=== PATIENT | female | born 1955 | race Caucasian/White ===

== ENCOUNTER → 2024-01-23 12:23 | Outpatient (REF) | payer MEDICARE, OTHER, SELFPAY | LOC: HWCARD 12:23 | PROVIDERS: ATTENDING PHYSICIAN Registered Nurse | DX: R94.31 Abnormal electrocardiogram [ECG] [EKG] (principal); Z79.899 Other long term (current) drug therapy | CPT/HCPCS: 93005 ==

== ENCOUNTER 2025-01-29 16:30 | Inpatient (IN) | payer MEDICARE, OTHER, SELFPAY ==
[2025-01-29] VITALS (16 sets, daily range): BP systolic 80–136; BP diastolic 48–108; BMI 28.3
[2025-01-29 13:53] LABS: Urine Albumin 3+ (Neg - Trace); Urine Bilirubin Negative (Negative); Urine Character Slightly Cloudy (Clear); Urine Color Yellow; Urine Glucose Negative (Negative); Urine Ketone Negative (Negative); Urine Leukocyte 3+ (Negative); Urine Nitrite Negative (Negative); Urine Occult Blood 3+ (Negative); Urine Urobilinogen Negative (Neg - 1+)
[2025-01-29 13:59] LABS: ALT (SGPT) 13 U/L (0-35); AST (SGOT) 18 U/L (14-36); Albumin 3.9 g/dl (3.5-5.0); Alkaline Phosphatase 108 U/L (38-126); Blood Urea Nitrogen 48 mg/dl (7-17); Calcium 10.8 mg/dl (8.4-10.2); Carbon Dioxide 19 mmol/L (22-30); Chloride 105 mmol/L (98-107); Estimated Creatinine Clearance 23 ml/min; Glucose 240 mg/dl (70-99); Potassium 4.3 mmol/L (3.5-5.1); Sodium 142 mmol/L (135-145); Total Bilirubin 0.8 mg/dl (0.2-1.3); Total Protein 7.2 g/dl (6.3-8.2); eGFR 22.31
[2025-01-29 14:01] LABS: Hematocrit 35.8 % (37.0-47.0); Hemoglobin 11.7 g/dL (12.0-16.0); Mean Corp Hgb Conc. 32.7 g/dL (33.0-37.0); Mean Corpuscular Hgb 31.5 pg (27.0-31.0); Mean Corpuscular Volume 96.2 fL (81.0-99.0); Mean Platelet Volume 9.7 fL (7.4-10.4); Platelet Count 244 10^3/uL (130-400); Red Blood Cell Count 3.72 10^6/uL (4.20-5.40); White Blood Cell Count 15.8 10^3/uL (4.8-10.8)
--- NOTE | 2025-01-29 14:08 | ED.GENMED ---
History of Present Illness
General
Chief Complaint: Change in Mental Status
Time Seen by Provider: 01/29/25 13:49
History of Present Illness
History of Present Illness:
69-year-old female with history of hypertension, TIA, bipolar and schizoaffective disorder, hypertension presenting to the emergency department for change in mental status. Patient has held nursing care, reportedly more lethargic and incontinent,
noted to be disoriented. Patient on arrival denies acute complaints. Denies chest pain, difficulty breathing, abdominal pain. Patient arrives with a fever, no known sick contacts. No additional symptoms obtained at this time
Past History
Past History
ED Past Medical History: COPD, HTN, Hypercholesterolemia, NIDDM, Renal failure (acute), Hypothyroidism, Other (bipolar, colitis, rhabdomyolysis, Vertigo,) and Other (vertigo); Negative IDDM
ED Past Surgical History: None
Social History
Tobacco: Former smoker
Alcohol: None
Drug: None
Personal: Single
Living: alone
Employment: Not employed
Family History
Family History: CAD
Phy Exam
Physical Exam
Physical Exam:
General: Well-appearing, no clinical signs of dehydration, nontoxic and in no acute distress
HEENT: protecting airway
Neck: appears supple
CV: Tachycardic, regular rhythm, no evidence of cyanosis
Resp: No accessory muscle use, no increased work of breathing, lungs clear to auscultation bilaterally
Abd: Soft and non-distended, no tenderness to palpation
Extremities: No deformities, no swelling, no erythema, pulses and sensation intact
Neuro: alert, disoriented to time
: deferred
Rectal: deferred
Psych: Normal affect
Skin: Intact
Sepsis
Sepsis Screening
Sepsis Assessment: Sepsis
Sepsis Screening: ARF-Creatinine >2.0
Sepsis Screen
Sepsis Screen: Sepsis
Date: 01/29/25
Time: 15:32
Course
Orders/Labs/Results
Orders:
Orders
01/29/25 13:24
Electrocardiogram (*1) Urgent
Reason for Study: Other
Other Reason for Exam: Possible Sepsis
Cardiac Monitoring- Treatment ONCE
IV Insert/Care/Rem.- Treatment PRN
Straight cath- Treatment ONCE
O2 Therapy [RESP] Urgent
Titrate/Wean O2 to maintain O2 sat greater than (%): 93
Special Instructions: TO MAINTAIN CONTINUOUS O2 SATS > OR = 93%
Pulse Ox/cont/shift [RESP] Urgent
Quantity: 1
Special Instructions: CONTINUOUS
01/29/25 13:25
EKG- Treatment ONCE
CR Chest - 2 Views Urgent
Comment:
Reason For Exam: suspected infection
01/29/25 13:27
Complete Blood Count/With Diff Urgent
Comprehensive Metabolic Panel Urgent
Lactic Acid Q4H
Comment: ON ICE, CANCEL 2ND ORDER IF FIRST LACTIC ACID LEVEL <2
Urinalysis Reflex To Culture Urgent
Date Specimen was Collected: 01/29/25
Time Specimen was Collected: 13:25
Urine Microscopic Reflex Cult Urgent
Urine Culture Urgent
FRANCISCA Source: U
Specimen Description:
Date Specimen was Collected: 01/29/25
Time Specimen was Collected: 13:25
01/29/25 13:28
Blood Culture Q20M
FRANCISCA Source: Blood/Venous
Specimen Description:
Comment: Urgent from separate sites. If patient screens positive for possible sepsis
01/29/25 14:08
Acetaminophen [Tylenol] 1,000 mg PO NOW STA
01/29/25 14:27
Acetaminophen [Tylenol] 1,000 mg PO NOW STA
01/29/25 14:31
Acetaminophen [Tylenol/Feverall] 650 mg .ROUTE .STK-MED ONE
01/29/25 14:32
Acetaminophen [Tylenol/Feverall] 650 mg RECTAL NOW STA
01/29/25 15:18
COVID-19 Antigen Urgent
Source: Nasal Swab
Blood Culture Q20M
FRANCISCA Source: Blood/Venous
Specimen Description:
Comment: Urgent from separate sites. If patient screens positive for possible sepsis
Influenza A+B Rapid Molecular Urgent
FRANCISCA Source: Nasal Swab
Specimen Description:
01/29/25 15:30
Cefepime HCl [Maxipime] 2,000 mg IV NOW STA
01/29/25 17:30
Lactic Acid Q4H
Comment: ON ICE, CANCEL 2ND ORDER IF FIRST LACTIC ACID LEVEL <2
Abnormal Lab Results
01/29/25
13:27
WBC 15.8 H 10^3/uL
(4.8-10.8)
RBC 3.72 L 10^6/uL
(4.20-5.40)
Hgb 11.7 L g/dL
(12.0-16.0)
Hct 35.8 L %
(37.0-47.0)
MCH 31.5 H pg
(27.0-31.0)
MCHC 32.7 L g/dL
(33.0-37.0)
RDW 15.0 H %
(11.5-14.5)
Abs Immat Gran (auto) 0.3 H 10^3/uL
(0-0.05)
Absolute Neuts (auto) 12.9 H 10^3/uL
(1.4-6.5)
Absolute Lymphs (auto) 1.1 L 10^3/uL
(1.2-3.4)
Absolute Monos (auto) 1.4 H 10^3/uL
(0.1-0.6)
Immature Gran % 1.6 H %
(0-0.5)
Neutrophils % 81.7 H %
(42.2-75.2)
Lymphocytes % 7.2 L %
(20.5-51.1)
Carbon Dioxide 19 L mmol/L
(22-30)
BUN 48 H mg/dl
(7-17)
Creatinine 2.3 H mg/dL
(0.6-1.0)
Glucose 240 H mg/dl
(70-99)
Calcium 10.8 H mg/dl
(8.4-10.2)
Ur Occult Blood Reflex 3+ A
(Negative)
Leukocyte Esterase Rfl 3+ A
(Negative)
Urine RBC 26-30 A /HPF
(0-2)
Urine WBC (Reflex) 80-90 A /HPF
(0-5)
Urine Bacteria (Reflex) Many A
(Negative)
Urine Albumin (Reflex) 3+ A
(Neg - Trace)
01/29/25 13:27
01/29/25 13:27
Vital Signs
Initial and Last Documented VS:
Initial Vital Signs
Temp Pulse Resp BP
98.1 F 102 20 80/65
01/29/25 12:56 01/29/25 12:56 01/29/25 12:56 01/29/25 12:56
Last Documented Vital Signs
Temp Pulse Resp BP Pulse Ox
101.3 F H 97 18 117/70 97
01/29/25 13:42 01/29/25 14:00 01/29/25 14:00 01/29/25 14:00 01/29/25 13:30
MDM/Problems Addressed
MDM/Problems Addressed:
69-year-old female with history of TIA, hypertension, bipolar disorder, schizophrenia presenting for change in mental status and incontinence. Vital signs in arrival significant for hypertension, fever, tachycardia.
On exam patient is resting comfortably, no acute distress. Patient currently denying acute medical complaints. Vital signs however concerning for infection, meeting SIRS criteria. Suspected source at this time is urine given report of
incontinence. Plan for laboratory analysis, cultures, urinalysis. Will administer Tylenol and start IV fluids.
15:00 - Patient with leukocytosis, normal lactic acid. Acute on chronic kidney injury. Blood pressure is appropriately improved with IV fluids. Given kidney injury, meeting criteria for severe sepsis. Will continue fluids as indicated. Urine
does show some element of infection, pending chest x-ray and viral swabs.
15:30 -chest x-ray without significant sign pneumonia. At this time ultimately suspect sepsis from urinary source. Will start antibiotics and plan for admission
*EKG
Interpreted by ED Provider?: Yes
EKG Intrepretation Date: 01/29/25
EKG Intrepretation Time: 14:55
Interpretation: normal
Comparison EKG: no changes
Heart Rate: 99
Rate: normal
Rhythm: sinus
[place]: normal axis
Interval: normal interval
QRS Pattern: normal QRS
Ischemia: no ischemia
*Critical Care Note
Total Time (30-74mins, 75-104mins- exclusive of procedures): Not Applicable
ED Attending Note
-
Portions of this chart may have been created with voice recognition software.� Occasional wrong word or��sound alike� substitutions may have occurred due to the inherent limitations of voice recognition software.
Discharge Plan
Departure
Prescriptions:
No Action
simvastatin 40 MG tablet
40 mg PO HS
glipizide 2.5 MG tablet extended release 24hr
2.5 mg PO DAILY
trazodone 100 MG tablet
150 mg PO HS
levothyroxine 88 MCG tablet
88 mcg PO DAILY
mirtazapine 30 MG tablet
30 mg PO HS
lisinopril 10 MG tablet
10 mg PO DAILY
clozapine [Clozaril] 200 MG tablet
400 mg PO HS
melatonin 10 MG tablet
10 mg PO HS
polyethylene glycol 3350 17 GRAMS powder in packet
17 grams PO DAILY Qty: 5 0RF
Divalproex Delayed Rel. 12 Hr
500 mg PO HS
Divalproex Delayed Rel. 12 Hr
250 mg PO AMHS
Vitamin D
1,000 unit PO DAILY
sulfamethoxazole-trimethoprim 1 TABLET tablet
1 tab PO BID 3 Days 0RF
sulfamethoxazole-trimethoprim [Bactrim DS] 800-160 mg tablet
1 tab PO BID Qty: 14 0RF
Referrals:
UNKNOWN - PT DOES,NOT KNOW [Family Provider] -
Interventions
Interventions:
*Risk Screen - Suicide Last Done: 01/29/25 13:06
*General Assessment Last Done: 01/29/25 13:03
*Neglect/Abuse Screening Last Done: 01/29/25 13:06
*ED- Fall Risk Assessment Last Done: 01/29/25 13:06
*ED COVID-19 Vaccine History Last Done: 01/29/25 13:06
ED- Neurological Assessment Last Done: 01/29/25 13:08
Discharge Date and Time
Print Language: YAKUT
[2025-01-29 14:26] LABS: % Basophils 0.5 % (0-2); % Eosinophils 0.1 % (0-6); % Immature Granulocytes 1.6 % (0-0.5); % Lymphocytes 7.2 % (20.5-51.1); % Monocytes 8.9 % (1.7-9.3); % Neutrophils 81.7 % (42.2-75.2); Absolute Basophils 0.1 10^3/uL (0-0.2); Absolute Immature Granulocytes 0.3 10^3/uL (0-0.05); Absolute Lymphocytes 1.1 10^3/uL (1.2-3.4); Absolute Monocytes 1.4 10^3/uL (0.1-0.6); Absolute Neutrophils 12.9 10^3/uL (1.4-6.5); Nucleated Red Blood Cells % 0 %
[2025-01-29] MEDS: TYLENOL/FEVERALL 650 MG RECTAL (14:33)
[2025-01-29 14:55] LABS: Urine Squamous Cell 0-2 /LPF (Few)
[2025-01-29 14:59] LABS: Urine Bacteria Many (Negative); Urine Red Blood Cell 26-30 /HPF (0-2); Urine White Cell 80-90 /HPF (0-5)
--- NOTE | 2025-01-29 15:39 | HPS.HSE ---
Family Physician
-
Family Physician: NOT KNOW UNKNOWN - PT DOES
Chief Complaint
-
Change in mental status
History of Present Illness
Patient is a 69 y/o female past medical history of bipolar disorder, diabetes mellitus, hypertension and chronic kidney disease who presents with a change in mental status. At present time patient is confused and unable to provide any history.
Patient was found lying on the cough by her visiting nurse who noted patient had been incontinent which is not patient's norm. EMS was called and patient was brought to the emergency department where she was found to have a fever of 101.3F.
Patient denies any complaints at the present time.
Medical History
Past Medical History
Past Medical History: Reports Other
Additional Past Medical History:
Diabetes Mellitus, Type II
Essential Hypertension
Hyperlipidemia
CKD Stage III
Bipolar Disorder
Hypothyroidism
Past Surgical History: Reports None
Social History
Tobacco: Former Smoker
Living: Alone
Family History
Family History: Unable to Obtain
Allergies / Home Medications
Allergies reflects when Allergies were last updated in [email or web address].
Home Medications with original date entered in [email or web address]
Allergy/Medication List:
Allergies
Allergy/AdvReac Type Severity Reaction Status Date / Time
carbamazepine [From Tegretol] Allergy Rash Verified 04/25/23 12:39
minocycline HCl Allergy Unknown Verified 04/25/23 12:39
[From Minocin]
Skin Cleanser Combination Allergy Unknown Verified 04/25/23 12:39
No.4
[From Minocin]
thiothixene [From Navane] Allergy Unknown Verified 04/25/23 12:39
Home Medications
glipizide 2.5 mg tablet, extended release 24 hr 2.5 mg PO DAILY Diabetes 12/27/19
simvastatin 40 mg tablet 40 mg PO HS High cholesterol 12/27/19
levothyroxine 88 mcg tablet 88 mcg PO DAILY Thyroid 06/03/20
aspirin 81 mg tablet,delayed release 81 mg PO DAILY 01/29/25
cholecalciferol (vitamin D3) 25 mcg (1,000 unit) tablet (Vitamin D3) 25 mcg PO DAILY 01/29/25
clozapine 100 mg tablet 300 mg PO HS 01/29/25
divalproex 500 mg tablet,extended release 24 hr 1,000 mg PO DAILY 01/29/25
docusate sodium 100 mg capsule (Colace) 200 mg PO BID 01/29/25
famotidine 20 mg tablet (Pepcid) 20 mg PO BID 01/29/25
losartan 50 mg tablet 50 mg PO DAILY 01/29/25
melatonin 3 mg tablet 3 mg PO HS 01/29/25
oxybutynin chloride 5 mg tablet 5 mg PO QPM 01/29/25
quetiapine 25 mg tablet (Seroquel) 25 mg PO DAILY 01/29/25
quetiapine 50 mg tablet (Seroquel) 50 mg PO HS 01/29/25
sennosides 8.6 mg-docusate sodium 50 mg tablet (Senna-S) 2 tab-cap PO BID 01/29/25
Review of Systems
-
Unable to obtain full review of systems at this time due to: Other (Confusion)
Physical Exam
Vital Signs
Vital Signs
Temp Pulse Resp BP Pulse Ox
101.3 F H 97 18 117/70 97
01/29/25 13:42 01/29/25 14:00 01/29/25 14:00 01/29/25 14:00 01/29/25 13:30
Physical Exam
General: Comfortable and Conversant
HEENT: Anicteric and Moist mucous membranes
Respiratory: Clear and Non Labored Respirations
Cardiac: S1/S2 and Regular Rhythm
GI: Soft and Tender (Suprapubic region)
Musculoskeletal: No Clubbing, No Cyanosis and No Edema
Skin: Warm and Dry
Neuro: Awake, Alert, Nonfocal/grossly intact and Other
Psych: Confused
Laboratory Results
-
01/29/25 13:27
01/29/25 13:27
Laboratory Results
Lactic Acid 2.0 mmol/L (0.7-2.0) 01/29/25 13:27
Total Bilirubin 0.8 mg/dl (0.2-1.3) 01/29/25 13:27
AST 18 U/L (14-36) 01/29/25 13:27
ALT 13 U/L (0-35) 01/29/25 13:27
Alkaline Phosphatase 108 U/L (38-126) 01/29/25 13:27
Data Reviewed
-
Lab Data: Labs Reviewed by me
Old Records: Reviewed
Impression/Plan
-
Severe Sepsis secondary to Urinary Tract Infection
-Reviewed prior culture data with ESBL Klebsiella
-Continue Zosyn based on prior cultures
-Await urine culture and blood cultures
Acute Kidney Injury on CKD III
-Check Renal Ultrasound
-Hold losartan
-Continue IVFs
-Recheck labs in AM
Diabetes Mellitus, Type II
-Hold Glipizide
-Check HgbA1c
-Monitor sugars and continue coverage insulin
Essential Hypertension
-Losartan on hold due to JANELLE
-Monitor blood pressure
Hyperlipidemia
-Continue simvastatin
Bipolar Disorder
-Continue clozapine, divalproex, and Seroquel
Hypothyroidism
-Continue levothyroxine
Overactive Bladder
-Hold oxybutynin in setting of UTI
DVT proph: SC Heparin
Code Status: Full Code
--- NOTE | 2025-01-29 15:44 | W.PN.UPDATE ---
Update Note
Progress Note Update
I saw and examined the patient.
The VICTORINO Harrington's note was reviewed and I agree with the note.
Comment: 69 y/o F, hx of HTN, HLD, hx of UTIs, DM, hypothyroidism, Bipolar disorder/schizoaffective disorder, presenting to ER for change in mental status. Noted to be lethargic, disoriented, and incontinent. No other complaints. Arrived in ER
febrile and later met sepsis criteria with abnormal UA and JANELLE. IVF and IV Abx started, patient admitted.
Physical Exam:
General: Well-appearing, no clinical signs of dehydration, nontoxic and in no acute distress
HEENT: protecting airway, + hirsutism
Neck: appears supple
CV: Tachycardic, regular rhythm, no evidence of cyanosis
Resp: No accessory muscle use, no increased work of breathing, lungs clear to auscultation bilaterally
Abd: Soft and non-distended, no tenderness to palpation
Extremities: No deformities, no swelling, no erythema, pulses and sensation intact
Neuro: alert, disoriented to time
: deferred
Rectal: deferred
Psych: Normal affect
Skin: Intact
Assessment:
Severe sepsis (fever, leukocytosis, tachycardia, JANELLE) present on arrival
- likely source UTI
- hx of ESBL noted 5 years ago
- start empiric Zosyn, day 1
- follow urine and blood cultures
- sepsis protocol IVF
JANELLE (on CKD stage 3b) in setting of sepsis
- hold nephrotoxins
- continue IVF
- bladder scans
Essential HTN
- hold Losartan
HLD - statin
type 2 DM
- hold Glipizide
- SSI
- Accu-checks
- A1c
hypothyroidism
- continue replacement
Bipolar disorder/schizoaffective disorder
- continue Clozapine/Depakote/Seroquel
hirsutism
DVT ppx: SC Heparin
Code: Full
[2025-01-29 15:50] LABS: COVID-19 Antigen Negative (Negative)
[2025-01-29] MEDS: NSS 1000 IV (15:58)
[2025-01-29] MEDS: MAXIPIME 2000 MG IV (15:59)
--- NOTE | 2025-01-29 21:12 | PTCARENOTE ---
Rn Flow cosmetologist- Patient states that she has a home health aid. Patient is not sure of phone number. Attempted to call her brother for the number of her caregiver, no answer.
[2025-01-30] VITALS (23 sets, daily range): BP systolic 79–158; BP diastolic 51–138; PULSE 95–103; O2SAT 99; BMI 27.3
[2025-01-30] MEDS: NSS 1000 IV (02:03)
[2025-01-30] MEDS: SENOKOT-S PO ×2 (02:31→08:41)
[2025-01-30] MEDS: PEPCID 20 MG PO ×3 (02:40→20:46)
[2025-01-30] MEDS: COLACE 200 MG PO ×3 (02:40→20:46)
[2025-01-30] MEDS: MELATONIN 3 MG PO ×2 (02:40→21:48)
[2025-01-30] MEDS: HEPARIN 5000 UNITS SC ×3 (02:40→16:46)
[2025-01-30] MEDS: LIPITOR 20 MG PO ×2 (02:41→21:48)
[2025-01-30] MEDS: SEROQUEL 50 MG PO ×2 (02:42→21:48)
[2025-01-30] MEDS: ZOSYN 50 IV ×4 (03:30→20:44)
[2025-01-30] MEDS: CLOZARIL PO (05:03)
[2025-01-30 05:23] LABS: Hematocrit 30.2 % (37.0-47.0); Hemoglobin 9.8 g/dL (12.0-16.0); Mean Corp Hgb Conc. 32.5 g/dL (33.0-37.0); Mean Corpuscular Hgb 31.3 pg (27.0-31.0); Mean Corpuscular Volume 96.5 fL (81.0-99.0); Mean Platelet Volume 9.8 fL (7.4-10.4); Platelet Count 220 10^3/uL (130-400); Red Blood Cell Count 3.13 10^6/uL (4.20-5.40); Red Cell Dist. Width 15.2 % (11.5-14.5); White Blood Cell Count 14.4 10^3/uL (4.8-10.8)
[2025-01-30] MEDS: SYNTHROID 88 MCG PO (05:37)
[2025-01-30 05:44] LABS: Blood Urea Nitrogen 44 mg/dl (7-17); Calcium 9.9 mg/dl (8.4-10.2); Carbon Dioxide 19 mmol/L (22-30); Chloride 114 mmol/L (98-107); Estimated Creatinine Clearance 26 ml/min; Glucose 128 mg/dl (70-99); Potassium 3.8 mmol/L (3.5-5.1); Sodium 147 mmol/L (135-145); eGFR 26.38
[2025-01-30] MEDS: DEPAKOTE ER (24 HR RELEASE) 1000 MG PO (08:39)
[2025-01-30] MEDS: SEROQUEL 25 MG PO (08:41)
[2025-01-30] MEDS: ASPIR LOW (ENTERIC COATED) 81 MG PO (08:45)
[2025-01-30] MEDS: VITAMIN D3 (cholecalciferol) 25 MCG PO (08:45)
[2025-01-30 08:49] LABS: Glucose - Point of Care 109 mg/dl (70-99)
[2025-01-30] MEDS: NOVOLOG FLEXPEN-LOW RESISTANCE SC ×3 (08:54→17:41)
[2025-01-30 09:11] LABS: Glycohemoglobin (HgbA1c) 6.1 % (4.0-5.6)
--- NOTE | 2025-01-30 10:04 | PTCARENOTE ---
Mami BERMUDEZ from [facility] ACT team contacted the emergency room stating that she oversees the pt's care and would be available to answer any questions. Phone number [phone].
--- NOTE | 2025-01-30 10:28 | CM ---
Chart reviewed including previous admits. met patient in room . She reports she lives alone in home but has aides through [place]. She is in the ACTS program from [facility]. Her exercise manager is Mami [phone]. Patient states she
uses rolling walker and has shower seat.
She reports her aides help her with bathing, preparing meals she can heat up in microwave and help her food shop.
She is admitted with UTI and sepsis.
CM spoke to Kirk at [facility] ACTS program. He said staff feel patient may need higher level of care. They did referral to [facility].
Kirk said if patient could do short term rehab it might help her see how much care she can received at SNF. Kirk said patient lives in the family home. Cm attempted to call patient's brother but no answer on phone.
CM to update Mami at [facility] to discuss discharge needs.
--- NOTE | 2025-01-30 11:55 | WOUNDNOTE ---
Wound Care Instructions Extra Strength Desitin to Buttocks BID and PRN
Frequent incontinence Care
--- NOTE | 2025-01-30 11:59 | WOUNDNOTE ---
WOC RN note: Patient admitted with UTI
See H&P for complete history.
PMH: Diabetes Mellitus, Type II, Essential Hypertension Hyperlipidemia,CKD Stage III. Bipolar Disorder, Hypothyroidism
Wound Location and type/assessment: Patient admitted with MASD to buttocks with some scattered open areas. Groin and calvin area intact. Patient is a poor historian when asked about care and incontinence needs. Patient is able to stand with
assistance of 1. Heels and sacrum are intact.
Appetite: Poor historian
Pressure redistribution devices in place: Versa Care with Accumax
Plan: Will recommend Extra Strength Desitin for buttocks. Air cushion applied to chair. Plan is for possible discharge to LTC. Will confirm orders with hospitalist and update nurse. Updated care plan and will follow as needed.
Note to case management of equipment requested for discharge:
Recommend follow up at wound care center upon discharge.
--- NOTE | 2025-01-30 12:00 | WOUNDNOTE ---
BUTTOCKS (photo taken by Adriana Gonzalez, [facility] RN).
[2025-01-30] MEDS: SODIUM BICARBONATE 1150 MEQ IV ×2 (12:07→22:34)
[2025-01-30 12:10] LABS: Glucose - Point of Care 108 mg/dl (70-99)
[2025-01-30] MEDS: DESITIN MAXIMUM STRENGTH PASTE 1 APPLIC TOPICAL ×2 (13:22→21:46)
--- NOTE | 2025-01-30 14:50 | W.PN.HOSP.TC ---
Today's Communication/Plan
-
continue IVF (bicarbonate)
Continue IV Abx and await urine culture
Assessment / Plan
Assessment / Plan
Assessment:
Severe sepsis (fever, leukocytosis, tachycardia, JANELLE) present on arrival
- likely source UTI - culture growing Gram negative species.
- noted prior hx of ESBL noted 5 years ago
- continue Zosyn, day 2
- s/p sepsis protocol IVF
JANELLE (on CKD stage 3b) in setting of sepsis
- hold nephrotoxins
- continue IVF - switch to bicarbonate from NSS due to mild hyperchloremic metabolic alkalosis and mild hypernatremia
- bladder scans
Essential HTN
- hold Losartan
HLD - statin
type 2 DM
- hold Glipizide
- SSI
- Accu-checks
- A1c 6.1%
hypothyroidism
- continue replacement
Bipolar disorder/schizoaffective disorder
- continue Clozapine/Depakote/Seroquel
hirsutism
DVT ppx: SC Heparin
Code: Full
Anticipated Discharge: > 48 hours
Subjective/Interval History
-
Date of Service: January 30, 2025
feels more alert, less tired today
Objective Data
-
Labs:
Laboratory Results
01/30/25
04:58
WBC 14.4 H
Hgb 9.8 L
Hct 30.2 L
Plt Count 220
Sodium 147 H
Potassium 3.8
Chloride 114 H
Carbon Dioxide 19 L
BUN 44 H
Creatinine 2.0 H
Glucose 128 H
Calcium 9.9
Vital Signs:
Vital Signs
Temp Pulse Resp BP Pulse Ox
98.6 F 101 20 112/81 98
01/30/25 12:11 01/30/25 12:00 01/30/25 12:00 01/30/25 12:00 01/30/25 08:00
I&O
01/29/25 01/30/25 01/31/25
06:59 06:59 06:59
Intake Total 1300 / 1300
Output Total 1600 / 1600
Balance -300 / -300
Physical Exam
-
General: No Apparent Distress
HEENT: Normocephalic and Atraumatic
Respiratory: Negative Wheezes
Cardiac: Regular Rhythm and S1/S2
GI: Soft and Nontender
Neuro: AO x 3
Psych: Calm
Data Reviewed
-
Total Time Spent with Patient (in minutes): 42
Labs: Labs Reviewed by me
[2025-01-30 17:39] LABS: Glucose - Point of Care 146 mg/dl (70-99)
[2025-01-30] MEDS: SENOKOT-S 2 TABLET PO (20:46)
--- NOTE | 2025-01-30 21:00 | PTCARENOTE ---
Pt transferred from ED to 3W via wheelchair. Pt was able to stand and pivot to get into bed w/ some assistance. Vitals obtained and stable, TELE monitor placed on pt. AAOX3, slow speech, oriented to room and call chan within reach.
[2025-01-30] MEDS: CLOZARIL 300 MG PO (21:49)
[2025-01-31] MEDS: HEPARIN 5000 UNITS SC ×4 (00:04→23:49)
[2025-01-31] MEDS: ZOSYN 50 IV ×4 (02:00→22:45)
[2025-01-31 04:01] VITALS: BP 130/72
[2025-01-31 06:00] VITALS: BMI 27.7
[2025-01-31 06:37] LABS: Blood Urea Nitrogen 43 mg/dl (7-17); Calcium 9.5 mg/dl (8.4-10.2); Carbon Dioxide 19 mmol/L (22-30); Chloride 107 mmol/L (98-107); Estimated Creatinine Clearance 29 ml/min; Glucose 145 mg/dl (70-99); Potassium 3.6 mmol/L (3.5-5.1); Sodium 140 mmol/L (135-145); eGFR 29.94
[2025-01-31] MEDS: SYNTHROID 88 MCG PO (06:42)
[2025-01-31 06:53] LABS: Hematocrit 27.3 % (37.0-47.0); Hemoglobin 9.3 g/dL (12.0-16.0); Mean Corp Hgb Conc. 34.1 g/dL (33.0-37.0); Mean Corpuscular Hgb 32.2 pg (27.0-31.0); Mean Corpuscular Volume 94.5 fL (81.0-99.0); Mean Platelet Volume 9.9 fL (7.4-10.4); Platelet Count 217 10^3/uL (130-400); Red Blood Cell Count 2.89 10^6/uL (4.20-5.40); Red Cell Dist. Width 14.6 % (11.5-14.5); White Blood Cell Count 11.4 10^3/uL (4.8-10.8)
[2025-01-31 07:55] VITALS: BP 127/64
[2025-01-31 08:05] LABS: % Basophils 0.1 % (0-2); % Eosinophils 0.5 % (0-6); % Immature Granulocytes 9.5 % (0-0.5); % Lymphocytes 11.3 % (20.5-51.1); % Monocytes 9.2 % (1.7-9.3); % Neutrophils 69.4 % (42.2-75.2); Absolute Eosinophils 0.1 10^3/uL (0-0.7); Absolute Immature Granulocytes 1.1 10^3/uL (0-0.05); Absolute Lymphocytes 1.3 10^3/uL (1.2-3.4); Absolute Monocytes 1.1 10^3/uL (0.1-0.6); Absolute Neutrophils 7.9 10^3/uL (1.4-6.5); Nucleated Red Blood Cells % 0 %
[2025-01-31 08:10] LABS: Glucose - Point of Care 140 mg/dl (70-99)
[2025-01-31] MEDS: NOVOLOG FLEXPEN-LOW RESISTANCE SC ×3 (08:16→17:04)
[2025-01-31] MEDS: ASPIR LOW (ENTERIC COATED) 81 MG PO (08:17)
[2025-01-31] MEDS: SENOKOT-S 2 TABLET PO ×2 (08:17→22:43)
[2025-01-31] MEDS: DESITIN MAXIMUM STRENGTH PASTE 1 APPLIC TOPICAL ×2 (08:17→22:46)
[2025-01-31] MEDS: PEPCID 20 MG PO (08:17)
[2025-01-31] MEDS: SEROQUEL 25 MG PO (08:17)
[2025-01-31] MEDS: VITAMIN D3 (cholecalciferol) 25 MCG PO (08:17)
[2025-01-31] MEDS: DEPAKOTE ER (24 HR RELEASE) 1000 MG PO (08:17)
[2025-01-31] MEDS: COLACE 200 MG PO ×2 (08:17→22:42)
[2025-01-31 10:55] VITALS: BP 136/75
[2025-01-31 11:34] LABS: Glucose - Point of Care 216 mg/dl (70-99)
--- NOTE | 2025-01-31 12:18 | W.PN.HOSP.TC ---
Today's Communication/Plan
-
continue BS/SC protocol
continue IVF Bicarbonate
Continue Zosyn, day 3
DC planning to SNF
Assessment / Plan
Assessment / Plan
Assessment:
Severe sepsis (fever, leukocytosis, tachycardia, JANELLE) present on arrival
- Urine culture: Mult-drug resistant Klebsiella
- continue Zosyn, day 3 - at discharge Augmentin x 10 days
- s/p sepsis protocol IVF
JANELLE (on CKD stage 3b) in setting of sepsis
- hold nephrotoxins
- continue bicarbonate IVF
- bladder scans with SC
Essential HTN
- hold Losartan
HLD - statin
type 2 DM
- hold Glipizide
- SSI
- Accu-checks
- A1c 6.1%
hypothyroidism
- continue replacement
Bipolar disorder/schizoaffective disorder
- continue Clozapine/Depakote/Seroquel
hirsutism
DVT ppx: SC Heparin
Code: Full
Anticipated Discharge: 24 - 48 hours
Subjective/Interval History
-
Date of Service: January 31, 2025
s/p SC last evening with 1L removed
continues to feel better
Objective Data
-
Labs:
Laboratory Results
01/31/25
05:46
WBC 11.4 H
Hgb 9.3 L
Hct 27.3 L
Plt Count 217
Sodium 140
Potassium 3.6
Chloride 107
Carbon Dioxide 19 L
BUN 43 H
Creatinine 1.8 H
Glucose 145 H
Calcium 9.5
Vital Signs:
Vital Signs
Temp Pulse Resp BP Pulse Ox
97.8 F 88 16 136/75 98
01/31/25 10:55 01/31/25 10:55 01/31/25 10:55 01/31/25 10:55 01/31/25 10:55
I&O
01/30/25 01/31/25 02/01/25
06:59 06:59 06:59
Intake Total 1300 / 1300
Output Total 1600 / 1600 3250 / 3250
Balance -300 / -300 -3250 / -3250
Physical Exam
-
General: No Apparent Distress
HEENT: Normocephalic and Atraumatic
Respiratory: Negative Wheezes
Cardiac: Regular Rhythm and S1/S2
GI: Soft
Genito-urinary: No Costovertebral Tender
Neuro: AO x 3
Psych: Calm
Data Reviewed
-
Total Time Spent with Patient (in minutes): 42
Labs: Labs Reviewed by me
[2025-01-31] MEDS: SODIUM BICARBONATE 1150 MEQ IV (12:45)
[2025-01-31 14:25] LABS: Glucose - Point of Care 125 mg/dl (70-99)
[2025-01-31 15:21] VITALS: BP 129/75
[2025-01-31 16:51] LABS: Glucose - Point of Care 179 mg/dl (70-99)
[2025-01-31 20:22] VITALS: BP 144/73
[2025-01-31 21:42] LABS: Glucose - Point of Care 190 mg/dl (70-99)
[2025-01-31] MEDS: MELATONIN 3 MG PO (22:43)
[2025-01-31] MEDS: SEROQUEL 50 MG PO (22:44)
[2025-01-31] MEDS: LIPITOR 20 MG PO (22:44)
[2025-01-31] MEDS: CLOZARIL 300 MG PO (22:45)
[2025-02-01] VITALS (7 sets, daily range): BP systolic 136–171; BP diastolic 69–88
[2025-02-01] MEDS: SODIUM BICARBONATE 1150 MEQ IV (02:38)
[2025-02-01] MEDS: ZOSYN 50 IV ×3 (02:48→13:39)
[2025-02-01] MEDS: SYNTHROID 88 MCG PO (05:41)
[2025-02-01 07:01] LABS: Hematocrit 27.4 % (37.0-47.0); Hemoglobin 9.3 g/dL (12.0-16.0); Mean Corp Hgb Conc. 33.9 g/dL (33.0-37.0); Mean Corpuscular Hgb 31.7 pg (27.0-31.0); Mean Corpuscular Volume 93.5 fL (81.0-99.0); Mean Platelet Volume 9.7 fL (7.4-10.4); Platelet Count 210 10^3/uL (130-400); Red Blood Cell Count 2.93 10^6/uL (4.20-5.40); Red Cell Dist. Width 14.5 % (11.5-14.5); White Blood Cell Count 9.8 10^3/uL (4.8-10.8)
[2025-02-01 07:17] LABS: Blood Urea Nitrogen 36 mg/dl (7-17); Calcium 9.5 mg/dl (8.4-10.2); Carbon Dioxide 31 mmol/L (22-30); Chloride 108 mmol/L (98-107); Estimated Creatinine Clearance 35 ml/min; Glucose 146 mg/dl (70-99); Potassium 3.3 mmol/L (3.5-5.1); Sodium 147 mmol/L (135-145); eGFR 37.26
[2025-02-01 08:09] LABS: Absolute Neutrophils -Man Diff 6.2 10^3/uL (1.4-6.5); Band Neutrophils 3 % (0-3); Eosinophils 2 % (0-6); Lymphocytes 21 % (20-51); Metamyelocytes 4 % (-); Monocytes 5 % (2-9); Myelocytes 4 % (-); Platelets Checked Yes; Segmented Neutrophils 61 % (42-75)
[2025-02-01 08:10] LABS: Anisocytosis Slight; Hypochromasia Slight; Normal RBC Morphology No; Total Cells Counted 100
[2025-02-01 08:11] LABS: Glucose - Point of Care 129 mg/dl (70-99)
[2025-02-01] MEDS: VITAMIN D3 (cholecalciferol) 25 MCG PO (09:51)
[2025-02-01] MEDS: KCL 40 MEQ PO (09:52)
[2025-02-01] MEDS: DEPAKOTE ER (24 HR RELEASE) 1000 MG PO (09:53)
[2025-02-01] MEDS: SEROQUEL 25 MG PO (09:54)
[2025-02-01] MEDS: COLACE 200 MG PO (09:54)
[2025-02-01] MEDS: SENOKOT-S 2 TABLET PO (09:54)
[2025-02-01] MEDS: PEPCID 20 MG PO (09:56)
[2025-02-01] MEDS: ASPIR LOW (ENTERIC COATED) 81 MG PO (09:56)
[2025-02-01] MEDS: HEPARIN 5000 UNITS SC ×3 (09:57→22:42)
[2025-02-01] MEDS: NOVOLOG FLEXPEN-LOW RESISTANCE SC (09:58)
[2025-02-01] MEDS: DESITIN MAXIMUM STRENGTH PASTE 1 APPLIC TOPICAL ×2 (09:59→22:15)
[2025-02-01 12:02] LABS: Glucose - Point of Care 197 mg/dl (70-99)
[2025-02-01] MEDS: NOVOLOG FLEXPEN-LOW RESISTANCE 1 UNITS SC ×2 (13:33→17:39)
--- NOTE | 2025-02-01 15:05 | W.PN.HOSP.TC ---
Today's Communication/Plan
-
continue IV abx
cap IVF
dc planning to SNF
Assessment / Plan
Assessment / Plan
Assessment:
Severe sepsis (fever, leukocytosis, tachycardia, JANELLE) present on arrival
- Urine culture: Mult-drug resistant Klebsiella
- continue Rocephin (day 4 of abx) - at discharge Augmentin x 10 days
- s/p sepsis protocol IVF
JANELLE (on CKD stage 3b) in setting of sepsis
- hold nephrotoxins
- s/p IVF
- bladder scans with SC
Essential HTN
- hold Losartan
HLD - statin
type 2 DM
- hold Glipizide
- SSI
- Accu-checks
- A1c 6.1%
hypothyroidism
- continue replacement
Bipolar disorder/schizoaffective disorder
- continue Clozapine/Depakote/Seroquel
hirsutism
DVT ppx: SC Heparin
Code: Full
Anticipated Discharge: 24 - 48 hours
Subjective/Interval History
-
Date of Service: February 01, 2025
resting comfortably, no complaints
Objective Data
-
Labs:
Laboratory Results
02/01/25
06:17
WBC 9.8
Hgb 9.3 L
Hct 27.4 L
Plt Count 210
Sodium 147 H
Potassium 3.3 L
Chloride 108 H
Carbon Dioxide 31 H
BUN 36 H
Creatinine 1.5 H
Glucose 146 H
Calcium 9.5
Vital Signs:
Vital Signs
Temp Pulse Resp BP Pulse Ox
97.9 F 81 18 162/74 96
02/01/25 11:17 02/01/25 11:17 02/01/25 11:17 02/01/25 11:17 02/01/25 11:17
I&O
01/31/25 02/01/25 02/02/25
06:59 06:59 06:59
Intake Total 960 / 960
Output Total 3250 / 3250 5500 / 5500
Balance -3250 / -3250 -4540 / -4540
Physical Exam
-
General: No Apparent Distress
HEENT: Normocephalic and Atraumatic
Respiratory: Negative Wheezes
Cardiac: Regular Rhythm and S1/S2
GI: Soft and Nontender
Musculoskeletal: No Edema
Neuro: AO x 3
Hematologic / Lymphatic: No Lymphadenopathy
Psych: Calm
Data Reviewed
-
Total Time Spent with Patient (in minutes): 41
Labs: Labs Reviewed by me
--- NOTE | 2025-02-01 15:42 | CM ---
Referrals placed in [facility] for [facility] and [facility] for short term rehab services.
CM to follow to coordinate needs as further identified during hospitalization.
--- NOTE | 2025-02-01 16:11 | PN.CDI ---
CDI
- -
CDI:
Physician Documentation Request
Admit Date: 01/29/25 16:30
Dear Doctor Radha,
Patient admitted for sepsis.
02/01 Potassium level: 3.3
02/01 Potassium chloride 40 meq PO administered
Based on the above, could you clarify in the progress notes, the appropriate diagnosis, if significant, that supports the above abnormalities and additional evaluation, monitoring and/or treatment rendered:
Hypokalemia
Abnormal lab value insignificant
Other
Use of terms such as suspected, likely, concern for, or probable (associated with a specific diagnosis that is being evaluated, monitored, or treated as if it exists) are acceptable and can be coded in the inpatient setting, when documented at the
time of discharge.
Thank you,
Kalani Meraz RN, BSN
CDI Specialist
Available via [place] text
Please use your independent medical judgment in providing your response.
[2025-02-01 16:44] LABS: Glucose - Point of Care 175 mg/dl (70-99)
[2025-02-01] MEDS: COZAAR 50 MG PO (17:24)
[2025-02-01] MEDS: SENOKOT-S PO (22:12)
[2025-02-01] MEDS: LIPITOR 20 MG PO (22:12)
[2025-02-01] MEDS: COLACE PO (22:12)
[2025-02-01] MEDS: SEROQUEL 50 MG PO (22:13)
[2025-02-01] MEDS: CLOZARIL 300 MG PO (22:14)
[2025-02-01] MEDS: MELATONIN 3 MG PO (22:14)
[2025-02-01 22:41] LABS: Glucose - Point of Care 140 mg/dl (70-99)
[2025-02-02 03:15] VITALS: BP 137/72
[2025-02-02] MEDS: SYNTHROID 88 MCG PO (06:23)
[2025-02-02 06:57] VITALS: BMI 26.5
[2025-02-02 07:34] LABS: Hematocrit 24.1 % (37.0-47.0); Mean Corp Hgb Conc. 33.2 g/dL (33.0-37.0); Mean Corpuscular Hgb 30.8 pg (27.0-31.0); Mean Corpuscular Volume 92.7 fL (81.0-99.0); Mean Platelet Volume 9.8 fL (7.4-10.4); Platelet Count 216 10^3/uL (130-400); Red Cell Dist. Width 14.8 % (11.5-14.5)
[2025-02-02 07:58] LABS: Blood Urea Nitrogen 27 mg/dl (7-17); Calcium 9.1 mg/dl (8.4-10.2); Carbon Dioxide 28 mmol/L (22-30); Chloride 112 mmol/L (98-107); Estimated Creatinine Clearance 34 ml/min; Glucose 127 mg/dl (70-99); Potassium 3.8 mmol/L (3.5-5.1); Sodium 149 mmol/L (135-145); eGFR 40.47
[2025-02-02 08:11] LABS: Absolute Neutrophils -Man Diff 7.3 10^3/uL (1.4-6.5); Anisocytosis 1+; Band Neutrophils 3 % (0-3); Eosinophils 2 % (0-6); Lymphocytes 14 % (20-51); Metamyelocytes 3 % (-); Monocytes 1 % (2-9); Myelocytes 7 % (-); Normal RBC Morphology No; Platelets Checked Yes; Polychromasia Slight; Segmented Neutrophils 70 % (42-75); Total Cells Counted 100
--- NOTE | 2025-02-02 08:17 | W.PN.HOSP.TC ---
Today's Communication/Plan
-
medically stable for DC to SNF pending bed/auth
Assessment / Plan
Assessment / Plan
Assessment:
Severe sepsis (fever, leukocytosis, tachycardia, JANELLE) present on arrival
- Urine culture: Multi-drug resistant Klebsiella
- continue Rocephin (day 5 of abx) - at discharge Augmentin x 10 days
- s/p sepsis protocol IVF
JANELLE (on CKD stage 3b) in setting of sepsis
- hold nephrotoxins
- s/p IVF
Acute urinary retention
- continue Marinelli per protocol
Hypernatremia
- increase Free water intake
Essential HTN
- continue Losartan
HLD - statin
type 2 DM
- hold Glipizide
- SSI
- Accu-checks
- A1c 6.1%
hypothyroidism
- continue replacement
Bipolar disorder/schizoaffective disorder
- continue Clozapine/Depakote/Seroquel
hirsutism
Hypokalemia
- replete prn
DVT ppx: SC Heparin
Code: Full
Anticipated Discharge: 24 - 48 hours
Subjective/Interval History
-
Date of Service: February 02, 2025
denies any new complaints at present
Objective Data
-
Labs:
Laboratory Results
02/02/25
06:16
WBC 10.0
Hgb 8.0 L
Hct 24.1 L
Plt Count 216
Sodium 149 H
Potassium 3.8
Chloride 112 H
Carbon Dioxide 28
BUN 27 H
Creatinine 1.4 H
Glucose 127 H
Calcium 9.1
Vital Signs:
Vital Signs
Temp Pulse Resp BP Pulse Ox
99.0 F 87 16 137/72 98
02/02/25 03:15 02/02/25 03:15 02/02/25 03:15 02/02/25 03:15 02/02/25 03:15
I&O
02/01/25 02/02/25 02/03/25
06:59 06:59 06:59
Intake Total 960 / 960 480 / 480
Output Total 5500 / 5500 4650 / 4650
Balance -4540 / -4540 -4170 / -4170
Physical Exam
-
General: No Apparent Distress
HEENT: Normocephalic and Atraumatic
Respiratory: Negative Wheezes
Cardiac: Regular Rhythm and S1/S2
GI: Soft
Genito-urinary: No Costovertebral Tender and Marinelli
Neuro: AO x 3
Psych: Calm
Data Reviewed
-
Total Time Spent with Patient (in minutes): 44
Labs: Labs Reviewed by me
[2025-02-02 08:39] LABS: Glucose - Point of Care 130 mg/dl (70-99)
[2025-02-02] MEDS: NOVOLOG FLEXPEN-LOW RESISTANCE SC ×2 (08:54→17:55)
[2025-02-02] MEDS: STERILE WATER FOR INJECTION 10 ML IV (08:55)
[2025-02-02] MEDS: SENOKOT-S 2 TABLET PO ×2 (08:55→21:18)
[2025-02-02] MEDS: COLACE 200 MG PO ×2 (08:55→21:17)
[2025-02-02 08:57] VITALS: BP 139/88
[2025-02-02] MEDS: DEPAKOTE ER (24 HR RELEASE) 1000 MG PO (09:05)
[2025-02-02] MEDS: VITAMIN D3 (cholecalciferol) 25 MCG PO (09:05)
[2025-02-02] MEDS: SEROQUEL 25 MG PO (09:06)
[2025-02-02] MEDS: PEPCID 20 MG PO (09:06)
[2025-02-02] MEDS: ASPIR LOW (ENTERIC COATED) 81 MG PO (09:06)
[2025-02-02] MEDS: ROCEPHIN 1000 MG IV (09:06)
[2025-02-02] MEDS: HEPARIN 5000 UNITS SC ×2 (09:06→17:52)
[2025-02-02] MEDS: COZAAR 50 MG PO (09:06)
[2025-02-02] MEDS: DESITIN MAXIMUM STRENGTH PASTE 1 APPLIC TOPICAL ×2 (09:07→21:18)
[2025-02-02 13:10] VITALS: BP 136/66
[2025-02-02 13:21] LABS: Glucose - Point of Care 188 mg/dl (70-99)
[2025-02-02] MEDS: NOVOLOG FLEXPEN-LOW RESISTANCE 1 UNITS SC (14:23)
[2025-02-02 16:46] LABS: Glucose - Point of Care 147 mg/dl (70-99)
[2025-02-02 17:38] VITALS: BP 170/87
[2025-02-02 19:00] VITALS: BP 178/87
[2025-02-02] MEDS: SEROQUEL 50 MG PO (21:17)
[2025-02-02] MEDS: CLOZARIL 300 MG PO (21:17)
[2025-02-02] MEDS: MELATONIN 3 MG PO (21:17)
[2025-02-02] MEDS: LIPITOR 20 MG PO (21:18)
[2025-02-02 21:52] LABS: Glucose - Point of Care 130 mg/dl (70-99)
[2025-02-02 23:00] VITALS: BP 164/90
[2025-02-03] MEDS: HEPARIN 5000 UNITS SC ×3 (01:48→15:52)
[2025-02-03 03:00] VITALS: BP 165/89
[2025-02-03] MEDS: SYNTHROID 88 MCG PO (05:17)
[2025-02-03 06:00] VITALS: BMI 26.4
[2025-02-03 06:32] LABS: Hematocrit 27.6 % (37.0-47.0); Hemoglobin 9.2 g/dL (12.0-16.0); Mean Corp Hgb Conc. 33.3 g/dL (33.0-37.0); Mean Corpuscular Hgb 31.3 pg (27.0-31.0); Mean Corpuscular Volume 93.9 fL (81.0-99.0); Mean Platelet Volume 9.3 fL (7.4-10.4); Platelet Count 204 10^3/uL (130-400); Red Blood Cell Count 2.94 10^6/uL (4.20-5.40); Red Cell Dist. Width 14.4 % (11.5-14.5)
[2025-02-03 07:08] LABS: Blood Urea Nitrogen 25 mg/dl (7-17); Calcium 9.5 mg/dl (8.4-10.2); Carbon Dioxide 27 mmol/L (22-30); Chloride 109 mmol/L (98-107); Estimated Creatinine Clearance 31 ml/min; Glucose 135 mg/dl (70-99); Sodium 145 mmol/L (135-145); eGFR 37.26
[2025-02-03 07:48] VITALS: BP 154/89
[2025-02-03 07:58] LABS: Glucose - Point of Care 142 mg/dl (70-99)
--- NOTE | 2025-02-03 11:02 | W.PN.HOSP.TC ---
Today's Communication/Plan
-
dc to SNF when confirmed
Assessment / Plan
Assessment / Plan
Assessment:
Severe sepsis (fever, leukocytosis, tachycardia, JANELLE) present on arrival
- Urine culture: Multi-drug resistant Klebsiella
- continue Rocephin (day 6 of abx) - at discharge Augmentin x 10 days
- s/p sepsis protocol IVF
JANELLE (on CKD stage 3b) in setting of sepsis
- hold nephrotoxins
- s/p IVF
Acute urinary retention
- continue Marinelli per protocol
Hypernatremia
- increase Free water intake
Essential HTN
- continue Losartan
HLD - statin
type 2 DM
- hold Glipizide
- SSI
- Accu-checks
- A1c 6.1%
hypothyroidism
- continue replacement
Bipolar disorder/schizoaffective disorder
- continue Clozapine/Depakote/Seroquel
hirsutism
Hypokalemia
- replete prn
DVT ppx: SC Heparin
Code: Full
More than 30 minutes spent in discharge including
Final examination of the patient
Summarizing hospital stay
Instructions for continuing care to all relevant caregivers
Preparation of discharge records, prescriptions, and referral forms
Total time spent (in minutes): 41
Anticipated Discharge: Today
Subjective/Interval History
-
Date of Service: February 03, 2025
denies any new complaints
Objective Data
-
Labs:
Laboratory Results
02/03/25
05:25
WBC 13.0 H
Hgb 9.2 L
Hct 27.6 L
Plt Count 204
Sodium 145
Potassium 4.0
Chloride 109 H
Carbon Dioxide 27
BUN 25 H
Creatinine 1.5 H
Glucose 135 H
Calcium 9.5
Vital Signs:
Vital Signs
Temp Pulse Resp BP Pulse Ox
98.7 F 82 20 154/89 96
02/03/25 07:48 02/03/25 07:48 02/03/25 07:48 02/03/25 07:48 02/03/25 07:48
I&O
02/02/25 02/03/25 02/04/25
06:59 06:59 06:59
Intake Total 480 / 480 1560 / 1560
Output Total 4650 / 4650 2200 / 2200
Balance -4170 / -4170 -640 / -640
Physical Exam
-
General: No Apparent Distress
HEENT: Normocephalic and Atraumatic
Respiratory: Negative Wheezes
Cardiac: Regular Rhythm and S1/S2
GI: Soft and Nontender
Genito-urinary: No Costovertebral Tender
Neuro: AO x 3
Hematologic / Lymphatic: No Lymphadenopathy
Psych: Calm
Data Reviewed
-
Total Time Spent with Patient (in minutes): 41
Labs: Labs Reviewed by me
--- NOTE | 2025-02-03 11:09 | W.DS.TRANS ---
DC Summary - [employer]
-
Discharge Instructions:
Discharge Diagnosis/Procedures sepsis, Klebsiella UTI, urinary retention
requiring Marinelli
Diet Diabetic, Carb Controlled,Low Cholesterol
Activity As tolerated
Other Services OT,PT
Instructions:
Stand-Alone Forms:
Changes to Home Medications: No
Discharge Medications:
DC Medications w/original date entered in [employer]
glipizide 2.5 mg tablet, extended release 24 hr 2.5 mg PO DAILY Diabetes 12/27/19
simvastatin 40 mg tablet 40 mg PO HS High cholesterol 12/27/19
levothyroxine 88 mcg tablet 88 mcg PO DAILY Thyroid 06/03/20
aspirin 81 mg tablet,delayed release 81 mg PO DAILY Blood Clot Prevention/Tx 01/29/25
cholecalciferol (vitamin D3) 25 mcg (1,000 unit) tablet (Vitamin D3) 25 mcg PO DAILY Supplement 01/29/25
clozapine 100 mg tablet 300 mg PO HS bipolar disorder 01/29/25
divalproex 500 mg tablet,extended release 24 hr 1,000 mg PO DAILY bipolar disorder 01/29/25
docusate sodium 100 mg capsule (Colace) 200 mg PO BID Constipation 01/29/25
famotidine 20 mg tablet (Pepcid) 20 mg PO BID Gastrointestinal Issue 01/29/25
losartan 50 mg tablet 50 mg PO DAILY Blood Pressure 01/29/25
melatonin 3 mg tablet 3 mg PO HS Sleep 01/29/25
quetiapine 25 mg tablet (Seroquel) 25 mg PO DAILY bipolar disorder 01/29/25
quetiapine 50 mg tablet (Seroquel) 50 mg PO HS bipolar disorder 01/29/25
sennosides 8.6 mg-docusate sodium 50 mg tablet (Senna-S) 2 tab-cap PO BID Constipation 01/29/25
cefdinir 300 mg capsule 300 mg PO BID 5 days #10 caps 02/03/25
Home Medication Changes
Pending Results: No
Total time spent discharging patient (in min): 41
[2025-02-03] MEDS: NOVOLOG FLEXPEN-LOW RESISTANCE SC (11:14)
[2025-02-03] MEDS: SEROQUEL 25 MG PO (11:15)
[2025-02-03] MEDS: COZAAR 50 MG PO (11:15)
[2025-02-03] MEDS: DEPAKOTE ER (24 HR RELEASE) 1000 MG PO (11:15)
[2025-02-03] MEDS: COLACE 200 MG PO ×2 (11:15→21:35)
[2025-02-03] MEDS: SENOKOT-S 2 TABLET PO ×2 (11:16→21:35)
[2025-02-03] MEDS: PEPCID 20 MG PO (11:16)
[2025-02-03] MEDS: VITAMIN D3 (cholecalciferol) 25 MCG PO (11:16)
[2025-02-03] MEDS: STERILE WATER FOR INJECTION 10 ML IV (11:16)
[2025-02-03] MEDS: ASPIR LOW (ENTERIC COATED) 81 MG PO (11:16)
[2025-02-03] MEDS: DESITIN MAXIMUM STRENGTH PASTE 1 APPLIC TOPICAL ×2 (11:17→21:34)
[2025-02-03] MEDS: ROCEPHIN 1000 MG IV (11:17)
--- NOTE | 2025-02-03 11:41 | CM ---
Plan: discharge to [facility] pending completion of Psych Consult; Level II PASSR
Attending notified
[2025-02-03 12:00] VITALS: BP 170/108
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
[2025-02-03 13:32] LABS: Glucose - Point of Care 185 mg/dl (70-99)
[2025-02-03] MEDS: NOVOLOG FLEXPEN-LOW RESISTANCE 1 UNITS SC ×2 (14:30→17:56)
[2025-02-03 15:56] VITALS: BP 150/84
[2025-02-03 17:56] LABS: Glucose - Point of Care 192 mg/dl (70-99)
[2025-02-03] MEDS: CLOZARIL 300 MG PO (21:34)
[2025-02-03] MEDS: LIPITOR 20 MG PO (21:35)
[2025-02-03] MEDS: MELATONIN 3 MG PO (21:35)
[2025-02-03] MEDS: SEROQUEL 50 MG PO (21:37)
[2025-02-03 23:00] VITALS: BP 145/85
[2025-02-04] MEDS: HEPARIN 5000 UNITS SC ×3 (01:07→17:02)
[2025-02-04] MEDS: SYNTHROID 88 MCG PO (05:32)
[2025-02-04 06:00] VITALS: BMI 26.0
[2025-02-04 06:43] LABS: Hematocrit 31.2 % (37.0-47.0); Hemoglobin 10.2 g/dL (12.0-16.0); Mean Corp Hgb Conc. 32.7 g/dL (33.0-37.0); Mean Corpuscular Hgb 31.4 pg (27.0-31.0); Platelet Count 210 10^3/uL (130-400); Red Blood Cell Count 3.25 10^6/uL (4.20-5.40); Red Cell Dist. Width 14.4 % (11.5-14.5); White Blood Cell Count 19.5 10^3/uL (4.8-10.8)
[2025-02-04 07:06] LABS: Blood Urea Nitrogen 24 mg/dl (7-17); Calcium 10.1 mg/dl (8.4-10.2); Carbon Dioxide 26 mmol/L (22-30); Chloride 109 mmol/L (98-107); Estimated Creatinine Clearance 39 ml/min; Glucose 170 mg/dl (70-99); Potassium 3.7 mmol/L (3.5-5.1); Sodium 145 mmol/L (135-145)
[2025-02-04 07:50] VITALS: BP 178/110; BP 180/90
[2025-02-04] MEDS: DEPAKOTE ER (24 HR RELEASE) 1000 MG PO (08:18)
[2025-02-04] MEDS: SEROQUEL 25 MG PO (08:19)
[2025-02-04] MEDS: COZAAR 50 MG PO (08:19)
[2025-02-04] MEDS: VITAMIN D3 (cholecalciferol) 25 MCG PO (08:19)
[2025-02-04] MEDS: ASPIR LOW (ENTERIC COATED) 81 MG PO (08:19)
[2025-02-04] MEDS: PEPCID 20 MG PO (08:19)
[2025-02-04] MEDS: ROCEPHIN 1000 MG IV (08:20)
[2025-02-04] MEDS: SENOKOT-S 2 TABLET PO (08:20)
[2025-02-04] MEDS: STERILE WATER FOR INJECTION 10 ML IV (08:20)
[2025-02-04] MEDS: COLACE 200 MG PO (08:20)
[2025-02-04] MEDS: NOVOLOG FLEXPEN-LOW RESISTANCE SC (08:21)
[2025-02-04 08:23] LABS: Glucose - Point of Care 135 mg/dl (70-99)
[2025-02-04] MEDS: DESITIN MAXIMUM STRENGTH PASTE 1 APPLIC TOPICAL (08:23)
[2025-02-04 11:25] VITALS: BP 153/99
[2025-02-04 11:44] LABS: Glucose - Point of Care 260 mg/dl (70-99)
--- NOTE | 2025-02-04 12:28 | W.PN.HOSP.TC ---
Addendum entered and electronically signed by Tyler Duke DO 02/04/25 12:37:
This this patient will likely require less than 30 days of senior care facility services as her symptoms and behaviors are stable
Original Note:
Today's Communication/Plan
-
Transition to oral antibiotics
Discharge to SNF
Assessment / Plan
Assessment / Plan
#Severe urosepsis
-Presented with fever, leukocytosis, tachycardia; found to have positive UA and culture
-Status post severe sepsis IVF protocol; was started on IV ceftriaxone empirically
-Urine culture returned positive for Klebsiella resistant to ampicillin and nitrofurantoin
-Remains afebrile and hemodynamically stable, white cell count downtrend
-Will transition to cefdinir to complete 10 days of antibiotic
#JANELLE on CKD 3b
-Prerenal secondary to sepsis, resolved with IV fluids
#Acute urine retention
-Likely related to infection, lack of ambulation
-If unable to remove prior to discharge will provide urology follow-up OP
-Anticipate higher chances of successful removal when ambulating
#Primary hypertension
-Continued on home losartan
#NIDDM
-Home regimen includes glipizide; was transition to ISS with Accu-Chek
- A1c 6.1%
#Hypothyroidism
-Home regimen includes HRT with levothyroxine
#Bipolar disorder
#Schizoaffective disorder
-Home regimen includes clozapine, Depakote, Seroquel
-Should have repeat Depakote levels obtained at SNF
#Hirsutism
DVT prophylaxis: SQ heparin
Diet: Carbohydrate controlled
CODE STATUS: Full
Anticipated Discharge: Within 24 hours
Subjective/Interval History
-
Date of Service: February 04, 2025
Seen and examined at the bedside. No acute events reported overnight. AFVSS this morning
Renal function stable, down from 1.5-1.2 this morning. Did have bump in white cells from 13-19.5 though no fevers
Patient denies any complaints. States she feels well today
Objective Data
-
Labs:
Laboratory Results
02/04/25
06:12
WBC 19.5 H
Hgb 10.2 L
Hct 31.2 L
Plt Count 210
Sodium 145
Potassium 3.7
Chloride 109 H
Carbon Dioxide 26
BUN 24 H
Creatinine 1.2 H
Glucose 170 H
Calcium 10.1
Vital Signs:
Vital Signs
Temp Pulse Resp BP Pulse Ox
98.8 F 90 14 153/99 99
02/04/25 11:25 02/04/25 11:25 02/04/25 11:25 02/04/25 11:25 02/04/25 11:25
I&O
02/03/25 02/04/25 02/05/25
06:59 06:59 06:59
Intake Total 1560 / 1560 1590 / 1590
Output Total 2200 / 2200 3450 / 3450
Balance -640 / -640 -1860 / -1860
Review of Systems
-
History Source: Patient
All other systems: Reviewed and negative
Physical Exam
-
General: Well Developed, Well Nourished, No Apparent Distress and Comfortable
HEENT: Normocephalic, Atraumatic, Moist Mucous Membranes and Anicteric
Respiratory: Clear to Auscultation and Non Labored Respirations; Negative Accessory Resp Muscle Use
Cardiac: Regular Rhythm and S1/S2; Negative Murmur, Rub or Gallop
GI: Soft, Nontender, Nondistended and Normal Bowel Sounds
Genito-urinary: No Costovertebral Tender
Musculoskeletal: No Clubbing, No Cyanosis and No Edema
Skin: Warm, Dry and Normal Turgor; Negative Rash
Neuro: AO x 3
Psych: Calm
Data Reviewed
-
Labs: Labs Reviewed by me and Discussed with Patient
--- NOTE | 2025-02-04 12:30 | CM ---
Addendum entered by Pam Landaverde 02/04/25 17:35:
Pt cleared for transfer to [facility]. IMM reviewed with patient and she declined to sign. Verbal consent provided by patient.
CM called pt's brother to make him aware that Navi is being transferred to [facility].
Ambulance transport arranged for 7PM.
Original Note:
CM spoke with Fatuma at [facility]; pt is accepted for transfer when medically cleared.
Anticipate SNF for < 30 days.
Plan: Discharge to [facility] today
[facility] Report: [phone]
[facility]
[2025-02-04] MEDS: NOVOLOG FLEXPEN-LOW RESISTANCE 3 UNITS SC (12:43)
[2025-02-04 13:38] VITALS: BP 92/59
[2025-02-04 13:45] VITALS: BP 92/59
[2025-02-04] MEDS: LR 500 IV (15:04)
[2025-02-04 15:40] VITALS: BP 141/72
[2025-02-04 16:13] VITALS: BP 146/87
--- NOTE | 2025-02-04 16:50 | W.DCSUMMARY ---
Discharge Summary
Discharge Data
Date of Admission: 01/29/25
Date of Discharge: 02/04/25
Total time spent discharging patient (in min): 33
-
Pending Results: No
Hospital Course
Discharging Physician :�Tyler Duke DO
Disposition :���� SNF
Principal Discharge diagnosis :�
UTI with sepsis
Resistant Klebsiella (non-ESBL; resistant to ampicillin, nitrofurantoin)
Metabolic encephalopathy
Acute urine retention
Chronic Discharge diagnosis :�
Stage III CKD
NIDDM
Hypothyroidism
Hypertension
Dyslipidemia
Bipolar disorder
H/O ESBL Klebsiella
Hospital Course :�
69-year-old female that presented to the hospital with acute change in mental status and fever of 101.3 �F at her facility. Patient without any complaints but patient was brought in after episode of incontinence. Viral respiratory panel was
unremarkable. Blood cultures x 2 were obtained as well as urine culture. Was subsequently started on IV ceftriaxone empirically. Developed urine retention which required Marinelli catheter placement. Urine cultures ultimately returned positive for
Klebsiella pneumoniae with resistance to nitrofurantoin and ampicillin. IV ceftriaxone was transitioned to oral cefdinir to complete 10 days total of antibiotics. She underwent trial of void on day of discharge however was unable to pass urine
spontaneously. Marinelli catheter was replaced prior to discharge. Was provided with urology referral if needed. Should have trial of void while ambulatory at [facility], if unsuccessful and can follow-up with urologist in office. Can consider orthostatic
vital signs and trial of tamsulosin
Consultants :
James Galdamez MD -- Psychiatry
Important imaging findings :�
Renal ultrasound (01/29/2025)
Findings: Right kidney measures 10.1 cm, and the left kidney measures 8.6 cm in length. Bilateral renal cortical thinning. Possible tiny punctate nonobstructing bilateral renal calculi. Simple bilateral renal cysts are present measuring up to 1.0 cm
on the right and 1.3 cm on the left. No hydronephrosis, contour deforming solid renal mass or echogenic shadowing foci to suggest renal calculi. A partially filled bladder is seen in the pelvis and appears grossly unremarkable sonographically.
Bilateral ureterovesical jets were not visualized during the exam. Pre-void urinary bladder volume: 929 cc. The patient was unable to void.
Procedure findings :� N/A
Follow-up :
CBC and BMP 1 week after discharge
Trial of void while at SNF, urology follow-up if unsuccessful
Last day of antibiotics 02/08/2025
Stop oxybutynin until seen by PCP
Discharge Plan
-
Patient Disposition: Usp/SNF
Discharge Diagnosis/Procedures: sepsis, Klebsiella UTI, urinary retention requiring Marinelli
Condition: Fair
Diet: Low Cholesterol and Diabetic, Carb Controlled
Activity: As tolerated
Other Services: PT and OT
Activity Restrictions/Additional Instructions:
Void trial at [facility] - Tuesday earliest. If unable to successfully passed trial of void then schedule follow-up appointment with urology referral
Referrals:
Yuri Luciano MD, Resident [Family Practice Resident Year2] - in one to two weeks
Abel Wagner MD [Active] - in one to two weeks (IF failed trial of void)
UNKNOWN - PT DOES,NOT KNOW [Family Provider] -
Additional Discharge Medication Instructions: Continue cefdinir 300 mg every 12 hours through the end of February 08, 2025
Stop oxybutynin until seen by family doctor or urology
Prescriptions:
New
cefdinir 300 mg capsule
300 mg PO BID 5 Days Qty: 10 0RF
Continued
simvastatin 40 MG tablet
40 mg PO HS
glipizide 2.5 MG tablet extended release 24hr
2.5 mg PO DAILY
levothyroxine 88 MCG tablet
88 mcg PO DAILY
losartan 50 mg Tablet
50 mg PO DAILY
quetiapine [Seroquel] 25 mg Tablet
25 mg PO DAILY
clozapine 100 mg Tablet
300 mg PO HS
sennosides-docusate sodium [Senna-S] 8.6-50 mg Tablet
2 tab-cap PO BID
melatonin 3 mg Tablet
3 mg PO HS
aspirin 81 mg Tablet,Delayed Release (Dr/Ec)
81 mg PO DAILY
famotidine [Pepcid] 20 mg Tablet
20 mg PO BID
divalproex 500 mg Tablet Extended Release 24 Hr
1,000 mg PO DAILY
docusate sodium [Colace] 100 mg Capsule
200 mg PO BID
quetiapine [Seroquel] 50 mg Tablet
50 mg PO HS
cholecalciferol (vitamin D3) [Vitamin D3] 25 mcg (1,000 unit) Tablet
25 mcg PO DAILY
Discontinued
oxybutynin chloride 5 mg Tablet
5 mg PO QPM
Discharge Orders:
Discharge Patient (As Directed); Ordered 02/04/25
Ordered By: Tyler Duke
Discharge Date and Time
Print Language: CAMEROONIAN
[2025-02-04 16:51] LABS: Glucose - Point of Care 188 mg/dl (70-99)
[2025-02-04] MEDS: NOVOLOG FLEXPEN-LOW RESISTANCE 1 UNITS SC (17:02)
== END 2025-02-04 19:34 | DRG 872 ==
LOC: 3 WEST ACU 16:30
PROVIDERS: Physician Assistant Medical; ADMITTING PHYSICIAN Internal Medicine; ATTENDING PHYSICIAN Internal Medicine; CONSULT PHYSICIAN Psychiatry & Neurology Psychiatry; EMERGENCY PHYSICIAN Student in an Organized Health Care Education/Training Program
DX: A41.9 Sepsis, unspecified organism (principal); N39.0 Urinary tract infection, site not specified; Z16.11 Resistance to penicillins; N17.9 Acute kidney failure, unspecified; E87.0 Hyperosmolality and hypernatremia; E87.3 Alkalosis; B96.1 Klebsiella pneumoniae [K. pneumoniae] as the cause of diseases classified elsewhere; I12.9 Hypertensive chronic kidney disease with stage 1 through stage 4 chronic kidney disease, or unspecified chronic kidney disease; N18.32 Chronic kidney disease, stage 3b; E11.22 Type 2 diabetes mellitus with diabetic chronic kidney disease; E03.9 Hypothyroidism, unspecified; F31.9 Bipolar disorder, unspecified; F25.9 Schizoaffective disorder, unspecified; L68.0 Hirsutism; Z87.891 Personal history of nicotine dependence; Z79.82 Long term (current) use of aspirin; Z79.890 Hormone replacement therapy; E78.00 Pure hypercholesterolemia, unspecified; Z87.440 Personal history of urinary (tract) infections; Z86.19 Personal history of other infectious and parasitic diseases; J44.9 Chronic obstructive pulmonary disease, unspecified; N28.1 Cyst of kidney, acquired; N32.81 Overactive bladder; R65.20 Severe sepsis without septic shock; Z79.84 Long term (current) use of oral hypoglycemic drugs; Z86.73 Personal history of transient ischemic attack (TIA), and cerebral infarction without residual deficits; E87.6 Hypokalemia; Z11.52 Encounter for screening for COVID-19
CPT/HCPCS: 71046; 76770; 80048; 80053; 81003; 81015; 82962; 83036; 83605; 85025; 85027; 87040; 87077; 87086; 87186; 87502; 87811; 93005; 97163; 97167; 97530; 97535

== ENCOUNTER 2025-05-01 15:43 | Inpatient (IN) | payer MEDICARE, OTHER, SELFPAY ==
[2025-05-01] VITALS (65 sets, daily range): BP systolic 49–162; BP diastolic 38–114; BMI 25.4; BMI 24.4
[2025-05-01 13:40] LABS: Hematocrit 31.3 % (37.0-47.0); Hemoglobin 9.9 g/dL (12.0-16.0); Mean Corp Hgb Conc. 31.6 g/dL (33.0-37.0); Mean Corpuscular Volume 97.8 fL (81.0-99.0); Platelet Count 250 10^3/uL (130-400); Red Cell Dist. Width 15.0 % (11.5-14.5)
[2025-05-01 13:48] LABS: ALT (SGPT) 12 U/L (0-35); AST (SGOT) 18 U/L (14-36); Albumin 3.2 g/dl (3.5-5.0); Alkaline Phosphatase 78 U/L (38-126); Blood Urea Nitrogen 60 mg/dl (7-17); Calcium 11.4 mg/dl (8.4-10.2); Carbon Dioxide 23 mmol/L (22-30); Chloride 108 mmol/L (98-107); Estimated Creatinine Clearance 15 ml/min; Glucose 177 mg/dl (70-99); Potassium 4.7 mmol/L (3.5-5.1); Sodium 142 mmol/L (135-145); Total Protein 5.8 g/dl (6.3-8.2); eGFR 16.22
--- NOTE | 2025-05-01 13:57 | ED.GENMED ---
History of Present Illness
General
Chief Complaint: Unresponsive
Source: ambulance crew
Exam Limitations: clinical condition
Time Seen by Provider: 05/01/25 12:11
History of Present Illness
History of Present Illness:
Note:
CHIEF COMPLAINT(S)
Unresponsive and hypotensive.
HISTORY OF PRESENT ILLNESS
EMS reported that the patient was found unresponsive and hypotensive. Attempts were made to establish IV access, but the initial line infiltrated. Efforts to obtain a new line were unsuccessful prior to arrival at the facility.
ADDITIONAL HISTORY OBTAINED FROM SOURCES OTHER THAN THE PATIENT
EMS reported the patients unresponsive and hypotensive state upon their assessment. They attempted to establish IV access, which infiltrated.
PHYSICAL EXAM
General: Unresponsive.
Skin: No acute findings reported during the conversation.
Eyes, Ears, Nose, Mouth and Throat: No acute findings reported during the conversation.
Cardiovascular: Hypotensive based on EMS report.
Intravenous attempts documented as infiltrated and ongoing efforts to re-establish access.
DIFFERENTIAL DIAGNOSIS
The Differential Diagnosis includes, in no particular order and is not limited to:
1. Hypoglycemia
2. Sepsis
3. Hypovolemia
4. Drug Overdose
5. Pulmonary Embolism
6. Myocardial Infarction
7. Stroke
8. Severe Electrolyte Imbalance
9. Anaphylaxis
10. Severe Dehydration
CARE-UPDATE
05/01/25 - 14:14
Inserted a central line as per standard procedure.
EKG
My independent EKG interpretation is:
- Normal rhythm
- Normal axis
- Intervals normal
- No abnormalities observed
Disposition:
SUMMARY OF ENCOUNTER
The patient presented to the emergency department unresponsive and hypotensive, as reported by EMS. Initial attempts to establish peripheral IV access by EMS were unsuccessful, leading to the need for a central line. In the emergency department, a
central line was successfully placed in the right femoral vein after an unsuccessful attempt at the right internal jugular vein. Laboratory tests revealed a significant leukocytosis with a white count of 25,000 and a left shift, an elevated lactic
acid level of 3.9, and acute renal failure with creatinine elevated to 3.0 from a baseline of 1.2 recorded in January 2025. The patients old medical records indicated a previous infection with Klebsiella, resistant to cephalosporins and penicillins.
An X-ray confirmed no acute infiltrates or pneumothorax post-central line attempt. Due to persistent hypotension despite IV fluids, vasopressors were initiated and broad-spectrum antibiotics were ordered. The patient was admitted to the ICU for
further management.
DISPOSITION
Admit to ICU.
ASSESSMENT
The patients hypotensive and unresponsive state coupled with acute renal failure, leukocytosis, and elevated lactic acid suggest potential sepsis. The infection history with antibiotic-resistant Klebsiella adds complexity to the antimicrobial
treatment plan.
EMERGENCY TREATMENTS ADMINISTERED
Broad-spectrum antibiotics and vasopressors.
PLAN
Continue administration of IV fluids, broad-spectrum antibiotics, and vasopressors. Monitor patients response closely in ICU.
INDEPENDENT REVIEW OF LABS AND INTERPRETATION OF TESTS
- My independent review of CBC indicates leukocytosis with a white count of 25,000 and left shift with 85% neutrophils.
- My independent review of chemistry indicates acute renal failure with a creatinine level of 3.0, compared to 1.2 in January 2025.
- My independent review of lactate levels indicates an elevated lactic acid at 3.9.
Radiology Results:
- My independent X-ray interpretation shows no acute infiltrates or pneumothorax post-central line attempt.
PROCEDURES
A central line placement in the right femoral vein was conducted successfully after an initial unsuccessful attempt at the right internal jugular vein.
PATIENT EDUCATION AND COUNSELING
The patient was unresponsive and unable to receive education or counseling.
MEDICATION RECONCILIATION
Broad-spectrum antibiotics were ordered, and vasopressors were administered due to persistent hypotension.
MEDICAL DECISION MAKING
- Number and Complexity of Problems Addressed: Chronic conditions affecting care. Differential diagnosis includes: Hypoglycemia, Sepsis, Hypovolemia, Drug Overdose, Pulmonary Embolism, Myocardial Infarction, Stroke, Severe Electrolyte Imbalance,
Anaphylaxis, Severe Dehydration.
- Data:
Category 1:
Clinical information was obtained from an independent historian (EMS and previous medical records reviewed).
My independent interpretation of EKG shows normal rhythm, axis, and intervals.
My independent interpretation of X-ray confirms no acute infiltration or pneumothorax.
- Risk: The decision to initiate broad-spectrum antibiotics and vasopressors indicates a high risk of morbidity due to suspected sepsis and antibiotic-resistant Klebsiella infection.
DIAGNOSIS
- Sepsis, suspected [A41.9]
- Acute renal failure [N17.9]
- Septic shock due to Klebsiella [R65.21]
- Leukocytosis [D72.820]
Past History
Past History
ED Past Medical History: COPD, HTN, Hypercholesterolemia, NIDDM, Renal failure (acute), Hypothyroidism, Other (bipolar, colitis, rhabdomyolysis, Vertigo,) and Other (vertigo); Negative IDDM
ED Past Surgical History: None
Social History
Tobacco: Former smoker
Alcohol: None
Drug: None
Personal: Single
Living: alone
Employment: Not employed
Family History
Family History: CAD
Phy Exam
Physical Exam
Physical Exam:
.
Sepsis
Sepsis Screening
Sepsis Assessment: Septic Shock
Sepsis Screening: Lactate >2mmol/L, ARF-Creatinine >2.0 and Sustained Hypotension-SBP <90,MAP<65, or SBP decrease 40mmHg or more
Sepsis Screen
Sepsis Screen: Septic Shock
Date: 05/01/25
Time: 16:30
Course
Orders/Labs/Results
Orders:
Orders
05/01/25 12:50
Portable Chest Xray [CR Chest Portable - 1 View] Stat
Comment:
Reason For Exam: post line attempt
Reason Study Needs to be Portable: Patient Unstable
05/01/25 12:55
Electrocardiogram (*1) Urgent
Reason for Study: Fatigue / Weakness
EKG- Treatment ONCE
05/01/25 13:21
Complete Blood Count/With Diff Urgent
Comprehensive Metabolic Panel Urgent
Lactic Acid Q4H
Comment: CANCEL 2nd LACTIC ACID IF 1st LACTIC ACID IS LESS THAN 2
Blood Culture Q30M
FRANCISCA Source: Blood/Venous
Specimen Description:
Blood Culture Q30M
FRANCISCA Source: Blood/Venous
Specimen Description:
05/01/25 13:53
0.9% Sodium Chloride 1000 ml [Nss] 2,000 ml IV NOW STA
Cefepime HCl [Maxipime] 2,000 mg IV NOW STA
05/01/25 13:54
MetroNIDAZOLE 500 MG/100 ML [Flagyl 500 mg] 100 ml IV NOW
NORepinephrine 4 MG/250 ML [Levophed] 4 mg in 250 ml .ROUTE .STK-MED
NORepinephrine [Levophed] 4 mg .ROUTE .STK-MED ONE
05/01/25 13:56
Piperacillin/Tazo 3.375 Gram [Zosyn] 3.375 gram in 50 ml IV NOW
05/01/25 13:57
NORepinephrine 4 MG/250 ML [Levophed] 4 mg in 250 ml IV NOW
Initial dose in mcg/min, then titrate:: 2
Titrate to keep:: MAP > 65 mmHg
Titrate by mcg/min:: 1-2 mcg/min
Frequency of titrations (minutes):: 5
Maximum dose in ICU in mcg/min:: 30
Maximum dose in IMU in mcg/min:: 8
Maximum dose in IVU in mcg/min:: 4
Begin to taper infusion when:: Remained at goal for 4hrs
Taper by mcg/min:: 1-2 mcg/min
Frequency of taper (minutes) if patient maintains goal:: 30
Taper to off?: Yes
If infusion off & no longer maintaining goal:: Contact Provider
05/01/25 14:06
Vancomycin [Vancocin] 1,500 mg 0.9% Sodium Chloride 500 ml [Nss] 500 ml IV NOW
05/01/25 14:12
Urinalysis Reflex To Culture Urgent
Date Specimen was Collected: 05/01/25
Time Specimen was Collected: 14:11
Urine Creatinine Urgent
Date Specimen was Collected: 05/01/25
Time Specimen was Collected: 14:11
Comment: ADD ON
Urine Microscopic Reflex Cult Urgent
Urine Sodium Urgent
Date Specimen was Collected: 05/01/25
Time Specimen was Collected: 14:11
Comment: ADD ON
Urine Culture Urgent
FRANCISCA Source: U
Specimen Description:
Date Specimen was Collected: 05/01/25
Time Specimen was Collected: 14:11
05/01/25 14:38
Add On- LAB Urgent
Tests Added?: urine sodium, creatinine
05/01/25 14:57
Admit/Transfer Patient As Directed
Co-Sign Provider:
Level of Care: Inpatient admission
Assign to:: ICU
Physician / Group: Hilda Ivory
Diagnosis: septic shock 2/2 UTI
Reason for Hospitalization: septic shock 2/2 UTI
Expected length of stay greater than two midnights?: Yes
ELOS- Estimated Length of Stay in days: 3
I certify the patient meets the requirements for IP care: Yes
PRN Pain Medication Management As Directed
May give lesser potent ordered pain med per pt: Yes
preference::
Protocol:: Medication orders for pain may be administered in a
manner that supports deferring to patient preference
when the pt is:
- Requesting an ordered lesser potent pain medication.
Least to most potent pain medications are defined
as: acetaminophen < NSAID < tramadol < opioids
(morphine, oxycodone, hydromorphone).
- Requesting a lesser dose of the same medication IF
ORDERED.
- Requesting a less intrusive route of administration
if both routes are prescribed by the provider (PO <
IV).
05/01/25 14:58
Code Status As Directed
Resuscitation Status: Do not resuscitate
Reached after discussion with pt or family/Healthcare POA: Yes
Based on pt advanced directive or healthcare POA form: Yes
05/01/25 15:00
DNR Bracelet Application ONCE
05/01/25 15:01
Abdomen/Pelvis wo Contrast CT [CT Abd/pelvis Wo Iv Cont] Urgent
Comment:
Reason For Exam: UTI, JANELLE
05/01/25 15:05
Gentamicin Sulfate [Gentamicin] 120 mg 0.9% Sodium Chloride [Nss] 50 ml IV NOW
05/01/25 17:15
Lactic Acid Q4H
Comment: CANCEL 2nd LACTIC ACID IF 1st LACTIC ACID IS LESS THAN 2
Abnormal Lab Results
05/01/25 05/01/25
13:21 14:12
WBC 25.8 H 10^3/uL
(4.8-10.8)
RBC 3.20 L 10^6/uL
(4.20-5.40)
Hgb 9.9 L g/dL
(12.0-16.0)
Hct 31.3 L %
(37.0-47.0)
MCHC 31.6 L g/dL
(33.0-37.0)
RDW 15.0 H %
(11.5-14.5)
Abs Immat Gran (auto) 1.4 H 10^3/uL
(0-0.05)
Absolute Neuts (auto) 22.1 H 10^3/uL
(1.4-6.5)
Absolute Lymphs (auto) 1.1 L 10^3/uL
(1.2-3.4)
Absolute Monos (auto) 1.1 H 10^3/uL
(0.1-0.6)
Immature Gran % 5.4 H %
(0-0.5)
Neutrophils % 85.6 H %
(42.2-75.2)
Lymphocytes % 4.4 L %
(20.5-51.1)
Chloride 108 H mmol/L
(98-107)
BUN 60 H mg/dl
(7-17)
Creatinine 3.0 H mg/dL
(0.6-1.0)
Glucose 177 H mg/dl
(70-99)
Lactic Acid 3.9 H mmol/L
(0.7-2.0)
Calcium 11.4 H mg/dl
(8.4-10.2)
Total Protein 5.8 L g/dl
(6.3-8.2)
Albumin 3.2 L g/dl
(3.5-5.0)
Ur Occult Blood Reflex 4+ A
(Negative)
Urine Nitrite (Reflex) Positive A
(Negative)
Leukocyte Esterase Rfl 3+ A
(Negative)
Urine WBC (Reflex) >100 A /HPF
(0-5)
Urine Albumin (Reflex) 3+ A
(Neg - Trace)
05/01/25 13:21
05/01/25 13:21
Vital Signs
Initial and Last Documented VS:
Initial Vital Signs
Pulse Resp BP
101 14 49/41
05/01/25 12:10 05/01/25 12:10 05/01/25 12:10
Last Documented Vital Signs
Temp Pulse Resp BP Pulse Ox
98.3 F 86 12 85/68 100
05/01/25 13:21 05/01/25 15:30 05/01/25 15:30 05/01/25 15:30 05/01/25 15:25
Procedures
Central Line
Right Femoral:
Indication for procedure:: poor IV access, septic shock
Procedure completed by: Dr Cook
Consent form signed: No
If no, reason: Emergency procedure
Anesthesia: 1% Lidocaine
Central line lumen: triple
Number of attempts: 1
Central line complications: none
Sterile dressing applied?: Yes
Additional information:
Initially attempted right internal jugular access but was unsuccessful. Chest x-ray reviewed no pneumothorax
*Pulse Oximetry
SaO2: 97
Oxygen Mode of Delivery: Room air
Patient hypoxic: no
*Territory Manager Interpretation
Rate: normal
Interpretation: normal
Rhythm: sinus
*Critical Care Note
Total Time (30-74mins, 75-104mins- exclusive of procedures): 45 minutes
ED Attending Note
-
Portions of this chart may have been created with voice recognition software.� Occasional wrong word or��sound alike� substitutions may have occurred due to the inherent limitations of voice recognition software.
Discharge Plan
Departure
Patient Disposition: Admit
Date of Disposition: 05/01/25
Time of Disposition: 13:58
Admit to: ICU
Presentation/result/management discussed w/ accepting MD/DO: Hospitalist
Discharge Problem:
Septic shock, Acute lactic acidosis, Acute renal failure (ARF), Urinary tract infection
Interventions
Interventions:
*Risk Screen - Suicide Last Done: 05/01/25 12:19
*General Assessment Last Done: 05/01/25 12:19
*Neglect/Abuse Screening Last Done: 05/01/25 12:19
*ED- Fall Risk Assessment Last Done: 05/01/25 12:19
*ED COVID-19 Vaccine History Last Done: 05/01/25 12:19
[2025-05-01] MEDS: LEVOPHED 250 IV ×3 (14:01→22:12)
[2025-05-01 14:02] LABS: Nucleated Red Blood Cells % 0 %
--- NOTE | 2025-05-01 14:31 | PHANOTE ---
med rec note- patient snf gave patient her bedtime medication at 1510
--- NOTE | 2025-05-01 14:33 | HPS.HSE ---
Family Physician
-
Family Physician: Christopher Casey MD
Chief Complaint
-
altered mentation
History of Present Illness
Ms. Navi Childers is a 69 yo woman, resident at [facility], with hx CKD III, NIDDM, hypothyroidism, HTN, HLD, Bipolar disorder, admission 02/01 for Klebsiella UTI with sepsis presents to the ER with altered mentation. She was found by staff at
[facility], difficulty arousing.
Patient now s/p fluids, started on pressors and is more awake/alert. She states she has had some pain with urination. She doesn't complain of other pain now and can't offer further meaningful history.
Medical History
Past Medical History
Past Medical History: Reports Other
Additional Past Medical History:
Diabetes Mellitus, Type II
Essential Hypertension
Hyperlipidemia
CKD Stage III
Bipolar Disorder
Hypothyroidism
Past Surgical History: Reports None
Social History
Tobacco: Former Smoker
Living: Alone
Family History
Family History: Unable to Obtain
Allergies / Home Medications
Allergies reflects when Allergies were last updated in [facility].
Home Medications with original date entered in [facility]
Allergy/Medication List:
Allergies
Allergy/AdvReac Type Severity Reaction Status Date / Time
carbamazepine (From Tegretol) Allergy Rash Verified 04/25/23 12:39
minocycline HCl (From Allergy Unknown Verified 04/25/23 12:39
Minocin)
Skin Cleanser Combination Allergy Unknown Verified 04/25/23 12:39
No.4 (From Minocin)
thiothixene (From Navane) Allergy Unknown Verified 04/25/23 12:39
Home Medications
glipizide 2.5 mg tablet, extended release 24 hr 2.5 mg PO DAILY Diabetes 12/27/19
simvastatin 40 mg tablet 40 mg PO HS High cholesterol 12/27/19
levothyroxine 88 mcg tablet 88 mcg PO DAILY Thyroid 06/03/20
aspirin 81 mg tablet,delayed release 81 mg PO DAILY Blood Clot Prevention/Tx 01/29/25
cholecalciferol (vitamin D3) 25 mcg (1,000 unit) tablet (Vitamin D3) 25 mcg PO DAILY Supplement 01/29/25
clozapine 100 mg tablet 300 mg PO HS bipolar disorder 01/29/25
divalproex 500 mg tablet,extended release 24 hr 1,000 mg PO DAILY bipolar disorder 01/29/25
docusate sodium 100 mg capsule (Colace) 200 mg PO BID Constipation 01/29/25
famotidine 20 mg tablet (Pepcid) 20 mg PO DAILY Gastrointestinal Issue 01/29/25
losartan 50 mg tablet 50 mg PO DAILY Blood Pressure 01/29/25
melatonin 3 mg tablet 3 mg PO HS Sleep 01/29/25
quetiapine 25 mg tablet (Seroquel) 25 mg PO DAILY bipolar disorder 01/29/25
quetiapine 50 mg tablet (Seroquel) 75 mg PO HS bipolar disorder 01/29/25
sennosides 8.6 mg-docusate sodium 50 mg tablet (Senna-S) 2 tab-cap PO BID Constipation 01/29/25
acetaminophen 325 mg tablet (Tylenol) 650 mg PO Q6HPRN PRN mild pain 05/01/25
bisacodyl 10 mg rectal suppository (Dulcolax (bisacodyl)) 10 mg ME DAILYPRN PRN if no bm aftr mom 05/01/25
magnesium hydroxide 400 mg/5 mL oral suspension (Milk of Magnesia) 2,400 mg PO HSPRN PRN if no bm by 3rd day 05/01/25
Review of Systems
-
Unable to obtain full review of systems at this time due to: Other (patient lethargic)
History Source: Patient
Physical Exam
Vital Signs
Vital Signs
Temp Pulse Resp BP Pulse Ox
98.3 F 92 14 71/52 97
05/01/25 13:21 05/01/25 13:35 05/01/25 13:35 05/01/25 13:35 05/01/25 13:58
Physical Exam
General: No Apparent Distress and Appears Chronically Ill
HEENT: PERRLA
Respiratory: Clear; No Wheezes
Cardiac: Regular Rhythm and Demetrio's Sign
GI: Soft and Non Tender
Musculoskeletal: No Edema
Skin: Warm and Dry; No Rash
Neuro: AO x 3
Psych: Calm
Laboratory Results
-
05/01/25 13:21
05/01/25 13:21
Laboratory Results
Lactic Acid 3.9 mmol/L (0.7-2.0) H 05/01/25 13:21
Total Bilirubin 0.5 mg/dl (0.2-1.3) 05/01/25 13:21
AST 18 U/L (14-36) 05/01/25 13:21
ALT 12 U/L (0-35) 05/01/25 13:21
Alkaline Phosphatase 78 U/L (38-126) 05/01/25 13:21
Data Reviewed
-
Diagnostic Radiology: Report Reviewed by me
Lab Data: Labs Reviewed by me
Impression/Plan
-
Ms. Navi Childers is a 69 yo woman, resident at [facility], with hx CKD III, NIDDM, hypothyroidism, HTN, HLD, Bipolar disorder, admission 02/01 for Klebsiella UTI with sepsis presents to the ER with altered mentation. She was found by staff at
[facility], difficulty arousing.
Triage VS: T 98.3, P 101, RR 14, BP 49/41, SpO2 97%
LABS: WBC 25.8, Hg 9.9, PLT 250, Na 142, K+ 4.7, Cl 108, BUN 60, Cr 3.0, Glucose 177, lactate 3.9
Ca 11.4
UA with > 100 WBC
CXR
IMPRESSION:
No acute cardiopulmonary process.
MAR: 2L IVF, IV Vanc/Zosyn/Gent
Septic Shock 2/2 Urinary Tract Infection
-admit to ICU
-recent admission in January patient's culture grew Klebsiella pneumonia
-s/p Vanc/Zosyn/Gent in ER, will continue IV Zosyn
-s/p central line placement in ER; IV Levophed initiated
-with hx nephrolithiasis and JANELLE, will obtain non-con CT to rule out stone/hydro
-s/p 2L IVF in ER (30cc/kg); continue NS @ 125cc/hr
-trend lactate
-Bronze Plater consult
Acute Kidney Injury
-in setting of hypoperfusion and sepsis, will also obtain CT as above
-follow up urine studies
-NS @ 125
Essential Hypertension
-hold EARLY MORNING Losartan
HLD
-EARLY MORNING Statin
Bipolar Disorder
-EARLY MORNING Regimen: Seroquel 25mg qAM; 75mg qPM(hold for sedation), Clozapine 300mg qhs, Dilvproex 1G QD
NIDDM
-hold EARLY MORNING Glipizide
-ISS low
DVT PPx Hep subQ
DNR - written in patient's forms from [place], confirmed with brother
Patient's brother is updated. He is blind, unable to visit patient.
Total Critical Care Time 55 minutes. I was immediately available to the patient and staff. I personally examined, reviewed labs, diagnostic images/reports, interpretations, treatment plans, discussed patient care with other providers and family
or caregivers (if patient is unable to make decisions), entered orders as appropriate and documented the medical record.
[2025-05-01 14:34] LABS: Urine Character Cloudy (Clear)
[2025-05-01] MEDS: ZOSYN 50 IV ×2 (14:47→20:52)
[2025-05-01] MEDS: NSS 2000 ML IV (14:48)
[2025-05-01 14:49] LABS: Urine White Cell >100 /HPF (0-5)
[2025-05-01] MEDS: VANCOCIN 530 MG IV (15:22)
[2025-05-01] MEDS: GENTAMICIN 53 MG IV (15:49)
[2025-05-01] MEDS: NSS 1000 IV (16:57)
[2025-05-01 17:06] LABS: Glucose - Point of Care 93 mg/dl (70-99)
--- NOTE | 2025-05-01 17:08 | CON.INTV ---
Consultation
Consultation Request
Date/Time Consultation Requested: 05/01/2025 - 1646
Date/Time Consultation Performed: 05/01/2025 - 1703
Requesting Provider: Dr. Ivory
Performing Provider: Dr. Decker
Reason for Consultation: Septic shock
Medical History
-
Chief Complaint: Found unresponsive
History of Present Illness:
69-year-old female former tobacco smoker with a past medical history of chronic Marinelli due to chronic urinary retention (possible neurogenic bladder), DM type II, hypertension, hypothyroidism, hyperlipidemia, bipolar disorder, insomnia, CKD, history
of UTI and overactive bladder who presents with being found unresponsive by staff at her intermediate ([facility]). In the ER she was hypotensive with BP initially 49/41, heart rate 101, and respiratory rate 14. She was given 2 L NS 0.9% and
started on Levophed due to persistent hypotension. Labs showed leukocytosis to 25.8, Hb 9.9, creatinine 3, glucose 177, lactate 3.9, and urinalysis showed cloudy urine with positive nitrites, +2 leukocyte esterase and >100 urine WBC. Blood and
urine culture sent. CXR showed no acute cardiopulmonary process. CT abdomen/pelvis showed moderate rectal stool bolus with possible developing stercoral colitis, with probable cystitis, with numerous scattered tiny nonobstructive bilateral renal
calculi without hydronephrosis. In the ER she was given Zosyn/vancomycin, and admitted to the ICU for further care. Tractor Engine Assembler services consulted for additional management/recommendations.
When I saw the patient, she was resting in bed in no acute distress. She is drowsy but easily arousable and answering questions but is confused. Current BP 102/74 on Levophed at 13 mcg/min. Saturating 100% on room air and heart rate 81. She is
difficult to understand as she has slurred/garbled speech. She does not appear to be in respiratory distress.
PMHx: Chronic urinary retention with chronic Marinelli, DM type II, hypertension, hypothyroidism, hyperlipidemia, schizophrenia, bipolar disorder, insomnia, CKD stage III, history of UTI, former tobacco smoker, overactive bladder
PSHx: Noncontributory
Past Medical History
Past Medical History: Other (Above as per HPI)
Past Surgical History: Other (Above as per HPI)
Social History
Tobacco: Former Smoker (Quit >12 years ago)
Alcohol: None
Drug: None
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
Family History
Family History: CAD (Father (open heart surgery at age 76)), Hypertension (Mother) and Other (Mother: Dementia)
Allergies / Home Medications
Allergies
Allergy/AdvReac Type Severity Reaction Status Date / Time
carbamazepine (From Tegretol) Allergy Rash Verified 04/25/23 12:39
minocycline HCl (From Allergy Unknown Verified 04/25/23 12:39
Minocin)
Skin Cleanser Combination Allergy Unknown Verified 04/25/23 12:39
No.4 (From Minocin)
thiothixene (From Navane) Allergy Unknown Verified 04/25/23 12:39
Home Medications
�Medication �Instructions �Recorded �Confirmed �Last Taken �Type
glipizide 2.5 mg tablet, extended 2.5 mg PO DAILY Diabetes 12/27/19 05/01/25 05/01/25 History
release 24 hr
simvastatin 40 mg tablet 40 mg PO HS High cholesterol 12/27/19 05/01/25 05/01/25 History
levothyroxine 88 mcg tablet 88 mcg PO DAILY Thyroid 06/03/20 05/01/25 05/01/25 History
aspirin 81 mg tablet,delayed 81 mg PO DAILY Blood Clot 01/29/25 05/01/25 05/01/25 History
release Prevention/Tx
cholecalciferol (vitamin D3) 25 25 mcg PO DAILY Supplement 01/29/25 05/01/25 05/01/25 History
mcg (1,000 unit) tablet (Vitamin
D3)
clozapine 100 mg tablet 300 mg PO HS bipolar disorder 01/29/25 05/01/25 05/01/25 History
divalproex 500 mg tablet,extended 1,000 mg PO DAILY bipolar disorder 01/29/25 05/01/25 05/01/25 History
release 24 hr
docusate sodium 100 mg capsule 200 mg PO BID Constipation 01/29/25 05/01/25 05/01/25 History
(Colace)
famotidine 20 mg tablet (Pepcid) 20 mg PO DAILY Gastrointestinal 01/29/25 05/01/25 05/01/25 History
Issue
losartan 50 mg tablet 50 mg PO DAILY Blood Pressure 01/29/25 05/01/25 05/01/25 History
melatonin 3 mg tablet 3 mg PO HS Sleep 01/29/25 05/01/25 05/01/25 History
quetiapine 25 mg tablet (Seroquel) 25 mg PO DAILY bipolar disorder 01/29/25 05/01/25 05/01/25 History
quetiapine 50 mg tablet (Seroquel) 75 mg PO HS bipolar disorder 01/29/25 05/01/25 05/01/25 History
sennosides 8.6 mg-docusate sodium 2 tab-cap PO BID Constipation 01/29/25 05/01/25 05/01/25 History
50 mg tablet (Senna-S)
acetaminophen 325 mg tablet 650 mg PO Q6HPRN PRN mild pain 05/01/25 05/01/25 03/23/25 History
(Tylenol)
bisacodyl 10 mg rectal suppository 10 mg [place] DAILYPRN PRN if no bm 05/01/25 05/01/25 Unknown History
(Dulcolax (bisacodyl)) aftr mom
magnesium hydroxide 400 mg/5 mL 2,400 mg PO HSPRN PRN if no bm by 05/01/25 05/01/25 Unknown History
oral suspension (Milk of Magnesia) 3rd day
Review of Systems
-
Unable to Obtain full review of systems at this time due to: Acuity
Vitals / Labs / Diagnostic Testing
Vital Signs
Temp Pulse Resp BP Pulse Ox
98.3 F 86 12 85/68 100
05/01/25 13:21 05/01/25 15:30 05/01/25 15:30 05/01/25 15:30 05/01/25 15:25
Lab Data
05/01/25 13:21
05/01/25 13:21
Diagnostic Testing:
Physical Exam
-
HEENT: Normocephalic and Anicteric
Cardiovascular: S1/S2 and Peripheral Edema (trace LE pitting edema b/l)
Respiratory: Wheeze (negative), Rales (Bibasilar), Rhonchi (negative) and Non-Labored Respirations
GI: Soft, Non Distended, Non Tender and Normal Bowel Sounds
Neurology: Tremors (negative) and Other (Drowsy although easily arousable and answering questions (although confused))
Skin: Warm and Dry
General: Respiratory Distress (negative), Comfortable, Fever (negative), Chills (negative) and Other (Elderly female, weak appearing/older than stated age, physically deconditioned)
Assessment
-
Assessment: 69-year-old female former tobacco smoker with a past medical history of chronic Marinelli due to chronic urinary retention (possible neurogenic bladder), DM type II, hypertension, hypothyroidism, hyperlipidemia, bipolar disorder, insomnia,
CKD, history of UTI and overactive bladder who presents with being found unresponsive by staff at her intermediate ([facility]). In the ER she was hypotensive with BP initially 49/41, heart rate 101, and respiratory rate 14. She was given 2 L
NS 0.9% and started on Levophed due to persistent hypotension. Labs showed leukocytosis to 25.8, Hb 9.9, creatinine 3, glucose 177, lactate 3.9, and urinalysis showed cloudy urine with positive nitrites, +2 leukocyte esterase and >100 urine WBC.
Blood and urine culture sent. CXR showed no acute cardiopulmonary process. CT abdomen/pelvis showed moderate rectal stool bolus with possible developing stercoral colitis, with probable cystitis, with numerous scattered tiny nonobstructive
bilateral renal calculi without hydronephrosis. In the ER she was given Zosyn/vancomycin, and admitted to the ICU for further care. Tractor Engine Assembler services consulted for additional management/recommendations.
Chronic conditions PRIMER SUPERVISOR: Chronic urinary retention with chronic Marinelli, DM type II, hypertension, hypothyroidism, hyperlipidemia, schizophrenia, bipolar disorder, insomnia, CKD stage III, history of UTI, former tobacco smoker, overactive bladder
Impression:
#Septic shock due to UTI
#Complicated UTI
#Numerous scattered tiny nonobstructive bilateral renal calculi without hydronephrosis (seen on CT abdomen/pelvis from 05/01/2025
#Acute encephalopathy due to septic encephalopathy/TME
#JANELLE
#Constipation with possible developing stercoral colitis
#Chronic urinary retention with chronic Marinelli catheter
#History of recurrent UTI due to E. coli + Klebsiella
#Former tobacco smoker
Plan:
- Patient found to have significantly elevated abnormal urinalysis and is in septic shock due to presumed UTI
- Of note, she does follow with urology as an outpatient, last visit 04/17/[address] Le
- She does have chronic obstructive voiding symptoms and large volume urinary retention with suggested chronic retention/neurogenic bladder
- Prior urodynamic study was attempted in April 03 but patient was not able to tolerate this test --> patient prefers to maintain a Marinelli catheter
- Patient was going to be arranged for suprapubic tube placement as an outpatient � I will consult urology given that patient is now critically ill with a recurrent UTI
- Marinelli catheter was not exchanged prior to UA being sent - I will have the RN exchange her Marinelli and send off a fresh UA with reflex to urine culture
- Continue with antibiotics, currently on Zosyn
- Follow-up blood cultures + urine culture
- Current UA with urine culture was sent after ER changed the bag, however the actual Marinelli was never exchanged; as stated above, Marinelli to be exchanged now with a repeat fresh UA/urine culture reflex to be sent
- Trend WBC and temperature curve
- Her CT abdomen/pelvis shows constipation with a moderate rectal stool bolus, with possible developing stercoral colitis
- As long she can safely swallow, would give senna + Colace and a Dulcolax suppository
- May need an enema if still not having a bowel movement over the next 24-48 hours
- Maintain SpO2 >90-94% - currently saturating 100% on room air
- prn nebulized bronchodilators - not currently bronchospastic
- Incentive spirometer encouraged 10x per hour for at least 4 hrs a day
- Maintain MAP>65
- Continue IVF with NS 0.9% at 125 cc/hr
- Currently on Levophed which is approaching 15 mcg/min --> add vasopressin
- Add stress dose steroids with hydrocortisone 50 mg IV q6hr
- Maintain euglycemia while on high-dose steroids
- Renally dose all meds/Abx
- Trend sCr and UOP
- Okay to continue her psychiatric medications including Seroquel, clozapine and Depakote, however monitor for worsening lethargy in which case these meds may need to be adjusted/temporarily held
- Replete electrolytes with K>4, Mg>2
- Maintain euglycemia with goal BG 140-180; HbA1c: 6.1 on 01/30/2025
- Trend H/H and transfuse if needed to keep Hb>7g/dL; keep plt>20k, unless there is concern for bleeding then keep plt>50k
- DVT ppx: HSQ
Code status: DNR/DNI
Continue ICU level of care for this critically ill patient.
Critical care statement: A total of 38 minutes of critical care time was provided for this patient today. This includes management of unstable vital signs, evaluation of the patient at bedside, reviewing the patient's pertinent medical records
including radiographs, microbiology, laboratory evaluations, and discussion with primary team, consultants, pharmacy, nutrition, physical therapy, case management, charge nurse, critical care nursing, and respiratory therapy.
Data:
CT abdomen/pelvis without contrast 05/01/2025:
Constipation and moderate rectal stool bolus with possible developing stercoral colitis. No obstruction, perforation or abscess.
Probable cystitis, limited by underdistention.
Numerous scattered tiny nonobstructing bilateral renal calculi. Findings could reflect chronic medical renal disease and developing renal cortical nephrocalcinosis, of nonspecific etiology.
[2025-05-01] MEDS: PITRESSIN 100 IV (17:16)
--- NOTE | 2025-05-01 17:18 | PTCARENOTE ---
Addendum entered by Aditya Heaton RN 05/01/25 18:02:
No biopatch upon central line assessment --> IV team bedside to change dressing.
Addendum entered by Aditya Heaton RN 05/01/25 17:37:
Unstageable sacral wound noted upon admission, WOC consult placed.
Original Note:
Rec'd pt. from ED.
Arrives on 15mcg norepi --> travel rn notified vasopressin added. Titration metrics based off NIBP at this time. Multiple Knife Edge Trimmer Operator to evaluate for Art line placement.
2L 100%, maintaining airway at this time.
Confused, non combative, pupils =/r 2mm, Euglycemic.
[2025-05-01] MEDS: NOVOLOG FLEXPEN-LOW RESISTANCE SC (17:23)
[2025-05-01] MEDS: PROTONIX IV 40 MG IV (17:24)
[2025-05-01] MEDS: NSS (PRESERVATIVE FREE) 10 ML IV (17:24)
[2025-05-01] MEDS: SOLU-CORTEF 50 MG IV ×2 (17:24→23:34)
--- NOTE | 2025-05-01 19:30 | PTCARENOTE ---
Patient received lying in bed with eyes closed. Rouses easily but falls asleep easily, lethargic. She does not answer yes/no questions but is cooperative but does not follow commands. ELIDA KILGORE with essential tremors. See health care attorney charted on
worklist flowsheet. BBS diminished t/o, shallow. Sats 98% on RA. S1S2 audible, SR vs SA on CM with 1st degree AVB. Positive pulses x 4 extremities. Bilateral hands and feet with 1+ edema. Marinelli catheter in place draining clear yellow urine. Right
femoral TLC, all ports patent, site WDL. Abdomen obese and soft, hypoactive bowel sounds. Repositioned every 2 hours. Bed in low and locked position, bed alarm on, call chan within reach. Levophed titrated down as tolerated, see worklist.
[2025-05-01] MEDS: HEPARIN 5000 UNITS SC (20:53)
--- NOTE | 2025-05-01 21:00 | PTCARENOTE ---
Godwin exchanged. Chronic godwin removed and New 16FR Godwin catheter inserted via sterile technique. New UA obtained and sent to lab.
[2025-05-01] MEDS: DULCOLAX 10 MG RECTAL (22:14)
[2025-05-01 22:20] LABS: Urine Character Clear (Clear)
[2025-05-01 22:26] LABS: Urine Squamous Cell 0-2 /LPF (Few)
[2025-05-01 22:28] LABS: Urine Red Blood Cell 16-20 /HPF (0-2); Urine White Cell 80-90 /HPF (0-5)
[2025-05-01] MEDS: NOVOLOG FLEXPEN-LOW RESISTANCE 2 UNITS SC (23:34)
[2025-05-01 23:43] LABS: Glucose - Point of Care 200 mg/dl (70-99)
[2025-05-02] VITALS (61 sets, daily range): BP systolic 77–133; BP diastolic 50–115; BMI 25.4
--- NOTE | 2025-05-02 | PTCARENOTE ---
Patient rouses more easily and is more alert. She remains cooperative and speaks some but is minimally verbal. She answers yes/no questions. She denies pain. Physical assessment is essentially unchanged from previous. Levophed titration continues as
tolerated.
[2025-05-02] MEDS: PITRESSIN 100 IV ×2 (00:02→07:22)
[2025-05-02] MEDS: NSS 1000 IV ×3 (00:43→15:39)
[2025-05-02] MEDS: ZOSYN 50 IV ×4 (01:39→19:15)
[2025-05-02 05:22] LABS: INR 1.36; PT 17.3 Sec (11.4-14.6)
[2025-05-02 05:23] LABS: APTT 33.8 Sec (23.4-35.0)
[2025-05-02 05:38] LABS: Blood Urea Nitrogen 50 mg/dl (7-17); Calcium 9.8 mg/dl (8.4-10.2); Carbon Dioxide 20 mmol/L (22-30); Chloride 115 mmol/L (98-107); Estimated Creatinine Clearance 21 ml/min; Glucose 198 mg/dl (70-99); Magnesium 2.1 mg/dl (1.6-2.3); Potassium 4.7 mmol/L (3.5-5.1); Sodium 142 mmol/L (135-145); eGFR 23.53
[2025-05-02 06:05] LABS: Hematocrit 24.3 % (37.0-47.0); Hemoglobin 7.8 g/dL (12.0-16.0); Mean Corp Hgb Conc. 32.1 g/dL (33.0-37.0); Mean Corpuscular Volume 99.2 fL (81.0-99.0); Platelet Count 225 10^3/uL (130-400); Red Cell Dist. Width 14.9 % (11.5-14.5)
[2025-05-02] MEDS: SOLU-CORTEF 50 MG IV ×3 (06:40→17:51)
[2025-05-02] MEDS: NOVOLOG FLEXPEN-LOW RESISTANCE 1 UNITS SC ×2 (06:41→12:02)
[2025-05-02] MEDS: SYNTHROID PO (06:41)
--- NOTE | 2025-05-02 07:00 | PTCARENOTE ---
Report given verbally to oncoming shift, Aditya BERMUDEZ. Bedside rounds complete. Questions answered.
[2025-05-02 07:05] LABS: Absolute Neutrophils -Man Diff 20.8 10^3/uL (1.4-6.5); Platelets Checked Yes
[2025-05-02 07:06] LABS: Normal RBC Morphology Yes; Total Cells Counted 100
[2025-05-02] MEDS: LEVOPHED 250 IV ×2 (07:22→17:51)
[2025-05-02] MEDS: SEROQUEL 25 MG PO (08:07)
[2025-05-02] MEDS: ASPIR LOW (ENTERIC COATED) 81 MG PO (08:08)
[2025-05-02] MEDS: DEPAKOTE ER (24 HR RELEASE) 1000 MG PO (08:08)
[2025-05-02] MEDS: COLACE 200 MG PO (08:09)
[2025-05-02] MEDS: HEPARIN 5000 UNITS SC ×2 (08:10→19:14)
[2025-05-02] MEDS: PROTONIX IV 40 MG IV (08:10)
[2025-05-02] MEDS: NSS (PRESERVATIVE FREE) 10 ML IV (08:10)
--- NOTE | 2025-05-02 08:19 | W.PN.INTV ---
Today's Communication / Plan
Recommendations
Vasopressors
IVF
Keep NPO for now in case patient goes for surgical debridement of sacral wound
Monitor BG with goal 140�180
Raise ISS to moderate resistance
MAP goal >65
Follow-up cultures
Urology consulted
Continue ICU level of care for this critically ill patient
Assessment
-
Assessment: 69-year-old female former tobacco smoker with a past medical history of chronic Marinelli due to chronic urinary retention (possible neurogenic bladder), DM type II, hypertension, hypothyroidism, hyperlipidemia, bipolar disorder, insomnia,
CKD, history of UTI and overactive bladder who presents with being found unresponsive by staff at her snf ([facility]). In the ER she was hypotensive with BP initially 49/41, heart rate 101, and respiratory rate 14. She was given 2 L
NS 0.9% and started on Levophed due to persistent hypotension. Labs showed leukocytosis to 25.8, Hb 9.9, creatinine 3, glucose 177, lactate 3.9, and urinalysis showed cloudy urine with positive nitrites, +2 leukocyte esterase and >100 urine WBC.
Blood and urine culture sent. CXR showed no acute cardiopulmonary process. CT abdomen/pelvis showed moderate rectal stool bolus with possible developing stercoral colitis, with probable cystitis, with numerous scattered tiny nonobstructive
bilateral renal calculi without hydronephrosis. In the ER she was given Zosyn/vancomycin, and admitted to the ICU for further care. Software Support Specialist services consulted for additional management/recommendations.
Chronic conditions PAYROLL DIRECTOR: Chronic urinary retention with chronic Marinelli, DM type II, hypertension, hypothyroidism, hyperlipidemia, schizophrenia, bipolar disorder, insomnia, CKD stage III, history of UTI, former tobacco smoker, overactive bladder
Impression:
#Septic shock due to UTI +/- sacral decubitus wound
#Complicated UTI
#Unstageable sacral decubitus wound
#Numerous scattered tiny nonobstructive bilateral renal calculi without hydronephrosis (seen on CT abdomen/pelvis from 05/01/2025
#Acute encephalopathy due to septic encephalopathy/TME
#JANELLE
#Constipation with possible developing stercoral colitis
#Chronic urinary retention with chronic Marinelli catheter
#History of recurrent UTI due to E. coli + Klebsiella
#Former tobacco smoker
Plan:
- Patient found to have significantly elevated abnormal urinalysis and is in septic shock due to presumed UTI
- Of note, she does follow with urology as an outpatient, last visit 04/17/[address] Le
- She does have chronic obstructive voiding symptoms and large volume urinary retention with suggested chronic retention/neurogenic bladder
- Prior urodynamic study was attempted in April 03 but patient was not able to tolerate this test --> patient prefers to maintain a Marinelli catheter
- Patient was going to be arranged for suprapubic tube placement as an outpatient � Urology consulted given that patient is now critically ill with a recurrent UTI
- Marinelli catheter was not exchanged prior to initial UA being sent - Marinelli was exchanged here in the ICU on 05/01/2025 and fresh UA with reflex to Cx sent
- Continue with antibiotics, currently on Zosyn
- Follow-up blood cultures + urine cultures
- Trend WBC and temperature curve
- General surgery consulted to patrizia for debridement of her sacral wound
- Her CT abdomen/pelvis shows constipation with a moderate rectal stool bolus, with possible developing stercoral colitis
- As long she can safely swallow, start Senokot; she is s/p Dulcolax suppository on 05/01 and she subsequently had a BM, per RN
- Maintain SpO2 >90-94% - currently saturating 100% on room air
- prn nebulized bronchodilators - not currently bronchospastic
- Incentive spirometer encouraged 10x per hour for at least 4 hrs a day
- Maintain MAP>65
- Continue IVF with NS 0.9% at 125 cc/hr --> will add stop date to avoid volume overload
- Currently on Levophed; given improved levo requirements, ok to stop vasopressin
- Continue stress dose steroids with hydrocortisone 50 mg IV q6hr
- Maintain euglycemia while on high-dose steroids
- Renally dose all meds/Abx
- Trend sCr and UOP
- Okay to continue her psychiatric medications including Seroquel, clozapine and Depakote, however monitor for worsening lethargy in which case these meds may need to be adjusted/temporarily held
- Replete electrolytes with K>4, Mg>2
- Maintain euglycemia with goal BG 140-180; HbA1c: 6.1 on 01/30/2025 --> 6.6 on 05/02/2025
- Trend H/H and transfuse if needed to keep Hb>7g/dL; keep plt>20k, unless there is concern for bleeding then keep plt>50k
- DVT ppx: HSQ
Code status: DNR/DNI
Lines: Right femoral CVC
Continue ICU level of care for this critically ill patient.
Critical care statement: A total of 42 minutes of critical care time was provided for this patient today. This includes management of unstable vital signs, evaluation of the patient at bedside, reviewing the patient's pertinent medical records
including radiographs, microbiology, laboratory evaluations, and discussion with primary team, consultants, pharmacy, nutrition, physical therapy, case management, charge nurse, critical care nursing, and respiratory therapy.
Data:
CT abdomen/pelvis without contrast 05/01/2025:
Constipation and moderate rectal stool bolus with possible developing stercoral colitis. No obstruction, perforation or abscess.
Probable cystitis, limited by underdistention.
Numerous scattered tiny nonobstructing bilateral renal calculi. Findings could reflect chronic medical renal disease and developing renal cortical nephrocalcinosis, of nonspecific etiology.
Subjective Dataa
Subjective Data
Date of Service:
Date of Service: May 02, 2025
Chief Complaint: Software Support Specialist Follow Up
Subjective:
Patient seen and evaluated this morning. Down to Levophed at 5 mcg/min. Vaso off since this morning. HR 68, BP 95/59 and SpO2 99% on room air. No acute events reported overnight.
Review of Systems
General: Other (Negative unless mentioned above)
Objective Data
Data Reviewed
Vital Signs / I&O / Oxygen:
Vital Signs
Temp Pulse Resp BP Pulse Ox
97.6 F 64 14 94/73 99
05/02/25 08:16 05/02/25 09:00 05/02/25 09:00 05/02/25 09:00 05/02/25 08:32
Intake and Output
05/01/25 05/02/25 05/03/25
06:59 06:59 06:59
Intake Total 2354.7 / 2518.0 474.9 / 474.9
Output Total 1037 / 1077 130 / 130
Balance 1317.7 / 1441.0 344.9 / 344.9
SaO2 99
Nasal Cannula flow liters per 2
minute
Physical Exam
General: Respiratory Distress (negative) and Comfortable
HEENT: Normocephalic and Anicteric
Cardiovascular: S1-S2, Rub (negative) and Peripheral Edema (+1 lower extremity pitting edema bilaterally)
Respiratory: Wheeze (negative), Crackles (negative), Rhonchi (negative), Non-Labored Respirations, Stridor (negative) and Other (Poor inspiratory effort)
GI: Soft, Non Distended, Non Tender and Normal Bowel Sounds
Neurology: Tremors (negative) and Other (Drowsy but easily arousable and answering questions, confused at times; slurred speech at times)
Skin: Warm, Dry, Cyanosis (negative) and Jaundice (negative)
Labs/Micro/Reports
Lab Data
05/02/25 04:59
05/02/25 04:59
Laboratory Results
05/02/25
04:59
PT 17.3 H
INR 1.36
APTT 33.8
[2025-05-02 08:50] LABS: Glycohemoglobin (HgbA1c) 6.6 % (4.0-5.6)
[2025-05-02] MEDS: SYNTHROID 88 MCG PO (08:58)
--- NOTE | 2025-05-02 09:04 | WOUNDNOTE ---
[facility] RN note: Patient admitted with septic shock, UTI. Patient admitted from [facility].
See H&P for complete history.
PMH: CKD3, NIDDM, bipolar, HTN, UTI, former smoker, Marinelli.
Wound Location and type/assessment: Patient admitted with: an unstageable lower sacral pressure injury with kilpatrick necrotic cover. L coccyx/buttocks purple DTI vs bruise. L outer ear small purple scabbed pressure injury. R outer ear mild red. Heels
blanchable red/faint purple. Lateral ankles discolored dull red suspect from pressure.
Appetite: currently NPO.
Pressure redistribution devices in place: Centrella Max air bed. Patient cannot turn self in bed.
Plan: Sacral dressing changed. Protective foam applied to heels and lateral ankles. No sting skin prep applied to L outer ear scab. Patient turned to R semi side lying position with help from AIDAN Burgess. Heels off bed with pillow. Air chair cushion
given. t/c SPD and ordered Foot Waffle boots. Discussed with AIDAN Burgess.
Will confirm orders with Dr. Pritchard.
Care plan to be updated and will follow as needed.
Note to case management of equipment requested for discharge: air mattress if not already in place.
Recommend follow up at wound care center upon discharge.
--- NOTE | 2025-05-02 09:50 | WOUNDNOTE ---
[facility] RN note: Updated Dr. Pritchard re: unstageable lower sacral pressure injury with necrotic tissue. Wound picture in chart. Defer to hospitalist if general surgeon evaluation for debridement indicated. Hospitalist approved local wound care, air
mattress and soft heel relief boots.
--- NOTE | 2025-05-02 11:39 | PTCARENOTE ---
Addendum entered by Aditya Heaton RN 05/02/25 12:41:
Surgery to follow up in the following week to assess need for surgical debridement.
Vasopressors still downtitrating on min. support see titration flow sheet for details.
No further change in assessment.
Original Note:
Surgery bedside to assess pt for debridement.
Pressor requirements decreasing vasopressin off since 0800. IV team notified for central line rounds to discuss alternative line placement to remove 3L Fem access. --> awaiting surgery decision, if no further interventions and pressor requirements
remain decreased will reach out to pull Fem access and replace w/ Midline. Whipper Beater aware and confirms plan.
--- NOTE | 2025-05-02 11:40 | CON.GS ---
Consultation
-
Date/Time Consultation Performed: 04/28/2025 11:40 AM
Requesting Provider: Belinda
Performing Provider: Rayshawn
Reason for Consultation: Sacral decubitus wound
Medical History
-
Chief Complaint: Change in mental status
History of Present Illness:
Patient is a 69-year-old female admitted yesterday to the hospitalist service secondary to unresponsiveness and change in mental status.
History obtained through discussion with treating physicians, review of medical records and in discussions with the patient's brother.
Reportedly the patient was previously independent living until this past January when she was hospitalized for UTI. She ended up being discharged to [facility]. She has resided at [facility] for the past 3 to 3 months. Patient is currently
somnolent and unable to provide any history. Her brother states that she is essentially been bedbound since residing at [facility]. He has had intermittent contact with her. The last time he spoke with his sister was within approximately the
last 2 weeks at which point he states that she offers no specific concerns.
She has now been readmitted with septic shock due to complicated UTI and sacral decubitus wound.
Upon my return the patient was more responsive and oriented to self as well as location. She was still unable to provide much history other than she is aware of a progressing sacral wound and some discomfort in the area.
Past Medical History
Past Medical History: Other (Former tobacco use, chronic urinary retention with possible neurogenic bladder and chronic indwelling Marinelli, type 2 diabetes, hypertension, hypothyroidism, hyperlipidemia, bipolar, insomnia, CKD)
Past Surgical History: Reviewed & Noncontributory
Social History
Tobacco: Former Smoker
Personal: Single
Living: Senior Living
Family History
Family History: Reviewed & Not Pertinent
Allergies / Home Medications
Allergy/AdvReac Type Severity Reaction Status Date / Time
carbamazepine (From Tegretol) Allergy Rash Verified 04/25/23 12:39
minocycline HCl (From Allergy Unknown Verified 04/25/23 12:39
Minocin)
Skin Cleanser Combination Allergy Unknown Verified 04/25/23 12:39
No.4 (From Minocin)
thiothixene (From Navane) Allergy Unknown Verified 04/25/23 12:39
�Medication �Instructions �Recorded �Confirmed �Type
glipizide 2.5 mg tablet, extended 2.5 mg PO DAILY Diabetes 12/27/19 05/01/25 History
release 24 hr
simvastatin 40 mg tablet 40 mg PO HS High cholesterol 12/27/19 05/01/25 History
levothyroxine 88 mcg tablet 88 mcg PO DAILY Thyroid 06/03/20 05/01/25 History
aspirin 81 mg tablet,delayed 81 mg PO DAILY Blood Clot 01/29/25 05/01/25 History
release Prevention/Tx
cholecalciferol (vitamin D3) 25 25 mcg PO DAILY Supplement 01/29/25 05/01/25 History
mcg (1,000 unit) tablet (Vitamin
D3)
clozapine 100 mg tablet 300 mg PO HS bipolar disorder 01/29/25 05/01/25 History
divalproex 500 mg tablet,extended 1,000 mg PO DAILY bipolar disorder 01/29/25 05/01/25 History
release 24 hr
docusate sodium 100 mg capsule 200 mg PO BID Constipation 01/29/25 05/01/25 History
(Colace)
famotidine 20 mg tablet (Pepcid) 20 mg PO DAILY Gastrointestinal 01/29/25 05/01/25 History
Issue
losartan 50 mg tablet 50 mg PO DAILY Blood Pressure 01/29/25 05/01/25 History
melatonin 3 mg tablet 3 mg PO HS Sleep 01/29/25 05/01/25 History
quetiapine 25 mg tablet (Seroquel) 25 mg PO DAILY bipolar disorder 01/29/25 05/01/25 History
quetiapine 50 mg tablet (Seroquel) 75 mg PO HS bipolar disorder 01/29/25 05/01/25 History
sennosides 8.6 mg-docusate sodium 2 tab-cap PO BID Constipation 01/29/25 05/01/25 History
50 mg tablet (Senna-S)
acetaminophen 325 mg tablet 650 mg PO Q6HPRN PRN mild pain 05/01/25 05/01/25 History
(Tylenol)
bisacodyl 10 mg rectal suppository 10 mg [place] DAILYPRN PRN if no bm 05/01/25 05/01/25 History
(Dulcolax (bisacodyl)) aftr mom
magnesium hydroxide 400 mg/5 mL 2,400 mg PO HSPRN PRN if no bm by 05/01/25 05/01/25 History
oral suspension (Milk of Magnesia) 3rd day
Review of Systems
-
Unable to obtain full review of systems at this time due to: Acuity
History Source: Patient, Family and Physician
A 10 point review of systems was completed, and was negative except as per HPI.
Physical Exam
Vital Signs
Temp Pulse Resp BP Pulse Ox
97.6 F 77 13 94/61 98
05/02/25 08:16 05/02/25 11:00 05/02/25 11:00 05/02/25 11:00 05/02/25 11:00
05/01/25 05/02/25 05/03/25
06:59 06:59 06:59
Actual Weight 67.2 kg
Body Mass Index (BMI) 25.4
Lab Results
05/02/25 04:59
05/02/25 04:59
WBC 23.4 10^3/uL (4.8-10.8) H 05/02/25 04:59
Hgb 7.8 g/dL (12.0-16.0) L D 05/02/25 04:59
Hct 24.3 % (37.0-47.0) L 05/02/25 04:59
Plt Count 225 10^3/uL (130-400) 05/02/25 04:59
Abs Immat Gran (auto) 1.4 10^3/uL (0-0.05) H 05/01/25 13:21
Neutrophils % 85.6 % (42.2-75.2) H 05/01/25 13:21
Physical Exam
General: No Apparent Distress, Comfortable and Other (Bedbound, chronically ill-appearing)
HEENT: Normocephalic and Anicteric
Respiratory: Non Labored Respirations
Cardiac: Regular Rhythm
GI: Soft and Non Tender
Skin: Other (Unstageable sacral decubitus wound with some dry eschar no yeni necrotic tissue, boggy but not fluctuant. No purulence. No active drainage.)
Neuro: AO x 3
Psych: Calm
Data Reviewed
-
CT Scan: Image Personally Visualized and interpreted
Assessment / Plan
-
Assessment/plan: 69-year-old female admitted with septic shock due to presumed complicated UTI with developing sacral decubitus wound/ulcer (unstageable) in the setting of ambulatory dysfunction and being bedbound for the past few months.
CT abdomen/pelvis imaging was obtained 05/01/2025. Images and radiologist report reviewed and personally interpreted. From a sacral decubitus wound standpoint there is some thickening of the tissues overlying the sacrococcygeal region but there
does not appear to be any subcutaneous fluid component and no subcutaneous emphysema to radiographically suggest the presence of a undrained abscess or deeper necrotic soft tissue infection.
Agree with wound care nursing assessment of unstageable lower sacral pressure injury with superficially necrotic tissue but no wet gangrene. No spreading erythema, no malodorous or purulent drainage.
Given wound without clear signs of wet gangrene and yeni necrotic tissue recommend initial supportive care with local wound care measures and empiric antibiotics.
Patient states that she would defer to our recommendations regarding any potential need for future debridement but is comfortable with initial attempts at nonoperative management unless there is further progression or clear infectious signs or
symptoms.
We will follow peripherally with wound check in a few days. Please call if can be of further assistance sooner.
Discussed with patient's brother via phone call
Discussed with logistics planning engineer, hospitalist and patient's nurse
[2025-05-02 11:44] LABS: Glucose - Point of Care 166 mg/dl (70-99)
[2025-05-02] MEDS: SENOKOT-S 1 TABLET PO ×2 (12:02→22:36)
--- NOTE | 2025-05-02 13:20 | CON.MD ---
Consultation - Medical
-
see dictated note
pt generally immobile with sacral decub and urinary retention
planned cysto/sp tube with dr angela on may 21
admitted with UTI/sepsis
slowly improving
new godwin in place- urine clear
ct performed- no obstruction, mass or sig stone burden
plan
continue godwin
medical support
await ucx's
tentative plan to keep surgery date as scheduled
Consultation
-
Date/Time Consultation Requested: 05/02/25 at 8am
Date/Time Consultation Performed: 05/02/25 at 1pm
Requesting Provider: dr stovall
Performing Provider: dr manzo
Reason for Consultation: uti/chronic godwin
--- NOTE | 2025-05-02 13:27 | PTCARENOTE ---
Wound dressing changed, department of aging bedside for chart evaluation.
--- NOTE | 2025-05-02 13:31 | W.PN.HOSP.TC ---
Today's Communication/Plan
-
Total Critical Care Time__45___ minutes. I was immediately available to the patient and staff. I personally examined, reviewed labs, diagnostic images/reports, interpretations, treatment plans, discussed patient care with other providers and
family or caregivers (if patient is unable to make decisions), entered orders as appropriate and documented the medical record.
Assessment / Plan
Assessment / Plan
Impression:
Sepsis with septic shock requiring vasopressors present on admission
Catheter associated UTI
Chronic bladder outlet obstruction Marinelli catheter present on admission.
Acute toxic metabolic encephalopathy secondary to sepsis.
Acute kidney injury.
Possible stercoral colitis seen on CT scan.
Sacral pressure ulcer unstageable present on admission
Acute on chronic anemia
Other conditions
Essential hypertension.
Dyslipidemia
Bipolar disorder.
Type 2 diabetes
Hypothyroidism on replacement
CKD stage III baseline creatinine around 1.4
Plan:
Sepsis with septic shock requiring vasopressors secondary to complicated UTI.
Prior urine culture with Klebsiella.
Urine catheter exchanged after admission
Repeated urine culture from exchange catheter pending
Blood cultures pending.
Antibiotics consolidated to Zosyn.
Hemodynamics slowly improving with attempt to wean off norepinephrine vasopressor
Stress dose of corticosteroids with plan to wean off once hemodynamically stable
CT scan with no evidence of urinary tract obstruction.
Urology input appreciated with eventual plan for cystoscopy/suprapubic catheter placement.
Unstageable sacral pressure ulcer present on admission baseline
Continue wound care
No indication for surgical intervention
Stercoral colitis by CT scan.
Currently on antibiotics.
Bowel regimen
Acute kidney injury
CKD stage III with baseline creatinine around 1.4
[address] catheter in [address]
Continue IV fluids
Goal for MAP 55-60
Follow BMP
Acute on chronic anemia
Update iron stores and B12
Hemoglobin noted to trend down to 7.8 (10.2 at baseline)
No evidence for acute blood loss
Consider transfusion if trending down further below 7)
Type 2 diabetes.
Hold glipizide.
Advance diet once mental status improved.
Basal bolus insulin.
Hypothyroidism replaced
Bipolar disorder.
Continue preadmission regimen including Seroquel, Depakote, Clozaril
Anticipated Discharge: > 48 hours
Subjective/Interval History
-
Date of Service: May 02, 2025
Objective Data
-
Labs:
Laboratory Results
05/02/25
04:59
WBC 23.4 H
Hgb 7.8 L D
Hct 24.3 L
Plt Count 225
PT 17.3 H
INR 1.36
APTT 33.8
Sodium 142
Potassium 4.7
Chloride 115 H
Carbon Dioxide 20 L
BUN 50 H
Creatinine 2.2 H
Glucose 198 H
Calcium 9.8 D
Vital Signs:
Vital Signs
Temp Pulse Resp BP Pulse Ox
98.5 F 77 13 94/61 98
05/02/25 12:00 05/02/25 11:00 05/02/25 11:00 05/02/25 11:00 05/02/25 11:00
I&O
05/01/25 05/02/25 05/03/25
06:59 06:59 06:59
Intake Total 2354.7 / 2518.0 935.0 / 935.0
Output Total 1037 / 1077 190 / 190
Balance 1317.7 / 1441.0 745.0 / 745.0
Physical Exam
-
General: Well Developed and No Apparent Distress
HEENT: Normocephalic, Atraumatic and Moist Mucous Membranes
Respiratory: Clear to Auscultation
Cardiac: Regular Rhythm and S1/S2; Negative Murmur, Rub or Gallop
GI: Soft, Nontender, Nondistended and Normal Bowel Sounds; Negative Organomegaly
Rectal: Deferred by Provider
Genito-urinary: Marinelli
Musculoskeletal: No Clubbing, No Cyanosis and No Edema
Skin: Negative Rash
Neuro: Awake, Alert and Nonfocal/Grossly Intact
--- NOTE | 2025-05-02 15:42 | PTCARENOTE ---
Discussed with VAT team and Delivery Consultant during central line rounds.
Decision made to keep 3L fem and reassess tomorrow. Unable to do PICC due to pending blood CX, difficult PIV access, and moderate norepi titration needs. VAT team made aware and agree with plan.
PRESSING MACHINE TENDER evaluated patient and has cleared for diet.
Plan of care explained to pt. and all questions answered.
--- NOTE | 2025-05-02 15:50 | PTOTSP ---
Speech Therapy Assessment
Oral phase impacted by edentulous status resulting in extended processing time but overall tolerated solid and puree trials. Patient tolerated majority of thin liquid trials without overt signs of aspiration but risk for aspiration elevated given
acute illness and confusion also a limiting factor in safety.
Recommend
1. IDDSI 5 (minced and moist) and Thin liquids
2. Supervision as needed for set up and feeding.
3. Meds with liquid
4. Aspiration precautions.
ST will follow to assess for diet advancement.
--- NOTE | 2025-05-02 15:56 | CM ---
Addendum entered by Shimon Layton 05/03/25 15:08:
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 Ambulates with [facility]W PCP is Dr. Christopher Casey. Pharmacy is [facility]. Discharge POC: Return to [facility] for resumption of LTC.
Original Note:
Awaiting return call from [facility] liaison to confirm LTC status and additional information.
[2025-05-02 17:37] LABS: Glucose - Point of Care 97 mg/dl (70-99)
[2025-05-02] MEDS: DILAUDID 1 MG IV (18:20)
--- NOTE | 2025-05-02 18:24 | PTCARENOTE ---
Pt. reports pain onset in sacral region, visibly uncomfortable. --> cutter hand notified PRN pain scale ordered.
--- NOTE | 2025-05-02 19:15 | PTCARENOTE ---
Addendum entered by Navya Gaines RN 05/03/25 01:38:
Partial cares rendered. Marinelli care. Back care. Partial linen change.
Original Note:
Patient received lying in bed, with eyes closed, respirations non labored. She rouses to verbal and tactile stimuli but she is quite drowsy due to recent pain medication. She states 'pain is better' when asked about her pain. See manager area
charted in worklist flowsheet. Patient is oriented to self and event, knows she is in the hospital. Right femoral TLC with IVF and Levophed infusing, currently at 7mcg. BP stable with MAP > 65. BBS diminished t/o with fine crackles audible
posteriorly. Abdomen soft and nontender. Marinelli catheter patent draining clear yellow urine. Pulses positive x 4 extremities with mild generalized edema, Bilateral hands and feet 1+ edema. S1S2 regular, SR with 1st degree AVB and BBB on CM. No ectopy
seen. Bilateral protective heel dressings in place. Sacral dressing in place. Waffle boots donned to bilateral LEs. Bed in low and locked position, bed alarm on, call chan within reach.
[2025-05-02 21:44] LABS: Glucose - Point of Care 148 mg/dl (70-99)
--- NOTE | 2025-05-02 22:15 | PTCARENOTE ---
Patient takes po meds with water with some effort. Swallows without difficulty. Takes meds best in applesauce. Oral care rendered. Cooperative.
[2025-05-02] MEDS: LIPITOR 20 MG PO (22:36)
[2025-05-02] MEDS: CLOZARIL 300 MG PO (22:36)
[2025-05-02] MEDS: SEROQUEL 75 MG PO (22:36)
[2025-05-03] VITALS (57 sets, daily range): BP systolic 66–142; BP diastolic 42–109; PULSE 87; O2SAT 99; BMI 26.5
--- NOTE | 2025-05-03 | PTCARENOTE ---
Repositioned every 2 hours. Appears to be sleeping comfortably when left undisturbed. Otherwise, essentially no change in patient's physical assessment.
[2025-05-03] MEDS: NSS 1000 IV ×2 (00:15→09:43)
[2025-05-03] MEDS: SOLU-CORTEF 50 MG IV ×5 (00:15→23:22)
[2025-05-03] MEDS: ZOSYN 50 IV ×4 (01:41→19:42)
[2025-05-03] MEDS: LEVOPHED 250 IV ×2 (02:59→21:36)
--- NOTE | 2025-05-03 04:00 | PTCARENOTE ---
Physical assessment is essentially unchanged except patient is more awake. She has slept well t/o night. No complaints offered. VSS. Weaning down on Levophed gtt as tolerated keeping MAP > 65; currently at 5mcg. VSS.
[2025-05-03 05:29] LABS: Hematocrit 22.6 % (37.0-47.0); Hemoglobin 7.3 g/dL (12.0-16.0); Mean Corp Hgb Conc. 32.3 g/dL (33.0-37.0); Mean Corpuscular Volume 98.3 fL (81.0-99.0); Nucleated Red Blood Cells % 0 %; Platelet Count 217 10^3/uL (130-400); Red Cell Dist. Width 15.1 % (11.5-14.5)
[2025-05-03] MEDS: DILAUDID 0.5 MG IV ×2 (05:49→13:07)
[2025-05-03] MEDS: SYNTHROID 88 MCG PO ×2 (05:50→08:31)
[2025-05-03 05:51] LABS: Blood Urea Nitrogen 40 mg/dl (7-17); Calcium 9.1 mg/dl (8.4-10.2); Carbon Dioxide 17 mmol/L (22-30); Chloride 117 mmol/L (98-107); Estimated Creatinine Clearance 27 ml/min; Glucose 145 mg/dl (70-99); Potassium 3.7 mmol/L (3.5-5.1); Sodium 141 mmol/L (135-145); eGFR 32.06
--- NOTE | 2025-05-03 07:20 | PTCARENOTE ---
Report given verbally to oncoming shift, Nette BERMUDEZ. Bedside rounds complete. Questions answered.
[2025-05-03 08:09] LABS: Glucose - Point of Care 136 mg/dl (70-99)
--- NOTE | 2025-05-03 08:24 | W.PN.INTV ---
Today's Communication / Plan
Recommendations
Vasopressors
Start midodrine in an attempt to wean off levophed
IVF stopped to avoid volume overload
Diet as per FORESTRY FACULTY MEMBER
Monitor BG with goal 140�180
MAP goal >65
Follow-up sensitivities of urine culture
Continue ICU level of care for this critically ill patient
Assessment
-
Assessment: 69-year-old female former tobacco smoker with a past medical history of chronic Marinelli due to chronic urinary retention (possible neurogenic bladder), DM type II, hypertension, hypothyroidism, hyperlipidemia, bipolar disorder, insomnia,
CKD, history of UTI and overactive bladder who presents with being found unresponsive by staff at her senior living ([facility]). In the ER she was hypotensive with BP initially 49/41, heart rate 101, and respiratory rate 14. She was given 2 L
NS 0.9% and started on Levophed due to persistent hypotension. Labs showed leukocytosis to 25.8, Hb 9.9, creatinine 3, glucose 177, lactate 3.9, and urinalysis showed cloudy urine with positive nitrites, +2 leukocyte esterase and >100 urine WBC.
Blood and urine culture sent. CXR showed no acute cardiopulmonary process. CT abdomen/pelvis showed moderate rectal stool bolus with possible developing stercoral colitis, with probable cystitis, with numerous scattered tiny nonobstructive
bilateral renal calculi without hydronephrosis. In the ER she was given Zosyn/vancomycin, and admitted to the ICU for further care. Crtts services consulted for additional management/recommendations.
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
Impression:
#Septic shock due to UTI +/- sacral decubitus wound
#Complicated UTI
#Unstageable sacral decubitus wound
#Numerous scattered tiny nonobstructive bilateral renal calculi without hydronephrosis (seen on CT abdomen/pelvis from 05/01/2025
#Acute encephalopathy due to septic encephalopathy/TME
#JANELLE
#Constipation with possible developing stercoral colitis
#Chronic urinary retention with chronic Marinelli catheter
#History of recurrent UTI due to E. coli + Klebsiella
#Former tobacco smoker
Plan:
- Patient found to have significantly elevated abnormal urinalysis and is in septic shock due to presumed UTI
- Of note, she does follow with urology as an outpatient, last visit 04/17/[address] Le
- She does have chronic obstructive voiding symptoms and large volume urinary retention with suggested chronic retention/neurogenic bladder
- Prior urodynamic study was attempted in April 03 but patient was not able to tolerate this test --> patient prefers to maintain a Marinelli catheter
- Patient was going to be arranged for suprapubic tube placement as an outpatient � Urology consulted given that patient is now critically ill with a recurrent UTI
- Marinelli catheter was not exchanged prior to initial UA being sent - Marinelli was exchanged here in the ICU on 05/01/2025 and fresh UA with reflex to Cx sent
- Continue with antibiotics, currently on Zosyn
- Follow-up blood cultures + urine cultures
- Urine culture (sent prior to Marinelli being exchanged) is growing E. coli � follow-up sensitivities
- Repeat urine culture (sent after Marinelli was exchanged) shows NGTD
- Trend WBC and temperature curve
- General surgery consulted to eval for debridement of her sacral wound --> holding off on debridement at this time
- Her CT abdomen/pelvis shows constipation with a moderate rectal stool bolus, with possible developing stercoral colitis
- As long she can safely swallow, continue Senokot; she is s/p Dulcolax suppository on 05/01 and she subsequently had a BM, per RN
- Maintain SpO2 >90-94% - currently saturating 99% on room air
- prn nebulized bronchodilators - not currently bronchospastic
- Incentive spirometer encouraged 10x per hour for at least 4 hrs a day
- Maintain MAP>65
- Stop IVF this AM to avoid volume overload
- Currently on Levophed; given improved levo requirements, vasopressin stopped
- Start midodrine to help wean off levophed
- Continue stress dose steroids with hydrocortisone 50 mg IV q6hr --> can start weaning after 72 hours
- Maintain euglycemia while on high-dose steroids
- Renally dose all meds/Abx
- Trend sCr and UOP
- Okay to continue her psychiatric medications including Seroquel, clozapine and Depakote, however monitor for worsening lethargy in which case these meds may need to be adjusted/temporarily held
- Replete electrolytes with K>4, Mg>2
- Maintain euglycemia with goal BG 140-180; HbA1c: 6.1 on 01/30/2025 --> 6.6 on 05/02/2025
- Trend H/H and transfuse if needed to keep Hb>7-8g/dL; keep plt>20k, unless there is concern for bleeding then keep plt>50k
- DVT ppx: HSQ
Code status: DNR/DNI
Lines: Right femoral CVC --> will try to remove and place either midline vs PICC
Continue ICU level of care for this critically ill patient.
Critical care statement: A total of 38 minutes of critical care time was provided for this patient today. This includes management of unstable vital signs, evaluation of the patient at bedside, reviewing the patient's pertinent medical records
including radiographs, microbiology, laboratory evaluations, and discussion with primary team, consultants, pharmacy, nutrition, physical therapy, case management, charge nurse, critical care nursing, and respiratory therapy.
Data:
CT abdomen/pelvis without contrast 05/01/2025:
Constipation and moderate rectal stool bolus with possible developing stercoral colitis. No obstruction, perforation or abscess.
Probable cystitis, limited by underdistention.
Numerous scattered tiny nonobstructing bilateral renal calculi. Findings could reflect chronic medical renal disease and developing renal cortical nephrocalcinosis, of nonspecific etiology.
Subjective Dataa
Subjective Data
Date of Service:
Date of Service: May 03, 2025
Chief Complaint: Crtts Follow Up
Subjective:
Patient seen and evaluated this morning. No events reported from overnight. Afebrile overnight although she was hypothermic overnight to 96.4 �F. Heart rate 91, BP 105/56 and saturating 99% on room air. Has back pain during nursing care. She
remains drowsy, confused at times.
Review of Systems
General: Other (Unobtainable given patient's acute clinical status/confusion/AMS)
Objective Data
Data Reviewed
Vital Signs / I&O / Oxygen:
Vital Signs
Temp Pulse Resp BP Pulse Ox
98.3 F 89 14 105/66 98
05/03/25 08:14 05/03/25 09:30 05/03/25 09:30 05/03/25 09:30 05/03/25 09:30
Intake and Output
05/02/25 05/03/25 05/04/25
06:59 06:59 06:59
Intake Total 2354.7 / 2518.0 3473.5 / 3617.3 416.4 / 416.4
Output Total 1037 / 1077 1319 / 1319 75 / 75
Balance 1317.7 / 1441.0 2154.5 / 2298.3 341.4 / 341.4
SaO2 98
Nasal Cannula flow liters per 2
minute
Physical Exam
General: Respiratory Distress (negative) and Comfortable
HEENT: Normocephalic and Anicteric
Cardiovascular: S1-S2, Rub (negative) and Peripheral Edema (+1 lower extremity pitting edema bilaterally)
Respiratory: Wheeze (negative), Crackles (negative), Rhonchi (negative), Non-Labored Respirations, Stridor (negative) and Other (Poor inspiratory effort)
GI: Soft, Non Distended, Non Tender and Normal Bowel Sounds
Neurology: Tremors (negative) and Other (Drowsy but easily arousable and answering questions, confused; slurred speech at times)
Skin: Warm, Dry, Cyanosis (negative) and Jaundice (negative)
Labs/Micro/Reports
Lab Data
05/03/25 05:14
05/03/25 05:14
Microbiology
05/01/25 14:12 Urine Urine Culture - Preliminary
Escherichia coli
Gram negative bacilli
05/01/25 13:21 Blood/Venous Blood Culture - Preliminary
No Growth in 24 hours- Final report to follow
05/01/25 13:21 Blood/Venous Blood Culture - Preliminary
No Growth in 24 hours- Final report to follow
[2025-05-03] MEDS: SANTYL OINTMENT 1 APPLIC TOPICAL (08:28)
[2025-05-03] MEDS: DAKIN'S SOLUTION 0.125% 1/4 STRENGTH 473 ML TOPICAL (08:29)
[2025-05-03] MEDS: PROTONIX IV 40 MG IV (08:30)
[2025-05-03] MEDS: NSS (PRESERVATIVE FREE) 10 ML IV (08:30)
[2025-05-03] MEDS: SEROQUEL 25 MG PO (08:30)
[2025-05-03] MEDS: HEPARIN 5000 UNITS SC ×2 (08:30→21:02)
[2025-05-03] MEDS: PEPCID 20 MG PO (08:30)
[2025-05-03] MEDS: ASPIR LOW (ENTERIC COATED) 81 MG PO (08:30)
[2025-05-03] MEDS: DEPAKOTE ER (24 HR RELEASE) PO ×2 (08:31→10:59)
[2025-05-03] MEDS: SENOKOT-S 1 TABLET PO ×2 (08:31→21:03)
[2025-05-03] MEDS: NOVOLOG FLEXPEN-MODERATE RESISTANCE SC ×2 (08:31→11:36)
--- NOTE | 2025-05-03 08:31 | W.PN.URO.CBU ---
Today's Communication / Plan
-
continue godwin
await ucx
Assessment / Plan
-
chronic urinary retention with godwin
UTI- sepsis
pt continues godwin and medical support
awaiting ucx results
eventual plan is for outpt f/u with dr angela for cysto and sp tube placement
Diagnosis
-
Date of Service: May 03, 2025
-
Patient Diagnosis:
urinary retention
UTI with sepsis
Subjective
-
pt asleep
afebrile
wbc downtrending
still requiring some pressor support
blood cx's negative to date- ucx pending
godwin in place- urine clear
Objective
-
Vital Signs
Temp Pulse Resp BP Pulse Ox
98.3 F 79 17 106/60 98
05/03/25 08:14 05/03/25 07:00 05/03/25 07:00 05/03/25 07:00 05/03/25 07:00
Intake and Output
05/02/25 05/03/25 05/04/25
06:59 06:59 06:59
Intake Total 2354.7 / 2518.0 3473.5 / 3473.5
Output Total 1037 / 1077 1319 / 1319
Balance 1317.7 / 1441.0 2154.5 / 2154.5
Intake:
Oral fluids 30 / 30 120 / 120
IV fluids (Total) 2224.7 / 2388.0 3253.5 / 3253.5
Norepi 431.7 / 458.0 467.5 / 467.5
Nss 1,000 ml @ 125 mls/hr IV . 1625.0 / 1750.0 2750.0 / 2750.0
Q8H JEAN-PIERRE Rx#:[id number]
Vasopressin 168 / 180 36 / 36
IV piggybacks 100 / 100 100 / 100
Output:
Urine, Godwin 1037 / 1077 1319 / 1319
Laboratory Results
05/03/25 05:14
05/03/25 05:14
Physical Exam
-
General - no acute distress
Abdomen - soft, non-tender
Genitalia - godwin
--- NOTE | 2025-05-03 09:16 | PTCARENOTE ---
report received, assessments per work list. patient drowsy, arousable. oriented to person. soft speech. follows simple commands and is cooperative. monitor nsr with avb, bbb. right fem triple line patent with good blood returns. Levophed per work
list. lungs with diminished breath sounds. no cough or signs aspiration with meds/liquids. abdomen soft. hypoactive bowel sounds. generalized anasarca. wound care provided per orders. call chan in reach. safe environment maintained
--- NOTE | 2025-05-03 10:00 | PN.CDI ---
CDI
- -
CDI:
Physician Documentation Request
Admit Date: 05/01/25 15:43
Dear Doctor Francheska,
Please review the following and provide your response in the progress notes.
Clinical Indicators:
- RN skin assessments indicate:
- Stage 1 right ear pressure injury, POA
- Stage 2 left ear pressure injury, POA
Physician documentation of the type and location of wounds is required for compliant documentation. Based on the above clinical findings and your assessment, please provide the following in your progress note:
1. Location of the ulcer/wound, including laterality.
2. Type (etiology) of ulcer/wound:
- Diabetic ulcer
- Venous stasis ulcer
- Pressure (decubitus) ulcer
- Other
Use of terms such as suspected, likely, concern for, or probable (associated with a specific diagnosis that is being evaluated, monitored, or treated as if it exists) are acceptable and can be coded in the inpatient setting, when documented at the
time of discharge.
Thank you,
Toya Izaguirre RN
CDI Specialist
Please use your independent medical judgment in providing your response.
*Source: National Pressure Ulcer Advisory Panel (NPUAP)
[2025-05-03] MEDS: KCL 260 MEQ IV (11:28)
[2025-05-03 11:40] LABS: Glucose - Point of Care 134 mg/dl (70-99)
[2025-05-03] MEDS: DEPAKOTE SPRINKLE 500 MG PO ×2 (12:01→21:03)
--- NOTE | 2025-05-03 12:15 | PTCARENOTE ---
patient reassessed. k rider infusing, levophed wean per work list. ST in, diet adjustments per orders
--- NOTE | 2025-05-03 14:15 | W.PN.HOSP.TC ---
Today's Communication/Plan
-
Maintain Marinelli.
Zosyn.
Attempt to wean off norepinephrine with introduction of midodrine.
Pulse dose of corticosteroids.
Sacral wound care
Monitor hemoglobin
Assessment / Plan
Assessment / Plan
Impression:
Sepsis with septic shock requiring vasopressors present on admission
Catheter associated UTI
Chronic bladder outlet obstruction Marinelli catheter present on admission.
Acute toxic metabolic encephalopathy secondary to sepsis.
Acute kidney injury.
Possible stercoral colitis seen on CT scan.
Sacral pressure ulcer unstageable present on admission
Acute on chronic anemia
Other conditions
Essential hypertension.
Dyslipidemia
Bipolar disorder.
Type 2 diabetes
Hypothyroidism on replacement
CKD stage III baseline creatinine around 1.4
Plan:
Sepsis with septic shock requiring vasopressors secondary to complicated UTI.
Prior urine culture with Klebsiella.
Urine catheter exchanged after admission
Repeated urine culture from exchange catheter pending
Blood cultures pending.
Antibiotics consolidated to Zosyn.
Hemodynamics slowly improving
Vasopressin weaned off
Attempt to wean off norepinephrine
Stress dose of corticosteroids with plan to wean off once hemodynamically stable
CT scan with no evidence of urinary tract obstruction.
Urology input appreciated with eventual plan for cystoscopy/suprapubic catheter placement.
Unstageable sacral pressure ulcer present on admission baseline
Continue wound care
No indication for surgical intervention
Stercoral colitis by CT scan.
Currently on antibiotics.
Bowel regimen
Acute kidney injury
CKD stage III with baseline creatinine around 1.4
[address] catheter [address]
Continue IV fluids
Goal for MAP 55-60
Creatinine improving 3.0�1.7
Acute on chronic anemia
Update iron stores and B12
Hemoglobin noted to trend down to 7.3 (10.2 at baseline). Likely function of dilution with aggressive IV hydration
No evidence for acute blood loss
Consider transfusion if trending down further below 7)
Patient is not consentable due to cognitive status.
Attempted to call patient's brother for consent on 05/03 with no response.
Type 2 diabetes.
Hemoglobin A1c 6.6
Hold glipizide.
Advance diet once mental status improved.
Basal bolus insulin.
Hypothyroidism replaced
Bipolar disorder.
Continue preadmission regimen including Seroquel, Depakote, Clozaril
Anticipated Discharge: > 48 hours
Subjective/Interval History
-
Date of Service: May 03, 2025
Objective Data
-
Labs:
Laboratory Results
05/03/25
05:14
WBC 18.1 H
Hgb 7.3 L
Hct 22.6 L
Plt Count 217
Sodium 141
Potassium 3.7
Chloride 117 H
Carbon Dioxide 17 L
BUN 40 H
Creatinine 1.7 H
Glucose 145 H
Calcium 9.1
Vital Signs:
Vital Signs
Temp Pulse Resp BP Pulse Ox
98.1 F 84 11 101/66 98
05/03/25 11:19 05/03/25 13:30 05/03/25 13:30 05/03/25 13:30 05/03/25 13:30
I&O
05/02/25 05/03/25 05/04/25
06:59 06:59 06:59
Intake Total 2354.7 / 2518.0 3473.5 / 3617.3 1145.2 / 1145.2
Output Total 1037 / 1077 1319 / 1319 250 / 250
Balance 1317.7 / 1441.0 2154.5 / 2298.3 895.2 / 895.2
Physical Exam
-
General: Well Developed and No Apparent Distress
HEENT: Normocephalic, Atraumatic and Moist Mucous Membranes
Respiratory: Clear to Auscultation
Cardiac: Regular Rhythm and S1/S2; Negative Murmur, Rub or Gallop
GI: Soft, Nontender, Nondistended and Normal Bowel Sounds; Negative Organomegaly
Rectal: Deferred by Provider
Genito-urinary: Marinelli
Musculoskeletal: No Clubbing, No Cyanosis and No Edema
Skin: Negative Rash
Neuro: Awake, Alert and Nonfocal/Grossly Intact
--- NOTE | 2025-05-03 16:12 | PTCARENOTE ---
patient reassessed. hypotensive off of levophed, resumed per work list. VAT team at bedside to insert PICC line
[2025-05-03 17:06] LABS: Glucose - Point of Care 173 mg/dl (70-99)
[2025-05-03] MEDS: NOVOLOG FLEXPEN-MODERATE RESISTANCE 1 UNITS SC (17:18)
--- NOTE | 2025-05-03 18:39 | PTCARENOTE ---
PIcc repositioned by VAT team. still not in place. Dynamics Ax Consultant and hospitalist contact and updated by tiger text. Dynamics Ax Consultant to contact [facility] to reposition picc line
--- NOTE | 2025-05-03 18:44 | VATNOTE ---
PICC line placed with difficulty by Johny Santana RN. Malpositioned, repositioned per Radiology report. PICC remains malpositioned per Radiology report. Lead Engineer notified, states will contact [facility] for placement.
--- NOTE | 2025-05-03 19:40 | PTCARENOTE ---
Patient received lying in bed, awake and alert. IR calling for patient to address misplaced PICC. Patient to IR via bed accompanied by RN x 2 with portable monitor at 1945. Sara BERMUDEZ in IR received patient.
--- NOTE | 2025-05-03 20:30 | PTCARENOTE ---
IR completed placing triple lumen PICC. Patient returned to ICU via bed with portable monitor. Complete cares given with CHG cloth bath, godwin care, complete linen change. Repositioned every 2 hours. See critical power install technician charted in worklist flowsheet.
BBS diminished t/o. SR with 1st degree AVB on CM. Positive pulses x 4 extremities with generalized anasarca. BUE edema 2-3+, BLE edema 2+. Godwin catheter patent draining clear yellow urine. Sacral dressing CDI. Waffle boots in place bilaterally.
Patient declines offer of pain medication but acknowledges pain with repositioning. Labs and orders reviewed. Meds crushed and given in applesauce. Aspiration precautions. Right PICC with new IV bags and new tubings placed, removed from right
femoral TLC. IV Team RN notified of need to discontinue femoral TLC. Orders and labs reviewed. Bed in low and locked position, bed alarm on, call chan within reach.
[2025-05-03] MEDS: CLOZARIL 300 MG PO (21:03)
[2025-05-03] MEDS: SEROQUEL 75 MG PO (21:04)
[2025-05-03] MEDS: LIPITOR 20 MG PO (21:04)
[2025-05-03 21:57] LABS: Glucose - Point of Care 167 mg/dl (70-99)
[2025-05-04] VITALS (31 sets, daily range): BP systolic 83–131; BP diastolic 49–99; BMI 27.5
--- NOTE | 2025-05-04 00:30 | PTCARENOTE ---
IV team Thais at bedside. Right femoral TLC line dc'd, catheter intact, DSD donned. No other change in patient's physical assessment.
[2025-05-04] MEDS: ZOSYN 50 IV ×4 (01:57→20:54)
--- NOTE | 2025-05-04 04:30 | PTCARENOTE ---
Patient appears to be sleeping comfortably when undisturbed. She rouses easily to name called. No change noted in physical assessment. AM labs drawn. VSS.
[2025-05-04 04:50] LABS: Hematocrit 21.8 % (37.0-47.0); Hemoglobin 7.0 g/dL (12.0-16.0); Mean Corp Hgb Conc. 32.1 g/dL (33.0-37.0); Mean Corpuscular Volume 97.8 fL (81.0-99.0); Nucleated Red Blood Cells % 0.1 %; Platelet Count 200 10^3/uL (130-400); Red Cell Dist. Width 15.1 % (11.5-14.5)
[2025-05-04 05:04] LABS: Blood Urea Nitrogen 38 mg/dl (7-17); Calcium 9.7 mg/dl (8.4-10.2); Carbon Dioxide 17 mmol/L (22-30); Chloride 120 mmol/L (98-107); Estimated Creatinine Clearance 27 ml/min; Glucose 152 mg/dl (70-99); Potassium 3.6 mmol/L (3.5-5.1); Sodium 142 mmol/L (135-145); eGFR 32.06
[2025-05-04] MEDS: SOLU-CORTEF 50 MG IV ×3 (05:34→18:18)
--- NOTE | 2025-05-04 05:57 | PTCARENOTE ---
Advised Micheline Wilson APN that Hgb 7.0 and attempts to get consent for blood products from brother yesterday were unsuccessful.
--- NOTE | 2025-05-04 06:51 | PTCARENOTE ---
Report given verbally to Nette bruner RN. Questions answered.
--- NOTE | 2025-05-04 07:31 | W.PN.HOSP.TC ---
Addendum entered and electronically signed by Krystin Tierney MD 05/04/25 15:42:
Discussed with housekeeping assistant, continue IV steroid taper as currently ordered. Change midodrine to as needed. Patient's blood pressure has been stable off pressor since the morning. Okay for downgrade to telemetry.
Original Note:
Today's Communication/Plan
-
see A/P
Assessment / Plan
Assessment / Plan
Impression:
Sepsis with septic shock requiring vasopressors present on admission
Catheter associated UTI
Chronic bladder outlet obstruction Marinelli catheter present on admission.
Acute toxic metabolic encephalopathy secondary to sepsis.
Acute kidney injury.
Possible stercoral colitis seen on CT scan.
Sacral pressure ulcer unstageable present on admission
Acute on chronic anemia
Other conditions
Essential hypertension.
Dyslipidemia
Bipolar disorder.
Type 2 diabetes
Hypothyroidism on replacement
CKD stage III baseline creatinine around 1.4
Plan:
Sepsis with septic shock requiring vasopressors secondary to complicated UTI.
Prior urine culture with Klebsiella.
Urine catheter exchanged after admission
Repeated urine culture from exchange catheter growing E coli and GNR- follow S/S
Blood cultures negative.
Antibiotics consolidated to Zosyn.
Hemodynamics slowly improving
Vasopressin weaned off. Norepinephrine weaned off.
Stress dose of corticosteroids with plan to wean off once hemodynamically stable
CT scan with no evidence of urinary tract obstruction.
Urology input appreciated with eventual plan for outpt cystoscopy/suprapubic catheter placement.
Unstageable sacral pressure ulcer present on admission baseline
Continue wound care
No indication for surgical intervention
Stercoral colitis by CT scan.
Currently on antibiotics.
Bowel regimen
Acute kidney injury
CKD stage III with baseline creatinine around 1.[address]
Continue IV fluids
Goal for MAP 55-60
Creatinine improving 3.0 to 1.7
Acute on chronic anemia
Update iron stores and B12
Hemoglobin noted to trend down to 7.0 today (10.2 at baseline). Likely function of dilution with aggressive IV hydration
No evidence for acute blood loss
Hgb 7.0
transfusion consent obtained from brother 05/04. Patient is not consentable due to current cognitive status. Per brother, pt's baseline MS is awake and conversant. Monitor MS.
Transfuse 1 unit PRBC
Type 2 diabetes.
Hemoglobin A1c 6.6
Hold glipizide.
Advance diet once mental status improved.
Basal bolus insulin.
Currently on mince/moist diet.
Hypothyroidism replaced
Bipolar disorder.
Continue preadmission regimen including Seroquel, Depakote, Clozaril
Per brother, pt's baseline MS is awake and conversant. Monitor MS.
DVT ppx: HSQ
DNR
updated brother on the phone 05/04/2025. Please call again to update on Tuesday.
total time spent 51 min
Anticipated Discharge: > 48 hours
Subjective/Interval History
-
Date of Service: May 04, 2025
Objective Data
-
Labs:
Laboratory Results
05/04/25
04:32
WBC 13.7 H
Hgb 7.0 L
Hct 21.8 L
Plt Count 200
Sodium 142
Potassium 3.6
Chloride 120 H
Carbon Dioxide 17 L
BUN 38 H
Creatinine 1.7 H
Glucose 152 H
Calcium 9.7
Vital Signs:
Vital Signs
Temp Pulse Resp BP Pulse Ox
36.9 C 82 20 89/55 99
05/03/25 23:36 05/04/25 07:00 05/04/25 07:00 05/04/25 07:00 05/04/25 04:00
I&O
05/03/25 05/04/25 05/05/25
06:59 06:59 06:59
Intake Total 3473.5 / 3617.3 2176.2 / 2176.2
Output Total 1319 / 1319 1065 / 1065
Balance 2154.5 / 2298.3 1111.2 / 1111.2
Review of Systems
-
Unable to obtain full review of systems at this time due to: Dementia and Acuity
Physical Exam
-
General: Well Developed, No Apparent Distress, Comfortable and Appears Chronically Ill
HEENT: Normocephalic, Atraumatic and Moist Mucous Membranes
Respiratory: Clear to Auscultation and Non Labored Respirations; Negative Accessory Resp Muscle Use
Cardiac: Regular Rhythm and S1/S2; Negative Murmur, Rub or Gallop
GI: Soft, Nontender, Nondistended and Normal Bowel Sounds; Negative Organomegaly
Rectal: Deferred by Provider
Genito-urinary: Marinelli
Musculoskeletal: No Clubbing, No Cyanosis and No Edema
Skin: Negative Rash
Neuro: Awake and Alert
Psych: Calm
Data Reviewed
-
Labs: Labs Reviewed by me
--- NOTE | 2025-05-04 08:14 | W.PN.INTV ---
Today's Communication / Plan
Recommendations
Shock state now resolved as of 3 AM
Continue midodrine with holding parameters; hopefully can wean off fully before discharge
Continue stress dose steroid weaning down to off
IVF stopped to avoid volume overload
Patient weight is elevated by 12 pounds since admission, although she did weigh this same amount last hospitalization in January 2025 - recheck CXR tomorrow to assure that no diuresis is needed
Diet as per SPRING FITTER
Monitor BG with goal 140�180
Continue ABx for total of 10 days; follow-up urine culture from the second urine sample collected s/p fresh Marinelli was placed (which shows NGTD thus far)
Patient is stable for downgrade out of ICU to telemetry. No additional recommendations at this time. Talent Associate/Pulmonary service will now sign off. Please reconsult if there are any additional questions/concerns, or if patient's respiratory
status deteriorates.
Assessment
-
Assessment: 69-year-old female former tobacco smoker with a past medical history of chronic Marinelli due to chronic urinary retention (possible neurogenic bladder), DM type II, hypertension, hypothyroidism, hyperlipidemia, bipolar disorder, insomnia,
CKD, history of UTI and overactive bladder who presents with being found unresponsive by staff at her [facility] ([facility] In the ER she was hypotensive with BP initially 49/41, heart rate 101, and respiratory rate 14. She was given 2 L
NS 0.9% and started on Levophed due to persistent hypotension. Labs showed leukocytosis to 25.8, Hb 9.9, creatinine 3, glucose 177, lactate 3.9, and urinalysis showed cloudy urine with positive nitrites, +2 leukocyte esterase and >100 urine WBC.
Blood and urine culture sent. CXR showed no acute cardiopulmonary process. CT abdomen/pelvis showed moderate rectal stool bolus with possible developing stercoral colitis, with probable cystitis, with numerous scattered tiny nonobstructive
bilateral renal calculi without hydronephrosis. In the ER she was given Zosyn/vancomycin, and admitted to the ICU for further care. Talent Associate services consulted for additional management/recommendations.
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
Impression:
#Septic shock due to UTI +/- sacral decubitus wound � shock state now resolved
#Complicated UTI
#Unstageable sacral decubitus wound
#Numerous scattered tiny nonobstructive bilateral renal calculi without hydronephrosis (seen on CT abdomen/pelvis from 05/01/2025)
#Acute encephalopathy due to septic encephalopathy/TME - stable/improved
#JANELLE - stable
#Constipation with possible developing stercoral colitis
#Chronic urinary retention with chronic Marinelli catheter
#History of recurrent UTI due to E. coli + Klebsiella
#Former tobacco smoker
Plan:
- Patient found to have abnormal urinalysis and was in septic shock due to presumed UTI
- She follows with urology as an outpatient, last visit 04/17/[address] Le
- She has chronic obstructive voiding symptoms and large volume urinary retention with suggested chronic retention/neurogenic bladder
- Prior urodynamic study was attempted April 03 but patient was not able to tolerate this test --> patient prefers to maintain a Marinelli catheter
- Patient was going to be arranged for suprapubic tube placement as an outpatient � Urology was consulted this admission given that patient was critically ill with a recurrent UTI - she has markedly improved now off vasopressors since last night
- Marinelli catheter was not exchanged prior to initial UA being sent this admission - Marinelli was exchanged here in the ICU on 05/01/2025 and fresh UA with reflex to Cx sent (that culture shows NGTD)
- Continue with antibiotics, currently on Zosyn
- Follow-up blood cultures + urine cultures
- Urine culture (sent prior to Marinelli being exchanged) is growing E. coli + Klebsiella pneumonia. E. coli is lozano-sensitive, and Klebsiella is resistant only to ampicillin
- Repeat urine culture (sent after Marinelli was exchanged) shows NGTD
- Trend WBC and temperature curve
- General surgery consulted to patrizia for debridement of her sacral wound --> holding off on debridement at this time
- Pain control for her sacral wound; wound care also needed
- Her CT abdomen/pelvis shows constipation with a moderate rectal stool bolus, with possible developing stercoral colitis
- As long she can safely swallow, continue Senokot (holding for loose stools); she is s/p Dulcolax suppository on 05/01 and she subsequently had a BM, per RN
- Maintain SpO2 >90-94% - currently saturating 99% on room air
- prn nebulized bronchodilators - not currently bronchospastic
- Incentive spirometer encouraged 10x per hour for at least 4 hrs a day
- Maintain MAP>65
- Stopped IVF yesterday AM to avoid volume overload
- Started midodrine on 05/03 and she was able to successfully be weaned off vasopressors
- Continue to wean down hopefully to off on midodrine, otherwise she will be continued on this after discharge
- Continue stress dose steroids with hydrocortisone --> start to wean until off over the next few days
- Maintain euglycemia while on high-dose steroids
- Renally dose all meds/Abx
- Trend sCr and UOP
- Continue psychiatric medications including Seroquel, clozapine and Depakote, however monitor for worsening lethargy in which case these meds may need to be adjusted/temporarily held
- Replete electrolytes with K>4, Mg>2
- Maintain euglycemia with goal BG 140-180; HbA1c: 6.1 on 01/30/2025 --> 6.6 on 05/02/2025
- Trend H/H and transfuse if needed to keep Hb>7-8g/dL; keep plt>20k, unless there is concern for bleeding then keep plt>50k
- DVT ppx: HSQ
Code status: DNR/DNI
Lines: Right femoral CVC now removed on 05/03 by IR
RUE PICC line
Patient is stable for downgrade out of ICU to telemetry. No additional recommendations at this time. Talent Associate/Pulmonary service will now sign off. Thank you for allowing us to be involved in the care of this patient. Please reconsult if there
are any additional questions/concerns, or if patient's respiratory status deteriorates.
Data:
CT abdomen/pelvis without contrast 05/01/2025:
Constipation and moderate rectal stool bolus with possible developing stercoral colitis. No obstruction, perforation or abscess.
Probable cystitis, limited by underdistention.
Numerous scattered tiny nonobstructing bilateral renal calculi. Findings could reflect chronic medical renal disease and developing renal cortical nephrocalcinosis, of nonspecific etiology.
Total time spent today was 58 minutes for this encounter. Time includes reviewing laboratory test/imaging results, reviewing pertinent medical records, obtaining and reviewing medical history, performing an appropriate exam, ordering medications,
tests and procedures. Time also includes documentation of this encounter, coordinating patient care and communicating with other healthcare professionals. Total time does not include separately billed tests performed on this date of service.
Subjective Dataa
Subjective Data
Date of Service:
Date of Service: May 04, 2025
Chief Complaint: Talent Associate Follow Up
Subjective:
Patient was seen and evaluated this morning. She is awake, still feels very weak. Levophed has been turned off since 3 AM. Current BP 114/80, heart rate 90 and saturating 99% on room air. Patient was started on midodrine yesterday evening.
Remains on stress dose steroids. She denies chest pain, SOB, MATSON, nausea, fevers or chills; her main complaint is that she feels very weak/fatigued.
Review of Systems
General: Other (Negative unless mentioned above)
Objective Data
Data Reviewed
Vital Signs / I&O / Oxygen:
Vital Signs
Temp Pulse Resp BP Pulse Ox
98.4 F 82 20 89/55 99
05/03/25 23:36 05/04/25 07:00 05/04/25 07:00 05/04/25 07:00 05/04/25 04:00
Intake and Output
05/03/25 05/04/25 05/05/25
06:59 06:59 06:59
Intake Total 3473.5 / 3617.3 2176.2 / 2176.2
Output Total 1319 / 1319 1065 / 1065
Balance 2154.5 / 2298.3 1111.2 / 1111.2
SaO2 99
Nasal Cannula flow liters per 2
minute
Physical Exam
General: Respiratory Distress (negative) and Comfortable
HEENT: Normocephalic and Anicteric
Cardiovascular: S1-S2, Rub (negative) and Peripheral Edema (+1 lower extremity pitting edema bilaterally)
Respiratory: Wheeze (negative), Crackles (negative), Rhonchi (negative), Non-Labored Respirations, Stridor (negative) and Other (Poor inspiratory effort)
GI: Soft, Non Distended, Non Tender and Normal Bowel Sounds
Neurology: Tremors (negative) and Other (Drowsy but easily arousable and answering questions, confused; slurred speech at times)
Skin: Warm, Dry, Cyanosis (negative) and Jaundice (negative)
Labs/Micro/Reports
Lab Data
05/04/25 04:32
05/04/25 04:32
Microbiology
05/01/25 14:12 Urine Urine Culture - Preliminary
Escherichia coli
Gram negative bacilli
05/01/25 13:21 Blood/Venous Blood Culture - Preliminary
No Growth in 48 hours- Final report to follow
05/01/25 13:21 Blood/Venous Blood Culture - Preliminary
No Growth in 48 hours- Final report to follow
05/01/25 22:09 Urine Urine Culture - Final
No Significant Growth
[2025-05-04 08:17] LABS: Iron 66 ug/dl (37-170)
[2025-05-04 08:26] LABS: Total Iron Binding Capacity 196 ug/dl (265-497)
[2025-05-04] MEDS: NOVOLOG FLEXPEN-MODERATE RESISTANCE SC ×3 (08:29→16:34)
[2025-05-04] MEDS: DILAUDID 0.5 MG IV (08:30)
[2025-05-04] MEDS: KCL 270 MEQ IV (08:30)
[2025-05-04] MEDS: HEPARIN 5000 UNITS SC ×2 (08:31→20:51)
[2025-05-04] MEDS: SYNTHROID 88 MCG PO (08:31)
[2025-05-04] MEDS: SEROQUEL 25 MG PO (08:31)
[2025-05-04] MEDS: DULCOLAX 10 MG RECTAL (08:31)
[2025-05-04] MEDS: SENOKOT-S 1 TABLET PO ×2 (08:31→20:52)
[2025-05-04] MEDS: DEPAKOTE SPRINKLE 500 MG PO ×2 (08:32→20:53)
[2025-05-04] MEDS: SANTYL OINTMENT 1 APPLIC TOPICAL (08:32)
[2025-05-04] MEDS: PROTONIX IV 40 MG IV (08:32)
[2025-05-04] MEDS: NSS (PRESERVATIVE FREE) 10 ML IV (08:32)
[2025-05-04] MEDS: ASPIR LOW (ENTERIC COATED) 81 MG PO (08:33)
[2025-05-04] MEDS: DAKIN'S SOLUTION 0.125% 1/4 STRENGTH 473 ML TOPICAL (08:33)
[2025-05-04 08:35] LABS: Glucose - Point of Care 141 mg/dl (70-99)
--- NOTE | 2025-05-04 09:19 | PTCARENOTE ---
report received, assessments per work list. patient with increased nonverbal pain cues, see MAR. dulcolax given per orders. right triple picc patent good blood returns, type and cross sent. blood consent obtained by . order received. lungs
diminished. chronic godwin draining clear yellow urine. patient confused but cooperative. safe environment obtained
[2025-05-04 10:03] LABS: Ferritin 70.4 ng/ml (11.1-264.0)
[2025-05-04 10:35] LABS: Folate 6.5 ng/ml (2.76-20); Vitamin B12 728 pg/ml (239-931)
--- NOTE | 2025-05-04 10:37 | PTCARENOTE ---
unit PRBC initiated without signs transfusion reaction. social media project manager updated at bedside
[2025-05-04 12:09] LABS: Glucose - Point of Care 106 mg/dl (70-99)
--- NOTE | 2025-05-04 12:53 | PTCARENOTE ---
reassessed. no changes. poor oral intake. PRBC transfused without s/s reaction
[2025-05-04 16:33] LABS: Glucose - Point of Care 128 mg/dl (70-99)
--- NOTE | 2025-05-04 18:26 | PTCARENOTE ---
down grade to tel level of care. no changes in assessments. no results from am dulcolax suppository
[2025-05-04] MEDS: LIPITOR 20 MG PO (20:52)
[2025-05-04] MEDS: CLOZARIL 300 MG PO (20:53)
[2025-05-04] MEDS: SEROQUEL 75 MG PO (20:54)
[2025-05-04 21:19] LABS: Glucose - Point of Care 151 mg/dl (70-99)
--- NOTE | 2025-05-04 23:33 | PTCARENOTE ---
systems reviewed, no changes from previous assessment, pt denies pain, otherwise refer to documentation
[2025-05-05] MEDS: ZOSYN 50 IV ×4 (02:28→19:40)
[2025-05-05 02:30] VITALS: BP 119/73
[2025-05-05 02:35] VITALS: BMI 27.3
[2025-05-05 04:27] LABS: Hematocrit 30.8 % (37.0-47.0); Hemoglobin 10.2 g/dL (12.0-16.0); Mean Corp Hgb Conc. 33.1 g/dL (33.0-37.0); Mean Corpuscular Volume 94.2 fL (81.0-99.0); Platelet Count 225 10^3/uL (130-400); Red Cell Dist. Width 16.8 % (11.5-14.5)
[2025-05-05 04:31] LABS: Blood Urea Nitrogen 42 mg/dl (7-17); Calcium 10.4 mg/dl (8.4-10.2); Carbon Dioxide 18 mmol/L (22-30); Chloride 122 mmol/L (98-107); Estimated Creatinine Clearance 30 ml/min; Glucose 113 mg/dl (70-99); Magnesium 2.2 mg/dl (1.6-2.3); Potassium 4.0 mmol/L (3.5-5.1); Sodium 146 mmol/L (135-145); eGFR 32.06
[2025-05-05] MEDS: SYNTHROID 88 MCG PO (05:15)
[2025-05-05] MEDS: SOLU-CORTEF 50 MG IV ×2 (07:53→15:31)
[2025-05-05] MEDS: PROTONIX IV 40 MG IV (07:54)
[2025-05-05] MEDS: NSS (PRESERVATIVE FREE) 10 ML IV (07:54)
[2025-05-05] MEDS: SANTYL OINTMENT 1 APPLIC TOPICAL (07:54)
[2025-05-05] MEDS: DAKIN'S SOLUTION 0.125% 1/4 STRENGTH 473 ML TOPICAL (07:55)
[2025-05-05] MEDS: DEPAKOTE SPRINKLE 500 MG PO ×2 (07:56→19:42)
[2025-05-05] MEDS: ASPIR LOW (ENTERIC COATED) 81 MG PO (07:57)
[2025-05-05] MEDS: HEPARIN 5000 UNITS SC ×2 (07:57→19:41)
[2025-05-05] MEDS: SENOKOT-S 1 TABLET PO (07:57)
[2025-05-05] MEDS: SEROQUEL 25 MG PO (07:57)
[2025-05-05] MEDS: NOVOLOG FLEXPEN-MODERATE RESISTANCE SC ×3 (08:01→18:07)
[2025-05-05 08:11] LABS: Glucose - Point of Care 93 mg/dl (70-99)
[2025-05-05 08:22] VITALS: BP 122/87
--- NOTE | 2025-05-05 09:09 | PTCARENOTE ---
Report received, assessments per work list. patient states pain only 'with Shots'. Right triple picc with KVO infusing. lungs diminished. chronic godwin draining clear yellow urine. patient confused but cooperative. Incontinent large soft BM. safe
environment obtained. call chan within reach.
[2025-05-05 12:00] VITALS: BP 130/98
[2025-05-05 12:17] LABS: Glucose - Point of Care 137 mg/dl (70-99)
--- NOTE | 2025-05-05 12:21 | W.PN.HOSP.TC ---
Today's Communication/Plan
-
abx
f/u tsh w/ reflex free t4
steroid taper
monitor for fluid overload and need of diuresis
Assessment / Plan
Assessment / Plan
General: Well Developed, No Apparent Distress, Comfortable and Appears Chronically Ill
HEENT: Normocephalic, Atraumatic and Moist Mucous Membranes
Respiratory: Clear to Auscultation and Non Labored Respirations; Negative Accessory Resp Muscle Use
Cardiac: Regular Rhythm and S1/S2; Negative Murmur, Rub or Gallop
GI: Soft, Nontender, Nondistended and Normal Bowel Sounds; Negative Organomegaly
Rectal: Deferred by Provider
Genito-urinary: Marinelli
Musculoskeletal: No Clubbing, No Cyanosis and No Edema
Skin: Negative Rash
Neuro: Awake and Alert
Psych: Calm
Impression:
Sepsis with septic shock requiring vasopressors present on admission
Catheter associated UTI
Chronic bladder outlet obstruction Marinelli catheter present on admission.
Acute toxic metabolic encephalopathy secondary to sepsis.
Acute kidney injury.
Possible stercoral colitis seen on CT scan.
Sacral pressure ulcer unstageable present on admission
Acute on chronic anemia
Other conditions
Essential hypertension.
Dyslipidemia
Bipolar disorder.
Type 2 diabetes
Hypothyroidism on replacement
CKD stage III baseline creatinine around 1.4
Plan:
Sepsis with septic shock requiring vasopressors secondary to complicated UTI.
Prior urine culture with Klebsiella.
Urine catheter exchanged after admission
Repeated urine culture from exchange catheter growing E coli and GNR- follow S/S
Blood cultures negative.
Antibiotics consolidated to Zosyn.
Hemodynamics slowly improving
Vasopressin weaned off. Norepinephrine weaned off.
Stress dose of corticosteroids with plan to wean off once hemodynamically stable
CT scan with no evidence of urinary tract obstruction.
Urology input appreciated with eventual plan for outpt cystoscopy/suprapubic catheter placement.
Unstageable sacral pressure ulcer present on admission baseline
Continue wound care
No indication for surgical intervention
Stercoral colitis by CT scan.
Currently on antibiotics.
Bowel regimen
Acute kidney injury
CKD stage III with baseline creatinine around 1.4
[address] catheter in [address]
Continue IV fluids
Goal for MAP 55-60
Creatinine improving 3.0 to 1.7
Acute on chronic anemia
Update iron stores and B12
Hemoglobin noted to trend down to 7.0 today (10.2 at baseline). Likely function of dilution with aggressive IV hydration
No evidence for acute blood loss
Hgb 7.0
transfusion consent obtained from brother 05/04. Patient is not consentable due to current cognitive status. Per brother, pt's baseline MS is awake and conversant. Monitor MS.
Transfuse 1 unit PRBC
Type 2 diabetes.
Hemoglobin A1c 6.6
Hold glipizide.
Advance diet once mental status improved.
Basal bolus insulin.
Currently on mince/moist diet.
Hypernatremia
monitor with diet
Hypothyroidism replaced
Bipolar disorder.
Continue preadmission regimen including Seroquel, Depakote, Clozaril
Per brother, pt's baseline MS is awake and conversant. Monitor MS.
DVT ppx: HSQ
DNR
updated brother on the phone 05/04/2025. Please call again to update on Tuesday.
Update 05/05 - remains off pressors since 05/04 3AM - not requiring midodrine. IVF stopped. Consider lasix if needed if BP remains stable and evidence of overload; patients weight up 12 lbs since admissions; TELEVISION TECHNICIAN - ADAT; Cont abx; Cont Steroid taper;
F/u TSH w/ reflex free t4
Anticipated Discharge: 24 - 48 hours
Subjective/Interval History
-
Date of Service: May 05, 2025
no acute events, not requiring midodrine
Objective Data
-
Labs:
Laboratory Results
05/05/25
03:48
WBC 12.0 H
Hgb 10.2 L D
Hct 30.8 L
Plt Count 225
Sodium 146 H
Potassium 4.0
Chloride 122 H
Carbon Dioxide 18 L
BUN 42 H
Creatinine 1.7 H
Glucose 113 H
Calcium 10.4 H
Vital Signs:
Vital Signs
Temp Pulse Resp BP Pulse Ox
97.3 F 95 20 130/98 95
05/05/25 08:00 05/05/25 12:00 05/05/25 12:00 05/05/25 12:00 05/05/25 08:00
I&O
05/04/25 05/05/25 05/06/25
06:59 06:59 06:59
Intake Total 2176.2 / 2196.2 1130 / 1130 290 / 290
Output Total 1065 / 1065 950 / 950 190 / 190
Balance 1111.2 / 1131.2 180 / 180 100 / 100
Review of Systems
-
Unable to obtain full review of systems at this time due to: Dementia and Acuity
Physical Exam
-
General: Well Developed, No Apparent Distress, Comfortable and Appears Chronically Ill
HEENT: Normocephalic, Atraumatic and Moist Mucous Membranes
Respiratory: Clear to Auscultation and Non Labored Respirations; Negative Accessory Resp Muscle Use
Cardiac: Regular Rhythm and S1/S2; Negative Murmur, Rub or Gallop
GI: Soft, Nontender, Nondistended and Normal Bowel Sounds; Negative Organomegaly
Rectal: Deferred by Provider
Genito-urinary: Marinelli
Musculoskeletal: No Clubbing, No Cyanosis and No Edema
Skin: Negative Rash
Neuro: Awake and Alert
Psych: Calm
Data Reviewed
-
Diagnostic Radiology: Report Reviewed by me
CT Scan: Report Reviewed by me
Labs: Labs Reviewed by me
[2025-05-05] MEDS: DILAUDID 0.5 MG IV ×2 (13:10→21:18)
[2025-05-05 16:00] VITALS: BP 110/61
[2025-05-05 18:13] LABS: Glucose - Point of Care 126 mg/dl (70-99)
[2025-05-05] MEDS: SENOKOT-S PO (19:43)
[2025-05-05 20:00] VITALS: BP 133/81
--- NOTE | 2025-05-05 20:00 | PTCARENOTE ---
Patient received lying in bed, she appears to be sleeping comfortably, resps. non labored. She rouses easily to name called. See audiometric technician charted. BBS with UL expiratory wheezes and upper airway congestion. Coughs and clears. Bilateral bases
diminished. SR with 1st degree AVB on CM. S1S2 regular. Abdomen soft, incontinent of stool. Skin care given with cares, CHG cloth bath. Marinelli care. Marinelli patent draining clear yellow urine. Sacral wound care per order as dressing is soiled.
Generalized edema 2+, bilateral hand edema 2-3+, bilateral pedal edema 1-2+. Right triple lumen PICC, site WDL. Turned every 2 hours. Bed in low and locked position, bed alarm on, call chan within reach.
[2025-05-05] MEDS: CLOZARIL 300 MG PO (20:24)
[2025-05-05] MEDS: SEROQUEL 75 MG PO (20:24)
[2025-05-05] MEDS: LIPITOR 20 MG PO (20:25)
--- NOTE | 2025-05-05 21:25 | PTCARENOTE ---
HOB up, aspiration precautions. Assist feed for dinner, appetite fair. Patient states, 'I'm not very hungry.' Takes oral fluids well. Patient medicated for pain. Report called verbally to Darren BERMUDEZ on 4W. Questions answered. Patient belongings
gathered, no valuables noted.
[2025-05-05 21:48] LABS: Glucose - Point of Care 150 mg/dl (70-99)
--- NOTE | 2025-05-05 21:56 | PTCARENOTE ---
Patient transferred via bed accompanied by RN x 2 to 4W. Belongings sent. Settled in room 428.
[2025-05-05 22:25] VITALS: BMI 26.8
--- NOTE | 2025-05-05 22:26 | PTCARENOTE ---
Assumed care of pt from ICU nurse Navya. Pt pulled over to bed. Pt repositioned, tele monitor in place. No c/o pain, safety measures in place, call bel within reach.
[2025-05-05 23:30] VITALS: BP 122/81
[2025-05-06] MEDS: SOLU-CORTEF 50 MG IV ×2 (00:48→08:55)
[2025-05-06] MEDS: ZOSYN 50 IV ×3 (00:50→12:37)
[2025-05-06 03:51] VITALS: BP 120/78
[2025-05-06 06:00] VITALS: BMI 27.5
[2025-05-06] MEDS: SYNTHROID 88 MCG PO (06:30)
[2025-05-06 07:36] VITALS: BP 132/82
[2025-05-06 08:10] LABS: Glucose - Point of Care 138 mg/dl (70-99)
[2025-05-06 08:47] LABS: Hematocrit 30.8 % (37.0-47.0); Hemoglobin 10.2 g/dL (12.0-16.0); Mean Corp Hgb Conc. 33.1 g/dL (33.0-37.0); Mean Corpuscular Volume 94.8 fL (81.0-99.0); Platelet Count 210 10^3/uL (130-400); Red Cell Dist. Width 16.8 % (11.5-14.5)
[2025-05-06] MEDS: NOVOLOG FLEXPEN-MODERATE RESISTANCE SC ×2 (08:51→17:07)
[2025-05-06] MEDS: PROTONIX IV 40 MG IV (08:52)
[2025-05-06] MEDS: NSS (PRESERVATIVE FREE) 10 ML IV (08:52)
[2025-05-06] MEDS: SANTYL OINTMENT 1 APPLIC TOPICAL (08:52)
[2025-05-06] MEDS: HEPARIN 5000 UNITS SC (08:56)
[2025-05-06] MEDS: SEROQUEL 25 MG PO (08:56)
[2025-05-06] MEDS: SENOKOT-S 1 TABLET PO (08:56)
[2025-05-06] MEDS: ASPIR LOW (ENTERIC COATED) 81 MG PO (08:56)
[2025-05-06] MEDS: DEPAKOTE SPRINKLE 500 MG PO (08:56)
[2025-05-06 09:34] LABS: Blood Urea Nitrogen 39 mg/dl (7-17); Calcium 10.6 mg/dl (8.4-10.2); Carbon Dioxide 20 mmol/L (22-30); Chloride 121 mmol/L (98-107); Estimated Creatinine Clearance 32 ml/min; Glucose 117 mg/dl (70-99); Potassium 3.7 mmol/L (3.5-5.1); Sodium 147 mmol/L (135-145); eGFR 34.48
[2025-05-06 11:28] VITALS: BP 130/77
--- NOTE | 2025-05-06 12:17 | CM ---
Addendum entered by Darlene Powell 05/06/25 16:05:
Patient for discharge today back to [facility], update to liaison. Patient will require ambulance transport. Update to patients andrewerJulius. IMM verbally reviewed with patient, placed in chart.
Plan; Return to [facility], ambulance transport 6:30 p.m.
[facility]:
Report: [phone]

Original Note:
CM reviewed chart, patient seen bedside, confirmed patient plan remains return to [facility] when stable. Referral placed in [facility]. CM will continue to follow for all discharge planning needs.
Plan; return to [facility] when stable, no auth required
[2025-05-06 12:25] LABS: Glucose - Point of Care 272 mg/dl (70-99)
[2025-05-06] MEDS: NOVOLOG FLEXPEN-MODERATE RESISTANCE 5 UNITS SC (12:36)
[2025-05-06] MEDS: DAKIN'S SOLUTION 0.125% 1/4 STRENGTH 473 ML TOPICAL (12:37)
[2025-05-06 13:38] VITALS: BP 120/77
--- NOTE | 2025-05-06 14:19 | W.DS.TRANS ---
DC Summary - Manager Utilization
-
Discharge Instructions:
Discharge Diagnosis/Procedures Complicated UTI
Diet Regular
Blood Work BMP in one week
Instructions:
Stand-Alone Forms:
Changes to Home Medications: Yes
Discharge Medications:
DC Medications w/original date entered in DocASAP
glipizide 2.5 mg tablet, extended release 24 hr 2.5 mg PO DAILY Diabetes 12/27/19
simvastatin 40 mg tablet 40 mg PO HS High cholesterol 12/27/19
levothyroxine 88 mcg tablet 88 mcg PO DAILY Thyroid 06/03/20
aspirin 81 mg tablet,delayed release 81 mg PO DAILY Blood Clot Prevention/Tx 01/29/25
cholecalciferol (vitamin D3) 25 mcg (1,000 unit) tablet (Vitamin D3) 25 mcg PO DAILY Supplement 01/29/25
clozapine 100 mg tablet 300 mg PO HS bipolar disorder 01/29/25
divalproex 500 mg tablet,extended release 24 hr 1,000 mg PO DAILY bipolar disorder 01/29/25
docusate sodium 100 mg capsule (Colace) 200 mg PO BID Constipation 01/29/25
famotidine 20 mg tablet (Pepcid) 20 mg PO DAILY Gastrointestinal Issue 01/29/25
losartan 50 mg tablet 50 mg PO DAILY Blood Pressure 01/29/25
Held on 05/06/25. Instructions: Resume on 05/13/25.
melatonin 3 mg tablet 3 mg PO HS Sleep 01/29/25
quetiapine 25 mg tablet (Seroquel) 25 mg PO DAILY bipolar disorder 01/29/25
quetiapine 50 mg tablet (Seroquel) 75 mg PO HS bipolar disorder 01/29/25
sennosides 8.6 mg-docusate sodium 50 mg tablet (Senna-S) 2 tab-cap PO BID Constipation 01/29/25
acetaminophen 325 mg tablet (Tylenol) 650 mg PO Q6HPRN PRN mild pain 05/01/25
bisacodyl 10 mg rectal suppository (Dulcolax (bisacodyl)) 10 mg FL DAILYPRN PRN if no bm aftr mom 05/01/25
magnesium hydroxide 400 mg/5 mL oral suspension (Milk of Magnesia) 2,400 mg PO HSPRN PRN if no bm by 3rd day 05/01/25
amoxicillin 500 mg-potassium clavulanate 125 mg tablet 1 tab PO Q12 #12 tabs 05/06/25
Home Medication Changes
Antibiotics to complete 10 days
Hold Valsartan for 7 days pending repeat BMP
Pending Results: No
--- NOTE | 2025-05-06 15:20 | WOUNDNOTE ---
WOC RN note: Jeremie Powell re: recommend an air mattress at SNF if not already in place. Patient has an unstageable sacral pressure injury.
[2025-05-06 15:40] VITALS: BP 121/81
[2025-05-06 17:05] LABS: Glucose - Point of Care 111 mg/dl (70-99)
== END 2025-05-06 18:36 | DRG 698 ==
LOC: 4 WEST ACU 15:43
PROVIDERS: Internal Medicine; Nurse Practitioner Primary Care; ADMITTING PHYSICIAN Student in an Organized Health Care Education/Training Program; ATTENDING PHYSICIAN Internal Medicine; CONSULT PHYSICIAN Internal Medicine Critical Care Medicine; CONSULT PHYSICIAN Surgery; EMERGENCY PHYSICIAN Emergency Medicine; FAMILY PHYSICIAN Family Medicine; OTHER PHYSICIAN Specialist
PROC: 30243N1 Transfusion of Nonautologous Red Blood Cells into Central Vein, Percutaneous Approach (ICD-10-PCS; 2025-05-04)
DX: T83.511A Infection and inflammatory reaction due to indwelling urethral catheter, initial encounter (principal); A41.51 Sepsis due to Escherichia coli [E. coli]; G92.8 Other toxic encephalopathy; R65.21 Severe sepsis with septic shock; N17.9 Acute kidney failure, unspecified; Y73.1 Therapeutic (nonsurgical) and rehabilitative gastroenterology and urology devices associated with adverse incidents; Y84.6 Urinary catheterization as the cause of abnormal reaction of the patient, or of later complication, without mention of misadventure at the time of the procedure; N39.0 Urinary tract infection, site not specified; N18.32 Chronic kidney disease, stage 3b; N32.0 Bladder-neck obstruction; E11.22 Type 2 diabetes mellitus with diabetic chronic kidney disease; E03.9 Hypothyroidism, unspecified; I12.9 Hypertensive chronic kidney disease with stage 1 through stage 4 chronic kidney disease, or unspecified chronic kidney disease; F31.9 Bipolar disorder, unspecified; Z66 Do not resuscitate; N31.9 Neuromuscular dysfunction of bladder, unspecified; R33.9 Retention of urine, unspecified; D64.89 Other specified anemias; E66.9 Obesity, unspecified; L89.150 Pressure ulcer of sacral region, unstageable; F20.9 Schizophrenia, unspecified; G47.00 Insomnia, unspecified; K59.00 Constipation, unspecified; N20.0 Calculus of kidney; N32.81 Overactive bladder; Z68.27 Body mass index [BMI] 27.0-27.9, adult; Z79.82 Long term (current) use of aspirin; Z79.84 Long term (current) use of oral hypoglycemic drugs; Z79.899 Other long term (current) drug therapy; Z87.442 Personal history of urinary calculi; Z87.440 Personal history of urinary (tract) infections; Z87.891 Personal history of nicotine dependence
CPT/HCPCS: 36555; 36584; 71045; 74176; 80048; 80053; 81003; 81015; 82570; 82607; 82728; 82746; 82962; 83036; 83540; 83550; 83605; 83735; 84100; 84300; 84443; 85025; 85027; 85610; 85730; 86850; 86900; 86901; 86920; 87040; 87077; 87086; 87186; 92526; 92610; 93005; 97163; 97167; 97530; 99291; C1751; P9016

== ENCOUNTER 2025-05-16 14:01 | Inpatient (IN) | payer MEDICARE, OTHER, SELFPAY ==
[2025-05-16] VITALS (54 sets, daily range): BP systolic 59–111; BP diastolic 45–86; BMI 26.4
[2025-05-16] MEDS: LEVOPHED 250 IV ×2 (11:29→17:09)
[2025-05-16 12:06] LABS: Urine Character Slightly Cloudy (Clear)
--- NOTE | 2025-05-16 12:06 | ED.GENMED ---
History of Present Illness
General
Chief Complaint: Breathing Problem
Source: ambulance crew and [facility]
Time Seen by Provider: 05/16/25 11:41
History of Present Illness
History of Present Illness:
69-year-old female sent to the emergency room from [facility] for lethargy, mental status change and hypotension. Patient unable to provide any history due to her altered mental status. She was recently hospitalized here for sepsis
and discharged show to the end of April. Her baseline mental status during that hospitalization was described as awake and conversant though she has a significant past history of mental illness and psychosis.
Past History
Past History
ED Past Medical History: COPD, HTN, Hypercholesterolemia, NIDDM, Renal failure (acute), Hypothyroidism, Other (bipolar, colitis, rhabdomyolysis, Vertigo,) and Other (vertigo); Negative IDDM
ED Past Surgical History: None
Social History
Tobacco: Former smoker
Alcohol: None
Drug: None
Personal: Single
Living: alone
Employment: Not employed
Family History
Family History: CAD
Phy Exam
Physical Exam
Physical Exam:
General: Sleepy but will open eyes and localize the pain with stimulus
Vitals: Febrile, hypotensive, tachycardic and hypoxic on arrival with a pulse ox in the 80s.
Head: Atraumatic
Eyes: Pupils equal, EOMI
Throat: Airway intact, no exudates, dry mucosa
Neck: Trachea midline
Lungs: Coarse breath sounds bilaterally
Heart: Regular rate, no murmurs
Abd: Soft, Nontender, No pulsatile mass
Genitalia: Indwelling Marinelli catheter
Neuro: Nonfocal
Skin: Warm, dry, no rash
Extremities: pulses equal b/l, no edema
Scores
Heart Failure Risk
Heart Failure Risk Score: Not Applicable
Sepsis
Sepsis Screening
Sepsis Assessment: Septic Shock
Sepsis Screening: Hypotension, Sustained Hypotension-SBP <90,MAP<65, or SBP decrease 40mmHg or more and Vasopressor support required
Sepsis Screen
Sepsis Screen: Septic Shock
Date: 05/16/25
Time: 13:03
Course
Orders/Labs/Results
Orders:
Orders
05/16/25 11:16
Electrocardiogram (*1) Urgent
Reason for Study: Shortness of Breath
EKG- Treatment ONCE
05/16/25 11:25
NORepinephrine 4 MG/250 ML [Levophed] 4 mg in 250 ml .ROUTE .STK-MED
05/16/25 11:48
Urinalysis Reflex To Culture Urgent
Date Specimen was Collected: 05/16/25
Time Specimen was Collected: 11:44
Urine Microscopic Reflex Cult Urgent
Urine Culture Urgent
FRANCISCA Source: U
Specimen Description:
Date Specimen was Collected: 05/16/25
Time Specimen was Collected: 11:44
05/16/25 12:01
Complete Blood Count/With Diff Urgent
Comprehensive Metabolic Panel Urgent
Lactic Acid Urgent
Manual Differential Urgent
Troponin I Urgent
Blood Culture Urgent
FRANCISCA Source: Blood/Venous
Specimen Description:
05/16/25 12:04
PTT Urgent
05/16/25 12:05
Blood Culture Urgent
FRANCISCA Source: Blood/Venous
Specimen Description:
05/16/25 12:20
Marinelli [Marinelli Placement- Treatment] ONCE
Reason for insertion: Chronic Marinelli on Admit
0.9% Sodium Chloride 1000 ml [Nss] 2,200 ml IV NOW STA
Cefepime HCl [Maxipime] 2,000 mg IV NOW STA
05/16/25 12:21
CR Chest Portable - 1 View Urgent
Comment:
Reason For Exam: fever, cough, hypotension, central line
Reason Study Needs to be Portable: Patient Unstable
05/16/25 12:24
COVID-19 Antigen Urgent
Source: Nasal Swab
Influenza A+B Rapid Molecular Urgent
FRANCISCA Source: Nasal Swab
Specimen Description:
05/16/25 12:27
Vancomycin [Vancocin] 2,000 mg 0.9% Sodium Chloride 500 ml [Nss] 500 ml IV NOW
05/16/25 12:45
NORepinephrine 4 MG/250 ML [Levophed] 4 mg in 250 ml IV NOW
Initial dose in mcg/min, then titrate:: 2
Titrate to keep:: MAP > 65 mmHg
Titrate by mcg/min:: 1-2 mcg/min
Frequency of titrations (minutes):: 5
Maximum dose in ICU in mcg/min:: 30
Maximum dose in IMU in mcg/min:: 8
Maximum dose in IVU in mcg/min:: 4
Begin to taper infusion when:: Remained at goal for 4hrs
Taper by mcg/min:: 1-2 mcg/min
Frequency of taper (minutes) if patient maintains goal:: 30
Taper to off?: Yes
If infusion off & no longer maintaining goal:: Contact Provider
05/16/25 12:48
Sterile Water [Sterile Water For Injection] 20 ml .ROUTE .STK-MED
Abnormal Lab Results
05/16/25 05/16/25 05/16/25
11:48 12:01 12:04
WBC 11.1 H 10^3/uL
(4.8-10.8)
RBC 3.16 L 10^6/uL
(4.20-5.40)
Hgb 9.8 L g/dL
(12.0-16.0)
Hct 30.7 L %
(37.0-47.0)
MCHC 31.9 L g/dL
(33.0-37.0)
RDW 18.5 H %
(11.5-14.5)
Abs Neuts (Manual) 8.4 H 10^3/uL
(1.4-6.5)
Segmented Neutrophils 37 L %
(42-75)
Band Neutrophils 39 H %
(0-3)
Lymphocytes (Manual) 14 L %
(20-51)
APTT 45.8 H Sec
(23.4-35.0)
Sodium 151 H mmol/L
(135-145)
Chloride 121 H mmol/L
(98-107)
BUN 33 H mg/dl
(7-17)
Creatinine 1.7 H mg/dL
(0.6-1.0)
Glucose 176 H mg/dl
(70-99)
Troponin I 0.090 H* ng/ml
Total Protein 4.7 L g/dl
(6.3-8.2)
Albumin 2.4 L g/dl
(3.5-5.0)
Ur Occult Blood Reflex 3+ A
(Negative)
Urine Bilirubin 1+ A
(Negative)
Leukocyte Esterase Rfl 3+ A
(Negative)
Urine WBC (Reflex) >100 A /HPF
(0-5)
Urine Bacteria (Reflex) Many A
(Negative)
Urine Yeast Many A
(Negative)
Urine Albumin (Reflex) 3+ A
(Neg - Trace)
05/16/25 12:01
05/16/25 12:01
Vital Signs
Initial and Last Documented VS:
Initial Vital Signs
Pulse Resp BP Pulse Ox
103 18 66/47 87
05/16/25 11:11 05/16/25 11:11 05/16/25 11:11 05/16/25 11:11
Last Documented Vital Signs
Temp Pulse Resp BP Pulse Ox
100.3 F 96 15 71/47 92
05/16/25 11:31 05/16/25 11:30 05/16/25 11:30 05/16/25 11:30 05/16/25 12:07
MDM/Problems Addressed
Differential Diagnosis Includes:
Urosepsis, pneumonia with sepsis, dehydration,
MDM/Problems Addressed:
Patient presents with severe hypotension. Sepsis bundle was ordered but patient difficult to obtain IV access on. After multiple attempts at peripheral IV nurses were only able to obtain a small right hand IV. Decision made to proceed with
central line placement. Left subclavian placed without difficulty. Post line chest x-ray shows that the line is in good place and there is no pneumothorax. Broad-spectrum antibiotics administered in the form of cefepime and Vanco. Chest x-ray
does not show signs of pneumonia at this point. Urine has a large number of white blood cells which is likely the source of infection though the patient is likely colonized due to chronic Marinelli catheter. Recent hospitalization was due to
urosepsis.
Labs show that the patient has a significantly elevated sodium at 151 and an elevated chloride at 121. BUN and creatinine seem to be at baseline. Troponin is elevated at 0.09 No acute ischemic changes on EKG.
*Radiology
Radiology exam reviewed: preliminary read by ED provider (Line in good position, no infiltrate, no pneumothorax)
*Pulse Oximetry
SaO2: 92
Nasal Cannula flow liters per minute: 3
Oxygen Mode of Delivery: Room air
Patient hypoxic: yes
*EKG
Interpretation: abnormal
Heart Rate: 103
Rate: tachycardiac
Rhythm: sinus tachycardia
[place]: normal axis
Interval: normal interval
QRS Pattern: normal QRS
Ischemia: no ischemia
*Hotel And Dining Room Cashier Interpretation
Rate: tachycardiac
Interpretation: abnormal
Rhythm: sinus tachycardia
*Critical Care Note
Total Time (30-74mins, 75-104mins- exclusive of procedures): 35 min
comment:
Critical care statement: A total of 35 minutes of critical care time was provided for this patient. This includes management of unstable vital signs, evaluation of the patient at bedside, reviewing the patient�s pertinent medical records, discussion
with consultants, review of old EKGs and review of pertinent medical records. This time with separate from time utilized to perform the aforementioned documented procedures
Data Reviewed
Review of Other/Old Records Reveals: Labs, Radiology Studies and Discharge Summary
ED Attending Note
-
Portions of this chart may have been created with voice recognition software.� Occasional wrong word or��sound alike� substitutions may have occurred due to the inherent limitations of voice recognition software.
Discharge Plan
Departure
Patient Disposition: Admit
Date of Disposition: 05/16/25
Time of Disposition: 12:49
Presentation/result/management discussed w/ accepting MD/DO: Hospitalist
Condition: Serious
Discharge Problem:
Septic shock, Acute UTI
Prescriptions:
No Action
simvastatin 40 MG tablet
40 mg PO HS
glipizide 2.5 MG tablet extended release 24hr
2.5 mg PO DAILY
levothyroxine 88 MCG tablet
88 mcg PO DAILY
quetiapine [Seroquel] 25 mg Tablet
25 mg PO DAILY
clozapine 100 mg Tablet
300 mg PO HS
sennosides-docusate sodium [Senna-S] 8.6-50 mg Tablet
2 tab-cap PO BID
melatonin 3 mg Tablet
3 mg PO HS
aspirin 81 mg Tablet,Delayed Release (Dr/Ec)
81 mg PO DAILY
famotidine [Pepcid] 20 mg Tablet
20 mg PO DAILY
divalproex 500 mg Tablet Extended Release 24 Hr
1,000 mg PO DAILY
docusate sodium [Colace] 100 mg Capsule
200 mg PO BID
quetiapine [Seroquel] 50 mg Tablet
75 mg PO HS
cholecalciferol (vitamin D3) [Vitamin D3] 25 mcg (1,000 unit) Tablet
25 mcg PO DAILY
acetaminophen [Tylenol] 325 mg Tablet
650 mg PO Q6HPRN PRN (Reason: mild pain)
magnesium hydroxide [Milk of Magnesia] 400 mg/5 mL Suspension
2,400 mg PO HSPRN PRN (Reason: if no bm by 3rd day)
bisacodyl [Dulcolax (bisacodyl)] 10 mg Suppository
10 mg DC DAILYPRN PRN (Reason: if no bm aftr mom)
losartan 50 mg Tablet
50 mg PO DAILY
Referrals:
Christopher Casey MD [Family Provider, Family Practice]
Interventions
Interventions:
*Risk Screen - Suicide Last Done: 05/16/25 11:37
*General Assessment Last Done: 05/16/25 11:14
*Neglect/Abuse Screening Last Done: 05/16/25 11:37
*ED- Fall Risk Assessment Last Done: 05/16/25 11:14
*ED COVID-19 Vaccine History Last Done: 05/16/25 11:14
ED- Cardiac Assessment Last Done: 05/16/25 11:23
ED- Pulmonary Assessment Last Done: 05/16/25 11:20
Discharge Date and Time
Print Language: GREEK
[2025-05-16 12:26] LABS: APTT 45.8 Sec (23.4-35.0)
[2025-05-16 12:27] LABS: ALT (SGPT) 22 U/L (0-35); AST (SGOT) 20 U/L (14-36); Albumin 2.4 g/dl (3.5-5.0); Alkaline Phosphatase 74 U/L (38-126); Blood Urea Nitrogen 33 mg/dl (7-17); Calcium 9.7 mg/dl (8.4-10.2); Carbon Dioxide 25 mmol/L (22-30); Chloride 121 mmol/L (98-107); Glucose 176 mg/dl (70-99); Potassium 4.4 mmol/L (3.5-5.1); Sodium 151 mmol/L (135-145); Total Protein 4.7 g/dl (6.3-8.2); eGFR 32.06
[2025-05-16 12:31] LABS: Urine Squamous Cell 0-2 /LPF (Few)
[2025-05-16 12:32] LABS: Urine White Cell >100 /HPF (0-5)
[2025-05-16 12:33] LABS: Urine Red Blood Cell 0-2 /HPF (0-2)
[2025-05-16 12:34] LABS: Absolute Neutrophils -Man Diff 8.4 10^3/uL (1.4-6.5); Hematocrit 30.7 % (37.0-47.0); Hemoglobin 9.8 g/dL (12.0-16.0); Mean Corp Hgb Conc. 31.9 g/dL (33.0-37.0); Mean Corpuscular Volume 97.2 fL (81.0-99.0); Platelet Count 131 10^3/uL (130-400); Platelets Checked Yes; Red Cell Dist. Width 18.5 % (11.5-14.5)
[2025-05-16 12:35] LABS: Anisocytosis 1+; Hypochromasia Slight; Normal RBC Morphology No; Ovalocytes FEW; Polychromasia 1+; Total Cells Counted 100
[2025-05-16 12:41] LABS: Troponin I 0.090 ng/ml
[2025-05-16] MEDS: MAXIPIME 2000 MG IV (12:49)
[2025-05-16] MEDS: VANCOCIN 540 MG IV (12:50)
[2025-05-16] MEDS: NSS 2200 ML IV (13:03)
--- NOTE | 2025-05-16 13:05 | EDRN ---
This BUSINESS RECORDS MANAGER accidentally charted under another BUSINESS RECORDS MANAGER, Liana Anderson. This RN cared for this patient in entirety. BUSINESS RECORDS MANAGER Liana Anderson did not care for this patient.
--- NOTE | 2025-05-16 13:08 | HPS.HSE ---
Family Physician
-
Family Physician: Christopher Casey MD
Chief Complaint
-
altered mental status
History of Present Illness
69-year-old female past medical history of catheter associated UTI, chronic bladder outlet obstruction requiring Marinelli catheter, pressure injury of right ear, left ear, sacrum, hyperlipidemia, bipolar disorder, type 2 diabetes, hypothyroidism, CKD
3B, chronic anemia, essential hypertension, presenting from [place] [facility] with lethargy, mental status change and hypotension. Patient unable to provide any history due to her mental status.
She was recently admitted from 05/01 to 05/06 for septic shock requiring vasopressors secondary to catheter associated UTI.
Medical History
Past Medical History
Past Medical History: Reports Other (catheter associated UTI, chronic bladder outlet obstruction requiring Marinelli catheter, pressure injury of right ear, left ear, sacrum, hyperlipidemia, bipolar disorder, type 2 diabetes, hypothyroidism, CKD 3B,
chronic anemia, essential hypertension)
Past Surgical History: Reports None
Social History
Tobacco: Non-smoker
Alcohol: None
Drug: None
Family History
Family History: Not pertinent
Allergies / Home Medications
Allergies reflects when Allergies were last updated in [employer].
Home Medications with original date entered in [employer]
Allergy/Medication List:
Allergies
Allergy/AdvReac Type Severity Reaction Status Date / Time
carbamazepine (From Tegretol) Allergy Rash Verified 04/25/23 12:39
minocycline HCl (From Allergy Unknown Verified 04/25/23 12:39
Minocin)
Skin Cleanser Combination Allergy Unknown Verified 04/25/23 12:39
No.4 (From Minocin)
thiothixene (From Navane) Allergy Unknown Verified 04/25/23 12:39
Home Medications
glipizide 2.5 mg tablet, extended release 24 hr 2.5 mg PO DAILY Diabetes 12/27/19
simvastatin 40 mg tablet 40 mg PO HS High cholesterol 12/27/19
levothyroxine 88 mcg tablet 88 mcg PO DAILY Thyroid 06/03/20
aspirin 81 mg tablet,delayed release 81 mg PO DAILY Blood Clot Prevention/Tx 01/29/25
cholecalciferol (vitamin D3) 25 mcg (1,000 unit) tablet (Vitamin D3) 25 mcg PO DAILY Supplement 01/29/25
clozapine 100 mg tablet 300 mg PO HS bipolar disorder 01/29/25
divalproex 500 mg tablet,extended release 24 hr 1,000 mg PO DAILY bipolar disorder 01/29/25
docusate sodium 100 mg capsule (Colace) 200 mg PO BID Constipation 01/29/25
famotidine 20 mg tablet (Pepcid) 20 mg PO DAILY Gastrointestinal Issue 01/29/25
melatonin 3 mg tablet 3 mg PO HS Sleep 01/29/25
quetiapine 25 mg tablet (Seroquel) 25 mg PO DAILY bipolar disorder 01/29/25
quetiapine 50 mg tablet (Seroquel) 75 mg PO HS bipolar disorder 01/29/25
sennosides 8.6 mg-docusate sodium 50 mg tablet (Senna-S) 2 tab-cap PO BID Constipation 01/29/25
acetaminophen 325 mg tablet (Tylenol) 650 mg PO Q6HPRN PRN mild pain 05/01/25
bisacodyl 10 mg rectal suppository (Dulcolax (bisacodyl)) 10 mg SC DAILYPRN PRN if no bm aftr mom 05/01/25
magnesium hydroxide 400 mg/5 mL oral suspension (Milk of Magnesia) 2,400 mg PO HSPRN PRN if no bm by 3rd day 05/01/25
losartan 50 mg tablet 50 mg PO DAILY 05/16/25
Review of Systems
-
History Source: Patient
A 12 point ROS was completed and negative except as noted: Yes
Constitutional: Reports No Symptoms
EENT: Reports No Symptoms
Respiratory: Reports No Symptoms
Cardiac: Reports No Symptoms
Abdomen/GI: Reports No Symptoms
: Reports No Symptoms
Musculoskeletal: Reports No Symptoms
Skin: Reports No Symptoms
Neurological: Reports No Symptoms
Endocrine: Reports No Symptoms
Hematologic/Lymphatic: Reports No Symptoms
Psych: Reports No Symptoms
Physical Exam
Vital Signs
Vital Signs
Temp Pulse Resp BP Pulse Ox
100.3 F 100 17 90/59 93
05/16/25 11:31 05/16/25 13:00 05/16/25 13:00 05/16/25 13:00 05/16/25 12:45
Physical Exam
General: Well Developed, Well Nourished and No Apparent Distress
HEENT: NormoCephalic, Moist mucous membranes and Atraumatic
Respiratory: Clear
Cardiac: S1/S2 and Regular Rhythm; No Murmur or Rub
GI: Soft, Non Tender, Non Distended and Normal Bowel Sounds; No Organomegaly
Rectal: Deferred by Provider
Musculoskeletal: No Clubbing, No Cyanosis and No Edema
Skin: No Rash
Neuro: Nonfocal/grossly intact
Laboratory Results
-
05/16/25 12:01
05/16/25 12:01
Laboratory Results
APTT 45.8 Sec (23.4-35.0) H 05/16/25 12:04
Lactic Acid 1.2 mmol/L (0.7-2.0) 05/16/25 12:01
Total Bilirubin 0.5 mg/dl (0.2-1.3) 05/16/25 12:01
AST 20 U/L (14-36) 05/16/25 12:01
ALT 22 U/L (0-35) 05/16/25 12:01
Alkaline Phosphatase 74 U/L (38-126) 05/16/25 12:01
Troponin I 0.090 ng/ml H* 05/16/25 12:01
Data Reviewed
-
Lab Data: Labs Reviewed by me
Old Records: Reviewed
Impression/Plan
-
IMPRESSION:
PLAN:
# Recurrent septic shock (leukocytosis, fever, hypotension)/acute metabolic encephalopathy secondary to likely catheter associated UTI
# Recent catheter associated UTI secondary to E. coli/Klebsiella
-Patient now awake although not providing history
- White cells greater than 100, +3 leukocyte esterase, slightly cloudy urine
-Urine culture, blood cultures
-IV fluids,
- Cefepime
-Patient with IJ placed
-Marinelli catheter changed and appears to be draining, although patient with difficult Marinelli placement in the past
-Levophed started
- Patient on 2 L oxygen, chest x-ray pending
- EKG shows sinus tachycardia
#Hypernatremia secondary to hypovolemia
- Continue IV fluids with normal saline
Chronic bladder outlet infection with chronic Marinelli catheter
- Marinelli catheter exchanged
Pressure injury of right ear/left ear, sacrum
- Sacral pressure injury unstageable
Hyperlipidemia
- Continue statin
Bipolar disorder
- Continue clozapine, Depakote, Seroquel
Essential hypertension
- Hold losartan
- Continue aspirin
Type 2 diabetes
- Hold glipizide
- Insulin sliding scale
Hypothyroidism
- Continue levothyroxine
CKD 3B
- Renal function at baseline
Chronic anemia
- Hemoglobin stable 9.8
History of constipation
- Continue bowel regimen
DNR as per jail papers
DVT prophylaxis�heparin
Regular diet
[2025-05-16 13:26] LABS: COVID-19 Antigen Negative (Negative)
--- NOTE | 2025-05-16 14:52 | CON.INTV ---
Consultation
Consultation Request
Date/Time Consultation Requested: 05/16/2025
Date/Time Consultation Performed: 05/16/2025
Requesting Provider: Dr. No
Performing Provider: Dr. Cayden Tang
Reason for Consultation: Septic Shock
Medical History
-
Chief Complaint: Change in mental status
History of Present Illness:
69-year-old woman with past medical history significant for catheter associated UTI, chronic bladder outlet obstruction with chronic Marinelli catheter in place, pressure injury of the right ureter left ureter and sacrum, bipolar disorder, type 2
diabetes, hypothyroidism, chronic kidney disease stage IIIb, anemia, essential hypertension presented from care home with lethargy, mental status change and hypotension.
Patient unable to provide history. Records reviewed.
-
Patient was discharged on 05/06/2025 with catheter associated urinary tract infection. Similar presentation. Urinary cultures showed Klebsiella pneumonia and also E. coli.
-
PMHx: Chronic urinary retention with chronic Marinelli, DM type II, hypertension, hypothyroidism, hyperlipidemia, schizophrenia, bipolar disorder, insomnia, CKD stage III, history of UTI, former tobacco smoker, overactive bladder
PSHx: Noncontributory
Past Medical History
Past Medical History: Other (See assessment and plan)
Past Surgical History: Other (Above as per HPI)
Social History
Tobacco: Former Smoker (Quit >12 years ago)
Alcohol: None
Drug: None
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
Family History
Family History: CAD (Father (open heart surgery at age 76)), Hypertension (Mother) and Other (Mother: Dementia)
Allergies / Home Medications
Allergies
Allergy/AdvReac Type Severity Reaction Status Date / Time
carbamazepine (From Tegretol) Allergy Rash Verified 04/25/23 12:39
minocycline HCl (From Allergy Unknown Verified 04/25/23 12:39
Minocin)
Skin Cleanser Combination Allergy Unknown Verified 04/25/23 12:39
No.4 (From Minocin)
thiothixene (From Navane) Allergy Unknown Verified 04/25/23 12:39
Home Medications
�Medication �Instructions �Recorded �Confirmed �Last Taken �Type
glipizide 2.5 mg tablet, extended 2.5 mg PO DAILY Diabetes 12/27/19 05/16/25 05/16/25 History
release 24 hr
simvastatin 40 mg tablet 40 mg PO HS High cholesterol 12/27/19 05/16/25 05/15/25 History
levothyroxine 88 mcg tablet 88 mcg PO DAILY Thyroid 06/03/20 05/16/25 05/16/25 History
aspirin 81 mg tablet,delayed 81 mg PO DAILY Blood Clot 01/29/25 05/16/25 05/16/25 History
release Prevention/Tx
cholecalciferol (vitamin D3) 25 25 mcg PO DAILY Supplement 01/29/25 05/16/25 05/16/25 History
mcg (1,000 unit) tablet (Vitamin
D3)
clozapine 100 mg tablet 300 mg PO HS bipolar disorder 01/29/25 05/16/25 05/15/25 History
divalproex 500 mg tablet,extended 1,000 mg PO DAILY bipolar disorder 01/29/25 05/16/25 05/16/25 History
release 24 hr
docusate sodium 100 mg capsule 200 mg PO BID Constipation 01/29/25 05/16/25 05/16/25 History
(Colace)
famotidine 20 mg tablet (Pepcid) 20 mg PO DAILY Gastrointestinal 01/29/25 05/16/25 05/16/25 History
Issue
melatonin 3 mg tablet 3 mg PO HS Sleep 01/29/25 05/16/25 05/15/25 History
quetiapine 25 mg tablet (Seroquel) 25 mg PO DAILY bipolar disorder 01/29/25 05/16/25 05/16/25 History
quetiapine 50 mg tablet (Seroquel) 75 mg PO HS bipolar disorder 01/29/25 05/16/25 05/15/25 History
sennosides 8.6 mg-docusate sodium 2 tab-cap PO BID Constipation 01/29/25 05/16/25 05/16/25 History
50 mg tablet (Senna-S)
acetaminophen 325 mg tablet 650 mg PO Q6HPRN PRN mild pain 05/01/25 05/16/25 03/23/25 History
(Tylenol)
bisacodyl 10 mg rectal suppository 10 mg SD DAILYPRN PRN if no bm 05/01/25 05/16/25 Unknown History
(Dulcolax (bisacodyl)) aftr mom
magnesium hydroxide 400 mg/5 mL 2,400 mg PO HSPRN PRN if no bm by 05/01/25 05/16/25 Unknown History
oral suspension (Milk of Magnesia) 3rd day
losartan 50 mg tablet 50 mg PO DAILY Blood Pressure 05/16/25 05/16/25 05/16/25 History
Review of Systems
-
Unable to Obtain full review of systems at this time due to: Acuity
Vitals / Labs / Diagnostic Testing
Vital Signs
Temp Pulse Resp BP Pulse Ox
100.3 F 92 18 101/86 94
05/16/25 11:31 05/16/25 14:33 05/16/25 14:33 05/16/25 14:33 05/16/25 14:00
Lab Data
05/16/25 12:01
05/16/25 12:01
Laboratory Results
05/16/25
12:04
APTT 45.8 H
Microbiology
05/16/25 12:24 Nasal Swab Influenza Types A & B (TEDDY) - Final
Negative for Influenza A & B, NAAT
Negative results must be combined with clinical observations
and patient history.
Nucleic Acid Amplification test (NAAT)performed on the
[employer] platform.
Diagnostic Testing:
Physical Exam
-
HEENT: Normocephalic
Cardiovascular: Regular Rhythm
Respiratory: Clear and Non-Labored Respirations
GI: Soft and Non Distended
Neurology: Other (Somnolent)
Skin: Warm
General: Comfortable
Assessment
-
Assessment: 69-year-old female former tobacco smoker with a past medical history of chronic Marinelli due to chronic urinary retention (possible neurogenic bladder), DM type II, hypertension, hypothyroidism, hyperlipidemia, bipolar disorder, insomnia,
CKD, history of UTI and overactive bladder who presents with being found unresponsive by staff at her care home ([facility])
Initially discharged on 05/06/2025 for UTI.
Now readmitted with septic shock and change in mental status similar presentation compared to prior.
Impression:
#Septic shock due to UTI
Urine culture 05/01/2025: E. coli/Klebsiella- Pansensitive
#'s x-ray: Clear.
#Complicated UTI (chronic Marinelli catheter)
#Numerous scattered tiny nonobstructive bilateral renal calculi without hydronephrosis (seen on CT abdomen/pelvis from 05/01/2025)
#Acute encephalopathy due to septic encephalopathy/TME
# Hypernatremia-volume depletion
# Mild troponin leak
EKG 05/16/2025: Sinus tachycardia/right axis deviation/
# Chronic kidney disease stage IIIb
# Chronic anemia likely secondary to chronic kidney disease.
#Chronic urinary retention with chronic Marinelli catheter
#History of recurrent UTI due to E. coli + Klebsiella
#Former tobacco smoker
Plan:
- Patient found to have significantly elevated abnormal urinalysis and is in septic shock due to presumed UTI
- Of note, she does follow with urology as an outpatient, last visit 04/17/[address] Le-she was advised to follow-up after discharge for evaluation for suprapubic catheter.
- She does have chronic obstructive voiding symptoms and large volume urinary retention with suggested chronic retention/neurogenic bladder
- Prior urodynamic study was attempted in April 03 but patient was not able to tolerate this test --> patient prefers to maintain a Marinelli catheter
-Urinalysis again significantly abnormal.
- Continue with antibiotics, currently cefepime
- Follow-up blood cultures + urine culture-will follow
- Trend WBC and temperature curve
- Maintain SpO2 >90-94% - currently saturating 100% on room air
- prn nebulized bronchodilators - not currently bronchospastic
- Incentive spirometer encouraged 10x per hour for at least 4 hrs a day when she is more alert.
- Maintain MAP>65
- Continue IVF
- Currently on Levophed if rate increases to 15 mcg/min --> add vasopressin
- Maintain euglycemia while on high-dose steroids
-
Mild troponin leak-trend
If continues to increase echocardiogram and cardiology evaluation may be needed
Doubt thromboembolic disease but is within the differential diagnosis, can opt for evaluation depending on clinical situation.
-
Hypernatremia
Continue normal saline
Repeat labs 6 PM will adjust IV fluids depending on results
-
-Toxic metabolic encephalopathy due to sepsis
N.p.o. for now
Aspiration precaution
Avoid sedatives
-Chronic kidney disease-stable.
- Renally dose all meds/Abx
- Trend sCr and UOP
- Okay to continue her psychiatric medications including Seroquel, clozapine and Depakote, however monitor for worsening lethargy in which case these meds may need to be adjusted/temporarily held
- Replete electrolytes with K>4, Mg>2
- Maintain euglycemia with goal BG 140-180; HbA1c: 6.1 on 01/30/2025
- Trend H/H and transfuse if needed to keep Hb>7g/dL; keep plt>20k, unless there is concern for bleeding then keep plt>50k
- DVT ppx: HSQ
-Sacral decubitus ulcers present on admission: No evidence for infection
Wound care consult
Turn every 2 hours
- Hyperglycemia noted: Continue insulin sliding scale
N.p.o. for now
Speech evaluation once more awake
Code status: DNR/DNI
Continue ICU level of care for this critically ill patient.
Critical care statement: A total of 41 minutes of critical care time was provided for this patient today. This includes management of unstable vital signs, evaluation of the patient at bedside, reviewing the patient's pertinent medical records
including radiographs, microbiology, laboratory evaluations, and discussion with primary team, consultants, pharmacy, nutrition, physical therapy, case management, charge nurse, critical care nursing, and respiratory therapy.
[2025-05-16 14:56] LABS: Glucose - Point of Care 214 mg/dl (70-99)
[2025-05-16 15:06] LABS: INR 1.46; PT 18.3 Sec (11.4-14.6)
--- NOTE | 2025-05-16 15:21 | PTCARENOTE ---
patient received from ED. patient drowsy but arousable. voice gurgling with weak moist cough. oriented to self only. sinus tach, lungs with crackles and rhonchi. +3 pedal edema. sats 80's on 3 liters. titrated oxygen up to 8 liters midflow. abdomen
soft, active bowel sounds . godwin draining yellow urine. multiple wounds per work list. left subclavian triple line difficult to flush, blood returns X3 ports. TT to VAT RN to assess. cigar packer and shader at bedside, updated
[2025-05-16 15:26] LABS: Magnesium 2.6 mg/dl (1.6-2.3)
[2025-05-16] MEDS: NSS 1000 IV (15:49)
[2025-05-16] MEDS: LIPITOR PO (16:29)
[2025-05-16] MEDS: NOVOLOG FLEXPEN-LOW RESISTANCE 2 UNITS SC (17:11)
[2025-05-16 17:18] LABS: Glucose - Point of Care 204 mg/dl (70-99)
--- NOTE | 2025-05-16 18:00 | PTCARENOTE ---
reassessed. remains lethargic. levophed, oxygen titration per work list. labs sent.
[2025-05-16 18:33] LABS: Blood Urea Nitrogen 34 mg/dl (7-17); Calcium 9.0 mg/dl (8.4-10.2); Carbon Dioxide 24 mmol/L (22-30); Chloride 121 mmol/L (98-107); Estimated Creatinine Clearance 30 ml/min; Glucose 203 mg/dl (70-99); Potassium 4.1 mmol/L (3.5-5.1); Sodium 148 mmol/L (135-145); eGFR 37.26
[2025-05-16 18:48] LABS: Troponin I 0.072 ng/ml
[2025-05-16] MEDS: COLACE PO (19:49)
[2025-05-16] MEDS: CLOZARIL PO (19:49)
[2025-05-16] MEDS: SEROQUEL PO (19:49)
[2025-05-16] MEDS: SENOKOT-S PO (19:49)
[2025-05-16] MEDS: LR 1000 IV (19:59)
[2025-05-16] MEDS: STERILE WATER FOR INJECTION 10 ML IV (20:00)
[2025-05-16] MEDS: MAXIPIME 1000 MG IV (20:00)
[2025-05-16] MEDS: HEPARIN 5000 UNITS SC (20:02)
[2025-05-16 23:14] LABS: Glucose - Point of Care 143 mg/dl (70-99)
[2025-05-16 23:34] LABS: Glucose - Point of Care 152 mg/dl (70-99)
[2025-05-16 23:36] LABS: Blood Urea Nitrogen 38 mg/dl (7-17); Calcium 9.6 mg/dl (8.4-10.2); Carbon Dioxide 24 mmol/L (22-30); Chloride 122 mmol/L (98-107); Estimated Creatinine Clearance 28 ml/min; Glucose 153 mg/dl (70-99); Potassium 4.4 mmol/L (3.5-5.1); Sodium 149 mmol/L (135-145); eGFR 34.48
[2025-05-17] VITALS (66 sets, daily range): BP systolic 70–132; BP diastolic 42–95; BMI 27.2
[2025-05-17] MEDS: NOVOLOG FLEXPEN-LOW RESISTANCE SC (00:27)
--- NOTE | 2025-05-17 00:30 | PTCARENOTE ---
Pt continues to be lethargic, moaning and groaning with turns, but otherwise resting sleeping. Ofirmev given for mild pain tachycardia. Continues need for levo to maintain map goals. Will titrate to clnical endpoint. IVF changed to LR 2/2 increased
sodium levels. Titrating O2 for sat goals, anywhere between 4-8 L nasal cannula. NPO status maintained. Speech to evaluate pt in AM. Chronic godwin to gravity. Skin as documented. Will monitor.
[2025-05-17] MEDS: OFIRMEV 100 IV ×3 (01:45→22:21)
[2025-05-17] MEDS: LR 1000 IV (03:06)
[2025-05-17] MEDS: MAXIPIME 1000 MG IV ×3 (03:09→20:00)
[2025-05-17] MEDS: STERILE WATER FOR INJECTION 10 ML IV ×3 (03:09→20:00)
[2025-05-17] MEDS: PITRESSIN 100 IV ×2 (03:09→13:22)
[2025-05-17 03:41] LABS: Hematocrit 27.9 % (37.0-47.0); Hemoglobin 8.8 g/dL (12.0-16.0); Mean Corp Hgb Conc. 31.5 g/dL (33.0-37.0); Mean Corpuscular Volume 99.6 fL (81.0-99.0); Platelet Count 129 10^3/uL (130-400); Red Cell Dist. Width 18.2 % (11.5-14.5)
--- NOTE | 2025-05-17 04:19 | PTCARENOTE ---
BP 70s/50s, [employer] MANAGER Girish at bedside for eval. 1L LR bolus given and VASO added to regimen. BP now 130/70. AM labs sent and pending. Will monitor.
[2025-05-17 04:26] LABS: ALT (SGPT) 20 U/L (0-35); AST (SGOT) 17 U/L (14-36); Albumin 2.1 g/dl (3.5-5.0); Alkaline Phosphatase 62 U/L (38-126); Blood Urea Nitrogen 38 mg/dl (7-17); Calcium 9.3 mg/dl (8.4-10.2); Carbon Dioxide 24 mmol/L (22-30); Chloride 121 mmol/L (98-107); Estimated Creatinine Clearance 30 ml/min; Glucose 175 mg/dl (70-99); Potassium 4.4 mmol/L (3.5-5.1); Sodium 148 mmol/L (135-145); Total Protein 4.3 g/dl (6.3-8.2); eGFR 37.26
[2025-05-17] MEDS: LEVOPHED 250 IV ×3 (04:35→22:42)
[2025-05-17] MEDS: SYNTHROID PO (05:07)
[2025-05-17 05:18] LABS: Glucose - Point of Care 178 mg/dl (70-99)
[2025-05-17 05:46] LABS: Absolute Neutrophils -Man Diff 3.2 10^3/uL (1.4-6.5); Anisocytosis 1+; Basophilic Stippling 1+; Macrocytosis 3+; Normal RBC Morphology No; Platelets Checked Yes; Total Cells Counted 100
[2025-05-17] MEDS: D5W 1000 IV ×2 (05:50→16:00)
[2025-05-17] MEDS: NOVOLIN R INSULIN INFUSION 100 IV (05:50)
[2025-05-17 06:03] LABS: Glucose - Point of Care 199 mg/dl (70-99)
[2025-05-17] MEDS: ASPIR LOW (ENTERIC COATED) PO (07:07)
[2025-05-17] MEDS: COLACE PO ×2 (07:07→20:00)
[2025-05-17] MEDS: SENOKOT-S PO ×2 (07:07→20:01)
[2025-05-17] MEDS: SEROQUEL PO ×2 (07:08→20:01)
[2025-05-17] MEDS: VITAMIN D3 (cholecalciferol) PO (07:08)
--- NOTE | 2025-05-17 07:11 | W.PN.HOSP.TC ---
Addendum entered and electronically signed by Jase Javier MD 05/17/25 20:35:
Attending Addendum-
I saw and evaluated the patient. I reviewed the resident�s note and agree with findings and plan as documented in the resident�s note. Sub: Patient more alert this am. Appears anxious. 'I dont feel good but dont know why' Full 12 point ROS reviewed
and negative except as documented Exam: Vitals reviewed in chart GEN-NAD heart RRR no MRG lungs crackles at abses abd soft NT ND LE 2+ pitting edema DUSTIN chest tunneled cath Neuro AAO x 2
Plan:
# Recurrent septic shock/acute toxic metabolic encephalopathy secondary to likely catheter associated UTI vs sacral decub
# Recent catheter associated UTI secondary to E. coli/Klebsiella
- Urine culture, blood cultures-P
- cont IV fluids,
- Cefepime day # 2
- Godwin catheter changed and appears to be draining, although patient with difficult Godwin placement in the past
- cont Levophed, vasopressin added
- c/s urology for possible SP tube this admission
# Acute Hypoxemic Respiratory Failure
-wean o2 for sats > 90%
# Hypernatremia likely secondary to hypovolemia
-resolving with D5W monitor closely no more than 8-10meq q 24
-serial BMPs
# Chronic bladder outlet infection with chronic Godwin catheter
- Godwin catheter exchanged
# Multiple Pressure injuries- POA
- Sacral, right and left lateral ankle- unstageable, left ear- stage 2,
- c/s surgery for eval for possible debridement of sacral ulcer
- wound care consult
#Hyperlipidemia
- Continue atorvastatin
#Bipolar disorder
- Continue clozapine, Depakote, Seroquel
#Essential hypertension
- Hold losartan
- Continue aspirin
#Type 2 diabetes
- Hold glipizide
- cont Insulin gtt for now
- monitor accuchecks closely
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
# Hypothyroidism
- Continue levothyroxine
# CKD 3B
- cr @ baseline 1.5
-avoid NT agents
# Troponin Elevation- likely NIMI
-peaked
# Chronic anemia
- Hemoglobin stable 9.8
DNR - verified
DVT prophylaxis�heparin
Regular diet
ACP
Patient consented to discuss, was alone but verified with facility, time spent explanation of advance directives, changes in health status, patient�s health care wishes if the patient becomes unable to make health decisions, goals of care, code
status, and prognosis- 16 minutes
CC Note
Due to a high probability of clinically significant, life-threatening deterioration, the patient required a high level of preparedness to intervene emergently. I personally spent this critical care time directly and personally managing the patient.
This critical care time included obtaining a history; examining the patient; ordering and review of studies and STAT labs; arranging urgent treatment with development of a management plan; evaluation of patient's response to treatment; reassessment;
and, discussions with other providers.
This critical care time was performed to assess and manage the high probability of imminent, life-threatening deterioration that could result in multi-organ failure. It was exclusive of separately billable procedures and treating other patients and
teaching time. Total time documented is also exclusive of any additional time listed that was spent in advance care planning discussion
Total critical care time: Approximately 32 minutes
Original Note:
Today's Communication/Plan
-
- IV cefepime
- f/u cultures
- IV fluids (D5, H20)
- Monitor VS, CBC, BMP, I/Os
- surgery consult for ulcer
- urology consult
Assessment / Plan
Assessment / Plan
In summary,
69 yo F p/w septic shock in setting of recent septic shock ~1 week ago
# Septic shock
# ? Infectious Source - UTI vs. ulcer vs. other
# Chronic godwin catheter
- qSOFA score = 2, at admission
- chronic godwin catheter, has been exchanged
- on norepinephrine and vasopressin, at the time of my rounds
- left subclavian central line in place
- UA c/w UTI
- Also has ulcer that has worsened since prior admission, possible contributing source of infection
- Continue IV cefepime
- IV fluids (now on D5/H20 80 mL/hr)
- f/u CBC
- f/u blood and urine cultures
- consult urology because has outpatient urology follow-up planned for 05/11 to evaluate for suprapubic catheter
# Stage 4 sacral/coccyx pressure ulcer
- surgery consulted
- ulcer may also be an infectious culprit
- f/u cultures
- wound care consulted, air mattress, and soft heel relief boots ordered
- turn q2h
# Metabolic and/or septic encephalopathy
- NPO
- speed evaluation
# Myocardial demand stress
- troponins were elevated and peaked
- EKG reassuring against ischemia
- demand ischemia attributed to stress, sepsis
# Hypernatremia
- Na+ 148 from 151. Goal to 140
- On D5/H20, at the time of rounds
- Trend BMP
# Hyperglycemia
- blood glucose trend in 200-300s
- Insulin infusion 100 units in 100 mL
# CKD stage 3b
- Creatinine appears at or close to baseline (1.4-1.5)
- eGFR ~35-40 --> stage 3b
# chronic anemia
- Hgb 8.8 from 9.8 ( likely dilutional, received 5.8L)
- Transfuse if below 7
# Bipolar disorder
# Schizophrenia
- continue home clozapine, divalproex sodium, quetiapine
- switch as much as possible to IV since NPO
- monitor mental status
# HTN
- Losartan held
# HLD
- continue simvastatin
- continue aspirin
# Hypothyroidism
- continue levothyroxine
DVT ppx: heparin
GI ppx: IV famotidine
Code status: DNR
Diet: NPO, pending speech evaluation
Disposition: pending clinical improvement
Anticipated Discharge: > 48 hours
Subjective/Interval History
-
Date of Service: May 17, 2025
69 yo F p/w lethargy, altered mental status, and hypotension on 05/16. Of note, she was recently hospitalization for septic shock 05/01-05/06 requiring vasopressors 2/2 catheter-associated UTI from E. Coli and Klebsiella.
PMHx includes chronic urinary retention, HTN, HLD, Hypothyroidism, DM2, schizophrenia, bipolar disorder, CKD-Stage 3, UTIs
Per chart review, she is coming from [facility] and has a chronic godwin catheter in place.
In the ED,
VS n/f BP of 66/47, HR 103, Temp of 100.3.
Labs n/f WBC 11.1, electrolytes n/f initial Na+ 151, Cr 1.7 (baseline 1.4-1.5).
UA disclosed >100 WBC, 3+ leukocyte esterase
Blood and urine cultures were ordered. A central line was inserted. The godwin was exchanged.
She was administered IV fluids (normal saline at 100mL/hr ~3200 mL) and then switched on D5-Water on 05/17 AM.
She was started on empiric IV cefepime (05/16) and then transferred to the ICU for further management.
She is also noted to have a pressure injury of sacrum.
This morning, she is arousable but not a reliable historian for me.
Objective Data
-
Labs:
Laboratory Results
05/16/25 05/17/25 05/17/25
22:59 03:14 10:00
WBC 7.2
Hgb 8.8 L
Hct 27.9 L
Plt Count 129 L
Sodium 149 H 148 H Pending
Potassium 4.4 4.4 Pending
Chloride 122 H 121 H Pending
Carbon Dioxide 24 24 Pending
BUN 38 H 38 H Pending
Creatinine 1.6 H 1.5 H Pending
Glucose 153 H 175 H Pending
Calcium 9.6 9.3 Pending
Total Bilirubin 0.6
AST 17
ALT 20
Alkaline Phosphatase 62
WBC 7.2
Hgb 8.8 from 9.8
Plt 129 (upon discharge last week )
Na+ 148
K+ 4.4
Cl 121
Cr 1.5
Albumin 2.1
Troponins 0.09 -> 0.072
Lactate 1.2
Studies:
EKG: sinus tach with right axis deviation
CXR:
IMPRESSION:
1. Left subclavian central venous catheter in position, tip at the right atrium.
2. Hypoaerated lungs without consolidation.
3. Probable dilation of small bowel loops in the upper abdomen.
Lines
- godwin - output 650 mL
- Left subclavian central catether
- norepinephrine 8 mcg/min
- vasopressin 0.03 units/min
- IV fluids, D5/H20 100 mL/hr
Microbiology:
MRSA swab pending
urine and blood cultures pending
Urine culture from 05/01/2025:
E. Coli, Klebsiella, susceptible to amoxicillin/clavulanate
Vital Signs:
Vital Signs
Temp Pulse Resp BP Pulse Ox
99.6 F 80 13 110/68 97
05/17/25 03:02 05/17/25 07:00 05/17/25 07:00 05/17/25 07:00 05/17/25 07:00
latest Temp Low at 96.7
HR wnl
BP on 2 pressors within normal limits
I&O
05/16/25 05/17/25 05/18/25
06:59 06:59 06:59
Intake Total 5442.0 / 5594.5 152.5 / 152.5
Output Total 650 / 650
Balance 4792.0 / 4944.5 152.5 / 152.5
godwin output 650 mLs
Review of Systems
-
Unable to obtain full review of systems at this time due to: Other (patient is experiencing altered mental status)
Physical Exam
-
General: No Apparent Distress
HEENT: Normocephalic and Atraumatic
Respiratory: Crackles
Cardiac: Regular Rhythm, S1/S2 and Other (no murmurs on my exam)
GI: Soft and Nontender
Genito-urinary: Other (suprapubic tenderness to palpation; no flank tenderness on my exam)
Musculoskeletal: Other (lower extremity edema, 2 to 3+)
Skin: Warm and Dry
Psych: Confused
[2025-05-17 07:16] LABS: Glucose - Point of Care 228 mg/dl (70-99)
[2025-05-17] MEDS: HEPARIN 5000 UNITS SC ×2 (07:30→20:00)
[2025-05-17] MEDS: DAKIN'S SOLUTION 0.125% 1/4 STRENGTH 473 ML TOPICAL ×2 (07:44→17:48)
[2025-05-17] MEDS: SANTYL OINTMENT 1 APPLIC TOPICAL ×2 (07:45→17:49)
[2025-05-17 08:12] LABS: Glucose - Point of Care 155 mg/dl (70-99)
--- NOTE | 2025-05-17 09:09 | PTCARENOTE ---
report received, assessments per work list. patient lethargic, but arousable. mumbled speech. no nonverbal or verbal pain cues. monitor nsr, Levophed, vasopressin per work list. +edema, abdomen soft. incontinent of soft stool. sacral wound care per
orders, wound with moderate amount kilpatrick malodorous drainage. chronic Marinelli in place, yellow urine with sediment. glycemic insulin per work list. lungs with coarse breath sounds bilaterally, weak moist nonproductive cough.
[2025-05-17 09:14] LABS: Glucose - Point of Care 134 mg/dl (70-99)
--- NOTE | 2025-05-17 09:33 | PN.DE.MGMTRT ---
Insulin Management
- -
05/17/2025 Diabetes Management Consult
Patient admitted from [facility] with lethargy, change in mental status, hypotension, seltic shock likely due to catheter associated UTI. Patient was discharged from 05/06 for cath. associated uti. PMH COPD, HTN, HCL, diabetes, CKD IIIb, hypothyroid,
bipolar. Prior to admission was taking glipizide 2.5 mg daily. A1C from last admission 05/02 6.6%, cr 1.5, eGFR 37.26.
Patient currently receiving levophed, and vasopressin. Critical care Glycemic protocol started this AM with glucose 199. Requiring 6 units to 1.5 units of insulin per hour. Will continue glycemic protocol.
Will follow for readiness to transition off of insulin infusion to glipizide.
Discussed with nurse.
Diabetes History
- -
Type of Diabetes: 2
Pre-Admission Diabetes Regimen
05/16/25 05/16/25 05/16/25
12:01 17:54 22:59
Creatinine 1.7 H 1.5 H 1.6 H
05/17/25
03:14
Creatinine 1.5 H
Insulin Pump Settings
IP Diabetes Regimen
05/16/25 05/16/25 05/16/25
12:01 14:44 17:06
Glucose 176 H
POC Glucose 214 H 204 H
05/16/25 05/16/25 05/16/25
17:54 22:59 23:03
Glucose 203 H 153 H
POC Glucose 143 H
05/16/25 05/17/25 05/17/25
23:22 03:14 05:03
Glucose 175 H
POC Glucose 152 H 178 H
05/17/25 05/17/25 05/17/25
05:52 07:05 08:01
Glucose
POC Glucose 199 H 228 H 155 H
05/17/25
09:02
Glucose
POC Glucose 134 H
Patient Education
--- NOTE | 2025-05-17 10:03 | WOUNDNOTE ---
R FOREFOOT/GREAT TOE (MEDIAL ANTERIOR)
--- NOTE | 2025-05-17 10:03 | WOUNDNOTE ---
ABDOMEN (L LOWER TOWARD GROIN)
[2025-05-17 10:05] LABS: Blood Urea Nitrogen 36 mg/dl (7-17); Calcium 8.9 mg/dl (8.4-10.2); Carbon Dioxide 22 mmol/L (22-30); Chloride 121 mmol/L (98-107); Estimated Creatinine Clearance 36 ml/min; Glucose 130 mg/dl (70-99); Potassium 4.1 mmol/L (3.5-5.1); Sodium 146 mmol/L (135-145); eGFR 40.47
--- NOTE | 2025-05-17 10:05 | WOUNDNOTE ---
L KNEE (DISTAL LATERAL)
[2025-05-17 10:10] LABS: Glucose - Point of Care 131 mg/dl (70-99)
--- NOTE | 2025-05-17 10:22 | WOUNDNOTE ---
[facility] RN note: Patient admitted with septic shock. Patient admitted from SNF.
See H&P for complete history.
PMH: UTI, unstageable sacral/coccyx pressure injury, Marinelli, bipolar, DM, CKD3b
Wound Location and type/assessment: Patient admitted with: unstageable, probable stage 4 sacral/coccyx pressure injury suspect to bone. Ulcer has evolved to a larger ulcer since recent hospital stay. Patient admitted with linear red alberto distal
knees, stage 2 L lateral ankle pressure injury, blanchable mild red heals. L ear small stage 2 scabbed pressure injury. Lower abdominal bruises, small linear red area R groin, R foot small bruise.
Appetite: NPO.
Pressure redistribution devices in place: Centrella Max air bed. Air chair cushion under heels.
Plan: Patient incontinent of a very large soft brown stool. Eva care given, sacral dressing changed, patient turned to L semi side lying position with help from VP REVENUE CYCLEAIDAN Hardy. Heels off bed with air chair cushion. t/c SPD and ordered TruVue Lite
boots. Hayley to apply.
Updated and confirmed orders with Dr. Smith; defer to hospitalist team if surgeon re-eval for sacral debridement indicated. Discussed with AIDAN Hardy.
Care plan to be updated and will follow as needed.
Note to case management of equipment requested for discharge: Air mattress if not already in place.
Recommend follow up with wound medicare biller after discharge.
--- NOTE | 2025-05-17 10:25 | WOUNDNOTE ---
[facility] RN note: Patient admitted with septic shock. Patient admitted from SNF.
See H&P for complete history.
PMH: UTI, unstageable sacral/coccyx pressure injury, Marinelli, bipolar, DM, CKD3b
Wound Location and type/assessment: Patient admitted with: unstageable, probable stage 4 sacral/coccyx pressure injury suspect to bone. Ulcer has evolved to a larger ulcer since recent hospital stay. Patient admitted with linear red alberto distal
knees, stage 2 vs unstageable bilateral lateral ankle pressure injury (R>L), blanchable mild red heals. L ear small stage 2 scabbed pressure injury. Lower abdominal bruises, small linear red area R groin, R foot small bruise.
Appetite: NPO.
Pressure redistribution devices in place: Centrella Max air bed. Air chair cushion under heels.
Plan: Patient incontinent of a very large soft brown stool. Eva care given, sacral dressing changed, patient turned to L semi side lying position with help from GUM MACHINE OPERATORAIDAN Hardy. Lateral ankle foam dressings maintained. Heels off bed with air chair
cushion. t/c SPD and ordered TruVue Lite boots. Hayley to apply.
Updated and confirmed orders with Dr. Smith; defer to hospitalist team if surgeon re-eval for sacral debridement indicated. Discussed with AIDAN Hardy.
Care plan to be updated and will follow as needed.
Note to case management of equipment requested for discharge: Air mattress if not already in place.
Recommend follow up with wound long term acute care registered nurse after discharge.
[2025-05-17 11:10] LABS: Glucose - Point of Care 115 mg/dl (70-99)
--- NOTE | 2025-05-17 11:18 | W.PN.INTV ---
Today's Communication / Plan
Recommendations
Speech evaluation
If able to take oral discontinue IV fluids
Continue to monitor BMP
Continue antibiotics
Follow cultures
Marinelli in place
Restart outpatient psychiatric medications
Aspiration precaution
Wean off vasopressors currently on Levophed and vasopressin
Assessment
-
Assessment: 69-year-old female former tobacco smoker with a past medical history of chronic Marinelli due to chronic urinary retention (possible neurogenic bladder), DM type II, hypertension, hypothyroidism, hyperlipidemia, bipolar disorder, insomnia,
CKD, history of UTI and overactive bladder who presents with being found unresponsive by staff at her care home ([facility])
Initially discharged on 05/06/2025 for UTI.
Now readmitted with septic shock and change in mental status similar presentation compared to prior.
Impression:
#Septic shock due to UTI
Urine culture 05/01/2025: E. coli/Klebsiella- Pansensitive
#'s x-ray: Clear.
#Complicated UTI (chronic Marinelli catheter)
#Numerous scattered tiny nonobstructive bilateral renal calculi without hydronephrosis (seen on CT abdomen/pelvis from 05/01/2025)
#Acute encephalopathy due to septic encephalopathy/TME
# Hypernatremia-volume depletion
# Mild troponin leak
EKG 05/16/2025: Sinus tachycardia/right axis deviation/
# Chronic kidney disease stage IIIb
# Chronic anemia likely secondary to chronic kidney disease.
#Chronic urinary retention with chronic Marinelli catheter
#History of recurrent UTI due to E. coli + Klebsiella
#Former tobacco smoker
Plan:
-
Septic shock due to complicated urinary tract infection
Recurrent
Patient is supposed to get suprapubic catheter placement by urology at some point. Had an appointment but got readmitted.
-Urinalysis again significantly abnormal.
- Continue with antibiotics, currently cefepime
- Follow-up blood cultures + urine culture-pending.
-Leukocytosis improved. Afebrile.
- Maintain SpO2 >90-94% - currently saturating 100% on room air
- prn nebulized bronchodilators - not currently bronchospastic
- Incentive spirometer encouraged 10x per hour for at least 4 hrs a day when she is more alert.
- Maintain MAP>65
-Continue hypotonic IV fluids. Sodium has improved. Will decrease rate to 100 cc an hour. If able to take orals and liquids then discontinue.
-Continue Levophed/vasopressin. Wean off to maintain hemodynamics.
-
Mild troponin leak-trending lower
Will obtain echocardiogram.
Appears euvolemic.
Doubt thromboembolic disease but is within the differential diagnosis, can opt for evaluation depending on clinical situation.
-
Hypernatremia-improved.
If able to take orals then discontinue IV fluids and encourage oral intake.
Decrease rate of D5 and 1/2 to 100 cc an hour.
-
-Toxic metabolic encephalopathy due to sepsis-improved.
N.p.o. for now
Aspiration precaution
Avoid sedatives
Speech evaluation as a mental status has improved.
-Chronic kidney disease-stable.
- Renally dose all meds/Abx
- Trend sCr and UOP
-Continue psychiatric medicines if patient clears swallowing.
- DVT ppx: HSQ
-Sacral decubitus ulcers present on admission: No evidence for infection
Wound care consult-ongoing
Turn every 2 hours
Hyperglycemia noted: Continue insulin sliding scale
Insulin drip started
Hopefully can wean off as can discontinue D5 drip.
N.p.o. for now
Speech evaluation today as mental status has improved.
Code status: DNR/DNI
Continue ICU level of care for this critically ill patient.
Critical care statement: A total of 35 minutes of critical care time was provided for this patient today. This includes management of unstable vital signs, evaluation of the patient at bedside, reviewing the patient's pertinent medical records
including radiographs, microbiology, laboratory evaluations, and discussion with primary team, consultants, pharmacy, nutrition, physical therapy, case management, charge nurse, critical care nursing, and respiratory therapy.
Subjective Dataa
Subjective Data
Date of Service:
Date of Service: May 17, 2025
Chief Complaint: Director Of Photography Follow Up (Septic shock/toxic metabolic encephalopathy)
Subjective:
Mental status improved but not back to baseline
Following simple commands
Has a cough effort
Denies abdominal
Review of Systems
General: Fever (n) and Other (Still confused)
Cardiopulmonary: Dyspnea (none at rest)
Objective Data
Data Reviewed
Vital Signs / I&O / Oxygen:
Vital Signs
Temp Pulse Resp BP Pulse Ox
98.3 F 76 17 121/67 96
05/17/25 10:00 05/17/25 10:00 05/17/25 10:00 05/17/25 10:00 05/17/25 10:00
Intake and Output
05/16/25 05/17/25 05/18/25
06:59 06:59 06:59
Intake Total 5442.0 / 5594.5 586.2 / 586.2
Output Total 650 / 650
Balance 4792.0 / 4944.5 586.2 / 586.2
SaO2 96
Nasal Cannula flow liters per 4
minute
Physical Exam
General: Comfortable
HEENT: Normocephalic
Cardiovascular: S1-S2
Respiratory: Clear and Non-Labored Respirations
GI: Soft and Distended (Obese)
Neurology: No Motor Deficits and Other (Somnolent but arousable.)
Skin: Warm
Labs/Micro/Reports
Lab Data
05/17/25 03:14
Laboratory Results
05/16/25
12:04
PT 18.3 H
INR 1.46
APTT 45.8 H
Microbiology
05/16/25 12:24 Nasal Swab Influenza Types A & B (TEDDY) - Final
Negative for Influenza A & B, NAAT
Negative results must be combined with clinical observations
and patient history.
Nucleic Acid Amplification test (NAAT)performed on the
[employer] platform.
--- NOTE | 2025-05-17 11:52 | CM ---
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 Ambulates with [facility] PCP is Dr. Christopher Casey. Pharmacy is [facility]. Discharge POC: Return to [facility] for resumption of LTC.
[2025-05-17 12:14] LABS: Glucose - Point of Care 98 mg/dl (70-99)
[2025-05-17] MEDS: DEPACON 55 MG IV ×2 (12:33→20:00)
--- NOTE | 2025-05-17 12:35 | PTCARENOTE ---
Addendum entered by Hayley Mancini RN 05/17/25 13:20:
patient hypotensive, vasopressin resumed per MD orders
Original Note:
patient reassessed. patient had visitor from [facility],more alert but restless. c/o sacral discomfort and headache, ofirmev per prn order. remains confused and forgetful. Levophed wean per work list. crackles and rhonchi persist.
moderate amount green kilpatrick mucous from nares. MD aware.vasopressin off per Information Security Director. patient incontinent of multiple soft stools
[2025-05-17 13:08] LABS: Glucose - Point of Care 100 mg/dl (70-99)
--- NOTE | 2025-05-17 13:51 | PTCARENOTE ---
surgery at bedside to evaluate wound, orders received
[2025-05-17 14:07] LABS: Glucose - Point of Care 131 mg/dl (70-99)
--- NOTE | 2025-05-17 15:20 | CON.GS ---
Addendum entered and electronically signed by Froylan Lorenzo MD 05/17/25 17:04:
Patient seen and examined. Agree with assessment plan as documented below.
Stage III/IV sacral decubitus ulcer with mild fibrinous necrotic debris. No evidence of significant purulence or necrosis necessitating further surgical debriding. Recommend continued offloading and local wound care. Plan for an MRI of the pelvis
to rule out undrained collections and assess for osteomyelitis necessitating a longer course of antibiotics. No plans for surgical intervention at this time. Please call with any questions or concerns.
Original Note:
Consultation
-
Date/Time Consultation Performed: 05/17/25 1330
Medical History
-
Chief Complaint: sacral wound
History of Present Illness:
Ms Childers is a 69 yo female with a h/o chronic godwin for urinary retention, UTI's, NIDD, HTN, and recent admission for UTI who presented with sepsis and hypotension. She has a known sacral decubitus ulcer and is seen today in evaluation of the
same. The majority of the wound bed is covered with slough and therefore unstageable but likely down to bone. There is no purulent drainage. A small amount of slough was removed from the center of the wound without drainage present. She does feel
discomfort to the area on exam.
Past Medical History
Past Medical History: HTN, Hypercholesterolemia, Hypothyroidism, Psychiatric (bipolar), Renal Failure (CKD) and Other (urinary retention with chronic godwin, UTI's)
Past Surgical History: Reviewed & Noncontributory
Social History
Tobacco: Former Smoker
Alcohol: None
Living: [facility]
Allergies / Home Medications
Allergy/AdvReac Type Severity Reaction Status Date / Time
carbamazepine (From Tegretol) Allergy Rash Verified 04/25/23 12:39
minocycline HCl (From Allergy Unknown Verified 04/25/23 12:39
Minocin)
Skin Cleanser Combination Allergy Unknown Verified 04/25/23 12:39
No.4 (From Minocin)
thiothixene (From Navane) Allergy Unknown Verified 04/25/23 12:39
�Medication �Instructions �Recorded �Confirmed �Type
glipizide 2.5 mg tablet, extended 2.5 mg PO DAILY Diabetes 12/27/19 05/16/25 History
release 24 hr
simvastatin 40 mg tablet 40 mg PO HS High cholesterol 12/27/19 05/16/25 History
levothyroxine 88 mcg tablet 88 mcg PO DAILY Thyroid 06/03/20 05/16/25 History
aspirin 81 mg tablet,delayed 81 mg PO DAILY Blood Clot 01/29/25 05/16/25 History
release Prevention/Tx
cholecalciferol (vitamin D3) 25 25 mcg PO DAILY Supplement 01/29/25 05/16/25 History
mcg (1,000 unit) tablet (Vitamin
D3)
clozapine 100 mg tablet 300 mg PO HS bipolar disorder 01/29/25 05/16/25 History
divalproex 500 mg tablet,extended 1,000 mg PO DAILY bipolar disorder 01/29/25 05/16/25 History
release 24 hr
docusate sodium 100 mg capsule 200 mg PO BID Constipation 01/29/25 05/16/25 History
(Colace)
famotidine 20 mg tablet (Pepcid) 20 mg PO DAILY Gastrointestinal 01/29/25 05/16/25 History
Issue
melatonin 3 mg tablet 3 mg PO HS Sleep 01/29/25 05/16/25 History
quetiapine 25 mg tablet (Seroquel) 25 mg PO DAILY bipolar disorder 01/29/25 05/16/25 History
quetiapine 50 mg tablet (Seroquel) 75 mg PO HS bipolar disorder 01/29/25 05/16/25 History
sennosides 8.6 mg-docusate sodium 2 tab-cap PO BID Constipation 01/29/25 05/16/25 History
50 mg tablet (Senna-S)
acetaminophen 325 mg tablet 650 mg PO Q6HPRN PRN mild pain 05/01/25 05/16/25 History
(Tylenol)
bisacodyl 10 mg rectal suppository 10 mg GA DAILYPRN PRN if no bm 05/01/25 05/16/25 History
(Dulcolax (bisacodyl)) aftr mom
magnesium hydroxide 400 mg/5 mL 2,400 mg PO HSPRN PRN if no bm by 05/01/25 05/16/25 History
oral suspension (Milk of Magnesia) 3rd day
losartan 50 mg tablet 50 mg PO DAILY Blood Pressure 05/16/25 05/16/25 History
Review of Systems
-
History Source: Patient and [facility]
All other systems: Negative unless noted
A 10 point review of systems was completed, and was negative except as per HPI.
Physical Exam
Vital Signs
Temp Pulse Resp BP Pulse Ox
97.9 F 63 15 108/51 97
05/17/25 12:46 05/17/25 14:35 05/17/25 14:35 05/17/25 14:20 05/17/25 14:41
05/16/25 05/17/25 05/18/25
06:59 06:59 06:59
Actual Weight 71.7 kg
Body Mass Index (BMI) 27.2
Lab Results
05/17/25 03:14
05/17/25 22:00
WBC 7.2 10^3/uL (4.8-10.8) 05/17/25 03:14
Hgb 8.8 g/dL (12.0-16.0) L 05/17/25 03:14
Hct 27.9 % (37.0-47.0) L 05/17/25 03:14
Plt Count 129 10^3/uL (130-400) L 05/17/25 03:14
Physical Exam
General: Other (Anxious, sleepy)
GI: Soft, Non Tender and Other (incontinent of loose stool)
Skin: Warm and Other (Sacral unstageable pressure ulcer with overlying slough suspect down to bone)
Neuro: Other (drowsy but arouses to light stimulation)
Psych: Other (anxious with movement)
Assessment / Plan
-
69-year-old female admitted with septic shock due to presumed complicated UTI with developing sacral decubitus wound/ulcer (unstageable) in the setting of ambulatory dysfunction and being bedbound for the past few months. Recently admitted for the
same from 05/01-05/06.
Overlying slough present but without purulence of erythema. No evidence of wet gangrene.
Plan:
Continue local wound care, no need for emergent debridement at this time
Check pelvic MRI to r/o osteomyelitis as she would require extended abx course in this setting
Wound care team following
[2025-05-17 15:23] LABS: Glucose - Point of Care 155 mg/dl (70-99)
--- NOTE | 2025-05-17 15:51 | PN.CDI ---
CDI
- -
CDI:
Physician Documentation Request
Admit Date: 05/16/25 14:01
Dear Doctor Luis,
Clinical Indicators:
Patient admitted with septic shock.
05/17 PN, 'Myocardial demand stress - EKG reassuring against ischemia- demand ischemia attributed to stress, sepsis'
Troponin trend:
05/16/25 05/16/25
12:01 17:54
Troponin I 0.090 H* 0.072 H*
Based on the above, could you clarify in the progress notes, the appropriate diagnosis, if significant, that supports the above abnormalities and additional evaluation, monitoring and/or treatment rendered:
Non ischemic myocardial injury
Demand ischemia
Other,please specify
Use of terms such as suspected, likely, concern for, or probable (associated with a specific diagnosis that is being evaluated, monitored, or treated as if it exists) are acceptable and can be coded in the inpatient setting, when documented at the
time of discharge.
Thank you,
SIMONA Saleem RN
CDI Specialist
available via tiger text
Please use your independent medical judgment in providing your response.
--- NOTE | 2025-05-17 15:55 | PN.CDI ---
CDI
- -
CDI:
Physician Documentation Request
Admit Date: 05/16/25 14:01
Dear Doctor Luis,
Clinical Indicators:
Patient admitted with septic shock.
05/16 (15:21) RN note, 'sats 80's on 3 liters. titrated oxygen up to 8 liters midflow.'
Sa02 trend:
05/16/25
11:11 05/16/25
14:45 05/16/25
15:00
SaO2 87 88 91
02 requirements:
05/16/25
11:20 05/16/25
14:45 05/16/25
15:20
Flow liters per minute # 8
Nasal Cannula flow liters per minute 3 6
05/16/25
17:00 05/17/25
08:00
Flow liters per minute # 6 4
Nasal Cannula flow liters per minute
Please clarify which of the following accurately represents the patient's respiratory status:
Acute hypoxic respiratory failure
Hypoxia only
Other, please specify
Additional information for Respiratory Failure:
Recognized criteria for Respiratory Failure (Source: Johny Walsh. 2019 August 29.
Documentation tips: Acute Respiratory Failure, The Hospitalist.)
ABGs: (1 or more) Symptoms Please indicate type if known
1. p)2 <60 or RA SPO2 <91% on RA 1. Tachypnea, SOB, dyspnea Hypoxic
2. pCO2 >45 and pH <7.35 2. Use of accessory muscles Hypercapnic
3. pO2 decrease of pCO2 increase by 3. Pallor or cyanosis Hypoxic and Hypercapnic
10 mmHg from baseline if known 4. Anxiety or restlessness Unable to determine
4. P/F Ratio (pO2/FiO2)nless than 300 5. Unable to speak in full sentences
Use of terms such as suspected, likely, concern for, or probable (associated with a specific diagnosis that is being evaluated, monitored, or treated as if it exists) are acceptable and can be coded in the inpatient setting, when documented at the
time of discharge.
Thank you,
SIMONA Saleem RN
CDI Specialist
available via tiger text
Please use your independent medical judgment in providing your response.
--- NOTE | 2025-05-17 16:05 | PN.CDI ---
CDI
- -
CDI:
Physician Documentation Request
Admit Date: 05/16/25 14:01
Dear Doctor Luis,
Clinical Indicators:
Patient admitted with septic shock.
05/17 [facility] RN skin wound/assessment: Left Ear Stage 2 Pressure Injury, POA
Right Lateral Ankle Unstageable Pressure Injury, POA
Left Lateral Ankle Unstageable Pressure Injury, POA
Physician documentation of the type and location of wounds is required for compliant documentation. Based on the above clinical findings and your assessment, please provide the following in your progress note:
1. Location of the ulcer/wound, including laterality.
2. Type (etiology) of ulcer/wound:
- Pressure (decubitus) ulcer
- Other
3. If a pressure ulcer, please also include the stage* of the ulcer:
- Stage 1 - Skin intact, non-blanchable redness
- Stage 2 - Partial thickness loss of dermis, includes intact or open blister
- Stage 3 - Full thickness tissue not including bone, tendon or muscle
- Stage 4 - Full thickness tissue loss, including exposed bone, tendon or muscle
- Unstageable - Full thickness loss in which the base of the ulcer is covered by slough (yellow, kilpatrick, alcantar, green or brown) and/or eschar (kilpatrick, brown or black) in the wound bed.
- Unable to determine
Use of terms such as suspected, likely, concern for, or probable (associated with a specific diagnosis that is being evaluated, monitored, or treated as if it exists) are acceptable and can be coded in the inpatient setting, when documented at the
time of discharge.
Thank you,
SIMONA Saleem RN
CDI Specialist
available via tiger text
Please use your independent medical judgment in providing your response.
*Source: National Pressure Ulcer Advisory Panel (NPUAP)
[2025-05-17 16:08] LABS: Glucose - Point of Care 188 mg/dl (70-99)
--- NOTE | 2025-05-17 16:10 | PTCARENOTE ---
reassessed. patient again lethargic, unable to participate in ST evaluation. insulin gtt resumed per glycemic protocol. has had multiple loose stools mixed with solid pieces. dressing changed for soilage per orders. lungs with crackles. room air
pulse oximeter 88, oxygen@1 liter with pulse oximeter 94-96. hand packer updated, orders received. safe environment maintained
[2025-05-17] MEDS: LIPITOR PO (16:17)
[2025-05-17 17:04] LABS: Glucose - Point of Care 194 mg/dl (70-99)
[2025-05-17] MEDS: DESENEX/MITRAZOL/ZEASORB 1 APPLIC TOPICAL (17:49)
[2025-05-17 18:04] LABS: Glucose - Point of Care 156 mg/dl (70-99)
[2025-05-17] MEDS: CLOZARIL PO (20:01)
[2025-05-17 20:15] LABS: Glucose - Point of Care 129 mg/dl (70-99)
[2025-05-17 22:08] LABS: Glucose - Point of Care 132 mg/dl (70-99)
[2025-05-17] MEDS: NSS (PRESERVATIVE FREE) 8 ML IV (22:16)
[2025-05-17] MEDS: PEPCID 20 MG IV (22:16)
[2025-05-18] VITALS (77 sets, daily range): BP systolic 75–138; BP diastolic 41–122; BMI 28.0
[2025-05-18] MEDS: PITRESSIN 100 IV (00:03)
[2025-05-18 00:11] LABS: Glucose - Point of Care 79 mg/dl (70-99)
--- NOTE | 2025-05-18 00:22 | PTCARENOTE ---
Pt more alert at times, appearing restless/uncomfortable after hygiene care. Consistently oriented to self. Reorientation of time/place provided. Pt shook head yes to pain saying her backside (wound site) was hurting. Ofirmev provided relief, pt
resting comfortably. Afebrile. SB on monitor, still requiring vaso/levo for MAP goal. Will titrate to clinical endpoints. Insulin gtt, glycemic protocol followed. NPO. Chronic godwin to gravity. Incontinent for moderate amount loose stool, which was
soiling wound dressing. Wound care provided. FMS inserted as ordered in effort to keep would clean and contain stool. Will continue to monitor closely. Safe environment maintained.
[2025-05-18 01:31] LABS: Glucose - Point of Care 116 mg/dl (70-99)
[2025-05-18 02:14] LABS: Glucose - Point of Care 134 mg/dl (70-99)
[2025-05-18 03:15] LABS: Glucose - Point of Care 193 mg/dl (70-99)
[2025-05-18] MEDS: D5W 1000 IV (03:38)
[2025-05-18] MEDS: MAXIPIME 1000 MG IV ×3 (03:38→19:19)
[2025-05-18] MEDS: STERILE WATER FOR INJECTION 10 ML IV ×3 (03:38→19:18)
--- NOTE | 2025-05-18 04:00 | PTCARENOTE ---
Pt resting, no change in previous assessment. Will monitor
[2025-05-18 04:10] LABS: Glucose - Point of Care 154 mg/dl (70-99)
[2025-05-18 04:11] LABS: Hematocrit 23.9 % (37.0-47.0); Hemoglobin 7.5 g/dL (12.0-16.0); Mean Corp Hgb Conc. 31.4 g/dL (33.0-37.0); Mean Corpuscular Volume 98.0 fL (81.0-99.0); Platelet Count 91 10^3/uL (130-400); Red Cell Dist. Width 17.4 % (11.5-14.5)
[2025-05-18 04:23] LABS: Blood Urea Nitrogen 38 mg/dl (7-17); Calcium 8.6 mg/dl (8.4-10.2); Carbon Dioxide 21 mmol/L (22-30); Chloride 116 mmol/L (98-107); Estimated Creatinine Clearance 36 ml/min; Glucose 159 mg/dl (70-99); Magnesium 1.9 mg/dl (1.6-2.3); Potassium 3.6 mmol/L (3.5-5.1); Sodium 140 mmol/L (135-145); eGFR 40.47
[2025-05-18 05:14] LABS: Glucose - Point of Care 153 mg/dl (70-99)
[2025-05-18 06:15] LABS: Glucose - Point of Care 142 mg/dl (70-99)
[2025-05-18] MEDS: SYNTHROID PO (06:20)
--- NOTE | 2025-05-18 06:45 | CONS.URO ---
Consultation
-
Date/Time Consultation Performed: 05/18/2025 0700
Performing Provider: Edson
Reason for Consultation: chronic urinary retention; recurrent UTIs
Medical History
History of Present Illness
Dr Eduardo's recent consultation: 'The patient is a 69-year-old female with ongoing urinary
retention, recurrent UTI's. She has been seen by Dr. Le in our
office. An attempt was made for urodynamics, but this was
unsuccessful. After a long discussion with the patient, she said
that due to her immobility and decubitus wounds, she preferred
continued management of her bladder with a catheter. She is on
Mimi's schedule for May 21 for cystoscopy and suprapubic
tube placement.
The patient was admitted from her longterm facility to the[facility] on 05/01/2025, with altered mental status and fever. Her
urine appeared purulent. She required ICU admission.'
ED admission note: '69-year-old female sent to the emergency room from [facility] for lethargy, mental status change and hypotension. Patient unable to provide any history due to her altered mental status.'
Past Medical History
Past Medical History: Other (hyperlipidemia, bipolar disorder, type 2 diabetes, hypothyroidism, CKD 3B, chronic anemia, essential hypertension)
Allergies/Home Medications
Allergies
Allergy/AdvReac Type Severity Reaction Status Date / Time
carbamazepine (From Tegretol) Allergy Rash Verified 04/25/23 12:39
minocycline HCl (From Allergy Unknown Verified 04/25/23 12:39
Minocin)
Skin Cleanser Combination Allergy Unknown Verified 04/25/23 12:39
No.4 (From Minocin)
thiothixene (From Navane) Allergy Unknown Verified 04/25/23 12:39
Home Medications
�Medication �Instructions �Recorded �Confirmed �Type
glipizide 2.5 mg tablet, extended 2.5 mg PO DAILY Diabetes 12/27/19 05/16/25 History
release 24 hr
simvastatin 40 mg tablet 40 mg PO HS High cholesterol 12/27/19 05/16/25 History
levothyroxine 88 mcg tablet 88 mcg PO DAILY Thyroid 06/03/20 05/16/25 History
aspirin 81 mg tablet,delayed 81 mg PO DAILY Blood Clot 01/29/25 05/16/25 History
release Prevention/Tx
cholecalciferol (vitamin D3) 25 25 mcg PO DAILY Supplement 01/29/25 05/16/25 History
mcg (1,000 unit) tablet (Vitamin
D3)
clozapine 100 mg tablet 300 mg PO HS bipolar disorder 01/29/25 05/16/25 History
divalproex 500 mg tablet,extended 1,000 mg PO DAILY bipolar disorder 01/29/25 05/16/25 History
release 24 hr
docusate sodium 100 mg capsule 200 mg PO BID Constipation 01/29/25 05/16/25 History
(Colace)
famotidine 20 mg tablet (Pepcid) 20 mg PO DAILY Gastrointestinal 01/29/25 05/16/25 History
Issue
melatonin 3 mg tablet 3 mg PO HS Sleep 01/29/25 05/16/25 History
quetiapine 25 mg tablet (Seroquel) 25 mg PO DAILY bipolar disorder 01/29/25 05/16/25 History
quetiapine 50 mg tablet (Seroquel) 75 mg PO HS bipolar disorder 01/29/25 05/16/25 History
sennosides 8.6 mg-docusate sodium 2 tab-cap PO BID Constipation 01/29/25 05/16/25 History
50 mg tablet (Senna-S)
acetaminophen 325 mg tablet 650 mg PO Q6HPRN PRN mild pain 05/01/25 05/16/25 History
(Tylenol)
bisacodyl 10 mg rectal suppository 10 mg MI DAILYPRN PRN if no bm 05/01/25 05/16/25 History
(Dulcolax (bisacodyl)) aftr mom
magnesium hydroxide 400 mg/5 mL 2,400 mg PO HSPRN PRN if no bm by 05/01/25 05/16/25 History
oral suspension (Milk of Magnesia) 3rd day
losartan 50 mg tablet 50 mg PO DAILY Blood Pressure 05/16/25 05/16/25 History
Physical Exam
Vital Signs
Vital Signs
Temp Pulse Resp BP Pulse Ox
97.5 F 61 11 104/69 96
05/18/25 03:24 05/18/25 06:15 05/18/25 06:15 05/18/25 06:00 05/18/25 06:15
Lab / Testing Results
Laboratory Results
05/18/25 03:46
05/18/25 03:46
Physical Exam
asleep in ICU bed
Genito-urinary: Marinelli Catheter (pale yellow outflow)
Assessment / Plan
-
recurrent UTIs:
Urine Culture Preliminary 05/17/25-1257
CC: Greater than 100,000 CFU/ML Gram negative bacilli
CC: 20,000 CFU/ML Yeast*
Plan: scheduled for cysto, Suprapubic Cystostomy Tube placement on 05/21/2025
Data Reviewed
-
Lab Data: Labs Reviewed
Old Records: Reviewed
--- NOTE | 2025-05-18 07:13 | W.PN.HOSP.TC ---
Addendum entered and electronically signed by Kd Cobian MD 05/18/25 13:36:
Attending�addendum:
I�saw�and�evaluated�the�patient.�I�reviewed�the�resident�s�note�and�agree�with�findings�and�plan�as�documented�in�the�resident�s�note.��
�patient seen and examined at bedside, not fully oriented during cardiology
Physical�exam:
GENERAL : Awake but not following commands
HEENT: Nonicteric sclerae, PERRLA, EOMI. Oropharynx clear. Moist mucous membranes. Conjunctivae appear well perfused.
CHEST: Chest wall is nontender.
HEART: Regular rate and rhythm without murmurs.
LUNGS: Basal rales bilaterally.
ABDOMEN: Soft, positive bowel sounds, nontender, no organomegaly.
RECTAL: Deferred.
Bilateral lower extremity: Edema
NEUROLOGIC: Confused
�
Assessment/plan:
Septic shock.
Continue to wean pressors.
Continue current antibiotics.
IV fluid
urology consulted to consider suprapubic cath
Surgery consult ordered MRI pelvis which is pending.
�
Total�time�spent�on�today�s�encounter�was�65�minutes�which�included�time�spent�in�counseling�the�patient/family�regarding�diagnosis�and�treatment�plan�as�listed�above,�goals�of�care,�and�symptom�management.�Case�was�discussed�with�nursing�staff,�spec
ialists,�and�care�coordinators/case�management.�All�labs�and�imaging�personally�reviewed�by�me.�Remainder�the�time�spent�in�detailed�review�of�previous�records,�lab�data,�imaging,�and�other�medical�provider�documentation.
Original Note:
Today's Communication/Plan
-
- MRI pelvis to evaluate for osteomyelitis
- urology plan for OR on 05/21 for suprapubic catheter
- monitor VS, CBC
Assessment / Plan
Assessment / Plan
In summary,
69 yo F p/w septic shock in setting of recent septic shock ~1 week ago
# Septic shock
# ? Infectious Source - UTI vs. ulcer vs. other
# Chronic godwin catheter
- chronic godwin catheter, has been exchanged
- now only on norepinephrine, vasopressin has been stopped. Goal is MAP > 65
- left subclavian central line in place
- UA c/w UTI grew E. Coli susceptibilities above
- Continue IV cefepime (Day #3 today)
- IV fluids (now on D5/H20 80 mL/hr; switch to NS)?
- leukocytosis, f/u CBC
- f/u blood cultures
- urology consulted: [facility] with Dr. Sandhu, plan for OR on 05/[address] Le
- ofirm for pain control (nurse reports it worked for Navi)
# Multiple pressure (decubitus) ulcers
#Stage 4 sacral/coccyx pressure ulcer - present prior to admission
- Left Ear Stage 2 Pressure Injury, POA
- Right Lateral Ankle Unstageable Pressure Injury, POA
- Left Lateral Ankle Unstageable Pressure Injury, POA
- surgery consulted, recommends MRI, no operative intervention at the moment
- f/u cultures
- wound care consulted, air mattress, and soft heel relief boots ordered
- turn q2h
- plan for MRI to evaluate osteomyelitis
# Suspicion for acute hypoxemic respiratory failure -- improving
- on RA currently with 100% O2 sat
- problem is potentially resolved
# Metabolic and/or septic encephalopathy
- NPO
- speech evaluation recommended continue NPO
# T2DM
- blood glucose trend in 120-200s
- Insulin drip 1.7
- hold home antidiabetic medications, glipizide
- once can tolerate PO, consider turn off D5/H20 and insulin drip
# Hypernatremia -- resolved
- most likely in setting of hypovolemia
- Na+ 140
- On D5/H20, at the time of rounds
- Trend BMP
# non ischemic myocardial injury
- troponins were elevated and peaked
- EKG reassuring against ischemia
- non-ischemic myocardial injury likely from demand stress in setting of sepsis
# CKD stage 3b
- Creatinine appears at or close to baseline (1.4-1.5)
- eGFR ~35-40 --> stage 3b
# chronic anemia
- Hgb 8.8 from 9.8 ( likely dilutional, received 5.8L)
- Transfuse if below 7
# Bipolar disorder
# Schizophrenia
- continue home clozapine, divalproex sodium, quetiapine
- switch as much as possible to IV since NPO
- monitor mental status
# HTN
- Losartan held
# HLD
- continue simvastatin
- continue aspirin
# Hypothyroidism
- continue levothyroxine
DVT ppx: heparin
GI ppx: IV famotidine
Code status: DNR
Diet: NPO, pending speech evaluation
Disposition: pending clinical improvement
Anticipated Discharge: > 48 hours
Subjective/Interval History
-
Date of Service: May 18, 2025
no acute events overnight
This morning, she is arousable but not a reliable historian for me.
Objective Data
-
Labs:
Laboratory Results
05/18/25
03:46
WBC 12.2 H
Hgb 7.5 L
Hct 23.9 L
Plt Count 91 L D
Sodium 140
Potassium 3.6
Chloride 116 H
Carbon Dioxide 21 L
BUN 38 H
Creatinine 1.4 H
Glucose 159 H
Calcium 8.6
WBC 12.2 from 7.2
Hgb 7.5 from 8.8
Plt 91 from 129
Na+ 140 from 146
Cr 1.4
Glucose 140s-150s
Microbiology
- urine culture: ecoli and yeast
Organism 1 Escherichia coli
1. Escherichia coli
M.I.C. RX
--------- ---
Amoxicillin/Potas. Clavulanate 16/8 I
Ampicillin >16 R
Ampicillin/Sulbactam >16/8 R
Aztreonam <=4 S
Cefazolin >16 R
Cefepime <=2 S
Ceftazidime <=1 S
Ceftriaxone <=1 S
Ertapenem <=0.5 S
Ciprofloxacin <=0.25 S
Gentamicin <=2 S
Meropenem <=1 S
Nitrofurantoin-Urine Only <=32 S
Piperacillin/Tazobactam <=8 S
Tetracycline >8 R
Tobramycin <=2 S
Trimethoprim/Sulfamethoxazole <=2/38 S
Vital Signs:
Vital Signs
Temp Pulse Resp BP Pulse Ox
97.5 F 61 11 104/69 96
05/18/25 03:24 05/18/25 06:15 05/18/25 06:15 05/18/25 06:00 05/18/25 06:15
I&O
05/17/25 05/18/25 05/19/25
06:59 06:59 06:59
Intake Total 5442.0 / 5594.5 3173.3 / 3173.3
Output Total 650 / 650 1000 / 1000
Balance 4792.0 / 4944.5 2173.3 / 2173.3
Review of Systems
-
Unable to obtain full review of systems at this time due to: Acuity
Physical Exam
-
General: No Apparent Distress
HEENT: Normocephalic and Atraumatic
Respiratory: Clear to Auscultation
Cardiac: Regular Rhythm, S1/S2 and Other (no murmurs on my exam)
GI: Soft and Nontender
Genito-urinary: Other (some suprapubic tenderness to palpation; no flank tenderness on my exam)
Musculoskeletal: Other (lower extremity edema, 1 to 2+)
Skin: Warm and Dry
Psych: Confused
[2025-05-18 08:06] LABS: Glucose - Point of Care 111 mg/dl (70-99)
--- NOTE | 2025-05-18 08:45 | W.PN.INTV ---
Addendum entered and electronically signed by Cam Nicholas MD 05/19/25 08:44:
Patient has stayed off pressors. Discussed with hospitalist team, patient transferring out of ICU, court of appeals judge service will sign off, please call as needed.
Original Note:
Today's Communication / Plan
Recommendations
- Discontinue vasopressin
- Continue to wean Levophed as tolerated to keep MAP 65 or above
- Speech therapy evaluation once more awake and alert
Assessment
-
Assessment: 69-year-old female former tobacco smoker with a past medical history of chronic Marinelli due to chronic urinary retention (possible neurogenic bladder), DM type II, hypertension, hypothyroidism, hyperlipidemia, bipolar disorder, insomnia,
CKD, history of UTI and overactive bladder who presents with being found unresponsive by staff at her correction ([facility])
Initially discharged on 05/06/2025 for UTI.
Now readmitted with septic shock and change in mental status similar presentation compared to prior.
Impression:
#Septic shock due to UTI
Urine culture 05/01/2025: E. coli/Klebsiella- Pansensitive
#'s x-ray: Clear.
#Complicated UTI (chronic Marinelli catheter)
#Numerous scattered tiny nonobstructive bilateral renal calculi without hydronephrosis (seen on CT abdomen/pelvis from 05/01/2025)
#Acute encephalopathy due to septic encephalopathy/TME
# Hypernatremia-volume depletion
# Mild troponin leak
EKG 05/16/2025: Sinus tachycardia/right axis deviation/
# Chronic kidney disease stage IIIb
# Chronic anemia likely secondary to chronic kidney disease.
#Chronic urinary retention with chronic Marinelli catheter
#History of recurrent UTI due to E. coli + Klebsiella
#Former tobacco smoker
Plan:
-
Septic shock due to complicated urinary tract infection
Recurrent
Urology service on case, eventually plan for suprapubic catheter placement
DC vasopressin, Levophed down to 5 currently. Appears euvolemic. Continue cefepime pending cultures
Leukocytosis improved. Afebrile.
- Maintain SpO2 >90-94% - currently saturating 100% on room air
- prn nebulized bronchodilators - not currently bronchospastic
- Incentive spirometer encouraged 10x per hour for at least 4 hrs a day when she is more alert.
-Maintain MAP>65
-Hypernatremia improved, sodium down to 140. Currently on D5 and insulin infusion
-Continue Levophed/vasopressin. Wean off to maintain hemodynamics.
-
Mild troponin leak-trending lower
Reassuring echocardiogram
Appears euvolemic.
Suspect this was related to underlying septic shock
-
Hypernatremia-improved.
Once able to take p.o., will discontinue insulin infusion and dextrose.
-
-Toxic metabolic encephalopathy due to sepsis-gradually improving
N.p.o. for now
Aspiration precaution
Avoid sedatives
Speech evaluation as mental status has improved.
-Chronic kidney disease-stable.
- Renally dose all meds/Abx
- Trend sCr and UOP
-Continue psychiatric medicines if patient clears swallowing.
- DVT ppx: HSQ
-Sacral decubitus ulcers present on admission: No evidence for infection
Wound care consult-ongoing, MRI pending
Turn every 2 hours
Hyperglycemia noted: Continue insulin sliding scale
Insulin drip started
N.p.o. for now
Speech evaluation today as mental status has improved.
Code status: DNR/DNI
Continue ICU level of care for this critically ill patient.
Critical care statement: A total of 33 minutes of critical care time was provided for this patient today. This includes management of unstable vital signs, evaluation of the patient at bedside, reviewing the patient's pertinent medical records
including radiographs, microbiology, laboratory evaluations, and discussion with primary team, consultants, pharmacy, nutrition, physical therapy, case management, charge nurse, critical care nursing, and respiratory therapy.
Subjective Dataa
Subjective Data
Date of Service:
Date of Service: May 18, 2025
Chief Complaint: Sterile Preparation Technician Follow Up (Septic shock/toxic metabolic encephalopathy)
Subjective:
Patient lying in bed in no acute distress, more alert and interactive per nursing staff
Review of Systems
General: Other (Not obtainable due to encephalopathy)
Objective Data
Data Reviewed
Vital Signs / I&O / Oxygen:
Vital Signs
Temp Pulse Resp BP Pulse Ox
97.5 F 58 13 109/76 97
05/18/25 03:24 05/18/25 07:45 05/18/25 07:45 05/18/25 07:40 05/18/25 07:45
Intake and Output
05/17/25 05/18/25 05/19/25
06:59 06:59 06:59
Intake Total 5442.0 / 5594.5 3173.3 / 3173.3
Output Total 650 / 650 1000 / 1000
Balance 4792.0 / 4944.5 2173.3 / 2173.3
SaO2 97
Nasal Cannula flow liters per 3
minute
Physical Exam
General: Comfortable
HEENT: Normocephalic
Cardiovascular: S1-S2
Respiratory: Clear and Non-Labored Respirations
GI: Soft
Neurology: Other (Somnolent but arousable.)
Skin: Warm
Labs/Micro/Reports
Lab Data
05/18/25 03:46
05/18/25 03:46
Microbiology
05/16/25 13:14 Urine Urine Culture - Preliminary
Gram negative bacilli
Yeast
05/16/25 11:48 Urine Urine Culture - Preliminary
Gram negative bacilli
Yeast
05/16/25 12:05 Blood/Venous Blood Culture - Preliminary
No Growth in 24 hours- Final report to follow
05/16/25 12:01 Blood/Venous Blood Culture - Preliminary
No Growth in 24 hours- Final report to follow
05/16/25 12:24 Nasal Swab Influenza Types A & B (TEDDY) - Final
Negative for Influenza A & B, NAAT
Negative results must be combined with clinical observations
and patient history.
Nucleic Acid Amplification test (NAAT)performed on the
[employer] platform.
[2025-05-18] MEDS: DEPACON 55 MG IV ×2 (08:47→21:36)
[2025-05-18] MEDS: SANTYL OINTMENT 1 APPLIC TOPICAL ×3 (08:47→19:18)
[2025-05-18] MEDS: HEPARIN 5000 UNITS SC ×2 (08:47→19:19)
[2025-05-18] MEDS: DESENEX/MITRAZOL/ZEASORB 1 APPLIC TOPICAL (08:48)
[2025-05-18] MEDS: COLACE PO ×2 (10:07→19:19)
[2025-05-18] MEDS: SENOKOT-S PO ×2 (10:08→19:19)
[2025-05-18] MEDS: DAKIN'S SOLUTION 0.125% 1/4 STRENGTH 1 ML TOPICAL (10:08)
[2025-05-18 10:09] LABS: Glucose - Point of Care 110 mg/dl (70-99)
[2025-05-18] MEDS: ASPIR LOW (ENTERIC COATED) 81 MG PO (10:13)
[2025-05-18] MEDS: VITAMIN D3 (cholecalciferol) 25 MCG PO (10:13)
[2025-05-18] MEDS: SEROQUEL 25 MG PO (10:13)
--- NOTE | 2025-05-18 10:22 | PTOTSP ---
Speech Pathology
Clinical Swallow Evaluation
69F with admission for septic shock and presumed UTI presents with a functional oropharyngeal swallow. Oral phase continues to be impacted by edentulous status. Tolerated all liquids trials without overt s/s of aspiration; however, aspiration risk
remains increased at this time 2/2 acute illness and change in mental status. ASSEMBLER FAUCETS service will continue to follow.
Recommend:
1. IDDSI 5 (minced and moist) (IDDSI 5) and Thin liquids (IDDSI 0)
2. Meds as best tolerated
3. Safe swallowing strategies: upright with meals; ensure pt is awake and alert; supervision and full assistance PRN for set up and feeding
4. Aspiration precautions.
5. ST will follow to assess for diet advancement as able
--- NOTE | 2025-05-18 10:59 | PTCARENOTE ---
weaning down on vasopressors , off of vasopressin , currently on Levophed at 2.5mcg , she is now more alert and intermittently answers simple yes and no questions , she has passed a swallow eval and will start diet , her blood glucose has been
controlled on the insulin gtt , as per casting machine operator helper she the glycemic protocol to be DC and start on low dose sliding scale
--- NOTE | 2025-05-18 11:05 | PTCARENOTE ---
Warm blankets placed.
--- NOTE | 2025-05-18 11:05 | PTCARENOTE ---
Warm blankets placed.
[2025-05-18] MEDS: NOVOLOG FLEXPEN-LOW RESISTANCE SC ×2 (11:57→17:19)
[2025-05-18] MEDS: LEVOPHED 250 IV (15:08)
--- NOTE | 2025-05-18 15:48 | PTCARENOTE ---
pt now eating and drinking , she needs to be fed, her Levophed was off for two hours and needed to be restarted for a map of 56
[2025-05-18 17:15] LABS: Glucose - Point of Care 128 mg/dl (70-99)
[2025-05-18] MEDS: LIPITOR 20 MG PO (17:19)
--- NOTE | 2025-05-18 17:51 | PTCARENOTE ---
pt temp down to , 94.1-95.1 , Elisa harper applied for temp management
[2025-05-18] MEDS: DAKIN'S SOLUTION 0.125% 1/4 STRENGTH 473 ML TOPICAL (19:20)
--- NOTE | 2025-05-18 21:24 | PTCARENOTE ---
Received pt resting in bed, drowsy but easily arousable. Oriented to self and knows we are in [place] but not the hospital. Pt. denies pain at this time. +foot drop - fiber boots in place. SR on tele, HR 60-70. +1 LE edema. Hypothermic - jim
hugger in place. Received on low dose levophed- weaned off at this time. Midodrine added. On RA. Lungs diminished. Spo2 95%. Round, obese abdomen. FMS in place - small amt leakage. Flushed and cleaned. Sacral dressing changed per orders. Chronic
godwin draining yellow urine with some sediment noted. L subclav TLC capped. Turning q2. Mouth and godwin care provided
[2025-05-18] MEDS: SEROQUEL 75 MG PO (21:35)
[2025-05-18] MEDS: PEPCID 20 MG IV (21:35)
[2025-05-18] MEDS: CLOZARIL 300 MG PO (21:35)
[2025-05-18] MEDS: NSS (PRESERVATIVE FREE) 8 ML IV (21:35)
[2025-05-18 22:12] LABS: Glucose - Point of Care 103 mg/dl (70-99)
[2025-05-19] VITALS (20 sets, daily range): BP systolic 92–126; BP diastolic 21–98; BMI 27.7
--- NOTE | 2025-05-19 00:23 | PTCARENOTE ---
Pt reassessed - no changes. BP stable off pressors. Pt. resting.
[2025-05-19] MEDS: MAXIPIME 1000 MG IV ×3 (03:32→19:48)
[2025-05-19] MEDS: STERILE WATER FOR INJECTION 10 ML IV ×3 (03:32→19:48)
--- NOTE | 2025-05-19 04:06 | PTCARENOTE ---
Addendum entered by Gilda Napoles RN 05/19/25 04:44:
Glucose 66 on AM labs. Accucheck = 69. 1/2 amp D50 given as pt not willing to drink whole juice. Repeat accucheck = 141. Pt. asymptomatic.
K 3.2 - repletion infusing.
Original Note:
Elisa lagger placed back on for temp of 96.6.
Placed on 1L NC due to sats dipping to 88% while sleeping. Now 95%.
AM labs drawn
[2025-05-19 04:09] LABS: Hematocrit 24.4 % (37.0-47.0); Hemoglobin 8.0 g/dL (12.0-16.0); Mean Corp Hgb Conc. 32.8 g/dL (33.0-37.0); Mean Corpuscular Volume 94.9 fL (81.0-99.0); Platelet Count 102 10^3/uL (130-400); Red Cell Dist. Width 17.8 % (11.5-14.5)
[2025-05-19 04:15] LABS: ALT (SGPT) 18 U/L (0-35); AST (SGOT) 15 U/L (14-36); Albumin 2.0 g/dl (3.5-5.0); Alkaline Phosphatase 67 U/L (38-126); Blood Urea Nitrogen 38 mg/dl (7-17); Calcium 9.4 mg/dl (8.4-10.2); Carbon Dioxide 21 mmol/L (22-30); Chloride 117 mmol/L (98-107); Estimated Creatinine Clearance 37 ml/min; Glucose 66 mg/dl (70-99); Potassium 3.2 mmol/L (3.5-5.1); Sodium 142 mmol/L (135-145); Total Protein 4.3 g/dl (6.3-8.2); eGFR 40.47
[2025-05-19] MEDS: DEXTROSE 50% SYRINGE 12.5 GRAMS IV (04:20)
[2025-05-19 04:29] LABS: Glucose - Point of Care 69 mg/dl (70-99)
[2025-05-19] MEDS: KCL 100 IV (04:38)
[2025-05-19 04:49] LABS: Glucose - Point of Care 141 mg/dl (70-99)
[2025-05-19 04:58] LABS: Absolute Neutrophils -Man Diff 10.4 10^3/uL (1.4-6.5); Platelets Checked Yes
[2025-05-19 04:59] LABS: Anisocytosis 2+; Basophilic Stippling 1+; Macrocytosis 2+; Normal RBC Morphology No; Pelger-Huet Occasional; Total Cells Counted 100
[2025-05-19] MEDS: SYNTHROID 88 MCG PO (06:26)
[2025-05-19 06:38] LABS: Glucose - Point of Care 111 mg/dl (70-99)
--- NOTE | 2025-05-19 07:10 | W.PN.HOSP.TC ---
Addendum entered and electronically signed by Kd Cobian MD 05/19/25 12:59:
Attending�addendum:
I�saw�and�evaluated�the�patient.�I�reviewed�the�resident�s�note�and�agree�with�findings�and�plan�as�documented�in�the�resident�s�note.��
�patient seen and examined at bedside, more awake and oriented, MRI shows evidence of osteomyelitis, ID consulted
Physical�exam:
GENERAL : More awake and oriented.
HEENT: Nonicteric sclerae, PERRLA, EOMI. Oropharynx clear. Moist mucous membranes. Conjunctivae appear well perfused.
CHEST: Chest wall is nontender.
HEART: Regular rate and rhythm without murmurs.
LUNGS: Basal rales bilaterally.
ABDOMEN: Soft, positive bowel sounds, nontender, no organomegaly.
RECTAL: Deferred.
Bilateral lower extremity: Edema
NEUROLOGIC: Confused
�
Assessment/plan:
Septic shock.
Currently off pressor
Continue current antibiotics.
IV fluid
Urology consulted.
Surgery consult ordered MRI pelvis which is shows osteomyelitis, infectious disease consulted.
Okay to be downgraded from ICU.
Total time spent on today's encounter was 65 minutes which included time spent in counseling the patient/family regarding diagnosis and treatment plan as listed above, goals of care, and symptom management. Case was discussed with nursing staff,
specialists, and care coordinators/case management. All labs and imaging personally reviewed by me. Remainder the time spent in detailed review of previous records, lab data, imaging, and other medical provider documentation.
�
Original Note:
Today's Communication/Plan
-
- off pressors, off insulin drip, mental status improved, no longer NPO
- transfer to IMU
- MRI showed osteomyelitis
- f/u ID recommendations
- continue IV cepefime
- godwin catheter in place
Assessment / Plan
Assessment / Plan
In summary,
69 yo F p/w septic shock in setting of recent septic shock ~1 week ago
# Sepsis
# ? Infectious Source - UTI vs. ulcer vs. both vs. other
- Chronic godwin catheter
- chronic godwin catheter, has been exchanged
- off vasopressors, MAP > 65; Cr at baseline, no longer in shock
- still meets sepsis criteria SIRS: leukocytosis + temperature derangement + confirmed source of infection
- left subclavian central line in place; plan to remove and place PICC line tomorrow (05/20)
- UA c/w UTI grew E. Coli susceptibilities above but now found to have osteomyelitis as well.
- Blood culture from 05/16 no growth in 48 hours
- leukocytosis at 12, f/u CBC
- urology consulted: plan for OR on 05/[address] Le
- continue cefepime IV q8h (today is DAY # 4)
- transfer to IMU
# Osteomyelitis of coccyx, most likely acute
# Stage 4 sacral/coccyx pressure ulcer
# Multiple pressure (decubitus) ulcers
# Left Ear Stage 2 Pressure Injury, present prior to admission
# Right Lateral Ankle Unstageable Pressure Injury, present prior to admission
# Left Lateral Ankle Unstageable Pressure Injury, present prior to admission
- wound care: air mattress, and soft heel relief boots ordered; turn q2h
- MRI pelvis has evidence of osteomyelitis
- per surgery, no fluid drainage to facilitate a reliable wound culture
- consulted ID to determine duration of ABX, choice of ABX
# Hypokalemia
- KCl IV repletion
- BMP in AM
# T2DM
- off insulin drip
- blood glucose trend in 120s with occasional BG in 60s.
- hold home antidiabetic medications, glipizide
# Hypernatremia -- resolved
- most likely in setting of hypovolemia
# Suspicion for acute hypoxemic respiratory failure -- resolved
- on RA currently with 100% O2 sat
- problem is potentially resolved
# Metabolic and/or septic encephalopathy -- resolved
- tolerating PO diet
# non ischemic myocardial injury -- resolved
- troponins were elevated and peaked
- EKG reassuring against ischemia
- non-ischemic myocardial injury likely from demand stress in setting of sepsis
# CKD stage 3b
- Creatinine appears at or close to baseline (1.4-1.5)
- eGFR ~35-40 --> stage 3b
# chronic anemia
- Hgb 8.8 from 9.8 ( likely dilutional, received 5.8L)
- Transfuse if below 7
# Bipolar disorder
# Schizophrenia
- continue home clozapine, divalproex sodium, quetiapine
- switch as much as possible to IV since NPO
- monitor mental status
# HTN
- Losartan held
# HLD
- continue simvastatin
- continue aspirin
# Hypothyroidism
- continue levothyroxine
DVT ppx: heparin
GI ppx: IV famotidine
Code status: DNR
Diet: NPO, pending speech evaluation
Disposition: pending clinical improvement
Anticipated Discharge: > 48 hours
Subjective/Interval History
-
Date of Service: May 19, 2025
more interactive this morning
off pressors, off insulin drip, eating PO
had MRI pelvis to evaluate sacral wound this morning
Objective Data
-
Labs:
Laboratory Results
05/19/25
03:37
WBC 12.0 H
Hgb 8.0 L
Hct 24.4 L
Plt Count 102 L
Sodium 142
Potassium 3.2 L
Chloride 117 H
Carbon Dioxide 21 L
BUN 38 H
Creatinine 1.4 H
Glucose 66 L
Calcium 9.4
Total Bilirubin 0.4
AST 15
ALT 18
Alkaline Phosphatase 67
blood glucose in 60s (2x over past 12 hours)
Organism 1 Escherichia coli
1. Escherichia coli
M.I.C. RX
--------- ---
Amoxicillin/Potas. Clavulanate 16/8 I
Ampicillin >16 R
Ampicillin/Sulbactam >16/8 R
Aztreonam <=4 S
Cefazolin >16 R
Cefepime <=2 S
Ceftazidime <=1 S
Ceftriaxone <=1 S
Ertapenem <=0.5 S
Ciprofloxacin <=0.25 S
Gentamicin <=2 S
Meropenem <=1 S
Nitrofurantoin-Urine Only <=32 S
Piperacillin/Tazobactam <=8 S
Tetracycline >8 R
Tobramycin <=2 S
Trimethoprim/Sulfamethoxazole <=2/38 S
MRI pelvis 05/19/2025:
IMPRESSION:
Midline sacral decubitus ulceration with evidence for osteomyelitis involving the coccyx Cx1, Cx2 and Cx3 segments. No fluid collections.
There is moderate diffuse edema and fatty infiltration throughout the majority of the muscles about the pelvis bilaterally, likely in part related to denervation edema. Component of myositis not excluded
blood cultures no growth after 48 hours
Vital Signs:
Vital Signs
Temp Pulse Resp BP Pulse Ox
96.9 F L 75 15 94/57 93
05/19/25 06:00 05/19/25 06:00 05/19/25 06:00 05/19/25 06:00 05/19/25 06:00
temperature is 97.5
I&O
05/18/25 05/19/25 05/20/25
06:59 06:59 06:59
Intake Total 3173.3 / 3282.8 1207.8 / 1207.8
Output Total 1000 / 1000 1600 / 1600
Balance 2173.3 / 2282.8 -392.2 / -392.2
Review of Systems
-
Unable to obtain full review of systems at this time due to: Acuity
Physical Exam
-
General: No Apparent Distress
HEENT: Normocephalic and Atraumatic
Respiratory: Clear to Auscultation
Cardiac: Regular Rhythm, S1/S2 and Other (no murmurs on my exam)
GI: Soft and Nontender
Genito-urinary: Other (some suprapubic tenderness to palpation; no flank tenderness on my exam)
Musculoskeletal: Other (lower extremity edema, 1 to 2+)
Skin: Warm and Dry
Psych: Confused
[2025-05-19 07:11] LABS: Glucose - Point of Care 102 mg/dl (70-99)
[2025-05-19] MEDS: NOVOLOG FLEXPEN-LOW RESISTANCE SC ×2 (09:05→17:19)
[2025-05-19] MEDS: VITAMIN D3 (cholecalciferol) 25 MCG PO (09:05)
[2025-05-19] MEDS: SANTYL OINTMENT 1 APPLIC TOPICAL ×2 (09:05→19:49)
[2025-05-19] MEDS: HEPARIN 5000 UNITS SC ×2 (09:05→19:49)
[2025-05-19] MEDS: SEROQUEL 25 MG PO (09:06)
[2025-05-19] MEDS: ASPIR LOW (ENTERIC COATED) 81 MG PO (09:06)
[2025-05-19] MEDS: DEPACON 55 MG IV ×2 (09:07→19:49)
[2025-05-19] MEDS: COLACE PO ×2 (09:07→19:49)
[2025-05-19] MEDS: DAKIN'S SOLUTION 0.125% 1/4 STRENGTH TOPICAL (09:07)
[2025-05-19] MEDS: SENOKOT-S PO ×2 (09:08→19:50)
--- NOTE | 2025-05-19 10:03 | PTCARENOTE ---
pt drowsy but is arousable and intermittently answers yes and no questions, she had an MRI today of the sacrum , she has been off of Levophed since 05/18 2100 , appetite is good , she is now transitioned to IMU level of care
[2025-05-19 11:16] LABS: Glucose - Point of Care 156 mg/dl (70-99)
[2025-05-19] MEDS: NOVOLOG FLEXPEN-LOW RESISTANCE 1 UNITS SC (11:56)
--- NOTE | 2025-05-19 14:35 | CON.ID ---
Consultation
-
Date/Time Consultation Requested: 05/19/2025 0917
Date/Time Consultation Performed: 05/19/2025 1435
Requesting Provider: Dr. Smith
Performing Provider: Dr. Cano
Reason for Consultation: Osteomyelitis
Chief Complaint / Past History
History of Present Illness
Navi Childers is a 69-year-old female being evaluated at the request of Dr. Smith regarding osteomyelitis. History is obtained from chart review, along with patient interview.
The patient recently was discharged from [facility] on 05/06, during which time she was treated for sepsis and septic shock. She presents back to the ER on 05/16/2025 from a local [facility] ([facility]) for evaluation of lethargy,
change in mental status and hypotension. Upon initial evaluation she was found to have a leukocytosis, hypotension and fever. Broad-spectrum antibiotics were initiated (cefepime, vancomycin) additionally, she was found to have a stage IV sacral
decubiti. Subsequent MRI imaging of the pelvis has revealed osteomyelitis of the coccyx, and Infectious Diseases is asked to comment upon further management.
At present, limited history is available from the patient. She does admit to some sacral discomfort.
Past History
Additional Past Medical History:
Urinary retention with chronic Marinelli catheter
HTN
HLD
Hypothyroidism
Bipolar disease
CKD stage IIIb
DM type II
Past Surgical History: None
Allergy History:
carbamazepine (From Tegretol) Allergy (Verified 04/25/23 12:39)
Rash
minocycline HCl (From Minocin) Allergy (Verified 04/25/23 12:39)
Unknown
Skin Cleanser Combination No.4 (From Minocin) Allergy (Verified 04/25/23 12:39)
Unknown
thiothixene (From Navane) Allergy (Verified 04/25/23 12:39)
Unknown
Medications Reviewed: Yes
Current Antibiotics:
Cefepime 1 gm IV q.8 hours
Social History
Tobacco: Former Smoker
Alcohol: None
Drug: None
Personal: Single
Living: [facility]
Employment: Not Employed
Family History
Family History: Unable to Obtain
Review of Systems
Vital Signs
Temp Pulse Resp BP Pulse Ox
97.3 F 96 22 111/98 94
05/19/25 11:12 05/19/25 14:00 05/19/25 14:00 05/19/25 14:00 05/19/25 09:00
Physical Exam
Physical Exam
Constitutional: Comfortable, Chronically Ill and Non-toxic
Eyes: No Conjunctival Hemorrhage and Sclera Anicteric
Oral: No Thrush and No Ulcers
Cardiovascular: Regular Rate and S1/S2; Negative S3/S4
Pulmonary: Clear; Negative Wheezes, Rales or Rhonchi
Gastrointestinal: Soft, Non Tender, Non Distended, Normal Bowel Sounds and Other (FMS in place)
Genito-Urinary: Marinelli and Clear Urine; Negative Turbid Urine or Hematuria
Extremities: Edema; Negative Cyanosis or Erythema
Wound: Other (Sacral wound noted; stage III-IV)
Neurological: Awake and Alert
Psychological: Calm
.
Lab / Diagnostic Study Results
05/19/25 03:37
05/19/25 03:37
Total Counted 100 05/19/25 03:37
Abs Neuts (Manual) 10.4 10^3/uL (1.4-6.5) H 05/19/25 03:37
Segmented Neutrophils 85 % (42-75) H 05/19/25 03:37
Band Neutrophils 2 % (0-3) D 05/19/25 03:37
Lymphocytes (Manual) 11 % (20-51) L 05/19/25 03:37
PT 18.3 Sec (11.4-14.6) H 05/16/25 12:04
INR 1.46 05/16/25 12:04
Lactic Acid 1.2 mmol/L (0.7-2.0) 05/16/25 12:01
Ur Squamous Epith Cells 0-2 /LPF (Few) 05/16/25 11:48
Microbiology Results
Micro:
05/16/25 12:05 Blood Culture - Preliminary
Blood/Venous No Growth in 72 hours- Final report to follow
05/16/25 12:01 Blood Culture - Preliminary
Blood/Venous No Growth in 72 hours- Final report to follow
05/16/25 15:46 MRSA Screen - Final
Nose No Methicillin Resistant Staphylococcus aureus isolated.
05/16/25 11:48 Urine Culture - Final
Urine Escherichia coli
Yeast
05/16/25 13:14 Urine Culture - Final
Urine Escherichia coli
Yeast
05/16/25 12:24 Influenza Types A & B (TEDDY) - Final
Nasal Swab Negative for Influenza A & B, NAAT
Negative results must be combined with clinical observations
and patient history.
Nucleic Acid Amplification test (NAAT)performed on the
[employer] platform.
Imaging:
05/19/2025 MRI pelvis: midline sacral decubitus ulceration with evidence for osteomyelitis involving the coccyx (Cx 1�3 segments). No fluid collection. Moderate to diffuse edema and fatty infiltration throughout the majority of the muscles around
the pelvis bilaterally, likely in part related to denervation edema. A component of myositis is not excluded. Please see full dictation for additional detail.
05/16/2025 CXR (portable): left subclavian central venous catheter in position, with tip at the right atrium. Hypoaerated lungs without consolidation. Please see full dictation for additional detail.
Assessment / Plan
Stage III-IV sacral ulceration
Coccyx osteomyelitis
Clinical sepsis
Complicated urinary tract infection secondary to E. coli
HTN
HLD
Hypothyroidism
Bipolar disease
CKD stage IIIb
DM type II
Recommendations:
Continue with cefepime in the treatment of a complicated urinary tract infection secondary to E. coli.
Continue with local care to the sacral /coccyx ulceration. Continue offloading.
Pelvic MRI findings noted. No role for long-term antibiotics in the treatment of osteomyelitis without concomitant plans for wound closure.
Following recovery from her current episode of sepsis, evaluation by Plastic Surgery may be warranted to determine potential for flap coverage. If this is pursued, at the time of surgery, bone biopsy can be obtained while off antibiotics and a
prolonged course of antibiotics can be guided by bone culture data. No need for superficial wound culture as it will likely only reflect local superficial colonization.
[2025-05-19 17:01] LABS: Glucose - Point of Care 126 mg/dl (70-99)
[2025-05-19] MEDS: LIPITOR 20 MG PO (17:20)
[2025-05-19] MEDS: NSS (PRESERVATIVE FREE) 8 ML IV (18:39)
[2025-05-19] MEDS: PEPCID 20 MG IV (18:39)
[2025-05-19] MEDS: DAKIN'S SOLUTION 0.125% 1/4 STRENGTH 473 ML TOPICAL (19:49)
[2025-05-19 21:33] LABS: Glucose - Point of Care 156 mg/dl (70-99)
[2025-05-19] MEDS: SEROQUEL 75 MG PO (22:18)
[2025-05-19] MEDS: CLOZARIL 300 MG PO (22:18)
--- NOTE | 2025-05-19 22:41 | PTCARENOTE ---
Received pt resting in bed, drowsy but easily arousable. Oriented to self. Pt. denies pain at this time. +foot drop - fiber boots in place. SR on tele, HR 80-90. +1 LE edema, trace UE edema. Afebrile. BP 100s/60s. On RA. Lungs diminished. Spo2 95%.
Round, obese abdomen. Refused to eat any of her dinner tray. Took pills crushed in applesauce. FMS in place draining loose brown stool. Sacral dressing changed per orders. Chronic godwin draining yellow urine. L subclav TLC capped- dsg changed.
Turning q2. Bathed with CHG, godwin + mouth care provided.
[2025-05-20] VITALS (13 sets, daily range): BP systolic 88–128; BP diastolic 60–80; BMI 27.8
[2025-05-20 02:32] LABS: Glucose - Point of Care 169 mg/dl (70-99)
[2025-05-20] MEDS: MAXIPIME 1000 MG IV ×3 (03:10→19:58)
[2025-05-20] MEDS: STERILE WATER FOR INJECTION 10 ML IV ×3 (03:10→19:59)
[2025-05-20 03:44] LABS: Hematocrit 24.8 % (37.0-47.0); Hemoglobin 8.0 g/dL (12.0-16.0); Mean Corp Hgb Conc. 32.3 g/dL (33.0-37.0); Mean Corpuscular Volume 95.0 fL (81.0-99.0); Platelet Count 86 10^3/uL (130-400); Red Cell Dist. Width 18.6 % (11.5-14.5)
[2025-05-20 04:07] LABS: Blood Urea Nitrogen 36 mg/dl (7-17); Calcium 9.5 mg/dl (8.4-10.2); Carbon Dioxide 19 mmol/L (22-30); Chloride 124 mmol/L (98-107); Estimated Creatinine Clearance 37 ml/min; Glucose 138 mg/dl (70-99); Potassium 4.0 mmol/L (3.5-5.1); Sodium 147 mmol/L (135-145); eGFR 40.47
--- NOTE | 2025-05-20 07:12 | W.PN.HOSP.TC ---
Addendum entered and electronically signed by Jase Javier MD 05/20/25 19:59:
Attending Addendum-
I saw and evaluated the patient. I reviewed the resident�s note and agree with findings and plan as documented in the resident�s note. Sub: Patient alert and following commands. Seems groggy. Seen during dressing change. per nursing patient is
pocketing all her food in mouth. Full 12 point ROS reviewed and negative except as documented Exam: Vitals reviewed in chart GEN-NAD heart RRR no MRG lungs crackles at bases abd soft NT ND rectal tube in place LE 2+ pitting edema DUSTIN chest tunneled
cath Neuro AAO x 2 Skin- sacral ulcer stage 3->4 gran tissue present no drainage appreciated
Plan:
# Recurrent septic shock/acute toxic metabolic encephalopathy secondary to likely catheter associated UTI vs sacral decub
- sepsis resolved
- Urine culture-ecoli sensi resulted
- blood cx x 2 NGTD
- cont Cefepime day #02/13
- cont godwin cath for now
- pressors weaned off (levo and vaso)
- transfer to med/surg
# Acute Hypoxemic Respiratory Failure-resolved
# Thrombocytopenia- CTM closely
# Hypernatremia likely secondary to hypovolemia
- worsening- restart IVF, monitor closely, correction no more than 8-10meq q 24
- daily BMPs
# Chronic bladder outlet infection with chronic Godwin catheter
- Godwin catheter exchanged on admission
- for SP tube placement in AM with URO- NPOpMN
# Dysphagia
- patient pocketing food
- speech eval- temp NPO
# Multiple chronic wounds- POA
- Sacral stage 4, right and left lateral ankle- unstageable, left ear- stage 2,
- d/w surgery re plan for debridement and flap if able for the sacral wound
- wound care
# Coccyx Osteomyelitis
- 05/19 MRI pelvis- Midline sacral decubitus ulceration with evidence for osteomyelitis involving the coccyx Cx1, Cx2 and Cx3 segments. No fluid collections.
- appreciate ID input no need for group home abx unless surgical intervention entertained
- ctm
#Hyperlipidemia
- Continue atorvastatin
#Bipolar disorder- Continue clozapine, Depakote, Seroquel
#Essential hypertension
- Hold losartan
- Continue aspirin
#Type 2 diabetes
- Hold glipizide
- Insulin gtt weaned off
- cont resistance scale as NPO
- monitor accuchecks closely
- appreciate DM IRON WORKER APPRENTICE input
# Hypothyroidism- Continue levothyroxine
# CKD 3B- cr @ baseline 1.5
-avoid NT agents
# Troponin Elevation- likely NIMI
-peaked
# Chronic anemia
- Hemoglobin stable
DNR - verified
DVT prophylaxis�heparin
Regular diet->NPO
Time spent coordinating care, review of plan of care with resident, personally reviewed records in EMR, med rec, consults, notes, labs, radiology, d/w nursing � 54 mins
Original Note:
Today's Communication/Plan
-
- continue cefepime
- f/u ID reccs
- continue local wound care per surgery, no intervention at this time
- suprapubic catheter placement tomorrow 05/21
- wound culture swab requested
Assessment / Plan
Assessment / Plan
In summary,
69 yo F p/w septic shock in setting of recent septic shock ~1 week ago
# Sepsis secondary to UTI
# ? Infectious Source - UTI vs. ulcer vs. both vs. other
- Chronic godwin catheter, has been exchanged
- on IV cefepime
- UA c/w UTI grew E. Coli susceptibilities above but now found to have osteomyelitis as well.
- Blood culture from 05/16 no growth in 48 hours
- f/u CBC
- urology consulted: plan for OR on 05/[address] Le
- continue cefepime IV q8h (today is DAY # 5)
# Osteomyelitis of coccyx, most likely acute
# Stage 4 sacral/coccyx pressure ulcer
# Multiple pressure (decubitus) ulcers
# Left Ear Stage 2 Pressure Injury, present prior to admission
# Right Lateral Ankle Unstageable Pressure Injury, present prior to admission
# Left Lateral Ankle Unstageable Pressure Injury, present prior to admission
- wound care: air mattress, and soft heel relief boots ordered; turn q2h
- MRI pelvis has evidence of osteomyelitis
- per surgery, no fluid drainage to facilitate a reliable wound culture
- f/u wound swab
- discussed with ID and surgery today; summary of their recommendations below:
- per ID: no role for antibiotics for osteomyelitis. ID would like to treat the acute infectious process with cefepime, e.g UTI
- per ID: continue cefepime for today, will consider narrowing tomorrow; based on updating abx reccomendations, f/u ID about which access is preferable (central, PICC, or midline; currently, she has central).
- per surgery rec: no surgery at this time, only local wound care. a surgical wound closure would be unsuccessful because she would need to be ambulatory before such a procedure requiring a skin flap is attempted. and such procedures do not heal
well in sedentary patients. surgery recommends outpatient follow-up with plastics. for now, they recommend local wound care only despite osteomyelitis.
- will follow-up back with ID on 05/21 whether surgery's decision to not intervene will impact any course of antibiotics for osteomyelitis
- wound culture requested of sacral/coccyx ulcer
# Abnormal swallow follow-up study
- per speech, recommend NPO.
- she will also be NPO from midnight for suprapubic catheter placement tomorrow, 05/21
- speech is following
# T2DM
- off insulin drip
- blood glucose trend in 120s-150s
- low dose sliding scale
- hold home antidiabetic medications, glipizide
# Hypernatremia
- 147 today morning
- started 1/2NS at a rate of 100cc/hr
- repeat BMP in the AM
# Hypokalemia -- resolved
- K+ 4.0
- BMP in AM
# Suspicion for acute hypoxemic respiratory failure -- resolved
- on RA currently with 100% O2 sat
- problem is potentially resolved
# Metabolic and/or septic encephalopathy -- resolved
- tolerating PO diet
# non ischemic myocardial injury -- resolved
- troponins were elevated and peaked
- EKG reassuring against ischemia
- non-ischemic myocardial injury likely from demand stress in setting of sepsis
# CKD stage 3b
- Creatinine appears at or close to baseline (1.4-1.5)
- eGFR ~35-40 --> stage 3b
# chronic anemia
- Hgb 8.8 from 9.8 ( likely dilutional, received 5.8L)
- Transfuse if below 7
# Bipolar disorder
# Schizophrenia
- continue home clozapine, divalproex sodium, quetiapine
- switch as much as possible to IV since NPO
- monitor mental status
# HTN
- Losartan held
# HLD
- continue simvastatin
- continue aspirin
# Hypothyroidism
- continue levothyroxine
DVT ppx: heparin
GI ppx: IV famotidine
Code status: DNR
Diet: NPO upheld
Disposition: pending clinical improvement
Anticipated Discharge: > 48 hours
Subjective/Interval History
-
Date of Service: May 20, 2025
Weekend events:
MRI pelvis showed osteomyelitis of coccyx
came off pressors, insulin drip, transferred to IMU
Today, Del seemed a little more sleepy but is very arousable and will interact
Objective Data
-
Labs:
Laboratory Results
05/20/25
03:22
WBC 11.2 H
Hgb 8.0 L
Hct 24.8 L
Plt Count 86 L
Sodium 147 H
Potassium 4.0
Chloride 124 H
Carbon Dioxide 19 L
BUN 36 H
Creatinine 1.4 H
Glucose 138 H
Calcium 9.5
WBC 12.0 to 11.2
Na+ 147 from 142
BG 120s - 160s
Vital Signs:
Vital Signs
Temp Pulse Resp BP Pulse Ox
97.9 F 99 26 91/78 96
05/20/25 05:59 05/20/25 06:00 05/20/25 06:00 05/20/25 06:00 05/20/25 05:00
MAP > 65
I&O
05/19/25 05/20/25 05/21/25
06:59 06:59 06:59
Intake Total 1207.8 / 1232.8 775 / 775
Output Total 1600 / 1600 2000 / 2000
Balance -392.2 / -367.2 -1225 / -1225
fecal management system was placed on 05/17 evening
documented outpuat is 50 mL for past ~24 hours.
godwin output 1675 mL
Review of Systems
-
Unable to obtain full review of systems at this time due to: Acuity
Physical Exam
-
General: No Apparent Distress
HEENT: Normocephalic and Atraumatic
Respiratory: Clear to Auscultation
Cardiac: Regular Rhythm, S1/S2 and Other (no murmurs on my exam)
GI: Soft and Nontender
Genito-urinary: Other (some suprapubic tenderness to palpation; no flank tenderness on my exam)
Musculoskeletal: Other (lower extremity edema, 1 to 2+)
Skin: Warm, Dry and Other (decubitus ulcer over the coccyx present with possible granulation tissue in the center; the coccyx/bone is possibly palpable upon examination of the wound)
Neuro: Awake and Other (arousable easily)
Psych: Calm
[2025-05-20 07:29] LABS: Glucose - Point of Care 123 mg/dl (70-99)
--- NOTE | 2025-05-20 07:41 | PN.DE.MGMTRT ---
Insulin Management
- -
05/18/2025 Diabetes Management Consult Follow up
Patient admitted from [facility] with lethargy, change in mental status, hypotension, septic shock likely due to catheter associated UTI. Patient was discharged from 05/06 for cath. associated uti. PMH COPD, HTN, HCL, diabetes, CKD IIIb, hypothyroid,
bipolar. Prior to admission was taking glipizide 2.5 mg daily. A1C from last admission 05/02 6.6%, cr 1.5, eGFR 37.26.
Patient is awake and alert, unable to discuss diabetes care. Patient transitioned from glycemic protocol on 05/18, receiving corrective insulin only. Glucose range 126 to 169, acceptable for this patient due to comorbidities. Currently NPO. Will
continue corrective insulin only.
Will follow.
Discussed with nurse.
Diabetes History
- -
Type of Diabetes: 2
Pre-Admission Diabetes Regimen
05/20/25
03:22
Creatinine 1.4 H
Insulin Pump Settings
IP Diabetes Regimen
05/19/25 05/19/25 05/19/25
11:05 16:50 21:22
Glucose
POC Glucose 156 H 126 H 156 H
05/20/25 05/20/25 05/20/25
02:21 03:22 07:19
Glucose 138 H
POC Glucose 169 H 123 H
Meal type: Dinner
Meal type: Lunch
Meal type: Breakfast
Amount consumed: 0
Amount consumed: 45%
Amount consumed: 75%
Patient Education
[2025-05-20] MEDS: NOVOLOG FLEXPEN-LOW RESISTANCE SC ×3 (08:06→23:28)
[2025-05-20 08:35] LABS: Glucose - Point of Care 72 mg/dl (70-99)
[2025-05-20] MEDS: DEPACON 55 MG IV ×2 (09:00→19:58)
[2025-05-20] MEDS: ASPIR LOW (ENTERIC COATED) 81 MG PO (09:00)
[2025-05-20] MEDS: VITAMIN D3 (cholecalciferol) 25 MCG PO (09:00)
[2025-05-20] MEDS: SEROQUEL 25 MG PO (09:00)
[2025-05-20] MEDS: COLACE 200 MG PO (09:00)
[2025-05-20] MEDS: SANTYL OINTMENT 1 APPLIC TOPICAL ×2 (09:00→19:59)
[2025-05-20] MEDS: SENOKOT-S 2 TABLET PO (09:00)
--- NOTE | 2025-05-20 09:05 | W.PN.ID1 ---
Date of Service
Date of Service: May 20, 2025
Today's Communication
Continue antibiotics for today. See below�
Assessment / Plan
Stage III-IV sacral ulceration
Coccyx osteomyelitis
Clinical sepsis
Complicated urinary tract infection secondary to E. coli
HTN
HLD
Hypothyroidism
Bipolar disease
CKD stage IIIb
DM type II
Recommendations:
Continue with cefepime (d#5) in the treatment of a complicated urinary tract infection secondary to E. coli. If clinical improvement continues, would complete a 7-day course.
Continue with local care to the sacral /coccyx ulceration. Continue offloading.
Pelvic MRI findings noted. No role for long-term antibiotics in the treatment of osteomyelitis without concomitant plans for wound closure (i.e. flap).
Following stabilization and recovery from her current illness, evaluation by Plastic Surgery may be warranted to determine potential for flap coverage. If this is pursued, at the time of surgery, bone biopsy can be obtained while off antibiotics
and a prolonged course of antibiotics can be guided by bone culture data. No need for superficial wound culture as it will likely only reflect local superficial colonization.
Chief Complaint
-: UTI and Other (Coccyx osteomyelitis)
Subjective / Review of Systems
Review of Systems: No Fever
Vital Signs / Physical Exam
Vital Signs
Vital Signs
Temp Pulse Resp BP Pulse Ox
97.9 F 99 26 91/78 96
05/20/25 05:59 05/20/25 06:00 05/20/25 06:00 05/20/25 06:00 05/20/25 05:00
Physical Exam
Constitutional: No Acute Distress, Comfortable, Chronically Ill and Non-toxic
Eyes: Sclera Anicteric
Cardiovascular: S1/S2; Negative S3/S4
Pulmonary: Clear and Non Labored
Gastrointestinal: Soft, Non Tender and Non Distended
Skin: Warm and Dry; Negative Rash
Wound: Other (Sacral wound dressed.)
Neurological: Other (Resting comfortably but easily arousable)
Objective Data
Lab Data
Lab Results
05/20/25 03:22
05/20/25 03:22
PT 18.3 Sec (11.4-14.6) H 05/16/25 12:04
INR 1.46 05/16/25 12:04
APTT 45.8 Sec (23.4-35.0) H 05/16/25 12:04
Estimated Creat Clear 37 ml/min 05/20/25 03:22
Lactic Acid 1.2 mmol/L (0.7-2.0) 05/16/25 12:01
Total Bilirubin 0.4 mg/dl (0.2-1.3) 05/19/25 03:37
AST 15 U/L (14-36) 05/19/25 03:37
ALT 18 U/L (0-35) 05/19/25 03:37
Alkaline Phosphatase 67 U/L (38-126) 05/19/25 03:37
Most recent labs reviewed.
Micro Results:
05/16/25 12:05 Blood Culture - Preliminary
Blood/Venous No Growth in 72 hours- Final report to follow
05/16/25 12:01 Blood Culture - Preliminary
Blood/Venous No Growth in 72 hours- Final report to follow
05/16/25 15:46 MRSA Screen - Final
Nose No Methicillin Resistant Staphylococcus aureus isolated.
05/16/25 11:48 Urine Culture - Final
Urine Escherichia coli
Yeast
05/16/25 13:14 Urine Culture - Final
Urine Escherichia coli
Yeast
05/16/25 12:24 Influenza Types A & B (TEDDY) - Final
Nasal Swab Negative for Influenza A & B, NAAT
Negative results must be combined with clinical observations
and patient history.
Nucleic Acid Amplification test (NAAT)performed on the
[employer] platform.
Imaging:
05/19/2025 MRI pelvis: midline sacral decubitus ulceration with evidence for osteomyelitis involving the coccyx (Cx 1�3 segments). No fluid collection. Moderate to diffuse edema and fatty infiltration throughout the majority of the muscles around
the pelvis bilaterally, likely in part related to denervation edema. A component of myositis is not excluded. Please see full dictation for additional detail.
05/16/2025 CXR (portable): left subclavian central venous catheter in position, with tip at the right atrium. Hypoaerated lungs without consolidation. Please see full dictation for additional detail.
[2025-05-20] MEDS: HEPARIN 5000 UNITS SC ×2 (09:28→20:00)
--- NOTE | 2025-05-20 09:33 | CM ---
Pt halfway at [facility] . Referral placed in care port.
Pt with sacral decubitus.
Remains on IV antibiotics.
Pt confused.
Will need ambulance for transport back to [place] when medically ready.
PLAN Return to alf care [place] .
[2025-05-20] MEDS: SYNTHROID PO (10:27)
[2025-05-20] MEDS: DAKIN'S SOLUTION 0.125% 1/4 STRENGTH 473 ML TOPICAL ×2 (10:27→19:58)
--- NOTE | 2025-05-20 11:11 | PTCARENOTE ---
Addendum entered by Adele Booker RN 05/20/25 11:19:
Pt NPO per Dr. Javier. Speech to follow up. Pt is for planned OR for suprapubic cath placement tomorrow.
Original Note:
Pt was rec'd this am from night RN at 07:15, somnolent, arousable to loud verbal and tactile stim, only flutters eyes, mumbles softly. Chronic godwin in place draining yellow urine. FMS draining brown liquid, tube flushed and patency confirmed. Left
subclavian central line patent. Upon assessment and oral care, pt found to be pocketing a large amount of the scrambled eggs she was fed earlier this am, thorough oral care provided, attending and resident notified upon rounds. Pt turned and
repositioned Q2 hours, wound care to sacrum performed, ( assessed wound as well) linens changed, godwin and pericare provided. Plan discussed with care team. Safe environment ongoing.
[2025-05-20 12:12] LABS: Glucose - Point of Care 172 mg/dl (70-99)
[2025-05-20] MEDS: NOVOLOG FLEXPEN-LOW RESISTANCE 1 UNITS SC (12:48)
[2025-05-20] MEDS: LIPITOR PO (16:22)
[2025-05-20] MEDS: 0.45%NACL 1000 IV (16:39)
[2025-05-20 16:40] LABS: Glucose - Point of Care 109 mg/dl (70-99)
[2025-05-20] MEDS: COLACE PO (19:19)
[2025-05-20] MEDS: CLOZARIL PO (19:20)
[2025-05-20] MEDS: SEROQUEL PO (19:20)
[2025-05-20] MEDS: SENOKOT-S PO (19:20)
[2025-05-20] MEDS: NSS (PRESERVATIVE FREE) 8 ML IV (19:59)
[2025-05-20] MEDS: PEPCID 20 MG IV (19:59)
--- NOTE | 2025-05-20 22:29 | PTCARENOTE ---
Assumed care of pt at 1900. Pt is lethargic, arouses briefly to voice or tactile stimuli but has not spoken or answered questions. Has been able to follow simple commands such as opening her mouth for oral care, but then goes back to sleep.
Assessment as documented in nursing shift assessment flowsheet. Currently med surg level of care.
[2025-05-20] MEDS: D5/0.45%NACL 1000 IV (23:50)
[2025-05-21] VITALS (11 sets, daily range): BP systolic 101–141; BP diastolic 52–106; BMI 26.9
[2025-05-21 00:18] LABS: Glucose - Point of Care 70 mg/dl (70-99)
[2025-05-21] MEDS: D5/0.45%NACL IV (01:02)
[2025-05-21 01:10] LABS: Glucose - Point of Care 98 mg/dl (70-99)
[2025-05-21] MEDS: SYNTHROID PO (03:43)
[2025-05-21] MEDS: STERILE WATER FOR INJECTION 10 ML IV ×2 (03:43→20:13)
[2025-05-21] MEDS: MAXIPIME 1000 MG IV ×2 (03:43→20:13)
[2025-05-21 04:18] LABS: Hematocrit 24.8 % (37.0-47.0); Hemoglobin 7.9 g/dL (12.0-16.0); Mean Corp Hgb Conc. 31.9 g/dL (33.0-37.0); Mean Corpuscular Volume 97.6 fL (81.0-99.0); Platelet Count 73 10^3/uL (130-400); Red Cell Dist. Width 18.7 % (11.5-14.5)
[2025-05-21 04:37] LABS: Blood Urea Nitrogen 34 mg/dl (7-17); Calcium 9.4 mg/dl (8.4-10.2); Carbon Dioxide 19 mmol/L (22-30); Chloride 129 mmol/L (98-107); Estimated Creatinine Clearance 35 ml/min; Glucose 141 mg/dl (70-99); Potassium 3.4 mmol/L (3.5-5.1); Sodium 152 mmol/L (135-145); eGFR 44.24
[2025-05-21 05:12] LABS: Glucose - Point of Care 120 mg/dl (70-99)
[2025-05-21] MEDS: NOVOLOG FLEXPEN-LOW RESISTANCE SC ×2 (05:18→12:39)
[2025-05-21] MEDS: KCL 270 MEQ IV (05:54)
--- NOTE | 2025-05-21 07:04 | W.PN.HOSP.TC ---
Addendum entered and electronically signed by Jase Javier MD 05/21/25 20:43:
Attending Addendum-
I saw and evaluated the patient. I reviewed the resident�s note and agree with findings and plan as documented in the resident�s note. Sub: Patient more alert, following commands. dysarthric. Full 12 point ROS reviewed and negative except as
documented Exam: Vitals reviewed in chart GEN-NAD heart RRR no MRG lungs crackles at bases abd soft NT ND rectal tube in place LE 2+ pitting edema and RUE > LUE +2 edema, DUSTIN chest tunneled cath Neuro AAO x 2
Plan:
# Recurrent septic shock/acute toxic metabolic encephalopathy secondary to likely catheter associated UTI vs sacral decub
- sepsis resolved
- Urine culture-ecoli sensi resulted
- blood cx x 2 NGTD
- cont Cefepime day #03/16
- godwin->SP tube- 05/21
- pressors weaned off (levo and vaso)
- transfer to med/surg- 05/20
# Acute Hypoxemic Respiratory Failure-resolved
# Thrombocytopenia- CTM closely HIT ab ordered still decreasing
# Hypernatremia likely secondary to hypovolemia
- worsening- change IVF to D5W, monitor closely, correction no more than 8-10 meq q 24
- daily BMPs
# Chronic bladder outlet infection with chronic Godwin catheter
- Godwin catheter exchanged on admission
- 05/21- SP tube placement
# Dysphagia
- patient pocketing food
- speech eval- NPO-05/20
- poor prognosis hospice appropriate
# Multiple chronic wounds- POA
- Sacral stage 4, right and left lateral ankle- unstageable, left ear- stage 2,
- d/w surgery re plan for debridement and flap if able for the sacral wound-no plan for OR
- wound care
# Coccyx Osteomyelitis
- 05/19 MRI pelvis- Midline sacral decubitus ulceration with evidence for osteomyelitis involving the coccyx Cx1, Cx2 and Cx3 segments. No fluid collections.
- appreciate ID input- no abx unless surgical intervention with flap is going to be done
- poor prognosis hospice appropriate
- ctm
# RUE swelling- r/o DVT
#Hyperlipidemia- Continue atorvastatin
#Bipolar disorder- Continue clozapine, Depakote, Seroquel
#Essential hypertension- Hold losartan
#Type 2 diabetes
- Hold glipizide
- cont low resistance scale as NPO
- monitor accuchecks closely
- appreciate DM ISSUER input
# Hypothyroidism- Continue levothyroxine
# CKD 3B- cr @ baseline 1.5 -avoid NT agents
# Troponin Elevation- likely NIMI-peaked
# Chronic anemia- Hemoglobin stable, tx for < 7
DNR - verified
DVT prophylaxis�heparin
Regular diet->NPO
dispo-from [facility]
Time spent coordinating care, review of plan of care with resident, personally reviewed records in EMR, med rec, consults, notes, labs, radiology, d/w nursing and uro � 51 mins
Original Note:
Today's Communication/Plan
-
- D5W for HyperNa+
- q8h BMP
- continue IV cefepime
- suprapubic catheter today
- f/u living will at [facility]
- monitor thrombocytopenia
- send HIT antibody labs
- Maintan NPO
Assessment / Plan
Assessment / Plan
In summary,
69 yo F p/w septic shock in setting of recent septic shock ~1 week ago
# Sepsis secondary to UTI
# ? Infectious Source - UTI vs. ulcer vs. both vs. other
- suprapubic catheter placed today
- on IV cefepime
- UA c/w UTI grew E. Coli susceptibilities above but now found to have osteomyelitis as well.
- Blood culture from 05/16 no growth in 48 hours
- urology consulted: plan for OR on 05/[address] Le
- continue cefepime IV q8h (today is DAY # 6)
- per ID, complete 7 day course of cefepime
# Osteomyelitis of coccyx, most likely acute
# Stage 4 sacral/coccyx pressure ulcer
# Multiple pressure (decubitus) ulcers
# Left Ear Stage 2 Pressure Injury, present prior to admission
# Right Lateral Ankle Unstageable Pressure Injury, present prior to admission
# Left Lateral Ankle Unstageable Pressure Injury, present prior to admission
- MRI pelvis has evidence of osteomyelitis
- ID: no role of antibiotics unless definitive surgical managment
- surgery: she is not a good surgical candidate because she would need to be able to ambulate and offload the sacral decubitus ulcer wound in order for a surgical wound to heal properly.
- unfortunately, her comorbidities and functional level have complicated her potential clinical course.
- wound culture was ordered, but likely not community service representative of the bacteria in the osteomyelitis
- wound care: air mattress, and soft heel relief boots ordered; turn q2h
# Hypernatremia
- 152 today morning
- started Y8Ftcly at 100mL/hr
- q8h BMP
# Hypokalemia
- K+ 3.4 from 4.0 yesterday
- possibly due to diarrhea
- replete ordered by overnight team at 05/21 05:54
- BMP in AM
- probiotics ordered
# Thrombocytopenia
- Plt of 73
- Send heparin antibody test
- monitor CBC
# Abnormal swallow follow-up study
- per speech, recommend NPO.
- speech is following
# T2DM
- off insulin drip
- blood glucose trend in 120s-150s
- low dose sliding scale
- hold home antidiabetic medications, glipizide
# Suspicion for acute hypoxemic respiratory failure -- resolved
- on RA currently with 100% O2 sat
- problem is potentially resolved
# Metabolic and/or septic encephalopathy -- resolved
- tolerating PO diet
# non ischemic myocardial injury -- resolved
- troponins were elevated and peaked
- EKG reassuring against ischemia
- non-ischemic myocardial injury likely from demand stress in setting of sepsis
# CKD stage 3b
- Creatinine appears at or close to baseline (1.4-1.5)
- eGFR ~35-40 --> stage 3b
# chronic anemia
- Hgb 8.8 from 9.8 ( likely dilutional, received 5.8L)
- Transfuse if below 7
# Bipolar disorder
# Schizophrenia
- continue home clozapine, divalproex sodium, quetiapine
- switch as much as possible to IV since NPO
- monitor mental status
# HTN
- Losartan held
# HLD
- continue simvastatin
- continue aspirin
# Hypothyroidism
- continue levothyroxine
DVT ppx: heparin
GI ppx: IV famotidine
Code status: DNR
Diet: NPO upheld pending speech evaluation
Disposition: pending clinical improvement
On May 21, 2025 at approximately 17:00, I had an extensive conversation with Julius Childers who lives near [place], [place] about what Navi would want. He told me that as recently at January 2025, Navi was very coherent. He was extremely
frustrated with the care that Navi received at [place]. That being said, he mentioned to call [facility] and ask for 'Paula Grewal' or 'Sebastien [does not know surname]' to find Navi's living will. In the event we are not able to
locate that living will, he said that he think Navi would want to receive all antibiotics and vasopressors but would want to maintain DNR status if her heart or lungs stop functioning.
Julius also adds that he is 'currently blind' from bilateral cataracts that will be operated on next week and in June. He is also unable to travel to [place], and he is 'unable to identify a body.' He also specified that he does not have
legal POA status, but is the only next of kin, and would be effectively the POA.
will follow-up with Carolina Dash for the living will, and touch base with Julius about another goals of care conversation on 05/22.
Anticipated Discharge: > 48 hours
Subjective/Interval History
-
Date of Service: May 21, 2025
no events, nurse says more somnolent
NPO no meds iven PO
Objective Data
-
Labs:
Laboratory Results
05/21/25
03:44
WBC 9.9
Hgb 7.9 L
Hct 24.8 L
Plt Count 73 L
Sodium 152 H
Potassium 3.4 L
Chloride 129 H
Carbon Dioxide 19 L
BUN 34 H
Creatinine 1.3 H
Glucose 141 H
Calcium 9.4
WBC 9.9
Na+ 152
Vital Signs:
Vital Signs
Temp Pulse Resp BP Pulse Ox
97.1 F 80 16 141/52 99
05/21/25 03:04 05/21/25 04:03 05/21/25 04:03 05/21/25 04:03 05/20/25 20:01
I&O
05/20/25 05/21/25 05/22/25
06:59 06:59 06:59
Intake Total 775 / 775 1830 / 1830
Output Total 1999
Balance -1225 / -1225 -170 / -170
--- NOTE | 2025-05-21 07:12 | W.PN.ID1 ---
Date of Service
Date of Service: May 21, 2025
Today's Communication
Continue current course of cefepime.
Assessment / Plan
Stage III-IV sacral ulceration
Coccyx osteomyelitis
Clinical sepsis
Complicated urinary tract infection secondary to E. coli
HTN
HLD
Hypothyroidism
Bipolar disease
CKD stage IIIb
DM type II
Recommendations:
White count is normalized. Patient remains afebrile. Blood cultures negative x 4 days. Urine culture positive only for E. coli (susceptible to cefepime)
Continue with cefepime (d#6) in the treatment of a complicated urinary tract infection secondary to E. coli. Given ongoing clinical improvement,, would complete a 7-day course.
Continue with local care to the sacral /coccyx ulceration. Continue offloading.
Pelvic MRI reveals osteomyelitis of the coccyx. No role for long-term antibiotics in the treatment of osteomyelitis without concomitant plans for wound closure (i.e. flap).
Following stabilization and recovery from her current illness, evaluation by Plastic Surgery may be warranted to determine potential for flap coverage. If this is pursued, at the time of surgery, bone biopsy can be obtained while off antibiotics
and a prolonged course of antibiotics can be guided by bone culture data.
Will need to maximize nutritional support, as given current protein stores, wound healing will likely be difficult. Combined with immobility and other comorbidities, any likelihood of wound healing is unfortunately quite low.
A superficial wound culture has been obtained, but will will likely only reflect local superficial colonization, and has less than 50% concordance with underlying infection. Would not base antibiotic selection on findings.
Chief Complaint
-: UTI and Other (Coccyx osteomyelitis)
Subjective / Review of Systems
Patient seen and examined. No events overnight.
Review of Systems: No Fever and No Chills
Vital Signs / Physical Exam
Vital Signs
Vital Signs
Temp Pulse Resp BP Pulse Ox
97.1 F 80 16 141/52 99
05/21/25 03:04 05/21/25 04:03 05/21/25 04:03 05/21/25 04:03 05/20/25 20:01
Physical Exam
Constitutional: No Acute Distress, Comfortable, Chronically Ill and Non-toxic
Cardiovascular: S1/S2; Negative S3/S4
Pulmonary: Clear and Non Labored
Gastrointestinal: Soft, Non Tender, Non Distended and Other (FMS in place with liquid stool)
Genito-Urinary: Marinelli and Clear Urine; Negative Turbid Urine
Skin: Warm and Dry; Negative Rash
Wound: Other (Sacral wound dressed.)
Neurological: Other (Resting comfortably but easily arousable)
Objective Data
Lab Data
Lab Results
05/21/25 03:44
05/21/25 03:44
PT 18.3 Sec (11.4-14.6) H 05/16/25 12:04
INR 1.46 05/16/25 12:04
APTT 45.8 Sec (23.4-35.0) H 05/16/25 12:04
Estimated Creat Clear 35 ml/min 05/21/25 03:44
Lactic Acid 1.2 mmol/L (0.7-2.0) 05/16/25 12:01
Total Bilirubin 0.4 mg/dl (0.2-1.3) 05/19/25 03:37
AST 15 U/L (14-36) 05/19/25 03:37
ALT 18 U/L (0-35) 05/19/25 03:37
Alkaline Phosphatase 67 U/L (38-126) 05/19/25 03:37
Most recent labs reviewed.
Micro Results:
05/21/25 00:30 Wound Culture - Pending
Coccyx Gram Stain - Pending
05/16/25 12:05 Blood Culture - Preliminary
Blood/Venous No Growth in 4 days- Final report to follow
05/16/25 12:01 Blood Culture - Preliminary
Blood/Venous No Growth in 4 days- Final report to follow
05/16/25 15:46 MRSA Screen - Final
Nose No Methicillin Resistant Staphylococcus aureus isolated.
05/16/25 11:48 Urine Culture - Final
Urine Escherichia coli
Yeast
05/16/25 13:14 Urine Culture - Final
Urine Escherichia coli
Yeast
05/16/25 12:24 Influenza Types A & B (TEDDY) - Final
Nasal Swab Negative for Influenza A & B, NAAT
Negative results must be combined with clinical observations
and patient history.
Nucleic Acid Amplification test (NAAT)performed on the
Lydia platform.
Imaging:
05/19/2025 MRI pelvis: midline sacral decubitus ulceration with evidence for osteomyelitis involving the coccyx (Cx 1�3 segments). No fluid collection. Moderate to diffuse edema and fatty infiltration throughout the majority of the muscles around
the pelvis bilaterally, likely in part related to denervation edema. A component of myositis is not excluded. Please see full dictation for additional detail.
05/16/2025 CXR (portable): left subclavian central venous catheter in position, with tip at the right atrium. Hypoaerated lungs without consolidation. Please see full dictation for additional detail.
[2025-05-21] MEDS: HEPARIN 5000 UNITS SC ×2 (07:36→22:03)
[2025-05-21] MEDS: SANTYL OINTMENT 1 APPLIC TOPICAL ×2 (07:37→20:14)
[2025-05-21] MEDS: COLACE PO ×2 (07:37→21:06)
[2025-05-21] MEDS: ASPIR LOW (ENTERIC COATED) PO (07:37)
[2025-05-21] MEDS: DESENEX/MITRAZOL/ZEASORB 1 APPLIC TOPICAL (07:37)
[2025-05-21] MEDS: DAKIN'S SOLUTION 0.125% 1/4 STRENGTH 10 ML TOPICAL (07:38)
[2025-05-21] MEDS: SENOKOT-S PO ×2 (07:39→21:06)
[2025-05-21] MEDS: VITAMIN D3 (cholecalciferol) PO (07:39)
[2025-05-21] MEDS: SEROQUEL PO ×2 (07:39→22:46)
[2025-05-21] MEDS: DEPACON 55 MG IV ×2 (07:53→20:14)
[2025-05-21] MEDS: D5/0.45%NACL 1000 IV (09:52)
--- NOTE | 2025-05-21 11:28 | W.PN.URO.CBU ---
Today's Communication / Plan
-
Suprapubic tube placement today
Assessment / Plan
-
69F with chronic voiding dysfunction, urinary retention
Recurrent UTI
Currently admitted with sepsis related to UTI vs osteomyelitis of coccyx/sacral decub
- Proceed with scheduled cystoscopy, suprapubic tube placement today
- Discharge with tube in place, to be exchanged in 6 weeks post surgery
- Office will call to arrange follow up with [facility]
- Abx course per ID
Diagnosis
-
Date of Service: May 21, 2025
-
Patient Diagnosis:
Chronic urinary retention
Voiding dysfunction
Post Op Day:
Subjective
-
No events overnight
Objective
-
Vital Signs
Temp Pulse Resp BP Pulse Ox
97.9 F 87 16 125/106 96
05/21/25 08:00 05/21/25 10:00 05/21/25 10:00 05/21/25 09:47 05/21/25 09:00
Intake and Output
05/20/25 05/21/25 05/22/25
06:59 06:59 06:59
Intake Total 775 / 775 1830 / 1830 255 / 255
Output Total 1999 / 1999 1999 / 1999 350 / 350
Balance -1225 / -1225 -170 / -170 -95 / -95
Intake:
Oral fluids 620 / 620
IV fluids (Total) 1400 / 1400 200 / 200
0.45%NaCl 1,000 ml @ 100 mls/hr 800 / 800
IV .Q10H [facility] Rx#:[id number]
D5/0.45%NaCl 1,000 ml @ 100 mls 600 / 600 200 / 200
/hr IV .Q10H [facility] Rx#:[id number]
IV piggybacks 105 / 105 380 / 380 55 / 55
Fecal management system 50 / 50 50 / 50
irrigation (mL)
Rectum 50 / 50 50 / 50
Output:
Liquid stool amount 50 / 50
Rectum 50 / 50
Urine, Godwin 1949 / 1949 350 / 350
Laboratory Results
05/21/25 03:44
05/21/25 03:44
Physical Exam
-
General - well developed, well nourished, no acute distress
Chest - clear
Abdomen - soft, non-tender
Genitalia - godwin in place, clear urine
--- NOTE | 2025-05-21 12:03 | PN.DE.MGMTRT ---
Insulin Management
- -
05/21/2025 Diabetes Management Consult Follow up
Patient admitted from [place] with lethargy, change in mental status, hypotension, septic shock likely due to catheter associated UTI. Patient was discharged from 05/06 for cath. associated uti. PMH COPD, HTN, HCL, diabetes, CKD IIIb, hypothyroid,
bipolar. Prior to admission was taking glipizide 2.5 mg daily. A1C from last admission 05/02 6.6%, cr 1.5, eGFR 37.26.
Patient is awake and alert, unable to discuss diabetes care. Patient transitioned from glycemic protocol on 05/18, receiving corrective insulin only. Glucose range 98 to 172, acceptable for this patient due to comorbidities. Currently NPO for OR
today for suprapubic catheter. Will continue corrective insulin only.
Will follow.
Discussed with nurse.
Diabetes History
- -
Type of Diabetes: 2
Pre-Admission Diabetes Regimen
05/21/25
03:44
Creatinine 1.3 H
Insulin Pump Settings
IP Diabetes Regimen
05/20/25 05/20/25 05/20/25
12:01 16:28 23:13
Glucose
POC Glucose 172 H 109 H 70
05/21/25 05/21/25 05/21/25
00:58 03:44 05:01
Glucose 141 H
POC Glucose 98 120 H
Patient Education
--- NOTE | 2025-05-21 12:27 | W.IMMPOSTOP ---
Surgical Immed Post Op Note
-
Primary Surgeon: Janetfer
Assisting Surgeon: -
Pre-op Diagnosis: Urinary retention
Post-op Diagnosis: same
Procedure Performed: Suprapubic tube placement
Anesthesia Type: gen
Specimen / Cultures: none
Estimated Blood Loss: 1cc
Complications: none
Operative Findings: Uncomplicated SPT placement
[2025-05-21 12:30] LABS: Glucose - Point of Care 96 mg/dl (70-99)
[2025-05-21] MEDS: MAXIPIME IV (13:04)
[2025-05-21] MEDS: STERILE WATER FOR INJECTION IV (13:16)
--- NOTE | 2025-05-21 13:28 | PTCARENOTE ---
Pt back from PACU s/p suprapubic catheter placement. VSS as documented. Pt drowsy, oriented to self and '[place]'. Suprapubic catheter w/ pink bloody tinged urine. Marinelli removed in OR. Will monitor closely. RUE more swollen than MD Hayden made aware.
Orders for US in.
[2025-05-21] MEDS: D5W 1000 IV (14:17)
[2025-05-21] MEDS: LIPITOR PO (15:57)
[2025-05-21 17:28] LABS: Glucose - Point of Care 175 mg/dl (70-99)
[2025-05-21] MEDS: NOVOLOG FLEXPEN-LOW RESISTANCE 1 UNITS SC (17:48)
--- NOTE | 2025-05-21 18:00 | PTCARENOTE ---
Pt's suprapubic dressing saturated x2. Slow continuous trickle of blood observed from site. Dr Le made aware. Labs drawn. Instructed to apply slight traction on tube. Redressed.
[2025-05-21 18:20] LABS: Hematocrit 25.0 % (37.0-47.0); Hemoglobin 7.9 g/dL (12.0-16.0); Mean Corp Hgb Conc. 31.6 g/dL (33.0-37.0); Mean Corpuscular Volume 97.7 fL (81.0-99.0); Platelet Count 63 10^3/uL (130-400); Red Cell Dist. Width 19.1 % (11.5-14.5)
[2025-05-21 18:51] LABS: Blood Urea Nitrogen 30 mg/dl (7-17); Calcium 9.3 mg/dl (8.4-10.2); Carbon Dioxide 19 mmol/L (22-30); Chloride 128 mmol/L (98-107); Estimated Creatinine Clearance 38 ml/min; Glucose 183 mg/dl (70-99); Potassium 4.1 mmol/L (3.5-5.1); Sodium 152 mmol/L (135-145); eGFR 48.70
[2025-05-21] MEDS: NSS (PRESERVATIVE FREE) 8 ML IV (20:14)
[2025-05-21] MEDS: PEPCID 20 MG IV (20:14)
[2025-05-21] MEDS: DAKIN'S SOLUTION 0.125% 1/4 STRENGTH 473 ML TOPICAL (22:04)
[2025-05-21] MEDS: CLOZARIL PO (22:46)
[2025-05-22] VITALS (18 sets, daily range): BP systolic 100–172; BP diastolic 67–125; BMI 27.5
[2025-05-22] MEDS: D5W 1000 IV ×2 (00:35→10:29)
[2025-05-22] MEDS: NOVOLOG FLEXPEN-LOW RESISTANCE SC ×4 (00:47→17:51)
[2025-05-22 00:57] LABS: Glucose - Point of Care 137 mg/dl (70-99)
[2025-05-22] MEDS: STERILE WATER FOR INJECTION 10 ML IV ×2 (03:59→13:17)
[2025-05-22] MEDS: MAXIPIME 1000 MG IV ×2 (03:59→13:17)
[2025-05-22 04:11] LABS: Hematocrit 21.3 % (37.0-47.0); Hemoglobin 6.6 g/dL (12.0-16.0); Mean Corp Hgb Conc. 31.0 g/dL (33.0-37.0); Mean Corpuscular Volume 98.6 fL (81.0-99.0); Platelet Count 51 10^3/uL (130-400); Red Cell Dist. Width 19.0 % (11.5-14.5)
[2025-05-22 04:48] LABS: Blood Urea Nitrogen 31 mg/dl (7-17); Calcium 9.6 mg/dl (8.4-10.2); Carbon Dioxide 18 mmol/L (22-30); Chloride 128 mmol/L (98-107); Estimated Creatinine Clearance 38 ml/min; Glucose 127 mg/dl (70-99); Potassium 4.2 mmol/L (3.5-5.1); Sodium 152 mmol/L (135-145); eGFR 48.70
[2025-05-22] MEDS: SYNTHROID PO (05:54)
--- NOTE | 2025-05-22 07:03 | W.PN.UPDATE ---
Update Note
Progress Note Update
hgb 6.6/21.3, blood consent received verbally by brother. Type and screen, PRBC's x1 unit ordered. RN reports suprapubic catheter with blood colored urine in Marinelli catheter with minimal clots. Advised to let Urology know. Abdomen soft, + BS, Marinelli
with pink colored urine at present. 133/73 70 97.5 99%
[2025-05-22 07:12] LABS: Glucose - Point of Care 125 mg/dl (70-99)
--- NOTE | 2025-05-22 07:59 | PN.DE.MGMTRT ---
Insulin Management
- -
05/22/2025 Diabetes Management Consult Follow up
Patient admitted from [place] with lethargy, change in mental status, hypotension, septic shock likely due to catheter associated UTI. Patient was discharged from 05/06 for cath. associated uti. PMH COPD, HTN, HCL, diabetes, CKD IIIb, hypothyroid,
bipolar. Prior to admission was taking glipizide 2.5 mg daily. A1C from last admission 05/02 6.6%, cr 1.5, eGFR 37.26.
Patient is unable to discuss diabetes care. Patient transitioned from glycemic protocol on 05/18, receiving corrective insulin only. Glucose range 96 to 175, acceptable for this patient due to comorbidities.
POD 1 S/P OR for suprapubic catheter. Remains NPO. Will continue low corrective insulin only.
Will follow.
Discussed with nurse.
Diabetes History
- -
Type of Diabetes: 2
Pre-Admission Diabetes Regimen
05/21/25 05/22/25
17:58 03:47
Creatinine 1.2 H 1.2 H
Insulin Pump Settings
IP Diabetes Regimen
05/21/25 05/21/25 05/21/25
12:28 17:17 17:58
Glucose 183 H
POC Glucose 96 175 H
05/22/25 05/22/25 05/22/25
00:46 03:47 07:01
Glucose 127 H
POC Glucose 137 H 125 H
Patient Education
--- NOTE | 2025-05-22 08:12 | W.PN.HOSP.TC ---
Addendum entered and electronically signed by Jase Javier MD 05/22/25 23:20:
Attending Addendum-
I saw and evaluated the patient. I reviewed the resident�s note and agree with findings and plan as documented in the resident�s note. Sub: Patient alert, not making sense. follows command. was given 1 unit PRBC on due to anemia. Full 12 point ROS
reviewed and negative except as documented Exam: Vitals reviewed in chart GEN-NAD heart RRR no MRG lungs crackles at bases abd soft NT ND FMS in place LE 2+ pitting edema and RUE > LUE +2 edema, DUSTIN chest tunneled cath Neuro AAO x 1 dysarthric
Plan:
# Recurrent septic shock/acute toxic metabolic encephalopathy secondary to likely catheter associated UTI vs sacral decub
- sepsis resolved
- Urine culture-ecoli
- Cefepime day #04/15-completed
- godwin->SP tube- 05/21
- pressors weaned off (levo and vaso)
- overall poor prog- comfort care
- transfer to med/surg- 05/22
# Acute Hypoxemic Respiratory Failure-resolved
# Thrombocytopenia- CTM closely HIT ab ordered still decreasing DC heparin
# Hypernatremia likely secondary to hypovolemia
- worsening NPO
- poor prog, comfort care
# Acute post op anemia
- tx 1 unit PRBC 05/22
- poor prog no further tx
# Chronic bladder outlet infection with chronic Godwin catheter
- 05/21- s/p SP tube placement
# Dysphagia
- NPO-05/20
- started on puree
- poor prognosis hospice appropriate - to start comfort care
# Multiple chronic wounds- POA
- Sacral stage 4, right and left lateral ankle- unstageable, left ear- stage 2,
- d/w surgery re plan for debridement and flap if able for the sacral wound-no plan for OR
- poor prognosis - hospice appropriate
# Coccyx Osteomyelitis
- 05/19 MRI pelvis- Midline sacral decubitus ulceration with evidence for osteomyelitis involving the coccyx Cx1, Cx2 and Cx3 segments
- poor prognosis hospice appropriate
#Hyperlipidemia
#Bipolar disorder
#Essential hypertension
#Type 2 diabetes
# Hypothyroidism
# CKD 3B- cr @ baseline 1.5
# Troponin Elevation- likely NIMI
DNR -> comfort care
dispo-from [facility] in am on hospice
ACP
Patient unable to consent to discuss, living will obtained and reviewed, time spent explanation of advance directives, changes in health status, patient�s health care wishes if the patient becomes unable to make health decisions, goals of care, code
status, and prognosis with brother Julius - transition to comfort care- 16 minutes
Time spent coordinating care, review of plan of care with resident, personally reviewed previous records in EMR, med rec, labs, radiology, d/w nursing, family total time documented is exclusive of any additional time listed that was spent in advance
care planning discussion -� 51 minutes
Original Note:
Today's Communication/Plan
-
f/u labs at 12pm
cefepime day 04/15 today
f/u Carolina Flanagan Dennis about goals of care
Assessment / Plan
Assessment / Plan
In summary,
69 yo F p/w septic shock in setting of recent septic shock ~1 week ago
# Anemia
- suprapubic catheter placed 05/21
- Hgb drop to 6.6 this morning, yesterday pm CBC after procedure was 7.8
- 1 pRBC transfusing
- serosanginous output in catheter
- no clear blood in stool output
- no active bleeding from the site
- no clear evidence of bleeding
- CBC, CMP, fibrinogen for 12pm
# Thrombocytopenia
- Plt of 73 --> 51
- heparin antibody test sent
- monitor CBC
- stopped subq heparin and put on SCDs
- f/u RUE US for DVT
# Sepsis secondary to UTI
- Infectious Source is probable UTI since responding to abx, and afebrile
- suprapubic catheter placed 05/21
- UA c/w UTI sensitivities resulted
- Blood culture from 05/16 no growth in 48 hours
- per ID, on IV cefepime, today is day # 04/15
# Osteomyelitis of coccyx, most likely acute
# Stage 4 sacral/coccyx pressure ulcer
# Multiple pressure (decubitus) ulcers
# Left Ear Stage 2 Pressure Injury, present prior to admission
# Right Lateral Ankle Unstageable Pressure Injury, present prior to admission
# Left Lateral Ankle Unstageable Pressure Injury, present prior to admission
- MRI pelvis has evidence of osteomyelitis
- ID: no role of antibiotics unless definitive surgical management
- surgery: she is not a good surgical candidate because she would need to be able to ambulate and offload the sacral decubitus ulcer wound in order for a surgical wound to heal properly.
- putting together sugery and ID recs: unfortunately, her clinical condition is unlikely to improve given her debilitation. She is not a good surgical candidate, and antibiotics may be inappropriate without source control.
- wound culture was ordered, but likely not sales representative graphic art of the bacteria in the osteomyelitis
- wound care: air mattress, and soft heel relief boots ordered; turn q2h
# Hypernatremia
- 152
- free water deficit of 2.8 L
- on [id number] at 100mL/hr --> increase to 115 mL/hr
# Hypokalemia -- resolved
- K+ 4.2
# Abnormal swallow follow-up study
- per speech, recommend NPO.
- speech is following
# Metabolic and/or septic encephalopathy
- her mental status is improved but no fully coherent
# T2DM
- off insulin drip
- blood glucose trend in 120s-150s
- low dose sliding scale
- hold home antidiabetic medications, glipizide
# Suspicion for acute hypoxemic respiratory failure -- resolved
- on RA currently with 100% O2 sat
- problem is potentially resolved
# non ischemic myocardial injury -- resolved
- troponins were elevated and peaked
- EKG reassuring against ischemia
- non-ischemic myocardial injury likely from demand stress in setting of sepsis
# CKD stage 3b
- Creatinine appears at or close to baseline (1.4-1.5)
- eGFR ~35-40 --> stage 3b
# chronic anemia
- Hgb 8.8 from 9.8 ( likely dilutional, received 5.8L)
- Transfuse if below 7
# Bipolar disorder
# Schizophrenia
- continue home clozapine, divalproex sodium, quetiapine
- switch as much as possible to IV since NPO
- monitor mental status
# HTN
- Losartan held
# HLD
- continue simvastatin
- continue aspirin
# Hypothyroidism
- continue levothyroxine
DVT ppx: heparin
GI ppx: IV famotidine
Code status: DNR
Diet: NPO upheld pending speech evaluation
Disposition: pending clinical improvement
Will follow-up with Dr. Casey at [facility], and Julius to determine best course of action
I touched base with Dr. Casey, who was able to provide a copy of the living will, where it states that 'If Navi has an endstage medical condition, she desires to be kept as painfree as possible; and she would be willing to receive hospice and
palliative care at the end of her life.' This will was signed in 2021.
at approximately 16:30, I spoke with Julius Childers and explained that the surgical and ID doctors believe that since her wound cannot be closed, the infection of the bone will continue to spread. It is also likely that she may present again in a
severe infection from the urinary tract infection. He said that he 'does not want Navi to be in pain.' 'If this disease is terminal and not reversible, he would want her to be pain free and comfortable in her last days.' I also explained that we
were able to locate a living will signed in 2021 that states the above where Julius is designated as the health care agent.
At approximately 17:30, spoke with Julius Childers with Dr. Mauri Ruff. Dr. Ruff explained what comfort care entails. Julius was asked directly if he would want Navi to receive comfort care. Julius said yes and said that he would want to uphold
what Navi had expressed in her living will mentioned above and does not want her in pain.
Dr. Ruff asked orientation questions and Julius Childers was able to answer all questions correctly. Julius also expressed good understanding of his sister's medical condition and the implications/prognosis of the medical conditions.
Anticipated Discharge: > 48 hours
Subjective/Interval History
-
Date of Service: May 22, 2025
steady trickling of blood from suprapubic catheter yesterday evening; was able to control after applying tension to suprapubic catheter
Hgb yesterday evening was 7.8
Hgb at 4am was 6.6, 1pRBC transfusing now
consent from brother
her vital signs have been normotensive and HR in 60-70s throughout
social updates: brother said there is a living will at [facility]
Objective Data
-
Labs:
Laboratory Results
05/22/25 05/22/25
03:47 09:36
WBC 8.6
Hgb 6.6 L*
Hct 21.3 L
Plt Count 51 L
Sodium 152 H Pending
Potassium 4.2 Pending
Chloride 128 H Pending
Carbon Dioxide 18 L Pending
BUN 31 H Pending
Creatinine 1.2 H Pending
Glucose 127 H Pending
Calcium 9.6 Pending
Na+ 152
Vital Signs:
Vital Signs
Temp Pulse Resp BP Pulse Ox
97.5 F 72 10 130/100 99
05/22/25 07:30 05/22/25 08:00 05/22/25 08:00 05/22/25 08:00 05/22/25 07:45
130s/70s
I&O
05/21/25 05/22/25 05/23/25
06:59 06:59 06:59
Intake Total 1830 / 1830 1355 / 1355
Output Total 1999 1150 / 1150
Balance -170 / -170 205 / 205
suprapubic catheter: serosanguinous, 800 mL
fecal management system: stool output
Review of Systems
-
Unable to obtain full review of systems at this time due to: Acuity
Physical Exam
-
General: No Apparent Distress
HEENT: Normocephalic and Atraumatic
Respiratory: Clear to Auscultation
Cardiac: Regular Rhythm, S1/S2 and Other (no murmurs on my exam)
GI: Soft and Nontender
Genito-urinary: Other (suprapubic catheter with dried blood around site. some bruises an abdomen )
Musculoskeletal: Other (lower extremity edema, 1 to 2+)
Skin: Warm, Dry and Other (decubitus ulcer over the coccyx present with possible granulation tissue in the center; the coccyx/bone is possibly palpable upon examination of the wound)
Neuro: Awake and Other (arousable easily)
Psych: Calm
--- NOTE | 2025-05-22 08:44 | W.PN.URO.CBU ---
Today's Communication / Plan
-
- Transfusion for post op anemia
- Discharge with SP tube in place, to be exchanged in 6 weeks post surgery
- Office will call to arrange follow [facility] with [facility]
- Abx course per ID
Assessment / Plan
-
69F with chronic voiding dysfunction, urinary retention
Recurrent UTI
Currently admitted with sepsis related to UTI vs osteomyelitis of coccyx/sacral decub
s/p suprapubic tube placement 05/21/25
- Some bleeding around tube site last night now mostly resolved
- Getting transfusion 1 unit PRBCs this AM
- Change dressing as needed for mild bleeding or drainage around tube site
- Discharge with tube in place, to be exchanged in 6 weeks post surgery
- Office will call to arrange follow up with [facility]
- Abx course per ID
Diagnosis
-
Date of Service: May 22, 2025
-
Patient Diagnosis:
Chronic urinary retention
Voiding dysfunction
Post Op Day:
Subjective
-
No events overnight
some mild bleeding requiring dressing changes
HGB low this AM
Objective
-
Vital Signs
Temp Pulse Resp BP Pulse Ox
97.5 F 72 10 130/100 99
05/22/25 07:30 05/22/25 08:00 05/22/25 08:00 05/22/25 08:00 05/22/25 07:45
Intake and Output
05/21/25 05/22/25 05/23/25
06:59 06:59 06:59
Intake Total 1830 / 1830 1355 / 1355
Output Total 1999 / 1999 1150 / 1150
Balance -170 / -170 205 / 205
Intake:
IV fluids (Total) 1400 / 1400 1300 / 1300
0.45%NaCl 1,000 ml @ 100 mls/hr 800 / 800
IV .Q10H [facility] Rx#:[id number]
D5/0.45%NaCl 1,000 ml @ 100 mls 600 / 600 1000 / 1000
/hr IV .Q10H [facility]RE Rx#:[id number]
D5w 1,000 ml @ 100 mls/hr IV . 300 / 300
Q10H JEAN-PIERRE Rx#:[id number]
IV piggybacks 380 / 380 55 / 55
Fecal management system 50 / 50
irrigation (mL)
Rectum 50 / 50
Blood Product Amount Infused ( 0 / 0
mL)
Packed Rbc Leukoreduced Unit 0 / 0
[id number]
Output:
Urine, Marinelli 1999 / 1999 350 / 350
Suprapubic output 800 / 800
Physical Exam
-
General - well developed, well nourished, no acute distress
Chest - clear
Abdomen - soft, non-tender
SPT in place, clear urine
Dressing - clean, dry, intact, mild blood around SPT site
[2025-05-22] MEDS: ASPIR LOW (ENTERIC COATED) PO (08:51)
[2025-05-22] MEDS: COLACE PO (08:51)
[2025-05-22] MEDS: SEROQUEL PO (08:52)
[2025-05-22] MEDS: VITAMIN D3 (cholecalciferol) PO (08:52)
[2025-05-22] MEDS: SENOKOT-S PO (08:52)
[2025-05-22] MEDS: HEPARIN SC (09:06)
--- NOTE | 2025-05-22 10:26 | W.PN.ID1 ---
Date of Service
Date of Service: May 22, 2025
Today's Communication
Complete course of antibiotics today.
Sign off
Assessment / Plan
Stage III-IV sacral ulceration
Coccyx osteomyelitis
Clinical sepsis
Complicated urinary tract infection secondary to E. coli
HTN
HLD
Hypothyroidism
Bipolar disease
CKD stage IIIb
DM type II
Recommendations:
White count is normalized. Patient remains afebrile. Blood cultures negative x 5 days. Urine culture positive only for E. coli (susceptible to cefepime)
Continue with cefepime (d#7) in the treatment of a complicated urinary tract infection secondary to E. coli. To finish a 7-day course today.
Continue with local care to the sacral /coccyx ulceration. Continue offloading.
Pelvic MRI reveals osteomyelitis of the coccyx. No role for long-term antibiotics in the treatment of osteomyelitis without concomitant plans for wound closure (i.e. flap).
Following stabilization and recovery from her current illness, evaluation by Plastic Surgery may be warranted to determine potential for flap coverage. If this is pursued, at the time of surgery, bone biopsy should be obtained (while off
antibiotics) and if necessary, a prolonged course of antibiotics can be guided by bone culture data.
Will need to maximize nutritional support, as given current protein stores, wound healing will likely be difficult, if not impossible. Combined with immobility and other comorbidities, any likelihood of wound healing is unfortunately very low.
A superficial wound culture has been obtained, but will will likely only reflect local superficial colonization, and has less than 50% concordance with underlying infection. Would not base antibiotic selection on findings.
Little more to offer from a Infectious Diseases standpoint.
Will see again at your request.
Chief Complaint
-: UTI and Other (Coccyx osteomyelitis)
Subjective / Review of Systems
Patient seen and examined. S/p suprapubic catheter placement.
Review of Systems: No Fever and No Chills
Vital Signs / Physical Exam
Vital Signs
Vital Signs
Temp Pulse Resp BP Pulse Ox
97.5 F 72 16 119/95 93
05/22/25 07:30 05/22/25 08:49 05/22/25 08:53 05/22/25 08:49 05/22/25 08:53
Physical Exam
Constitutional: No Acute Distress, Comfortable, Chronically Ill and Non-toxic
Cardiovascular: S1/S2; Negative S3/S4
Pulmonary: Clear and Non Labored
Gastrointestinal: Soft, Non Tender, Non Distended and Other (FMS in place with liquid stool)
Genito-Urinary: Marnielli (Suprapubic) and Clear Urine; Negative Turbid Urine or Hematuria
Skin: Warm and Dry; Negative Rash
Wound: Other (Sacral wound dressed.)
Neurological: Awake
Objective Data
Lab Data
PT 18.3 Sec (11.4-14.6) H 05/16/25 12:04
INR 1.46 05/16/25 12:04
APTT 45.8 Sec (23.4-35.0) H 05/16/25 12:04
Estimated Creat Clear 38 ml/min 05/22/25 03:47
Lactic Acid 1.2 mmol/L (0.7-2.0) 05/16/25 12:01
Total Bilirubin 0.4 mg/dl (0.2-1.3) 05/19/25 03:37
AST 15 U/L (14-36) 05/19/25 03:37
ALT 18 U/L (0-35) 05/19/25 03:37
Alkaline Phosphatase 67 U/L (38-126) 05/19/25 03:37
Most recent labs reviewed.
Micro Results:
05/16/25 12:05 Blood Culture - Final
Blood/Venous No Growth - Final Report
05/16/25 12:01 Blood Culture - Final
Blood/Venous No Growth - Final Report
05/21/25 00:30 Wound Culture - Pending
Coccyx Gram Stain - Preliminary
05/16/25 15:46 MRSA Screen - Final
Nose No Methicillin Resistant Staphylococcus aureus isolated.
05/16/25 11:48 Urine Culture - Final
Urine Escherichia coli
Yeast
05/16/25 13:14 Urine Culture - Final
Urine Escherichia coli
Yeast
05/16/25 12:24 Influenza Types A & B (TEDDY) - Final
Nasal Swab Negative for Influenza A & B, NAAT
Negative results must be combined with clinical observations
and patient history.
Nucleic Acid Amplification test (NAAT)performed on the
[employer] platform.
Imaging:
05/19/2025 MRI pelvis: midline sacral decubitus ulceration with evidence for osteomyelitis involving the coccyx (Cx 1�3 segments). No fluid collection. Moderate to diffuse edema and fatty infiltration throughout the majority of the muscles around
the pelvis bilaterally, likely in part related to denervation edema. A component of myositis is not excluded. Please see full dictation for additional detail.
05/16/2025 CXR (portable): left subclavian central venous catheter in position, with tip at the right atrium. Hypoaerated lungs without consolidation. Please see full dictation for additional detail.
Care Review
Plan reviewed with: Other Provider (Resident)
[2025-05-22] MEDS: DEPACON 55 MG IV (10:45)
[2025-05-22 12:01] LABS: Absolute Neutrophils -Man Diff 4.9 10^3/uL (1.4-6.5); Normal RBC Morphology No; Platelets Checked Yes
[2025-05-22 12:02] LABS: Acanthocytes 1+; Hypochromasia 1+; Polychromasia 1+; Total Cells Counted 100
[2025-05-22 12:41] LABS: Hematocrit 32.1 % (37.0-47.0); Hemoglobin 10.4 g/dL (12.0-16.0); Mean Corp Hgb Conc. 32.4 g/dL (33.0-37.0); Mean Corpuscular Volume 94.7 fL (81.0-99.0); Platelet Count 54 10^3/uL (130-400); Red Cell Dist. Width 17.4 % (11.5-14.5)
[2025-05-22 12:44] LABS: Fibrinogen 528 MG/DL (199-459)
[2025-05-22 12:46] LABS: Glucose - Point of Care 98 mg/dl (70-99)
[2025-05-22 12:55] LABS: ALT (SGPT) 16 U/L (0-35); AST (SGOT) 17 U/L (14-36); Albumin 2.2 g/dl (3.5-5.0); Alkaline Phosphatase 79 U/L (38-126); Blood Urea Nitrogen 27 mg/dl (7-17); Calcium 9.3 mg/dl (8.4-10.2); Carbon Dioxide 22 mmol/L (22-30); Chloride 126 mmol/L (98-107); Estimated Creatinine Clearance 43 ml/min; Glucose 102 mg/dl (70-99); Potassium 3.9 mmol/L (3.5-5.1); Sodium 149 mmol/L (135-145); Total Protein 4.6 g/dl (6.3-8.2); eGFR 48.70
[2025-05-22 13:05] LABS: Blood Urea Nitrogen 28 mg/dl (7-17); Calcium 9.9 mg/dl (8.4-10.2); Carbon Dioxide 17 mmol/L (22-30); Chloride 127 mmol/L (98-107); Estimated Creatinine Clearance 43 ml/min; Glucose 100 mg/dl (70-99); Potassium 3.9 mmol/L (3.5-5.1); Sodium 149 mmol/L (135-145); eGFR 48.70
[2025-05-22] MEDS: DAKIN'S SOLUTION 0.125% 1/4 STRENGTH 473 ML TOPICAL ×2 (13:42→23:17)
[2025-05-22] MEDS: SANTYL OINTMENT 1 APPLIC TOPICAL ×2 (13:42→23:18)
[2025-05-22 13:51] LABS: Absolute Neutrophils -Man Diff 6.1 10^3/uL (1.4-6.5)
[2025-05-22 14:00] LABS: Anisocytosis Slight; Macrocytosis +1; Normal RBC Morphology No; Platelets Checked YES
[2025-05-22 14:01] LABS: Polychromasia Slight
--- NOTE | 2025-05-22 14:01 | PTCARENOTE ---
Report called to receiving [facility] RN
Pt being transported with wound care supplies
[2025-05-22 14:04] LABS: Ovalocytes FEW
[2025-05-22 14:05] LABS: Total Cells Counted 100
--- NOTE | 2025-05-22 14:33 | PTCARENOTE ---
Patient transfer from ICU to . Vs documented. no s/s of distress noted at this time. plan of care ongoing.
--- NOTE | 2025-05-22 16:39 | CM ---
As per Tani[facility] at [facility] Pt is accepted back.
Pt with sacral decubitus.
Remains on IV antibiotics.
Pt confused.
Will need ambulance for transport back to [facility] when medically ready.
PLAN Return to [facility]
[2025-05-22] MEDS: LIPITOR PO (17:15)
[2025-05-22 17:49] LABS: Glucose - Point of Care 125 mg/dl (70-99)
--- NOTE | 2025-05-22 18:23 | W.PN.UPDATE ---
Update Note
Progress Note Update
After a long discussion with Julius Childers with Dr. Mauri Ruff and me, and reviewing the living will, the brother acknowledged to respect her wishes and the decision was made to put Delvar on comfort measures today.
Will consult Hospice.
[2025-05-22] MEDS: ZOFRAN 4 MG IV (21:08)
[2025-05-23] MEDS: ATIVAN 1 MG PO (01:02)
[2025-05-23] MEDS: BENADRYL 12.5 MG IV (01:24)
--- NOTE | 2025-05-23 07:04 | W.PN.HOSP.TC ---
Addendum entered and electronically signed by Jase Javier MD 05/23/25 22:21:
Attending Addendum-
I saw and evaluated the patient. I reviewed the resident�s note and agree with findings and plan as documented in the resident�s note. Sub: Patient alert, no complaints. 'i want to go home' Full 12 point ROS reviewed and negative except as
documented Exam: Vitals reviewed in chart GEN-NAD heart RRR no MRG lungs crackles at bases abd soft NT ND FMS in place LE 2+ pitting edema and RUE > LUE +2 edema, DUSTIN chest tunneled cath Neuro AAO x 1 dysarthric
Plan:
# Recurrent septic shock/acute toxic metabolic encephalopathy secondary to likely catheter associated UTI vs sacral decub
- sepsis resolved
- Urine culture-ecoli
- Cefepime 04/15-completed
- godwin->SP tube- 05/21
- pressors weaned off (levo and vaso)
- overall poor prog- comfort care
# Acute Hypoxemic Respiratory Failure-resolved
# Thrombocytopenia
# Hypernatremia
# Acute post op anemia
- tx 1 unit PRBC 05/22
# Chronic bladder outlet infection with chronic Godwin catheter
- 05/21- s/p SP tube placement
# Dysphagia
- NPO-05/20
- started on puree
- poor prognosis hospice appropriate
# Multiple chronic wounds- POA
- Sacral stage 4, right and left lateral ankle- unstageable, left ear- stage 2,
- d/w surgery re plan for debridement and flap if able for the sacral wound-no plan for OR
- poor prognosis - hospice appropriate
# Coccyx Osteomyelitis
- 05/19 MRI pelvis- Midline sacral decubitus ulceration with evidence for osteomyelitis involving the coccyx Cx1, Cx2 and Cx3 segments- No OR poor surgical candidate
- poor prognosis hospice appropriate
#Hyperlipidemia
#Bipolar disorder
#Essential hypertension
#Type 2 diabetes
# Hypothyroidism
# CKD 3B- cr @ baseline 1.5
# Troponin Elevation- likely NIMI
DNR -> comfort care
dispo-from [facility] on hospice
Time spent coordinating care, DC planning, review of DC plan of care with resident, transition of care, review of records, med rec/scripts sent electronically, consults, notes, d/w consultants, nursing, family, and CM� 32 mins >50% of this time was
devoted to counseling and coordination of care
Original Note:
Today's Communication/Plan
-
Comfort care
Assessment / Plan
Assessment / Plan
In summary,
69 yo F
Per discussion with Brother on 05/22 evening, please refer to progress note on that day; discussion among Julius, Dr. Mauri Ruff and me; Julius elected to respect Navi's living will, and the decision was made to transition to comfort care.
Labs, and medications were discontinued 05/22 evening.
The plan is to discharge to [facility] on hospice. Will follow-up with case management. Hospice has been consulted
The issues during this admission that were being addressed are listed below
# Anemia
# Thrombocytopenia
# Sepsis secondary to UTI
# Osteomyelitis of coccyx, most likely acute
# Stage 4 sacral/coccyx pressure ulcer
# Multiple pressure (decubitus) ulcers
# Left Ear Stage 2 Pressure Injury, present prior to admission
# Right Lateral Ankle Unstageable Pressure Injury, present prior to admission
# Left Lateral Ankle Unstageable Pressure Injury, present prior to admission
# Hypernatremia
# Hypokalemia -- resolved
# Abnormal swallow follow-up study
# Metabolic and/or septic encephalopathy
# T2DM
# Suspicion for acute hypoxemic respiratory failure -- resolved
# non ischemic myocardial injury -- resolved
# CKD stage 3b
# chronic anemia
# Bipolar disorder
# Schizophrenia
# HTN
# HLD
# Hypothyroidism
Code status: DNR -> comfort care
Disposition: [facility] for hospice care
Anticipated Discharge: Within 24 hours
Subjective/Interval History
-
Date of Service: May 23, 2025
transitioned to comfort care
Objective Data
-
Labs:
labs held
Vital Signs:
Vital Signs
Temp Pulse Resp BP Pulse Ox
98.0 F 85 18 100/69 96
05/22/25 19:50 05/22/25 19:50 05/22/25 19:50 05/22/25 19:50 05/22/25 19:50
I&O
05/22/25 05/23/25 05/24/25
06:59 06:59 06:59
Intake Total 1355 / 1355 850 / 850
Output Total 1150 / 1150 2250 / 2250
Balance 205 / 205 -1400 / -1400
Physical Exam
-
General: No Apparent Distress
HEENT: Normocephalic and Atraumatic
Respiratory: Clear to Auscultation
Cardiac: Regular Rhythm, S1/S2 and Other (no murmurs on my exam)
GI: Soft and Nontender
Genito-urinary: Other (suprapubic catheter)
Musculoskeletal: Other (lower extremity edema, 1 to 2+)
Skin: Warm, Dry and Other (decubitus ulcer on coccyx)
Neuro: Awake and Other (arousable easily)
Psych: Calm
--- NOTE | 2025-05-23 08:50 | CM ---
Addendum entered by Kimberly Joy RN 05/23/25 09:53:
[facility] fax: [phone]
Original Note:
Reviewed the chart notes and spoke with the patient's brother via telephone. IMM reviewed. Patient to be discharged back to [facility] on hospice. CM referral sent to [facility] via [facility]. CM continues to be available to patient/family and
is monitoring medical plan for needs at discharge.
Plan: Discharge back to [facility].
Call report to: [phone]
Fax report to: [phone]
Medical necessity and transport forms on chart.
[2025-05-23] MEDS: SANTYL OINTMENT 1 APPLIC TOPICAL (08:53)
[2025-05-23] MEDS: DAKIN'S SOLUTION 0.125% 1/4 STRENGTH 473 ML TOPICAL (08:55)
--- NOTE | 2025-05-23 11:23 | WOUNDNOTE ---
WOC RN NOTE: Confirmed that patient is on an air overlay.
[2025-05-23 11:47] VITALS: BP 168/109
[2025-05-23 12:32] VITALS: BP 130/88
--- NOTE | 2025-05-23 14:32 | PTCARENOTE ---
As per order FMS and Left triple lumen were d/c. No s/s of distress noted at this time. vs documented. report given to supriya calderón.
--- NOTE | 2025-05-23 16:22 | W.DCSUMMARY ---
Addendum entered and electronically signed by Jase Javier MD 05/23/25 22:21:
Read, reviewed, and agree. See same day progress note for additional details.
Eduardo Javier MD
Original Note:
Documented by User: Aureliano Smith MD, Resident 05/23/25 17:18
Discharge Summary
Discharge Data
Date of Admission: 05/16/25
Date of Discharge: 05/23/25
-
Pending Results: No
Hospital Course
Discharging Physician : Jase Javier MD; Aureliano Smith MD
Disposition : Hospice at [facility] ([place])
Primary care physician : Christopher Casey MD
Principal Discharge diagnosis : Comfort care; presented with septic shock from UTI and sacral ulcer with osteomyelitis
Chronic Discharge diagnosis : catheter associated UTI, chronic bladder outlet obstruction requiring Godwin catheter, pressure injury of right ear, left ear, sacrum, hyperlipidemia, bipolar disorder, type 2 diabetes, hypothyroidism, CKD 3B, chronic
anemia, essential hypertension
Hospital Course :
69 yo F p/w lethargy, altered mental status, and hypotension on 05/16. Of note, she was recently hospitalization for septic shock 05/01-05/06 requiring vasopressors secondary to catheter-associated UTI from E. Coli and Klebsiella. She is coming from
[facility] and has a chronic godwin catheter in place. She is also noted to have a pressure injury of sacrum. Review of her chart history reveals that she has contracted multiple instances of UTI with multiple episodes of septic shock requiring
vasopressors.
After an extensive discussion about Navi's medical conditions and prognosis with Julius Childers (brother), the decision was made to proceed to comfort care on 05/22 evening. On 05/23, she was discharged and transported to [place] for hospice care.
Her living will states that in the event of a terminal illness or medical condition that will not improve, she wishes to kept as pain-free as possible.
The following problems were addressed during this admission:
# Goals of Care
Navi's living will was located through her family physician at [place], and extensive conversations with the brother, Julius, who is the next of kin eventually led to the decision that Navi would proceed to comfort care on 05/22 evening.
# Sepsis secondary to UTI
Navi initially presented in septic shock with a catheter in place. Vital signs, Labs and UA were consistent with a UTI complicated by septic shock. The catheter was exchanged, and vasopressors were administered and later weaned off. Infectious
disease was consulted, and it was recommended for cefepime for 7-day course to treat the UTI, for which Navi showed improvement. Blood cultures have been negative as detailed below. A suprapubic catheter was eventually placed on 05/21. She
transitioned to comfort care on 05/22 evening.
# Osteomyelitis of coccyx, most likely acute
# Stage 4 sacral/coccyx pressure ulcer
# Multiple pressure (decubitus) ulcers
# Left Ear Stage 2 Pressure Injury, present prior to admission
# Right Lateral Ankle Unstageable Pressure Injury, present prior to admission
# Left Lateral Ankle Unstageable Pressure Injury, present prior to admission
Navi was also noted to have a large sacral/coccyx ulcer with extension to the bone. MRI pelvis showed evidence of osteomyelitis. Surgery and Infectious Disease were consulted. Given her debilitation, surgery did not recommend operative management
because the wound was deemed to most likely not heal. She is predominantly recumbent and unable to ambulate. Since there would be no source control, Infectious Disease recommended no role for antibiotics. A wound culture was obtained, however, per
Infectious Disease, the concordance between the wound culture and offending pathogen in osteomyelitis is < 50%. She was eventually transitioned to comfort care.
# Metabolic and/or septic encephalopathy
# Abnormal swallow follow-up study
Her mental status has improved and worsened intermittently over the admission. Some days, she was somnolent and AOx0. Closer to day of discharge, she was AOx1. She was mainly kept NPO by speech evaluation for decreased mentation and abnormal swallow
evaluation
# Acute Hypoxemic respiratory failure
She experienced a desaturation that required supplemental oxygen early during her admission. She was eventually weaned off to room air.
# Nonischemic myocardial injury
At admission, elevated troponins were detected and peaked. EKG reassured against ischemia. Most consistent with non-ischemic myocardial injury in the setting of sepsis.
# Acute on chronic anemia
Her hemoglobin count at baseline appears to be around 8, consistent with chronic anemia. On 05/22 morning, an acute hemoglobin drop was noted to 6.6, which was the day after suprapubic catheter placement. She received a unit of pRBC, raising
hemoglobin to 10.4. There were no signs of yeni bleeding appreciated, and a fibrinogen was normal/elevated, reassuring against disseminated intravascular coagulation. She was ultimately transitioned to comfort care, and labs were discontinued.
# Thrombocytopenia
Her platelet count had consistently decreased from 129k to 51k since admission. Given that the patient was on heparin for DVT ppx, there was concern for heparin induced thrombocytopenia, prompting discontinuation of heparin and an antibody test for
heparin-platelet factor 4. Sequential compression devices were used until comfort care.
# Hypernatremia
Her sodium concentration was elevated to 149 to 152. She was receiving D5W, and the Na+ was followed closely until comfort care.
# Hypokalemia
Her potassium concentration occasionally became hypokalemic and was repleted until comfort care.
# T2DM
Her blood glucose was monitored and earlier in the admission, she required an insulin drip which was eventually weaned off to a low dose sliding scale. She was ultimately transitioned to comfort care.
# Chronic issues as below
# CKD stage 3b
Creatinine appears at or close to baseline (1.4-1.5); translating to an eGFR ~35-40 --> stage 3b
# Bipolar disorder
# Schizophrenia
Clozapine, divalproex sodium, quetiapine were continued until comfort care
# HTN
Losartan was held
# HLD
Simvastatin and aspirin were continued until comfort care
# Hypothyroidism
Levothyroxine was continued until comfort care
Important imaging findings :
CXR 05/16/2025:
IMPRESSION:
1. Left subclavian central venous catheter in position, tip at the right atrium.
2. Hypoaerated lungs without consolidation.
3. Probable dilation of small bowel loops in the upper abdomen.
Pelvis MRI 05/19/2025:
IMPRESSION:
Midline sacral decubitus ulceration with evidence for osteomyelitis involving the coccyx Cx1, Cx2 and Cx3 segments. No fluid collections.
There is moderate diffuse edema and fatty infiltration throughout the majority of the muscles about the pelvis bilaterally, likely in part related to denervation edema. Component of myositis not excluded
05/22/2025: Peripheral Vascular Ultrasound
IMPRESSION: No evidence of DVT of the right upper extremity.
Procedure findings :
EKG 05/16/2025:
SINUS TACHYCARDIA
RIGHT AXIS DEVIATION
NONSPECIFIC ST AND T WAVE ABNORMALITY
POSSIBLE RIGHT VENTRICULAR HYPERTROPHY
ABNORMAL ECG
WHEN COMPARED WITH ECG OF 01-May-2025 13:57,
NONSPECIFIC T WAVE ABNORMALITY NOW EVIDENT IN LATERAL LEADS
Echocardiogram 05/17/2025:
SUMMARY
1. Ejection fraction is 55-60% by visual assesment.
2. Mild concentric left ventricular hypertrophy.
3. Right ventricular size and systolic function are within normal limits.
4. Mild mitral valve regurgitation.
5. Mild tricuspid regurgitation.
6. Tricuspid valve opens normally. mild tricuspid regurgitation. Estimated pulmonary artery pressure of 26 mmHg assuming a right atrial pressure of 3 mmHg.
Microbiology findings:
Urine culture 05/16/2025:
E. Coli, Yeast
Organism 1 Escherichia coli
1. Escherichia coli
M.I.C. RX
--------- ---
Amoxicillin/Potas. Clavulanate 25/05 I
Ampicillin >16 R
Ampicillin/Sulbactam >25/05 R
Aztreonam <=4 S
Cefazolin >16 R
Cefepime <=2 S
Ceftazidime <=1 S
Ceftriaxone <=1 S
Ertapenem <=0.5 S
Ciprofloxacin <=0.25 S
Gentamicin <=2 S
Meropenem <=1 S
Nitrofurantoin-Urine Only <=32 S
Piperacillin/Tazobactam <=8 S
Tetracycline >8 R
Tobramycin <=2 S
Trimethoprim/Sulfamethoxazole <=2/38 S
Blood culture 05/16/2025
No growth
Wound culture 05/21/2025 - Preliminary
Few Enterococcus species
Moderate Presumptive Inna albicans
Many Diptheroids
Discharge Plan
-
Patient Disposition: Longterm/SNF
Discharge Diagnosis/Procedures: Septic shock UTI with nonhealing sacral ulcer with osteomyelitis, transitioned to comfort care
Condition: Fair
Diet: No restrictions
Activity: As tolerated
Driving Restrictions: As prior to admission
Bathing Restrictions: None
Activity Restrictions/Additional Instructions:
Suprapubic Tube Instructions
- Suprapubic tube was placed 05/21 and is sutured in position
- Tube should be maintained to gravity and the first tube change will be done in the urology office by Dr. Le
- Okay to flush the tube as needed with 50-100cc saline or water for debris, poor drainage, or blockage
Wound Care Instructions
Sacral/coccyx ulcer-clean with 1/4 strength Dakin's solution, miconazole powder prn yeasty periwound skin followed by no sting barrier wipe or zinc barrier ointment, Santyl ointment to necrotic tissue, Dakin's moistened gauze, cover with dry gauze
then large silicone border foam or ABD pad/s secured with silicone tape. Change bid and prn soilage.
Bilateral lateral ankle ulcers-clean with saline, Santyl ointment prn necrotic tissue, silicone border foam, change q 2 days and prn loosened dressing.
Air mattress
Turning schedule
Elevate heels off bed; soft heel relief boots as tolerated (i.e. TruVue Lite).
Follow up with wound wound care coordinator or at wound care center call for an appointment.
Referrals:
Christopher Casey MD [Family Provider, [facility]]
Additional Discharge Medication Instructions: Navi has been transitioned to comfort care
Please use lorazepam as needed for anxiety.
Please use glycopyrrolate as needed for secretions.
Please use haloperidol as needed for agitation.
Prescriptions:
New
glycopyrrolate 0.2 mg/mL Solution
0.2 mg IV Q4HPRN PRN (Reason: excessive secretions) Qty: 25 0RF
lorazepam 1 mg Tablet
1 mg PO Q2HPRN PRN (Reason: anxiety) Qty: 7 0RF
alum-mag hydroxide-simeth [Mag-Al Plus] 200-200-20 mg/5 mL Suspension
30 ml PO Q6HPRN PRN (Reason: heartburn) Qty: 3000 0RF
Continued
sennosides-docusate sodium [Senna-S] 8.6-50 mg Tablet
2 tab-cap PO BID
melatonin 3 mg Tablet
3 mg PO HS
docusate sodium [Colace] 100 mg Capsule
200 mg PO BID
acetaminophen [Tylenol] 325 mg Tablet
650 mg PO Q6HPRN PRN (Reason: mild pain)
magnesium hydroxide [Milk of Magnesia] 400 mg/5 mL Suspension
2,400 mg PO HSPRN PRN (Reason: if no bm by 3rd day)
bisacodyl [Dulcolax (bisacodyl)] 10 mg Suppository
10 mg NH DAILYPRN PRN (Reason: if no bm aftr mom)
Discontinued
simvastatin 40 MG tablet
40 mg PO HS
glipizide 2.5 MG tablet extended release 24hr
2.5 mg PO DAILY
levothyroxine 88 MCG tablet
88 mcg PO DAILY
quetiapine [Seroquel] 25 mg Tablet
25 mg PO DAILY
clozapine 100 mg Tablet
300 mg PO HS
aspirin 81 mg Tablet,Delayed Release (Dr/Ec)
81 mg PO DAILY
famotidine [Pepcid] 20 mg Tablet
20 mg PO DAILY
divalproex 500 mg Tablet Extended Release 24 Hr
1,000 mg PO DAILY
quetiapine [Seroquel] 50 mg Tablet
75 mg PO HS
cholecalciferol (vitamin D3) [Vitamin D3] 25 mcg (1,000 unit) Tablet
25 mcg PO DAILY
losartan 50 mg Tablet
50 mg PO DAILY
Discharge Orders:
Discharge Patient (As Directed); Ordered 05/23/25
Ordered By: Aureliano Smith
Discharge Date and Time
Discharge Date/Time: 05/23/25 15:33
Print Language: SAO TOMEAN

Documented by User: Jase Javier MD 05/23/25 22:19
Discharge Summary
Discharge Data
Date of Admission: 05/16/25
Date of Discharge: 05/23/25
Discharge Plan
-
Patient Disposition: Longterm/SNF
Discharge Diagnosis/Procedures: Septic shock UTI with nonhealing sacral ulcer with osteomyelitis, transitioned to comfort care
Condition: Fair
Diet: No restrictions
Activity: As tolerated
Driving Restrictions: As prior to admission
Bathing Restrictions: None
Activity Restrictions/Additional Instructions:
Suprapubic Tube Instructions
- Suprapubic tube was placed 05/21 and is sutured in position
- Tube should be maintained to gravity and the first tube change will be done in the urology office by Dr. Le
- Okay to flush the tube as needed with 50-100cc saline or water for debris, poor drainage, or blockage
Wound Care Instructions
Sacral/coccyx ulcer-clean with 1/4 strength Dakin's solution, miconazole powder prn yeasty periwound skin followed by no sting barrier wipe or zinc barrier ointment, Santyl ointment to necrotic tissue, Dakin's moistened gauze, cover with dry gauze
then large silicone border foam or ABD pad/s secured with silicone tape. Change bid and prn soilage.
Bilateral lateral ankle ulcers-clean with saline, Santyl ointment prn necrotic tissue, silicone border foam, change q 2 days and prn loosened dressing.
Air mattress
Turning schedule
Elevate heels off bed; soft heel relief boots as tolerated (i.e. TruVue Lite).
Follow up with wound wound care coordinator or at wound care center call for an appointment.
Referrals:
Christopher Casey MD [Family Provider, [facility]]
Additional Discharge Medication Instructions: Navi has been transitioned to comfort care
Please use lorazepam as needed for anxiety.
Please use glycopyrrolate as needed for secretions.
Please use haloperidol as needed for agitation.
Prescriptions:
New
glycopyrrolate 0.2 mg/mL Solution
0.2 mg IV Q4HPRN PRN (Reason: excessive secretions) Qty: 25 0RF
lorazepam 1 mg Tablet
1 mg PO Q2HPRN PRN (Reason: anxiety) Qty: 7 0RF
alum-mag hydroxide-simeth [Mag-Al Plus] 200-200-20 mg/5 mL Suspension
30 ml PO Q6HPRN PRN (Reason: heartburn) Qty: 3000 0RF
Continued
sennosides-docusate sodium [Senna-S] 8.6-50 mg Tablet
2 tab-cap PO BID
melatonin 3 mg Tablet
3 mg PO HS
docusate sodium [Colace] 100 mg Capsule
200 mg PO BID
acetaminophen [Tylenol] 325 mg Tablet
650 mg PO Q6HPRN PRN (Reason: mild pain)
magnesium hydroxide [Milk of Magnesia] 400 mg/5 mL Suspension
2,400 mg PO HSPRN PRN (Reason: if no bm by 3rd day)
bisacodyl [Dulcolax (bisacodyl)] 10 mg Suppository
10 mg NH DAILYPRN PRN (Reason: if no bm aftr mom)
Discontinued
simvastatin 40 MG tablet
40 mg PO HS
glipizide 2.5 MG tablet extended release 24hr
2.5 mg PO DAILY
levothyroxine 88 MCG tablet
88 mcg PO DAILY
quetiapine [Seroquel] 25 mg Tablet
25 mg PO DAILY
clozapine 100 mg Tablet
300 mg PO HS
aspirin 81 mg Tablet,Delayed Release (Dr/Ec)
81 mg PO DAILY
famotidine [Pepcid] 20 mg Tablet
20 mg PO DAILY
divalproex 500 mg Tablet Extended Release 24 Hr
1,000 mg PO DAILY
quetiapine [Seroquel] 50 mg Tablet
75 mg PO HS
cholecalciferol (vitamin D3) [Vitamin D3] 25 mcg (1,000 unit) Tablet
25 mcg PO DAILY
losartan 50 mg Tablet
50 mg PO DAILY
Discharge Orders:
Discharge Patient (As Directed); Ordered 05/23/25
Ordered By: Aureliano Smith
Discharge Date and Time
Discharge Date/Time: 05/23/25 15:33
Print Language: SAO TOMEAN
== END 2025-05-23 15:33 | DRG 698 ==
LOC: 2 NORTH 14:01
PROVIDERS: Internal Medicine; Nurse Practitioner Family; Radiology Vascular & Interventional Radiology; Urology; ADMITTING PHYSICIAN Hospitalist; ATTENDING PHYSICIAN Family Medicine; CONSULT PHYSICIAN Internal Medicine Infectious Disease; CONSULT PHYSICIAN Specialist; CONSULT PHYSICIAN Surgery; EMERGENCY PHYSICIAN Emergency Medicine; FAMILY PHYSICIAN Family Medicine; OTHER PHYSICIAN Internal Medicine Critical Care Medicine
PROC: 02H633Z Insertion of Infusion Device into Right Atrium, Percutaneous Approach (ICD-10-PCS; 2025-05-16)
PROC: 0TJB8ZZ Inspection of Bladder, Via Natural or Artificial Opening Endoscopic (ICD-10-PCS; 2025-05-21)
PROC: 0T9B30Z Drainage of Bladder with Drainage Device, Percutaneous Approach (ICD-10-PCS; 2025-05-21)
PROC: 30243N1 Transfusion of Nonautologous Red Blood Cells into Central Vein, Percutaneous Approach (ICD-10-PCS; 2025-05-22)
DX: T83.511A Infection and inflammatory reaction due to indwelling urethral catheter, initial encounter (principal); A41.51 Sepsis due to Escherichia coli [E. coli]; L89.154 Pressure ulcer of sacral region, stage 4; R65.21 Severe sepsis with septic shock; G92.8 Other toxic encephalopathy; J96.01 Acute respiratory failure with hypoxia; E87.0 Hyperosmolality and hypernatremia; I5A Non-ischemic myocardial injury (non-traumatic); M46.28 Osteomyelitis of vertebra, sacral and sacrococcygeal region; D62 Acute posthemorrhagic anemia; Z51.5 Encounter for palliative care; N39.0 Urinary tract infection, site not specified; E03.9 Hypothyroidism, unspecified; N18.32 Chronic kidney disease, stage 3b; E11.22 Type 2 diabetes mellitus with diabetic chronic kidney disease; E78.00 Pure hypercholesterolemia, unspecified; I13.10 Hypertensive heart and chronic kidney disease without heart failure, with stage 1 through stage 4 chronic kidney disease, or unspecified chronic kidney disease; J44.9 Chronic obstructive pulmonary disease, unspecified; F31.9 Bipolar disorder, unspecified; E11.65 Type 2 diabetes mellitus with hyperglycemia; E11.69 Type 2 diabetes mellitus with other specified complication; N32.0 Bladder-neck obstruction; E86.1 Hypovolemia; F20.9 Schizophrenia, unspecified; G47.00 Insomnia, unspecified; N32.81 Overactive bladder; N13.9 Obstructive and reflux uropathy, unspecified; N20.0 Calculus of kidney; Z11.52 Encounter for screening for COVID-19; N32.89 Other specified disorders of bladder; L89.520 Pressure ulcer of left ankle, unstageable; L89.510 Pressure ulcer of right ankle, unstageable; L89.892 Pressure ulcer of other site, stage 2; E87.6 Hypokalemia; E78.49 Other hyperlipidemia; D69.6 Thrombocytopenia, unspecified; D63.1 Anemia in chronic kidney disease; R13.10 Dysphagia, unspecified; Y84.6 Urinary catheterization as the cause of abnormal reaction of the patient, or of later complication, without mention of misadventure at the time of the procedure; Y92.9 Unspecified place or not applicable; Z66 Do not resuscitate; Z87.440 Personal history of urinary (tract) infections; Z88.8 Allergy status to other drugs, medicaments and biological substances; Z87.891 Personal history of nicotine dependence; Z82.49 Family history of ischemic heart disease and other diseases of the circulatory system; Z79.890 Hormone replacement therapy; Z79.84 Long term (current) use of oral hypoglycemic drugs; Z79.82 Long term (current) use of aspirin; Z91.048 Other nonmedicinal substance allergy status
CPT/HCPCS: 36556; 51702; 71045; 72195; 80048; 80053; 81003; 81015; 82962; 83605; 83735; 84100; 84484; 85025; 85027; 85384; 85610; 85730; 86022; 86850; 86900; 86901; 86920; 87040; 87070; 87077; 87086; 87186; 87205; 87502; 87811; 92526; 92610; 93005; 93306; 93971; 96365; 96366; 96367; 96375; 99291; P9016